=== PATIENT | male | born 1955 | race Caucasian/White ===

== ENCOUNTER 2019-05-13 10:38 | Emergency (ER) | payer OTHER ==
[2019-05-13 11:20] LABS: Absolute Lymphocytes (CBC) 2.5 K/uL (0.7-4.9); Basophils % 0.9 % (0-1.3); Hematocrit 46.4 % (39.6-49.0); Lymphocytes % 24.8 % (15.3-44.8)
[2019-05-13 11:31] LABS: Potassium 3.7 mmol/L (3.5-5.1)
[2019-05-13 11:33] LABS: Protime INR 0.93
--- NOTE | 2019-05-13 11:37 | RAD REPORT ---
EXAM DESCRIPTION: CT - Ct Stroke Brain Wo Cont - 05/13/2019 11:25 am CLINICAL HISTORY: Left facial droop/slurred speech COMPARISON: None TECHNIQUE: Computed axial tomography of the head was obtained. All CT scans are performed using dose optimization technique as appropriate and may include automated exposure control or mA/KV adjustment according to patient size. FINDINGS: An intracranial bleed is not seen . The ventricles are normal in caliber. No extra-axial fluid collection is noted. Small calcification adjacent to the right aspect of the fourth ventricle likely not significant Fluid within the sinuses/ mastoids is not seen. IMPRESSION: No acute intracranial abnormality is seen. If patient's symptoms persist MRI of the bra in would be recommended. Junction of the emergency room was notified at 11:30 a.m. May 13, 2019
--- NOTE | 2019-05-13 12:00 | RAD REPORT ---
EXAM DESCRIPTION: RAD - Chest Single View - 05/13/2019 11:47 am CLINICAL HISTORY: left facial droop Chest pain. COMPARISON: Chest Single View dated 03/24/2016; CHEST SINGLE VIEW dated 06/18/2015; CHEST SINGLE VIEW dated 10/07/2014; CHEST SINGLE VIEW dated 10/06/2014; Ct Stroke Brain Wo Cont dated 05/13/2019 FINDINGS: Portable technique limits examination quality. The lungs are grossly clear. The heart is normal in size. No displaced fractures. IMPRESSION: No acute intrathoracic process suspected.
--- NOTE | 2019-05-13 12:33 | EKG ---
Test Date: 2019-05-13 Test Time: 11:37:27 Doughnut Icer: SAE MEASUREMENT RESULTS: Intervals: Rate: 69 SD: 140 QRSD: 74 QT: 386 QTc: 413 Hobson: P: 41 SD: 140 QRS: 39 T: 66 INTERPRETIVE STATEMENTS: Normal sinus rhythm Normal ECG Compared to ECG 02/17/2017 09:11:01 No significant changes Electronically Signed On 05-13-19 12:32:33 CDT by Segundo Baugh
--- NOTE | 2019-05-13 13:18 | RAD REPORT ---
EXAM DESCRIPTION: MRI - Brain W/Wo Cont - 05/13/2019 1:11 pm CLINICAL HISTORY: Slurred speech/left facial droop COMPARISON: May 13, [address] TECHNIQUE: Axial, sagittal, and coronal magnetic images of the brain were obtained. 20 cc MultiHance administered intravenously FINDINGS: No significant abnormal signal within the brain The ventricles are normal in caliber. Diffusion-weighted/ ADC mapping sequences do not demonstrate evidence of an acute infarction. No abnormal enhancement within the brain is seen. An extra-axial fluid collection is not noted. Fluid within the sinuses/mastoids is not seen IMPRESSION: No acute abnormality displayed
--- NOTE | 2019-05-13 13:19 | RAD REPORT ---
EXAM DESCRIPTION: MRI - MRA Head Wo Cont - 05/13/2019 1:11 pm CLINICAL HISTORY: Slurred speech/left facial droop COMPARISON: None. TECHNIQUE: Magnetic resonance angiogram was performed. 3D MIPS reconstruction performed FINDINGS: The anterior cerebral, middle cerebral, posterior cerebral, distal internal carotid and ba silar arteries do not demonstrate a significant stenosis. origin right posterior cerebral artery An aneurysm is not displayed. IMPRESSION: Unremarkable MRA brain.
--- NOTE | 2019-05-13 13:23 | RAD REPORT ---
EXAM DESCRIPTION: MRI - MRA Neck W/Wo Cont - 05/13/2019 1:11 pm CLINICAL HISTORY: Slurred speech/left facial droop COMPARISON: None. TECHNIQUE: Magnetic resonance angiogram of the neck was performed. Twenty cc MultiHance was administ ered intravenously. 3D MIPS reconstruction performed FINDINGS: The signal within the arteries is suboptimal secondary to technical factors. . No gross abnormality of the common carotid, internal carotid, external carotid, basilar and vertebral arteries The right vertebral artery is dominant. Portions of the proximal vertebral arteries are not included in the field of view and are not evaluated. . IMPRESSION: Grossly normal MRA neck NASCET criteria used. Mild 0-49% stenosis Moderate 50-69% stenosis Severe 70-99% stenosis
--- NOTE | 2019-05-13 13:47 | EDPHYS ---
Physician Documentation [facility] Name: Surinder Hi Age: 63 yrs Sex: Male : 1955 Arrival Date: 05/13/2019 Time: 10:39 Bed 16 Private MD: ED Physician Henry Marquez HPI: 05/13 13:08 This 63 yrs old Male presents to ER via Ambulatory with complaints of rn Weakness left face. 13:08 The patient's problem is reported as a facial droop, on left. Onset: The rn symptoms/episode began/occurred 2 day(s) ago. Duration: The episode is continuous. Context: the episode(s) was witnessed, by co-worker(s), occurred at an unknown location. The symptoms are alleviated by nothing. The symptoms are aggravated by nothing. Severity of symptoms: At their worst the symptoms were mild in the emergency department the symptoms are unchanged. The patient has not experienced similar symptoms in the past. Reports 2 days ago boss noticed left facial droop, reports got dizzy, did not pass out, no trauma. Has had heart attack in past but no stroke, on blood thinner. Reports left facial droop, feels thing coming out of left mouth, also feels left eye a little weak/spasm. Reports numbness to left face as well. Initially reported to triage slurred speech, but when asked to be specific, denies change in speech clarity or dona, just feels like has to think more before speaking. No vision changes. No extremity weakness or paresthesias. Reports never went away or got better, boss made him come today. . 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 - Social history:: Smoking status: Patient uses tobacco products, smokes one-half pack cigarettes per day. - Ebola Screening: : No symptoms or risks identified at this time. - Family history:: not pertinent. - Hospitalizations: : No recent hospitalization is reported. ROS: 13:08 Constitutional: Negative for fever, chills, and weight loss, Eyes: Negative for injury, rn pain, redness, and discharge, Neck: Negative for injury, pain, and swelling, Cardiovascular: Negative for chest pain, palpitations, and edema, Respiratory: Negative for shortness of breath, cough, wheezing, and pleuritic chest pain, Abdomen/GI: Negative for abdominal pain, nausea, vomiting, diarrhea, and constipation, MS/Extremity: Negative for injury and deformity, Skin: Negative for injury, rash, and discoloration, Neuro: Negative for headache, and seizure. Exam: 13:08 Radiologist reports: No acute findings. rn 13:08 Constitutional: This is a well developed, well nourished patient who is awake, alert, and in no acute distress. Head/Face: Normocephalic, atraumatic. Eyes: Pupils equal round and reactive to light, extra-ocular motions intact. Lids and lashes normal. Conjunctiva and sclera are non-icteric and not injected. Cornea within normal limits. Periorbital areas with no swelling, redness, or edema. ENT: Mucous membranes moist. Cardiovascular: Regular rate and rhythm. No pulse deficits. Respiratory: No increased work of breathing, no retractions or nasal flaring. Abdomen/GI: soft, non-tender MS/ Extremity: Pulses equal, no cyanosis. Neurovascular intact. Full, normal range of motion. Equal circumference. Neuro: Awake and alert, GCS 15, oriented to person, place, time, and situation. + left mild facial droop more evident left lower face, but seems slight to left eye as well. Motor strength 5/5 in all extremities. Sensory grossly intact in extremities, decreased sensation to soft touch left face. Cerebellar exam normal. Normal gait. Vital Signs: 10:53 BP 144 / 74; Pulse 80; Resp 16; Temp 98.4; Pulse Ox 100% on R/A; Weight 89.36 kg; la1 Height 5 ft. 8 in. (172.72 cm); 11:42 BP 129 / 76; Pulse 69; Resp 19 S; Pulse Ox 95% on R/A; ca1 14:10 BP 131 / 71; Pulse 72; Resp 16 S; Pulse Ox 100% on R/A; ca1 10:53 Body Mass Index 29.95 (89.36 kg, 172.72 cm) la1 NIH Stroke Scale Scores: 11:21 NIHSS Score: 2 ca1 MDM: 10:54 Patient medically screened. rn 13:43 Differential diagnosis: CVA, metabolic disorder, bells palsy. Data reviewed: vital rn signs, nurses notes, lab test result(s), EKG, radiologic studies, CT scan, MRI, and as a result, I will discharge patient. Counseling: I had a detailed discussion with the patient and/or guardian regarding: the historical points, exam findings, and any diagnostic results supporting the discharge/admit diagnosis, lab results, radiology results, the need for outpatient follow up, to return to the emergency department if symptoms worsen or persist or if there are any questions or concerns that arise at home. Response to treatment: There is no appreciated change of the patient's symptoms at this time. Special discussion: I discussed with the patient/guardian in detail that at this point there is no indication for admission to the hospital. It is understood, however, that if the symptoms persist or worsen the patient needs to return immediately for re-evaluation. Based on the history and exam findings, there is no indication for further emergent testing or inpatient evaluation. I discussed with the patient/guardian the need to see the neurologist for further evaluation of the symptoms. ED course: No acute findings on CT head or MRI stroke protocol, given symptoms isolated to left face, could be neuropathy or bells palsy. . 05/13 11:08 Order name: Basic Metabolic Panel; Complete Time: 12:48 rn 05/13 11:08 Order name: CBC with Diff; Complete Time: 12:48 rn 05/13 11:08 Order name: Protime (+inr); Complete Time: 12:48 rn 05/13 11:08 Order name: Ptt, Activated; Complete Time: 12:48 rn 05/13 11:08 Order name: CT Stroke Brain w/o Contrast; Complete Time: 12:48 rn 05/13 11:31 Order name: Glucose, Ancillary Testing EDCO 05/13 11:08 Order name: Stroke CXR 1 View; Complete Time: 12:48 rn 05/13 11:08 Order name: EKG; Complete Time: 11:09 rn 05/13 11:08 Order name: Accucheck; Complete Time: 11:22 rn 05/13 11:08 Order name: Cardiac monitoring; Complete Time: 11:10 rn 05/13 11:37 Order name: MRA Head Wo Cont; Complete Time: 13:36 EDMS 05/13 11:37 Order name: Brain W/Wo Cont; Complete Time: 13:36 EDCO 05/13 11:37 Order name: MRA Neck W/Wo Cont; Complete Time: 13:36 EDMS 05/13 11:08 Order name: EKG - Nurse/Tech; Complete Time: 11: rn 05/13 11:08 Order name: IV Saline Lock; Complete Time: 11: rn 05/13 11:08 Order name: Labs collected and sent; Complete Time: 11: rn 05/13 11:08 Order name: NPO; Complete Time: : rn 05/13 11:08 Order name: O2 Per Protocol; Complete Time: : rn 05/13 11:08 Order name: O2 Sat Monitoring; Complete Time: : rn 05/13 11:08 Order name: Stroke Swallow Screen; Complete Time: 11:42 rn Administered Medications: No medications were administered Disposition: 05/13/19 13:46 Discharged to Home. Impression: Facial weakness. - Condition is Stable. - Discharge Instructions: Chaudhry Palsy, Adult. - Prescriptions for Acyclovir 400 mg Oral Tablet - take 1 tablet by ORAL route 5 times per day for 10 days; 50 tablet. Prednisone 20 mg Oral Tablet - take 1 tablet by ORAL route as directed for 10 days Take 3 tablets orally daily for 5 days, followed by 2 tablets orally daily for 3 days, then 1 tablet orally daily for 2 days. Total of 10 days.; 23 tablet. - Medication Reconciliation Form, Thank You Letter, Antibiotic Education, Prescription Opioid Use, Work release form form. - Follow up: Private Physician; When: As needed; Reason: Recheck today's complaints, Re-evaluation by your physician. - Problem is new. - Symptoms have improved. NIH Stroke Scale - NIH Stroke Score Date: 05/13/2019 Time: 11:21 Total Score = 2 1a. Level of Consciousness (LOC) - 0(Alert) 1b. Level of Consciousness (LOC) (Year \T\ Age) - 0(Both) 1c. LOC Commands (Open \T\ Closes Eyes/Bag Checker) - 0(Both) 2. Best Gaze (Lateral Gaze Paresis) - 0(Normal) 3. Visual Field Loss - 0(No visual loss) 4. Facial Palsy - 1(Minor Paralysis) 5a. Left Arm: Motor (10-second hold) - 0(No drift) 5b. Right Arm: Motor (10-second hold) - 0(No drift) 6a. Left Leg: Motor (5-second hold - always test supine) - 0(No drift) 6b. Right Leg: Motor (5-second hold - always test supine) - 0(No drift) 7. Limb Ataxia (finger/nose \T\ heel/white - test with eyes open) - 0(Absent) 8. Sensory Loss (pinprick arms/legs/face) - 0(Normal) 9. Best Language: Aphasia (description/naming/reading) - 0(No aphasia) 10. Dysarthria (speech clarity - read or repeat words) - 1(Mild to Moderate) 11. Extinction and Inattention (visual/tactile/auditory/spatial/personal) - 0(No abnormality) Initials: ca1 Signatures: Dispatcher [employer] EDMS Henry Marquez MD MD rn Attema, HARSHAL Murrieta RN la1 Vani Simon RN RN ca1 Corrections: (The following items were deleted from the chart) 11:37 11:10 MR STROKE PROTOCOL+MRI.RAD.BRZ ordered. [facility] 14:11 13:46 05/13/2019 13:46 Discharged to Home. Impression: Facial weakness. ca1 Condition is Stable. Forms are Medication Reconciliation Form, Thank You Letter, Antibiotic Education, Prescription Opioid Use. Follow up: Private Physician; When: As needed; Reason: Recheck today's complaints, Re-evaluation by your physician. Problem is new. Symptoms have improved. rn
--- NOTE | 2019-05-13 13:47 | ER ---
Nurse's Notes [facility] Name: Surinder Hi Age: 63 yrs Sex: Male : 1955 Arrival Date: 05/13/2019 Time: 10:39 Bed 16 Private MD: Diagnosis: Facial weakness Presentation: 05/13 10:46 Presenting complaint: Patient states: On Thursday I was at work and started to have la1 slurred speech and almost passed out, now stuff is dripping out of the left side of my mouth and my speech is slurred still. Transition of care: patient was not received from another setting of care. Onset of symptoms was May 10, 2019. Risk Assessment: Do you want to hurt yourself or someone else? Patient reports no desire to harm self or others. Initial Sepsis Screen: Does the patient meet any 2 criteria? No. Patient's initial sepsis screen is negative. Does the patient have a suspected source of infection? No. Patient's initial sepsis screen is negative. Care prior to arrival: None. 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 - Social history:: Smoking status: Patient uses tobacco products, smokes one-half pack cigarettes per day. - Ebola Screening: : No symptoms or risks identified at this time. - Family history:: not pertinent. - Hospitalizations: : No recent hospitalization is reported. Screenin:16 Abuse screen: Denies threats or abuse. Denies injuries from another. Nutritional ca1 screening: No deficits noted. Tuberculosis screening: No symptoms or risk factors identified. Fall Risk IV access (20 points). 11:42 Patient has been NPO before screening. The patient is alert, able to follow commands. ca1 The patient exhibits slurred or garbled speech. The patient is not exhibiting difficulty speaking. The patient does not exhibit difficulty understanding words. The patient is able to swallow own secretions with no drooling or need for suction. Patient tolerated one teaspoon of water. No drooling, immediate coughing, gurgling, or clearing of the throat was noted. The patient tolerated 90mL of water. No drooling, immediate coughing, gurgling, or clearing of the throat was noted. The patient passed the bedside swallow screening. Oral medications may be given as ordered. Contact Physician for further diet orders. Assessment: 11:16 General: Appears in no apparent distress. comfortable, Behavior is calm, cooperative, ca1 appropriate for age. Pain: Denies pain. Neuro: Level of Consciousness is awake, alert, obeys commands, Oriented to person, place, time, situation, Appropriate for age Riprap Worker are equal bilaterally Moves all extremities. Gait is steady, Speech is slurred, Facial symmetry appears normal, Pupils are PERRLA, Intact. Cardiovascular: Heart tones S1 S2 present Capillary refill < 3 seconds Patient's skin is warm and dry. Rhythm is sinus rhythm. Respiratory: Airway is patent Respiratory effort is even, unlabored, Respiratory pattern is regular, symmetrical, Breath sounds are clear bilaterally. GI: Abdomen is flat, non-distended, Bowel sounds present X 4 quads. Abd is soft and non tender X 4 quads. : No deficits noted. No signs and/or symptoms were reported regarding the genitourinary system. EENT: No deficits noted. No signs and/or symptoms were reported regarding the EENT system. Derm: Skin is intact, is healthy with good turgor, Skin is pink, warm \T\ dry. Musculoskeletal: Circulation, motion, and sensation intact. Capillary refill < 3 seconds, Range of motion: intact in all extremities. 13:10 Reassessment: Patient appears in no apparent distress at this time. Patient and/or ca1 family updated on plan of care and expected duration. Pain level reassessed. Patient is alert, oriented x 3, equal unlabored respirations, skin warm/dry/pink. 14:10 Reassessment: Patient appears in no apparent distress at this time. Patient is alert, ca1 oriented x 3, equal unlabored respirations, skin warm/dry/pink. Vital Signs: 10:53 BP 144 / 74; Pulse 80; Resp 16; Temp 98.4; Pulse Ox 100% on R/A; Weight 89.36 kg; la1 Height 5 ft. 8 in. (172.72 cm); 11:42 BP 129 / 76; Pulse 69; Resp 19 S; Pulse Ox 95% on R/A; ca1 14:10 BP 131 / 71; Pulse 72; Resp 16 S; Pulse Ox 100% on R/A; ca1 10:53 Body Mass Index 29.95 (89.36 kg, 172.72 cm) la1 NIH Stroke Scale Scores: 11:21 NIHSS Score: 2 ca1 ED Course: 10:39 Patient arrived in ED. as 10:52 Triage completed. la1 10:53 Arm band placed on right wrist. la1 10:54 Henry Marquez MD is Attending Physician. rn 10:54 Vani Simon RN is Primary Nurse. ca1 11:11 No provider procedures requiring assistance completed. Initial lab(s) drawn, by me, ca1 sent to lab. Inserted saline lock: 20 gauge in left antecubital area, using aseptic technique. Blood collected. 11:16 Patient has correct armband on for positive identification. Bed in low position. Call ca1 light in reach. Side rails up X2. cardiac monitor technician on. Pulse ox on. NIBP on. Warm blanket given. 11:23 CT completed. Patient tolerated procedure well. Patient moved to CT via stretcher. sw Patient moved back from CT. 11:25 CT Stroke Brain w/o Contrast In Process Unspecified. EDMS 11:47 EKG done, by biomedical repair technician. reviewed by Henry Marquez MD. at1 11:48 Stroke CXR 1 View In Process Unspecified. EDMS 11:50 Patient moved to MRI via wheelchair. ca1 13:11 MRA Head Wo Cont In Process Unspecified. EDMS 13:11 Brain W/Wo Cont In Process Unspecified. EDMS 13:11 MRA Neck W/Wo Cont In Process Unspecified. EDMS 14:10 IV discontinued, intact, bleeding controlled, No redness/swelling at site. Pressure ca1 dressing applied. Administered Medications: No medications were administered Outcome: 13:46 Discharge ordered by . rn 14:10 Discharged to home ambulatory. ca1 14:10 Condition: stable 14:10 Discharge instructions given to patient, Instructed on discharge instructions, follow up and referral plans. medication usage, Demonstrated understanding of instructions, follow-up care, medications, Prescriptions given X 2. 14:11 Patient left the ED. ca1 NIH Stroke Scale - NIH Stroke Score Date: 05/13/2019 Time: 11:21 Total Score = 2 1a. Level of Consciousness (LOC) - 0(Alert) 1b. Level of Consciousness (LOC) (Year \T\ Age) - 0(Both) 1c. LOC Commands (Open \T\ Closes Eyes/Biazzi Nitrator Operator) - 0(Both) 2. Best Gaze (Lateral Gaze Paresis) - 0(Normal) 3. Visual Field Loss - 0(No visual loss) 4. Facial Palsy - 1(Minor Paralysis) 5a. Left Arm: Motor (10-second hold) - 0(No drift) 5b. Right Arm: Motor (10-second hold) - 0(No drift) 6a. Left Leg: Motor (5-second hold - always test supine) - 0(No drift) 6b. Right Leg: Motor (5-second hold - always test supine) - 0(No drift) 7. Limb Ataxia (finger/nose \T\ heel/white - test with eyes open) - 0(Absent) 8. Sensory Loss (pinprick arms/legs/face) - 0(Normal) 9. Best Language: Aphasia (description/naming/reading) - 0(No aphasia) 10. Dysarthria (speech clarity - read or repeat words) - 1(Mild to Moderate) 11. Extinction and Inattention (visual/tactile/auditory/spatial/personal) - 0(No abnormality) Initials: ca1 Signatures: Dispatcher [employer] No Fierro Roman, MD MD rn Gonzales, Amanda, commissary steward EKG Tat1 Lit Bhatti RN RN rosa elena1 Daria Sykes Cheryl, RN RN ca1
[2019-05-13 14:15] VITALS: TEMP 98.4
[2019-05-13 14:19] VITALS: BP 131/71; O2SAT 100
== END 2019-05-13 14:11 | disposition home or self-care (01) ==
LOC: ER 10:38
DX: R29.810 Facial weakness (principal); Z88.0 Allergy status to penicillin; I25.2 Old myocardial infarction; F17.210 Nicotine dependence, cigarettes, uncomplicated
CPT/HCPCS: 93005; 85025; 80048; 36415; 85610; 82947; 85730; 70450; 71045; 70553; 70544; 70549; 99285; A9577

== ENCOUNTER 2019-08-11 05:26 | Emergency (ER) | payer BC, OTHER ==
--- OUTSIDE RECORDS SUMMARY | 2019-08-11 05:29 | XMS REPORT ---
:1955 [facility] Address [address] [place] [address] Dr. Turcios [address] [place] [id number] Care Team Providers Name Role Phone Unavailable Unavailable Unavailable Problems This patient has no known problems. Allergies, Adverse Reactions, Alerts This patient has no known allergies or adverse reactions. Medications This patient has no known medications.
[2019-08-11 05:58] LABS: Absolute Lymphocytes (CBC) 3.3 K/uL (0.7-4.9); Basophils % 0.2 % (0-1.3); Hematocrit 53.3 % (39.6-49.0); Lymphocytes % 26.6 % (15.3-44.8); MPV 8.1 fL (7.6-11.3); RBC Red Blood Cell Count 5.89 M/uL (4.33-5.43)
[2019-08-11 06:04] LABS: Protime INR 0.89
[2019-08-11] MEDS ORDERED: ASPIRIN 81 MG CHEWABLE TABLET ONE (06:18)
[2019-08-11] MEDS ORDERED: SIMETHICONE 80 MG TAB ONE (06:19)
[2019-08-11] MEDS ORDERED: NA CHLORIDE 0.9% 500 ML ONE (06:19)
[2019-08-11] MEDS ORDERED: ALBUTEROL 2.5 MG/3 ML NEB SOL ONE (06:19)
[2019-08-11 06:20] LABS: ALT/SGPT 23 U/L (12-78); AST/SGOT 13 U/L (15-37); Albumin 3.9 g/dL (3.4-5.0); Alkaline Phosphatase 163 U/L (45-117); BUN Blood Urea Nitrogen 18 mg/dL (7-18); Bicarbonate 27 mmol/L (21-32); Bilirubin Direct 0.1 mg/dL (0-0.2); Bilirubin Total 0.4 mg/dL (0.2-1.0); Glucose Level 124 mg/dL (74-106); Magnesium 2.1 mg/dL (1.8-2.4); NT PRO-BNP 76 pg/mL (<125); Potassium 3.3 mmol/L (3.5-5.1); Protein, Total 7.9 g/dL (6.4-8.2); Sodium Level 138 mmol/L (136-145); Troponin (Emerg Dept Use Only) < 0.02 ng/mL (0.0-0.045)
--- NOTE | 2019-08-11 06:43 | EKG ---
Test Date: 2019-08-11 Test Time: 05:40:15 Inside Upholsterer: NOLVIA MEASUREMENT RESULTS: Intervals: Rate: 62 MN: 164 QRSD: 74 QT: 408 QTc: 414 Plessis: P: 64 MN: 164 QRS: 41 T: 66 INTERPRETIVE STATEMENTS: Normal sinus rhythm Normal ECG Compared to ECG 05/13/2019 11:37:27 No significant changes Electronically Signed On 08-11-19 06:42:48 DRAFTER CIVIL (CAD) by Segundo Baugh
[2019-08-11] MEDS ORDERED: SUCRALFATE 1 GM TABLET ONE (07:03)
--- NOTE | 2019-08-11 07:37 | EDPHYS ---
Physician Documentation [facility] Name: Surinder Hi Age: 63 yrs Sex: Male : 1955 Arrival Date: 08/11/2019 Time: 05:29 Bed 2 Private MD: ED Physician Armin Brenner HPI: 08/11 06:35 This 63 yrs old Male presents to ER via Ambulatory with complaints of Chest snw Pain, Redness of Eye. 06:35 Onset: The symptoms/episode began/occurred gradually, 3 day(s) ago, and became snw persistent. Associated signs and symptoms: Pertinent positives: chest pain, cough, eye irritation. The patient has not experienced similar symptoms in the past. The patient has not recently seen a physician. pt states he has had some nausea, cough, eye redness, and chest/epigastric pain since Thursday08/09/19. 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 - Coronavirus screen:: The patient has NOT traveled to [place], [place], or [place] in the past 14 days. Proceed with normal triage process as indicated. - Social history:: Smoking status: Patient reports the use of cigarette tobacco products, smokes one-half pack cigarettes per day. - Ebola Screening: : No symptoms or risks identified at this time. ROS: 06:35 Constitutional: Negative for fever, chills, and weight loss. snw 06:35 Neck: Negative for injury, pain, and swelling. 06:35 Back: Negative for injury and pain, : Negative for injury, bleeding, discharge, and swelling, MS/Extremity: Negative for injury and deformity, Skin: Negative for injury, rash, and discoloration, Neuro: Negative for headache, weakness, numbness, tingling, and seizure. 06:35 Eyes: Positive for redness. 06:35 Cardiovascular: Positive for chest pain, of the xyphoid area. 06:35 Respiratory: Positive for cough. 06:35 Abdomen/GI: Positive for nausea, Negative for vomiting. Exam: 06:00 ECG was reviewed by the Attending Physician. snw 06:38 Constitutional: This is a well developed, well nourished patient who is awake, alert, snw and in no acute distress. Head/Face: Normocephalic, atraumatic. 06:38 ENT: Nares patent. No nasal discharge, no septal abnormalities noted. Tympanic membranes are normal and external auditory canals are clear. Oropharynx with no redness, swelling, or masses, exudates, or evidence of obstruction, uvula midline. Mucous membranes moist. Neck: Trachea midline, no thyromegaly or masses palpated, and no cervical lymphadenopathy. Supple, full range of motion without nuchal rigidity, or vertebral point tenderness. No Meningismus. Chest/axilla: Normal chest wall appearance and motion. Nontender with no deformity. No lesions are appreciated. Cardiovascular: Regular rate and rhythm with a normal S1 and S2. No gallops, murmurs, or rubs. Normal PMI, no JVD. No pulse deficits. Respiratory: Lungs have equal breath sounds bilaterally, rhonci to auscultation. No rales or wheezes noted. No increased work of breathing, no retractions or nasal flaring. Abdomen/GI: Soft, non-tender, with normal bowel sounds. No distension or tympany. No guarding or rebound. No evidence of tenderness throughout. Back: No spinal tenderness. No costovertebral tenderness. Full range of motion. Skin: Warm, dry with normal turgor. Normal color with no rashes, no lesions, and no evidence of cellulitis. MS/ Extremity: Pulses equal, no cyanosis. Neurovascular intact. Full, normal range of motion. Neuro: Awake and alert, GCS 15, oriented to person, place, time, and situation. Cranial nerves II-XII grossly intact. Motor strength 5/5 in all extremities. Sensory grossly intact. Cerebellar exam normal. Normal gait. Psych: Awake, alert, with orientation to person, place and time. Behavior, mood, and affect are within normal limits. 06:38 Eyes: Conjunctiva: injected, bilaterally, minimally. Vital Signs: 05:45 BP 161 / 94; Pulse 64; Resp 16 S; Temp 97.8(O); Pulse Ox 98% on R/A; Weight 90.72 kg bb (R); Height 5 ft. 7 in. (170.18 cm) (R); Pain 6/10; 07:30 BP 133 / 79; Pulse 67; Resp 18; Temp 98.0; Pulse Ox 99% on R/A; Pain 2/10; ph 05:45 Body Mass Index 31.32 (90.72 kg, 170.18 cm) bb MDM: 05:56 Patient medically screened. snw 07:39 Data reviewed: vital signs, nurses notes. Data interpreted: Pulse oximetry: on room air snw is 98 %. Interpretation: normal. Counseling: I had a detailed discussion with the patient and/or guardian regarding: the historical points, exam findings, and any diagnostic results supporting the discharge/admit diagnosis, the presence of at least one elevated blood pressure reading (>120/80) during this emergency department visit, lab results, radiology results, the need for outpatient follow up, to return to the emergency department if symptoms worsen or persist or if there are any questions or concerns that arise at home, smoking cessation. Response to treatment: the patient's symptoms have markedly improved after treatment, the patient's symptoms have resolved after treatment. Special discussion: Based on the patient's history, exam, and Dx evaluation, there is no indication for emergent intervention or inpatient Tx. It is understood by the patient/guardian that if the Sx's persist or worsen they need to return immediately for re-evaluation. Based on the history and exam findings, there is no indication for further emergent testing or inpatient evaluation. I discussed with the patient/guardian the need to see the primary care provider for further evaluation of the symptoms. 08/11 05:35 Order name: Basic Metabolic Panel; Complete Time: 06:32 4 08/11 05:35 Order name: CBC with Diff; Complete Time: 06:11 tw4 08/11 05:35 Order name: LFT's; Complete Time: 06:32 4 08/11 05:35 Order name: Magnesium; Complete Time: 06:32 08/11 05:35 Order name: NT PRO-BNP; Complete Time: 06:32 08/11 05:35 Order name: PT-INR; Complete Time: 06:32 08/11 05:35 Order name: Troponin (emerg Dept Use Only); Complete Time: 06:32 08/11 05:35 Order name: XRAY Chest (1 view) 08/11 06:03 Order name: Lipase; Complete Time: 06:50 snw 08/11 05:35 Order name: EKG; Complete Time: 05:38 08/11 05:35 Order name: Cardiac monitoring; Complete Time: 05:44 08/11 05:35 Order name: EKG - Nurse/Tech; Complete Time: 05:44 08/11 05:35 Order name: IV Saline Lock; Complete Time: 05:44 08/11 05:35 Order name: Labs collected and sent; Complete Time: 05:45 08/11 05:35 Order name: O2 Per Protocol; Complete Time: 06:13 08/11 05:35 Order name: O2 Sat Monitoring; Complete Time: 06:13 Administered Medications: 06:24 Drug: Simethicone 240 mg Route: PO; ao 06:24 Drug: Albuterol 2.5 mg Route: Inhalation; ao 06:24 Not Given (Patient Refused): Aspirin 81 mg PO once ao 06:24 Drug: NS 0.9% 500 ml Route: IV; Rate: bolus; Site: right antecubital; ao 07:03 Drug: CarafATE 1 grams Route: PO; rv Disposition: 11:22 Co-signature as Attending Physician, Armin Brenner MD I agree with the assessment and plan of care. Disposition: 08/11/19 07:37 Discharged to Home. Impression: Chronic obstructive pulmonary disease, unspecified, Gastro-esophageal reflux disease, Chest pain, unspecified. - Condition is Stable. - Discharge Instructions: Nonspecific Chest Pain, Chronic Obstructive Pulmonary Disease, Gastroesophageal Reflux Disease, Adult, Hypertension, Steps to Quit Smoking, Smoking Hazards, Rehydration, Adult. - Prescriptions for Carafate 1 gram Oral Tablet - take 2 tablet by ORAL route every 12 hours take on an empty stomach, beginning on waking and last dose at bedtime; 100 tablet. - Work release form, Medication Reconciliation Form, Thank You Letter, Antibiotic Education, Prescription Opioid Use form. - Follow up: Emergency Department; When: As needed; Reason: Worsening of condition. Follow up: Private Physician; When: 2 - 3 days; Reason: Recheck today's complaints, Continuance of care, Re-evaluation by your physician. - Notes: Please take GasX as directed as needed for pressure. Signatures: Dispatcher [employer] EDMS Dee Olea, GEMINI-C BENCH MANAGER-Csnw Delicia Andino, RN RN bb Martha Santamaria RN RN Gregg Sosa, RN RN Armin Ramírez MD MD tw4 Hiro Ramirez RN RN rv Corrections: (The following items were deleted from the chart) 08:06 07:37 08/11/2019 07:37 Discharged to Home. Impression: Chronic obstructive pulmonary ph disease, unspecified; Gastro-esophageal reflux disease; Chest pain, unspecified. Condition is Stable. Forms are Medication Reconciliation Form, Thank You Letter, Antibiotic Education, Prescription Opioid Use. Follow up: Emergency Department; When: As needed; Reason: Worsening of condition. Follow up: Private Physician; When: 2 - 3 days; Reason: Recheck today's complaints, Continuance of care, Re-evaluation by your physician. snw
--- NOTE | 2019-08-11 07:37 | ER ---
Nurse's Notes [facility] Name: Surinder Hi Age: 63 yrs Sex: Male : 1955 Arrival Date: 08/11/2019 Time: 05:29 Bed 2 Private MD: Diagnosis: Chronic obstructive pulmonary disease, unspecified;Gastro-esophageal reflux disease;Chest pain, unspecified Presentation: 08/11 05:42 Presenting complaint: Patient states: he is having epigastric pain since Thursday the bb pain is intermittent and he has SOB at times pt has hx of [place] with stents and was concerned. Transition of care: patient was not received from another setting of care. Onset of symptoms was August 09, 2019. Risk Assessment: Do you want to hurt yourself or someone else? Patient reports no desire to harm self or others. Initial Sepsis Screen: Does the patient meet any 2 criteria? No. Patient's initial sepsis screen is negative. Does the patient have a suspected source of infection? No. Patient's initial sepsis screen is negative. Care prior to arrival: None. 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 - Coronavirus screen:: The patient has NOT traveled to [place], [place], or [place] in the past 14 days. Proceed with normal triage process as indicated. - Social history:: Smoking status: Patient reports the use of cigarette tobacco products, smokes one-half pack cigarettes per day. - Ebola Screening: : No symptoms or risks identified at this time. Screenin:26 Abuse screen: Denies threats or abuse. Denies injuries from another. Nutritional ao screening: No deficits noted. Tuberculosis screening: No symptoms or risk factors identified. Fall Risk None identified. Assessment: 05:47 General: Appears in no apparent distress. comfortable, Behavior is calm, cooperative, ao appropriate for age. Pain: Complains of pain in chest Pain does not radiate. Pain began. Neuro: Level of Consciousness is awake, alert, obeys commands, Oriented to person, place, time, situation, Appropriate for age Moves all extremities. Full function Speech is normal. Cardiovascular: Capillary refill < 3 seconds Patient's skin is warm and dry. Respiratory: Airway is patent Respiratory effort is even, unlabored, Respiratory pattern is regular, symmetrical. GI: Abdomen is non-distended. : No signs and/or symptoms were reported regarding the genitourinary system. 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 Lefty SINGLETARY was notified. ao 08:02 Reassessment: Patient appears in no apparent distress at this time. Patient and/or ph family updated on plan of care and expected duration. Pain level reassessed. Patient is alert, oriented x 3, equal unlabored respirations, skin warm/dry/pink. Pt d/c home. Vital Signs: 05:45 BP 161 / 94; Pulse 64; Resp 16 S; Temp 97.8(O); Pulse Ox 98% on R/A; Weight 90.72 kg bb (R); Height 5 ft. 7 in. (170.18 cm) (R); Pain 6/10; 07:30 BP 133 / 79; Pulse 67; Resp 18; Temp 98.0; Pulse Ox 99% on R/A; Pain 2/10; ph 05:45 Body Mass Index 31.32 (90.72 kg, 170.18 cm) bb ED Course: 05:29 Patient arrived in ED. ag3 05:43 Triage completed. bb 05:45 Arm band placed on Patient placed in an exam room, on a stretcher, on pulse oximetry. bb EKG completed in triage. Results shown to MD. 05:55 Dee Ole[facility] FNP-C [facility]. snw 05:55 Armin Brenner MD is Attending Physician. snw 06:04 XRAY Chest (1 view) In Process Unspecified. EDMS 06:05 Inserted saline lock: 20 gauge in right antecubital area, using aseptic technique. ao Blood collected. 06:26 Patient has correct armband on for positive identification. Pulse ox on. NIBP on. ao Sitter at bedside. 06:27 Patient maintains SpO2 saturation greater than 95% on room air. ao 08:02 Martha Santamaria, RN is Primary Nurse. ph 08:04 No provider procedures requiring assistance completed. IV discontinued, intact, ph bleeding controlled, No redness/swelling at site. Pressure dressing applied. Administered Medications: 06:24 Drug: Simethicone 240 mg Route: PO; ao 06:24 Drug: Albuterol 2.5 mg Route: Inhalation; ao 06:24 Not Given (Patient Refused): Aspirin 81 mg PO once ao 06:24 Drug: NS 0.9% 500 ml Route: IV; Rate: bolus; Site: right antecubital; ao 07:03 Drug: CarafATE 1 grams Route: PO; rv Outcome: 07:37 Discharge ordered by MD. snw 08:05 Discharged to home ambulatory. ph 08:05 Condition: good 08:05 Discharge instructions given to patient, Instructed on discharge instructions, follow up and referral plans. medication usage, Demonstrated understanding of instructions, follow-up care, medications. 08:05 Prescriptions given X 1. 08:06 Patient left the ED. ph Signatures: Dispatcher [employer] EDPA Dee Olea, SUPERVISOR [employer]STRUMENT MECHANICS-C SUPERVISOR INSTRUMENT MECHANICS-Csnw Delicia Andino RN RN bb Hall, Patricia, HARSHAL CAPUTO ph Gregg Sosa RN RN ao Vicente, Ronaldo RN HARSHAL Sonja Zambrano ag3
--- NOTE | 2019-08-11 08:16 | RAD REPORT ---
EXAM DESCRIPTION: Jina Single View08/11/2019 6:04 am CLINICAL HISTORY: Chest pain COMPARISON: 2018 FINDINGS: The lungs appear clear of acute infiltrate. The heart is normal size IMPRESSION: No acute abnormalities displayed
[2019-08-11 14:25] VITALS: BP 133/79; TEMP 98; O2SAT 99
== END 2019-08-11 08:06 | disposition home or self-care (01) ==
LOC: ER 05:26
DX: R07.9 Chest pain, unspecified (principal); J44.9 Chronic obstructive pulmonary disease, unspecified; K21.9 Gastro-esophageal reflux disease without esophagitis; Z88.0 Allergy status to penicillin; I10 Essential (primary) hypertension; I25.2 Old myocardial infarction; E78.00 Pure hypercholesterolemia, unspecified
CPT/HCPCS: 93005; 85025; 80048; 36415; 83735; 85610; 80076; 84484; 83690; 83880; 71045; 99285; J7040

== ENCOUNTER 2020-01-10 12:21 | Emergency (ER) | payer BC ==
--- NOTE | 2020-01-10 13:53 | RAD REPORT ---
EXAM DESCRIPTION: US - Extremity Venous Uni Ltd - 01/10/2020 1:41 pm CLINICAL HISTORY: Pain;Swelling Leg swelling and edema. COMPARISON: Extremity Venous Uni Ltd dated 05/06/2017 FINDINGS: Left lower extremity venous system was interrogated with Doppler technique. Normal flow, c ompressibility and augmentation was noted. There is no DVT present. IMPRESSION: No evidence of left lower extremity deep venous thrombosis.
--- NOTE | 2020-01-10 13:54 | RAD REPORT ---
EXAM DESCRIPTION: US - Lower Extremity Artery Uni Ltd - 01/10/2020 1:32 pm CLINICAL HISTORY: PAIN Left leg pain and claudication COMPARISON: Lower Extremity Artery Uni Ltd dated 02/17/2017 FINDINGS: There is occlusion of the superior femoral artery throughout its course including the prox imal, mid and distal aspects. Common femoral artery demonstrates monophasic flow. Blunted, monophasic flow is seen reconstitute inguinal left popliteal artery and distal vessels. This is likely related to collateral flow. IMPRESSION: Chronic occlusion left superficial femoral artery as detailed.
[2020-01-10] MEDS ORDERED: KETOROLAC 30 MG/ML INJ ONE (14:20)
--- NOTE | 2020-01-10 14:24 | ER ---
Nurse's Notes [facility] Name: Surinder Hi Age: 64 yrs Sex: Male : 1955 Arrival Date: 01/10/2020 Time: 12:25 Bed 19 Private MD: Diagnosis: Pain in left lower leg Presentation: 01/09 12:37 Chief complaint: Patient states: Left posterior knee pain for 2 weeks getting ll1 progressively worse. Left foot is swollen for 4 days. No fever. No known trauma. Coronavirus screen: Proceed with normal triage. Patient denies a cough. Patient denies shortness of breath or difficulty breathing. Patient denies measured and/or subjective temperature greater than 100.4F prior to today's visit. Patient denies travel on a cruise ship or to a country the [facility] currently lists as an affected area. Patient denies contact with known and/or suspected case of COVID-19. Ebola Screen: Patient denies travel to an Ebola-affected area in the 21 days before illness onset. Initial Sepsis Screen: Does the patient meet any 2 criteria? No. Patient's initial sepsis screen is negative. Risk Assessment: Do you want to hurt yourself or someone else? Patient reports no desire to harm self or others. Onset of symptoms was December 27, 2019. 12:37 Method Of Arrival: Ambulatory ll1 12:37 Acuity: GERSON 3 ll1 13:53 Initial Sepsis Screen: Does the patient have a suspected source of infection? No. ah Patient's initial sepsis screen is negative. 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 - Social history:: Smoking status: Patient reports the use of cigarette tobacco products, smokes one-half pack cigarettes per day, Patient/guardian denies using alcohol, street drugs. Screenin:53 Abuse screen: Denies threats or abuse. Nutritional screening: No deficits noted. Tuberculosis screening: No symptoms or risk factors identified. Fall Risk None identified. Assessment: 13:02 General: Appears in no apparent distress. Behavior is calm, cooperative, appropriate for age. Pain: Complains of pain in posterior aspect of left knee, left knee and left white Pain currently is 7 out of 10 on a pain scale. Neuro: Level of Consciousness is awake, alert, obeys commands, Oriented to person, place, time, situation, Appropriate for age. Cardiovascular: Denies chest pain, shortness of breath, Heart tones S1 S2 present Capillary refill < 3 seconds Patient's skin is warm and dry. Pulses. Respiratory: Airway is patent Respiratory effort is even, unlabored. Derm: Skin is intact, is healthy with good turgor, Skin is dry. 14:00 Reassessment: Patient and/or family updated on plan of care and expected duration. Pain ah level reassessed. Patient is alert, oriented x 3, equal unlabored respirations, skin warm/dry/pink. awaiting results. Vital Signs: 12:37 BP 147 / 90; Pulse 64; Resp 18; Temp 98.1; Pulse Ox 95% ; Pain 9/10; ll1 13:00 BP 135 / 85; Pulse 61; Resp 17; Pulse Ox 94% ; ah 13:45 BP 141 / 85; Pulse 58; Resp 16; Pulse Ox 94% ; ah ED Course: 12:25 Patient arrived in ED. mr 12:27 RobertAnnalisa, [facility]. kb 12:27 Torsten Merritt MD is Attending Physician. kb 12:39 Triage completed. ll1 12:39 Arm band placed on Patient placed in an exam room, on a stretcher. ll1 12:40 Natalie Baugh, RN is Primary Nurse. ah 13:32 US Extremity Venous Unilateral Ltd In Process Unspecified. EDMS 13:32 US LE Artery Uni Ltd In Process Unspecified. EDMS 13:53 Patient has correct armband on for positive identification. Bed in low position. Call light in reach. Side rails up X 1. Pulse ox on. NIBP on. 14:32 No provider procedures requiring assistance completed. Patient did not have IV access during this emergency room visit. Administered Medications: 14:17 Drug: TORadol 30 mg Route: IM; Site: right deltoid; 14:31 Follow up: Response: No adverse reaction Outcome: 14:23 Discharge ordered by . kb 14:32 Discharged to home ambulatory. ah 14:32 Condition: good 14:32 Discharge instructions given to patient, Instructed on discharge instructions, follow up and referral plans. medication usage, Demonstrated understanding of instructions, follow-up care, medications, Prescriptions given X 1. 14:32 Patient left the ED. Signatures: Dispatcher [employer] EDMD Annalisa Jones, GEMINI-C INVESTIGATIVE AGENT-Stephani Wilson Natalie Baugh, RN RN Danae Cruz RN RN ll1
--- NOTE | 2020-01-10 14:24 | EDPHYS ---
Physician Documentation [facility] Name: Surinder Hi Age: 64 yrs Sex: Male : 1955 Arrival Date: 01/10/2020 Time: 12:25 Bed 19 Private MD: ED Physician Torsten Merritt HPI: 01/09 14:20 This 64 yrs old Male presents to ER via Ambulatory with complaints of Leg kb Pain. 14:20 The patient presents with pain. The complaints affect the posterior aspect of left kb knee, left calf, left Achilles, left heel, left knee, left white, anterior aspect of left ankle and dorsum of left foot. Context: The problem was sustained at home, resulted from an unknown cause, the patient can fully bear weight, the patient is able to ambulate. Onset: The symptoms/episode began/occurred 2 week(s) ago. Modifying factors: The symptoms are alleviated by nothing. the symptoms are aggravated by staying still. Associated signs and symptoms: The patient has no apparent associated signs or symptoms. Treatment prior to arrival includes: no previous treatment. Severity of symptoms: At their worst the symptoms were moderate, in the emergency department the symptoms have improved. The patient has not experienced similar symptoms in the past. The patient has not recently seen a physician. Pt reports he has been having pain to left leg from knee to foot for 2-3 weeks. States the pain is ok during the day, but it wakes him up at night and he has to walk it out. Denies injury or trauma. 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 - Social history:: Smoking status: Patient reports the use of cigarette tobacco products, smokes one-half pack cigarettes per day, Patient/guardian denies using alcohol, street drugs. ROS: 14:16 Constitutional: Negative for fever, chills, and weight loss, Cardiovascular: Negative kb for chest pain, palpitations, and edema, Respiratory: Negative for shortness of breath, cough, wheezing, and pleuritic chest pain, Abdomen/GI: Negative for abdominal pain, nausea, vomiting, diarrhea, and constipation, Back: Negative for injury and pain, Skin: Negative for injury, rash, and discoloration, Neuro: Negative for headache, weakness, numbness, tingling, and seizure. 14:16 MS/extremity: Positive for pain. Exam: 14:19 Constitutional: This is a well developed, well nourished patient who is awake, alert, kb and in no acute distress. Head/Face: Normocephalic, atraumatic. Chest/axilla: Normal chest wall appearance and motion. Nontender with no deformity. No lesions are appreciated. Cardiovascular: Regular rate and rhythm with a normal S1 and S2. No gallops, murmurs, or rubs. Normal PMI, no JVD. No pulse deficits. Respiratory: Lungs have equal breath sounds bilaterally, clear to auscultation and percussion. No rales, rhonchi or wheezes noted. No increased work of breathing, no retractions or nasal flaring. Abdomen/GI: Soft, non-tender, with normal bowel sounds. No distension or tympany. No guarding or rebound. No evidence of tenderness throughout. Skin: Warm, dry with normal turgor. Normal color with no rashes, no lesions, and no evidence of cellulitis. Neuro: Awake and alert, GCS 15, oriented to person, place, time, and situation. Cranial nerves II-XII grossly intact. Motor strength 5/5 in all extremities. Sensory grossly intact. Cerebellar exam normal. Normal gait. 14:19 Musculoskeletal/extremity: Extremities: grossly normal except: noted in the left leg: pain, ROM: no acute changes, Pulses: noted to be 1+ in the left dorsalis pedis artery, Sensation intact. Vital Signs: 12:37 BP 147 / 90; Pulse 64; Resp 18; Temp 98.1; Pulse Ox 95% ; Pain 9/10; ll1 13:00 BP 135 / 85; Pulse 61; Resp 17; Pulse Ox 94% ; ah 13:45 BP 141 / 85; Pulse 58; Resp 16; Pulse Ox 94% ; ah MDM: 12:41 Patient medically screened. kb 14:16 Data reviewed: vital signs, nurses notes. Data interpreted: Pulse oximetry: on room air kb is 94 %. Interpretation: normal. Counseling: I had a detailed discussion with the patient and/or guardian regarding: the historical points, exam findings, and any diagnostic results supporting the discharge/admit diagnosis, radiology results, the need for outpatient follow up, a family practitioner, to return to the emergency department if symptoms worsen or persist or if there are any questions or concerns that arise at home. 01/09 12:42 Order name: Extremity Venous Unilateral Ltd; Complete Time: 13:54 kb 01/09 13:05 Order name: LE Artery Uni Ltd; Complete Time: 13:57 kb Administered Medications: 14:17 Drug: TORadol 30 mg Route: IM; Site: right deltoid; ah 14:31 Follow up: Response: No adverse reaction ah Disposition: 01/10 06:03 Co-signature as Attending Physician, Torsten Merritt MD I agree with the assessment and kdr plan of care. Disposition: 01/10/20 14:23 Discharged to Home. Impression: Pain in left lower leg. - Condition is Stable. - Discharge Instructions: Musculoskeletal Pain. - Prescriptions for Cyclobenzaprine 10 mg Oral Tablet - take 1 tablet by ORAL route every 8 hours As needed; 21 tablet. - Medication Reconciliation Form, Thank You Letter, Antibiotic Education, Prescription Opioid Use form. - Follow up: Emergency Department; When: As needed; Reason: Worsening of condition. Follow up: Private Physician; When: 2 - 3 days; Reason: Recheck today's complaints, Continuance of care, Re-evaluation by your physician. Signatures: Dispatcher [employer] EDAnnalisa Farley, BAKER BREAD-C BAKER BREAD-Torsten Moyer MD MD [facility] Natalie Baugh, RN RN Danae Zavaleta RN RN ll1 Corrections: (The following items were deleted from the chart) 01/09 14:32 14:23 01/10/2020 14:23 Discharged to Home. Impression: Pain in left lower leg. Condition is Stable. Forms are Medication Reconciliation Form, Thank You Letter, Antibiotic Education, Prescription Opioid Use. Follow up: Emergency Department; When: As needed; Reason: Worsening of condition. Follow up: Private Physician; When: 2 - 3 days; Reason: Recheck today's complaints, Continuance of care, Re-evaluation by your physician. kb
[2020-01-10 14:44] VITALS: TEMP 98.1
[2020-01-10 14:45] VITALS: O2SAT 94
[2020-01-10 14:47] VITALS: BP 141/85
--- OUTSIDE RECORDS SUMMARY | 2020-01-10 15:36 | XMS REPORT | Continuity of Care Document ---
:1955 Author Organization [facility] t Address [address] [place] [address] Care Team Providers Name Role Phone Charli NAVAS, Scott Primary Care Physician Problems This patient has no known problems. Allergies, Adverse Reactions, Alerts Allergy Allergy Status Severity Reaction(s) Onset Inactive Treating Comm ents Source Name Type Date Date Clinician Penicill Propensi Active Itching [place] on in G ty to 01-21 [facility] adverse 00:00: st reaction 00 s to drug Family History Family Member Diagnosis Comments Start Date Stop Date Source Natural father Cancer [facility] Natural father Hypertension [facility] Natural mother Cancer [facility] Natural mother Hypertension [facility] Social History Social Habit Start Date Stop Date Quantity Comments Source History of tobacco Cigarette Smoker [place] [facility] Sex Assigned At [facility] Cigarettes smoked 2018-01-21 2018-01-21 [place] current (pack per 00:00:00 00:00:[address] day) - Reported Cigarette 2018-01-21 2018-01-21 [place] pack-years 00:00:00 00:00:00 [facility] Alcohol intake 2018-01-21 2018-01-21 Current [place] 00:00:00 00:00:00 non-drinker of [facility] alcohol (finding) Smoking Status Start Date Stop Date Source Current every day smoker 2018-01-21 00:00:00 [place] [facility] Medications Ordered Filled Start Stop Current Ordering Indication Dosage Frequency Signature Comments Components Source Medication Medication Date Date Medication? Clinician (SIG) Name Name methocarbam Yes [place] n ol 01-18 [facility] (ROBAXIN) 00:00: st 500 MG 00 tablet methylPREDN Yes Shahriar hatch ISolone 709 [facility] (MEDROL 00:00: st DOSEPAK) 4 00 mg tablet amLODIPine Yes [facility]huja (NORVASC) 01-07 [facility] 10 mg 00:00: st tablet 00 atorvastati Yes Shahriar hatch n (LIPITOR) 01-07 [facility] 20 MG 00:00: st tablet 00 cilostazol Yes [facility]huja (PLETAL) 01-07 [facility] 100 MG 00:00: st tablet 00 lisinopril- Yes Shahriar hatch hydrochloro 01-07 [facility] thiazide 00:00: st (PRINZIDE,Z 00 ESTORETIC) 20-12.5 mg per tablet metoprolol Yes [place] succinate 01-07 [facility] XL 00:00: st (TOPROL-XL) 00 50 mg 24 hr tablet Procedures This patient has no known procedures. Plan of Care Planned Activity Planned Date Details Comments Source Future Scheduled 2020-02-11 INFLUENZA VACCINE Shahriar hatch [facility] Test 00:00:00 [code = INFLUENZA VACCINE] Future Scheduled 2007 COLONOSCOPY SCREENING [facility] Test 00:00:00 [code = COLONOSCOPY SCREENING] Future Scheduled 2007 SHINGLES VACCINES Shahriar hatch [facility] Test 00:00:00 (#1) [code = SHINGLES VACCINES (#1)] Results This patient has no known results.
--- OUTSIDE RECORDS SUMMARY | 2020-01-10 15:36 | XMS REPORT | Clinical Summary ---
:1955 Author Organization [facility] Address [address] [place] [address] Care Team Providers Name Role Phone Scott Augustin MD Primary Care Provider Allergies Active Allergy Reactions Severity Noted Date Comments Penicillin G Itching 01/21/2018 Medications Medication Sig Dispensed Refills Start Date End Date Status amLODIPine (NORVASC) 10 mg tablet 0 2017 Active atorvastatin (LIPITOR) 20 MG tablet 0 12/12 Active cilostazol (PLETAL) 100 MG tablet 0 2017 Active lisinopril-hydrochlorothiazide 0 8 Active (PRINZIDE,ZESTORETIC) 20-12.5 mg per tablet methocarbamol (ROBAXIN) 500 MG 0 8 Active tablet methylPREDNISolone (MEDROL DOSEPAK) 0 03/2018 Active 4 mg tablet metoprolol succinate XL (TOPROL-XL) 0 12/12 Active 50 mg 24 hr tablet Active Problems No known active problems Family History Medical History Relation Name Comments Cancer Father Father Hypertension Father Father Cancer Mother Mother Hypertension Mother Mother Relation Name Status Comments Father Father Mother Mother Social History Tobacco Use Types Packs/Day Years Used Date Current Every Day Smoker Cigarettes 0.5 45 Smokeless Tobacco: Never Used Alcohol Use Drinks/Week oz/Week Comments No Sex Assigned at Date Recorded Not on file Job Start Date Occupation Industry Not on file Not on file Not on file Travel History Travel Start Travel End No recent travel history available. Last Filed Vital Signs Not on file Plan of Treatment Health Maintenance Due Date Last Done Comments COLONOSCOPY SCREENING 2007 SHINGLES VACCINES (#1) 2007 INFLUENZA VACCINE 02/11/2020 Results Not on fileafter 01/09/2019 Advance Directives For more information, please contact: [phone] Type Date Recorded Patient Tonger Explanati on Advance Directives, Living Will and Medical Power of Trouble Clerk
== END 2020-01-10 14:32 | disposition home or self-care (01) ==
LOC: ER 12:21
DX: M79.662 Pain in left lower leg (principal); F17.210 Nicotine dependence, cigarettes, uncomplicated; I10 Essential (primary) hypertension; Z95.818 Presence of other cardiac implants and grafts; Z88.0 Allergy status to penicillin
CPT/HCPCS: 93926; 93971; 96372; 99284

== ENCOUNTER 2020-09-08 17:51 | Emergency (ER) | payer BC ==
--- OUTSIDE RECORDS SUMMARY | 2020-09-08 17:54 | XMS REPORT | Continuity of Care Document ---
:1955 Author Organization [facility] t Address [address] [place] [address] Care Team Providers Name Role Phone Arjun Augustin MD Primary Care Physician Lab, Fam Pob I Attending Clinician Unavailable Doctor Unassigned, Name Attending Clinician Unavailable Problems This patient has no known problems. Allergies, Adverse Reactions, Alerts Allergy Allergy Status Severity Reaction(s) Onset Inactive Treating Comm ents Source Name Type Date Date Clinician Penicill Propensi Active Itching [place] on in G ty to 01-21 [facility] adverse 00:00: st reaction 00 s to drug Family History Family Member Diagnosis Comments Start Date Stop Date Source Natural father Cancer [facility] Natural father Hypertension [facility] Natural mother Cancer [facility] Natural mother Hypertension [facility] Social History Social Habit Start Date Stop Date Quantity Comments Source Sex Assigned At [facility] History of tobacco Cigarette Smoker [facility] Cigarette 2018-01-21 2018-01-21 [facility] pack-years 00:00:00 00:00:00 [facility] Tobacco use and 2018-01-21 2018-01-21 Never used [facility] exposure 00:00:00 00:00:00 [facility] Alcohol intake 2018-01-21 2018-01-21 Current [facility]huja 00:00:00 00:00:00 non-drinker of [facility] alcohol (finding) Cigarettes smoked 2018-01-21 2018-01-21 [facility] current (pack per 00:00:00 00:00:[address] day) - Reported Smoking Status Start Date Stop Date Source Current every day smoker 2018-01-21 00:00:00 [facility]min[facility] Medications Ordered Filled Start Stop Current Ordering Indication Dosage Frequency Signature Comments Components Source Medication Medication Date Date Medication? Clinician (SIG) Name Name methocarbam Yes Shahriar hatch ol 01-18 [facility] (ROBAXIN) 00:00: st 500 MG 00 tablet methylPREDN Yes Shahriar hatch ISolone 01-18 [facility] (MEDROL 00:00: st DOSEPAK) 4 00 mg tablet amLODIPine Yes [place] (NORVASC) 01-07 [facility] 10 mg 00:00: st tablet 00 atorvastati Yes Shahriar hatch (LIPITOR) 01-07 [facility] 20 MG 00:00: st tablet 00 cilostazol Yes [place] (PLETAL) 01-07 [facility] 100 MG 00:00: st tablet 00 lisinopril- Yes Shahriar hatch hydrochloro 01-07 [facility] thiazide 00:00: st (PRINZIDE,Z 00 ESTORETIC) 20-12.5 mg per tablet metoprolol Yes Ahuja succinate 01-07 [facility] XL 00:00: st (TOPROL-XL) 00 50 mg 24 hr tablet Procedures This patient has no known procedures. Plan of Care Planned Activity Planned Date Details Comments Source Future Scheduled 2020-02-11 INFLUENZA VACCINE [place] [facility] Test 00:00:00 [code = INFLUENZA VACCINE] Future Scheduled 2007 COLONOSCOPY SCREENING [place] [facility] Test 00:00:00 [code = COLONOSCOPY SCREENING] Future Scheduled 2007 SHINGLES VACCINES [place] [facility] Test 00:00:00 (#1) [code = SHINGLES VACCINES (#1)] Future Scheduled 1975 Hepatitis C screening [place] [facility] Test 00:00:00 (procedure) [code = 784750695] Future Scheduled 1973 COVID-19 VACCINE (1 [place] [facility] Test 00:00:00 of 2) [code = COVID-19 VACCINE (1 of 2)] Encounters Start End Encounter Admission Attending Care Care Encounter Source Date/Time Date/Time Type Type Clinicians Facility Department ID 2020-05-21 2020-05-21 Laboratory Lab, [facility] [id number] 13:15:06 13:35:06 Only Fam Pob I Health [id number] [place] [id number] [place] [id number] nal [address] 2020-05-21 2020-05-21 Letter Doctor ARJUN [id number] 00:00:00 00:00:00 (Out) Unassigned, ED [id number] [place] [facility] [id number] Results This patient has no known results.
[2020-09-08] MEDS ORDERED: HYDROCODONE/APAP 7.5/325 MG TAB ONE (18:40)
[2020-09-08] MEDS ORDERED: LIDOCAINE 1% 20 ML MDV ONE (18:40)
--- NOTE | 2020-09-08 19:46 | RAD REPORT ---
EXAM DESCRIPTION: RAD - Pelvis - 09/08/2020 7:05 pm CLINICAL HISTORY: PAIN COMPARISON: Pelvis dated 08/31/2017 FINDINGS: Mild osteoarthritic changes involve both hips. No fracture, dislocation or AVN pattern.
--- NOTE | 2020-09-08 19:47 | RAD REPORT ---
EXAM DESCRIPTION: RAD - Femur Right - 09/08/2020 7:05 pm CLINICAL HISTORY: PAIN COMPARISON: No comparisons FINDINGS: No acute fracture or dislocation seen.
--- NOTE | 2020-09-08 19:48 | RAD REPORT ---
EXAM DESCRIPTION: RAD - Tib Fib Right - 09/08/2020 7:06 pm CLINICAL HISTORY: PAIN Trauma, pain COMPARISON: No comparisons FINDINGS: No acute fracture or dislocation seen. Large calcaneal spurs.
--- NOTE | 2020-09-08 19:52 | EDPHYS ---
Physician Documentation [facility] Name: Surinder Hi Age: 65 yrs Sex: Male : 1955 Arrival Date: 09/08/2020 Time: 17:54 Bed 3 Private MD: ED Physician Camilo Quinteros HPI: 09/08 18:20 This 65 yrs old Male presents to ER via Ambulatory with complaints of Boil, cp Leg Pain. 18:20 The patient presents with pain, that is acute. The complaints affect the right hip and cp right lower leg. 18:20 Context: resulted from the patient falling, slipped on ice, the patient can fully bear cp weight, the patient is able to ambulate, with mild difficulty. Onset: The symptoms/episode began/occurred 1.5 week(s) ago. Associated signs and symptoms: Pertinent negatives numbness, tingling, weakness. Treatment prior to arrival includes: no previous treatment. Patient also concerned about abscess to back of left upper leg. 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 - Social history:: Smoking status: Patient reports the use of cigarette tobacco products, smokes one-half pack cigarettes per day. ROS: 18:30 MS/extremity: Positive for pain, tenderness, of the right leg, Negative for decreased cp range of motion, deformity, paresthesias. 18:30 Skin: Positive for abscess, of the posterior aspect left upper leg. cp 18:30 All other systems are negative. Exam: 18:35 Constitutional: The patient appears in no acute distress, alert, awake, non-toxic, well cp developed, well nourished. 18:35 Head/Face: Normocephalic, atraumatic. cp 18:35 Chest/axilla: Inspection: normal. 18:35 Cardiovascular: Rate: normal. 18:35 Respiratory: the patient does not display signs of respiratory distress, Respirations: normal. 18:35 Abdomen/GI: Inspection: abdomen appears normal, Palpation: abdomen is soft and non-tender, in all quadrants. 18:35 Back: pain, is absent, ROM is normal. 18:35 Musculoskeletal/extremity: Extremities: grossly normal except: noted in the right hip and right lower leg: pain, tenderness, ROM: limited passive range of motion due to pain, in the right hip, Perfusion: the extremity is normally perfused throughout, Sensation intact. 18:35 Skin: abscess, that is small, of the posterior aspect left upper leg, mild swelling and minimal erythema. Vital Signs: 18:02 BP 163 / 82; Pulse 70; Resp 20; Temp 98.2(O); Pulse Ox 99% on R/A; Weight 96.16 kg; ss Height 5 ft. 8 in. (172.72 cm); Pain 10/10; 19:30 BP 148 / 82; Pulse 71; Resp 18; Pulse Ox 99% ; wh 18:02 Body Mass Index 32.23 (96.16 kg, 172.72 cm) ss Procedures: 19:55 I \T\ D: Incision and drainage was performed for an abscess of the posterior aspect left cp upper leg Prepped with Betadine, Anesthetized with 5 ml's 1% Lidocaine w/ Epi. Incised with #11 blade. Drained small amount purulent fluid. Packed with iodoform gauze, Dressing: sterile 4x4 gauze, the patient tolerated the procedure well. MDM: 18:12 Patient medically screened. cp 19:50 Data reviewed: vital signs, nurses notes, radiologic studies, plain films, and as a cp result, I will discharge patient. 19:50 Differential diagnosis: dislocation, closed fracture, contusion. Counseling: I had a cp detailed discussion with the patient and/or guardian regarding: the historical points, exam findings, and any diagnostic results supporting the discharge/admit diagnosis, radiology results, to return to the emergency department if symptoms worsen or persist or if there are any questions or concerns that arise at home. Response to treatment: the patient's symptoms have markedly improved after treatment. 09/08 19:52 Order name: Wound Culture cp 09/08 18:19 Order name: XRAY Pelvis cp 09/08 18:19 Order name: XRAY Femur RIGHT cp 09/08 18:19 Order name: XRAY Tib Fib RIGHT cp 09/08 18:19 Order name: I\T\D Setup; Complete Time: 18:25 cp 09/08 19:49 Order name: Wound dressing; Complete Time: 19:54 cp Administered Medications: 18:25 Drug: Hydrocodone-Acetaminophen (7.5 mg-325 mg) 1 tabs Route: PO; hb 19:15 Follow up: Response: No adverse reaction hb 19:58 Follow up: Response: No adverse reaction; Pain is decreased; RASS: Alert and Calm (0) 19:47 Drug: Lidocaine-Epinephrine -1%: (1:100,000) 10 ml Volume: 20 ml; Route: Infiltration; mg2 19:48 Follow up: Response: No adverse reaction mg2 Disposition: 20:05 Chart complete. cp Disposition: 09/08/20 19:51 Discharged to Home. Impression: Cutaneous abscess of left lower limb, Pain in right hip - from fall, Pain in right lower leg - from fall. - Condition is Stable. - Discharge Instructions: Skin Abscess, Musculoskeletal Pain, Hip Pain. - Prescriptions for Naprosyn 500 mg Oral Tablet - take 1 tablet by ORAL route 2 times per day take with food; 20 tablet. Bactrim DS 800- 160 mg Oral Tablet - take 1 tablet by ORAL route every 12 hours for 7 days; 14 tablet. Cyclobenzaprine 10 mg Oral Tablet - take 1 tablet by ORAL route every 8 hours As needed; 15 tablet. - Medication Reconciliation Form, Thank You Letter, Antibiotic Education, Prescription Opioid Use form. - Follow up: Private Physician; When: 2 - 3 days; Reason: Recheck today's complaints. - Problem is new. - Symptoms have improved. Addendum: 09/10/2020 06:14 Co-signature as Attending Physician, Camilo Quinteros MD I agree with the assessment and c sims plan of care. Signatures: Dispatcher [employer] EDCamilo Ritter MD MD cha Smirch, Shelby RN RN Camilo Scruggs PA PA cp Palak Oliveira RN RN Duarte Crowe RN RN Zeke Miranda RN RN mg2 Corrections: (The following items were deleted from the chart) 09/08 19:59 19:51 09/08/2020 19:51 Discharged to Home. Impression: Cutaneous abscess of left lower wh limb; Pain in right hip - from fall; Pain in right lower leg - from fall. Condition is Stable. Forms are Medication Reconciliation Form, Thank You Letter, Antibiotic Education, Prescription Opioid Use. Follow up: Private Physician; When: 2 - 3 days; Reason: Recheck today's complaints. Problem is new. Symptoms have improved. cp
--- NOTE | 2020-09-08 19:52 | ER ---
Nurse's Notes [facility] Name: Surinder Hi Age: 65 yrs Sex: Male : 1955 Arrival Date: 09/08/2020 Time: 17:54 Bed 3 Private MD: Diagnosis: Cutaneous abscess of left lower limb;Pain in right hip-from fall;Pain in right lower leg-from fall Presentation: 09/08 18:00 Risk Assessment: Do you want to hurt yourself or someone else?. ph 18:02 Chief complaint: Patient states: R hip pain after falling on ice 1.5 weeks ago. Pt ss reports that also a boil began forming under his L buttock a few days ago. Denies fever. Coronavirus screen: Client denies travel out of the [place] in the last 14 days. Ebola Screen: Patient denies exposure to infectious person. Patient denies travel to an Ebola-affected area in the 21 days before illness onset. Initial Sepsis Screen: Does the patient meet any 2 criteria? No. Patient's initial sepsis screen is negative. Does the patient have a suspected source of infection? No. Patient's initial sepsis screen is negative. Onset of symptoms is unknown. 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 - Social history:: Smoking status: Patient reports the use of cigarette tobacco products, smokes one-half pack cigarettes per day. Screenin:00 Abuse screen: Denies threats or abuse. Denies injuries from another. Nutritional ph screening: No deficits noted. Tuberculosis screening: No symptoms or risk factors identified. Fall Risk None identified. Assessment: 18:28 General: Appears in no apparent distress. Behavior is calm, cooperative. Pain: Pain hb currently is 8 out of 10 on a pain scale. Neuro: Level of Consciousness is awake, alert, obeys commands, Oriented to person, place, time, situation. Cardiovascular: Capillary refill < 3 seconds Patient's skin is warm and dry. Respiratory: Respiratory effort is even, unlabored, Respiratory pattern is regular, symmetrical. GI: No signs and/or symptoms were reported involving the gastrointestinal system. : No signs and/or symptoms were reported regarding the genitourinary system. EENT: No signs and/or symptoms were reported regarding the EENT system. Derm: Reports abscess on left upper posterior thigh. Musculoskeletal: Reports left hip pain. 19:49 Reassessment: Patient appears in no apparent distress at this time. Provider at bedside mg2 doing the I and D. 19:58 Reassessment: Patient appears in no apparent distress at this time. Patient and/or wh family updated on plan of care and expected duration. Pain level reassessed. Patient is alert, oriented x 3, equal unlabored respirations, skin warm/dry/pink. Vital Signs: 18:02 BP 163 / 82; Pulse 70; Resp 20; Temp 98.2(O); Pulse Ox 99% on R/A; Weight 96.16 kg; ss Height 5 ft. 8 in. (172.72 cm); Pain 10/10; 19:30 BP 148 / 82; Pulse 71; Resp 18; Pulse Ox 99% ; wh 18:02 Body Mass Index 32.23 (96.16 kg, 172.72 cm) ED Course: 17:54 Patient arrived in ED. ds1 18:03 Triage completed. ss 18:04 Arm band placed on right wrist. ss 18:06 Camilo Santana PA is PHCP. cp 18:06 Camilo Quinteros MD is Attending Physician. cp 18:28 Palak Oliveira, HARSHAL is Primary Nurse. hb 18:28 Patient has correct armband on for positive identification. Call light in reach. Side hb rails up X 1. 19:05 XRAY Pelvis In Process Unspecified. EDMS 19:05 XRAY Femur RIGHT In Process Unspecified. EDMS 19:05 XRAY Tib Fib RIGHT In Process Unspecified. EDMS 19:48 Assist provider with I \T\ D: of an abscess on right left upper leg. Patient did not have mg2 IV access during this emergency room visit. Administered Medications: 18:25 Drug: Hydrocodone-Acetaminophen (7.5 mg-325 mg) 1 tabs Route: PO; hb 19:15 Follow up: Response: No adverse reaction hb 19:58 Follow up: Response: No adverse reaction; Pain is decreased; RASS: Alert and Calm (0) wh 19:47 Drug: Lidocaine-Epinephrine -1%: (1:100,000) 10 ml Volume: 20 ml; Route: Infiltration; mg2 19:48 Follow up: Response: No adverse reaction mg2 Outcome: 19:51 Discharge ordered by . alex 19:58 Discharged to home ambulatory. 19:58 Condition: stable 19:58 Discharge instructions given to patient, Instructed on discharge instructions, follow up and referral plans. medication usage, wound care, Demonstrated understanding of instructions, follow-up care, medications, wound care, Prescriptions given X 3. 19:59 Patient left the ED. Addendum: 09/13/2020 08:57 Addendum: Culture Results: Positive wound culture. No further action required. Bacteria h b sensitive to prescribed antibiotic. Signatures: Dispatcher [employer] [facility] Ly Hanson ds1 Sylvie Murphy, RN HARSHAL ss Martha Santamaria RN RN Camilo Baca, Palak Jain cp, RN RN Duarte Crowe RN RN Zeke Miranda RN RN mg2
[2020-09-08 21:16] VITALS: TEMP 98.2; O2SAT 99
[2020-09-08 21:17] VITALS: BP 148/82
== END 2020-09-08 19:59 | disposition home or self-care (01) ==
LOC: ER 17:51
PROC: 0J9M0ZZ Drainage of Left Upper Leg Subcutaneous Tissue and Fascia, Open Approach (ICD-10-PCS; principal; 2020-09-08)
DX: L02.416 Cutaneous abscess of left lower limb (principal); M25.551 Pain in right hip; W00.0XXA Fall on same level due to ice and snow, initial encounter; Y93.01 Activity, walking, marching and hiking; Y92.9 Unspecified place or not applicable; Z88.0 Allergy status to penicillin; Z95.818 Presence of other cardiac implants and grafts; F17.210 Nicotine dependence, cigarettes, uncomplicated; I10 Essential (primary) hypertension
CPT/HCPCS: 72170; 87070; 87077; 87186; 87205; 99284

== ENCOUNTER 2020-12-03 07:01 | Inpatient (IN) | payer BC ==
--- OUTSIDE RECORDS SUMMARY | 2020-12-03 07:04 | XMS REPORT | Continuity of Care Document ---
:1955 Author Organization [facility] t Address [address] [place] [address] Care Team Providers Name Role Phone Charli NAVAS, Arjun Primary Care Physician Lab, Fam P[facility] I [...] Date Stop Date Source Natural father Cancer [facility] Natural father Hypertension [facility] Natural mother Cancer [facility] Natural mother Hypertension [place] [facility] Social History Social Habit Start Date Stop Date Quantity Comments Source History of tobacco Cigarette Smoker [place] [facility] Cigarette 2018-01-21 2018-01-21 [place] pack-years 00:00:00 00:00:00 [facility] Tobacco use and 2018-01-21 2018-01-21 Never used [place] exposure 00:00:00 00:00:00 [facility] Alcohol intake 2018-01-21 2018-01-21 Current [place] 00:00:00 00:00:00 non-drinker of [facility] alcohol (finding) Cigarettes smoked 2018-01-21 2018-01-21 [place] current (pack per 00:00:00 00:00:[address] ) - Reported Sex Ass[birth year] At [birth year] [place] 00:00:00 00:00:00 [facility] Smoking Status Start Date Stop Date Source Current every day smoker 2018-01-21 00:00:00 [facility] Phan Medications Ordered Filled Start Stop Current Ordering Indication Dosage Frequency Signature Comments Components Source Medication Medication Date Date Medication? Clinician (SIG) Name Name methocarbam Yes Shahriar hatch ol 01-18 [facility] (ROBAXIN) 00:00: st 500 MG 00 tablet methylPREDN Yes Shahriar hatch ISolone 01-18 [facility] (MEDROL 00:00: st DOSEPAK) 4 00 mg tablet amLODIPine Yes [place] (NORVASC) 01-07 [facility] 10 mg 00:00: st tablet 00 atorvastati Yes Shahriar hatch (LIPITOR) 01-07 [facility] 20 MG 00:00: st tablet 00 cilostazol Yes [place] (PLETAL) 01-07 [facility] 100 MG 00:00: st tablet 00 lisinopril- Yes Shahriar hatch hydrochloro 01-07 [facility] thiazide 00:00: st (PRINZIDE,Z 00 ESTORETIC) 20-12.5 mg per tablet metoprolol Yes [place] succinate 01-07 [facility] XL 00:00: st (TOPROL-XL) 00 50 mg 24 hr tablet Procedures This patient has no known procedures. Plan of Care Planned Activity Planned Date Details Comments Source Future Scheduled 2021-02-10 INFLUENZA VACCINE [facility] 00:00:00 [code = INFLUENZA VACCINE] Future Scheduled 2007 COLONOSCOPY SCREENING [place] [facility] 00:00:00 [code = COLONOSCOPY SCREENING] Future Scheduled 2007 SHINGLES VACCINES [facility] 00:00:00 (#1) [code = SHINGLES VACCINES (#1)] Future Scheduled 1975 Hepatitis C screening [place] [facility] 00:00:00 (procedure) [code = 270221055] Future Scheduled 1969 COVID-19 VACCINE (1) Sharmin chu [facility] Test 00:00:00 [code = COVID-19 VACCINE (1)] Encounters Start End Encounter Admission Attending Care Care Encounter Source Date/Time Date/Time Type Type Clinicians Facility Department ID 2020-05-21 2020-05-21 Laboratory Lab, Ad[facility] [id number] 13:15:06 13:35:06 Only Fam [facility] [id number] [place] [id number] [place] [id number] [address]al [address] 2020-05-21 2020-05-21 Letter Doctor ARJUN [id number] 00:00:00 00:00:00 (Out) Unassigned, ED [id number] [place] [facility] [id number] 044 Results This patient has no known results.
[2020-12-03 08:06] LABS: Bilirubin Direct 0.2 mg/dL (0-0.2); Bilirubin Total 0.8 mg/dL (0.2-1.0); Potassium 3.8 mmol/L (3.5-5.1); Protein, Total 7.5 g/dL (6.4-8.2)
[2020-12-03] MEDS ORDERED: NA CHLORIDE 0.9% 1,000 ML ONE ×2 (08:06→11:40)
[2020-12-03] MEDS ORDERED: MORPHINE 4 MG/ML SYR ONE ×2 (08:20→15:59)
[2020-12-03 08:23] LABS: Absolute Lymphocytes (CBC) 2.4 K/uL (0.7-4.9); Basophils % 0.8 % (0-1.3); Hematocrit 52.2 % (39.6-49.0); Lymphocytes % 13.9 % (15.3-44.8); MPV 8.8 fL (7.6-11.3); RBC Red Blood Cell Count 5.75 M/uL (4.33-5.43)
[2020-12-03 09:12] LABS: Protime INR 1.03
[2020-12-03] MEDS ORDERED: FAMOTIDINE 20 MG/2 ML VIAL IV ONE (09:15)
[2020-12-03] MEDS ORDERED: Levofloxacin500mg IV 500 MG/100 ML BAG IV ONE (09:26)
[2020-12-03 09:31] LABS: Magnesium 2.1 mg/dL (1.8-2.4); NT PRO-BNP 211 pg/mL (<125); Troponin (Emerg Dept Use Only) < 0.02 ng/mL (0.0-0.045)
[2020-12-03] MEDS ORDERED: METRONIDAZOLE 500mg IVPB 500 MG/100 ML BAG IV ONE (10:11)
--- NOTE | 2020-12-03 10:37 | RAD REPORT ---
EXAM DESCRIPTION: CT - Abdomen Pelvis W Contrast - 12/03/2020 9:38 am CLINICAL HISTORY: ABD PAIN COMPARISON: CT ABD PELVIS W CONTRAST dated 06/29/2013CT ABD PELVIS W CONTRAST dated 06/29/2013 TECHNIQUE: Biphasic, helical CT imaging of the abdomen and pelvis was performed following 100 ml non -ionic IV contrast. No oral contrast administered. All CT scans are performed using dose optimization technique as appropriate and may include automated exposure control or mA/KV adjustment according to patient size. FINDINGS: No suspicious findings in the lung bases. The liver, spleen, and pancreas show no suspicious findings. Benign appearing liver cysts are present near the gallbladder fossa. No biliary tree dilatation. No gallbladder abnormality seen. Symmetric renal function is seen with no hydronephrosis or suspicious renal mass. No pyelonephritis o r acute parenchymal process. Mostly contracted urinary bladder shows no gross abnormality. No adrenal abnormalities. Left renal cyst present. Distended, fluid-filled stomach present with no gastric wall thickening or mass. No gastric outlet ob struction. Duodenum and most of the jejunum show no suspicious findings. There is dilation of the dis panfilo jejunum and ileum to the mid ileum level. There is a transition in the right mid abdomen at the u mbilical level. A discrete mass is not identified. There is some mild stranding or spiculated appeari ng fat in the mid abdomen. Small amount of free fluid collects in the dependent portion of the pelvis . No free air or pneumatosis. No mass of the small bowel. The bile mccoy are fluid-filled but show n o mass or wall thickening. Patient has a very small fat only umbilical hernia. Fat extends minimally into the origin of each inguinal canal. No bulky lymphadenopathy or omental thickening. Moderate am ount of stool is present in an unremarkable colon. No appendicitis. No suspicious bony findings. No acute or destructive finding seen. Vascular calcifications are presen t. IMPRESSION: Multiple mildly dilated small bowel loops from mid jejunum to mid ileum. Abrupt transiti on in the right mid abdomen seen without defined soft tissue mesenteries mass or small bowel mass. There is minimal stranding in spiculation to tissues in the mesenteric fat right mid abdomen near the transition point. Etiology for the small bowel obstruction pattern is uncertain. Internal hernia or adhesions would be possible. No intraabdominal surgery is known. No soft tissue mass to indicate car cinoid or other mesenteric fat mass lesion. No free air, abscess or surgically emergent finding.
--- NOTE | 2020-12-03 11:07 | RAD REPORT ---
EXAM DESCRIPTION: RAD - Chest Single View - 12/03/2020 8:40 am CLINICAL HISTORY: ABDOMINAL DISTENTION COMPARISON: Two view chest May 2020 TECHNIQUE: AP portable chest image was obtained 12/03/2020 8:40 am . FINDINGS: Lung volumes are very low accentuating the interstitial pattern. No mass, consolidation or failure suspected. Patient does have a chronic interstitial lung pattern not clearly different. Hear t and vasculature are normal. No measurable pleural effusion and no pneumothorax. No acute bony abnor mality seen. No acute aortic findings suspected. IMPRESSION: Chronic interstitial lung pattern accentuated by shallow inspiration. No acute finding s uspected.
--- NOTE | 2020-12-03 11:19 | RAD REPORT ---
EXAM DESCRIPTION: US - Abdomen Exam Limited - 12/03/2020 9:57 am CLINICAL HISTORY: ABD PAIN COMPARISON: CTSTONE PROTOCOL dated 06/06/2014; Abdomen Pelvis W Contrast dated 12/03/2020 FINDINGS: No gallstones, sludge or other abnormalities within the gallbladder lumen. There is no wal l thickening or pericholecystic fluid. No common duct stone or biliary tree dilatation identified. Two small cysts are present in the liver adjacent to the gallbladder fossa. IMPRESSION: Normal gallbladder and biliary tree ultrasound.
--- NOTE | 2020-12-03 11:24 | EDPHYS ---
Physician Documentation [facility] Name: Surinder Hi Age: 65 yrs Sex: Male : 1955 Arrival Date: 12/03/2020 Time: 07:02 Bed 20 Private MD: ED Physician Camilo Quinteros HPI: 12/03 09:54 This 65 yrs old Male presents to ER via Ambulatory with complaints of phoebe Abdominal Cramping. 09:54 The patient presents with abdominal pain in the upper abdomen, abdominal distention in phoebe the upper abdomen. Onset: The symptoms/episode began/occurred 2 day(s) ago. The symptoms do not radiate. Associated signs and symptoms: Pertinent positives: nausea. The symptoms are described as constant, crampy. Modifying factors: The symptoms are alleviated by nothing, the symptoms are aggravated by breathing deeply, movement, pressure, touching the area. Severity of pain: At its worst the pain was moderate in the emergency department the pain is unchanged. The patient has not experienced similar symptoms in the past. 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 - Social history:: Smoking status: Patient reports the use of cigarette tobacco products, smokes one-half pack cigarettes per day. - Family history:: not pertinent. ROS: 09:54 Constitutional: Negative for fever, chills, and weight loss, Eyes: Negative for injury, phoebe pain, redness, and discharge, ENT: Negative for injury, pain, and discharge, Neck: Negative for injury, pain, and swelling, Cardiovascular: Negative for chest pain, palpitations, and edema, Respiratory: Negative for shortness of breath, cough, wheezing, and pleuritic chest pain, Back: Negative for injury and pain, : Negative for injury, bleeding, discharge, and swelling, MS/Extremity: Negative for injury and deformity, Skin: Negative for injury, rash, and discoloration, Neuro: Negative for headache, weakness, numbness, tingling, and seizure. 09:54 Abdomen/GI: Positive for abdominal pain, of the right upper quadrant and left upper quadrant. Exam: 09:54 Constitutional: This is a well developed, well nourished patient who is awake, alert, phoebe and in no acute distress. Head/Face: Normocephalic, atraumatic. Eyes: Pupils equal round and reactive to light, extra-ocular motions intact. Lids and lashes normal. Conjunctiva and sclera are non-icteric and not injected. Cornea within normal limits. Periorbital areas with no swelling, redness, or edema. ENT: Nares patent. No nasal discharge, no septal abnormalities noted. Tympanic membranes are normal and external auditory canals are clear. Oropharynx with no redness, swelling, or masses, exudates, or evidence of obstruction, uvula midline. Mucous membranes moist. Neck: Trachea midline, no thyromegaly or masses palpated, and no cervical lymphadenopathy. Supple, full range of motion without nuchal rigidity, or vertebral point tenderness. No Meningismus. Chest/axilla: Normal chest wall appearance and motion. Nontender with no deformity. No lesions are appreciated. Cardiovascular: Regular rate and rhythm with a normal S1 and S2. No gallops, murmurs, or rubs. Normal PMI, no JVD. No pulse deficits. Respiratory: Lungs have equal breath sounds bilaterally, clear to auscultation and percussion. No rales, rhonchi or wheezes noted. No increased work of breathing, no retractions or nasal flaring. Back: No spinal tenderness. No costovertebral tenderness. Full range of motion. Male : Normal genitalia with no discharge or lesions. Skin: Warm, dry with normal turgor. Normal color with no rashes, no lesions, and no evidence of cellulitis. MS/ Extremity: Pulses equal, no cyanosis. Neurovascular intact. Full, normal range of motion. Neuro: Awake and alert, GCS 15, oriented to person, place, time, and situation. Cranial nerves II-XII grossly intact. Motor strength 5/5 in all extremities. Sensory grossly intact. Cerebellar exam normal. Normal gait. Psych: Awake, alert, with orientation to person, place and time. Behavior, mood, and affect are within normal limits. 09:54 Abdomen/GI: Inspection: abdomen appears normal, Bowel sounds: normal, Palpation: moderate abdominal tenderness, in the epigastric area, right upper quadrant and left upper quadrant, Liver: no appreciated palpable abnormalities, Hernia: not appreciated. 09:58 ECG was reviewed by the Attending Physician. phoebe Vital Signs: 07:09 BP 150 / 85; Pulse 73; Resp 17 S; Temp 97.5(O); Pulse Ox 97% on R/A; Weight 93.44 kg jl7 (R); Height 5 ft. 7 in. (170.18 cm) (R); Pain 9/10; 08:20 BP 124 / 83; Pulse 68; Resp 17; Pulse Ox 94% ; jl7 09:55 BP 146 / 88; Pulse 66; Resp 19; Pulse Ox 95% ; jl7 10:45 BP 141 / 83; Pulse 65; Resp 18; Pulse Ox 95% ; tr6 12:04 BP 142 / 82; Pulse 61; Resp 15; Pulse Ox 95% ; jl7 13:00 BP 147 / 80; Pulse 60; Resp 15; Pulse Ox 94% ; jl7 14:00 BP 132 / 77; Pulse 58; Resp 15; Pulse Ox 93% ; jl7 15:30 BP 124 / 90; Pulse 60; Resp 17; Pulse Ox 93% ; jl7 07:09 Body Mass Index 32.26 (93.44 kg, 170.18 cm) jl7 MDM: 08:12 Patient medically screened. [facility] 09:57 Differential diagnosis: bowel obstruction, cholecystitis, Cholelithiasis, gastritis, phoebe gastroesophageal reflux disease, Hepatitis, Irritable bowel syndrome, non-specific abd pain, pancreatitis, Peptic Ulcer Disease, Peritonitis, Pyelonephritis, urinary tract infection. Data reviewed: vital signs, nurses notes, lab test result(s), EKG, radiologic studies, CT scan, plain films, ultrasound. Data interpreted: school bus monitor: rate is 66 beats/min, rhythm is regular, Pulse oximetry: on room air is 95 %. Test interpretation: by ED physician or midlevel provider: ECG, plain radiologic studies. Counseling: I had a detailed discussion with the patient and/or guardian regarding: the historical points, exam findings, and any diagnostic results supporting the discharge/admit diagnosis, lab results, radiology results. 12/03 07:35 Order name: Basic Metabolic Panel [facility] 12/03 07:35 Order name: CBC with Diff; Complete Time: 09:43 [facility] 12/03 07:35 Order name: Hepatic Function; Complete Time: 09:43 [facility] 12/03 07:35 Order name: Lipase; Complete Time: 09:43 [facility] 12/03 07:36 Order name: Basic Metabolic Panel; Complete Time: 09:43 [facility] 12/03 08:14 Order name: Magnesium [facility] 12/03 08:14 Order name: NT PRO-BNP [facility] 12/03 08:14 Order name: PT-INR; Complete Time: 09:43 [facility] 12/03 08:14 Order name: Troponin (emerg Dept Use Only) [facility] 12/03 08:15 Order name: Magnesium; Complete Time: 09:43 [facility] 12/03 08:15 Order name: NT PRO-BNP; Complete Time: 09:43 [facility] 12/03 08:15 Order name: Troponin (Emerg Dept Use Only); Complete Time: 09:43 [facility] 12/03 14:12 Order name: COVID-19 : Document "Date of Symptom Onset" if Symptomatic. 12/03 15:15 Order name: CORONAVIRUS [facility] 12/03 07:35 Order name: IV Saline Lock; Complete Time: 07:47 [facility] 12/03 07:35 Order name: Labs collected and sent; Complete Time: 07:47 [facility] 12/03 08:14 Order name: XRAY Chest (1 view); Complete Time: 11:13 [facility] 12/03 08:14 Order name: EKG; Complete Time: 08:15 [facility] 12/03 09:04 Order name: CT Abd/Pelvis - IV Contrast Only; Complete Time: 11:13 [facility] 12/03 09:04 Order name: US Abdomen Limited [facility] 12/03 12:03 Order name: XRAY Abdomen 1 View [facility] 12/03 16:13 Order name: SARS-COV-2 RT PCR [facility] 12/03 08:14 Order name: Cardiac monitoring; Complete Time: 08:44 [facility] 12/03 08:14 Order name: EKG - Nurse/Tech; Complete Time: 08:44 [facility] 12/03 08:14 Order name: O2 Per Protocol; Complete Time: 08:20 [facility] 12/03 08:14 Order name: O2 Sat Monitoring; Complete Time: [facility] 12/03 11:14 Order name: NG Tube; Complete Time: 12:01 [facility] EC:58 Rate is 20 beats/min. Rhythm is regular. QRS [place] is Normal. VA interval is normal. QRS phoebe interval is normal. QT interval is normal. No Q waves. T waves are Normal. No ST changes noted. Clinical impression: Normal ECG and No evidence of ischemia. Interpreted by me. Reviewed by me. Administered Medications: 08:10 Drug: NS 0.9% 1000 ml Route: IV; Rate: 125 ml/hr; Site: right antecubital; jl7 12:00 Follow up: IV Status: Infusion continued upon admission jl7 08:59 Drug: Pepcid (famotidine) 20 mg Route: IVP; Site: right antecubital; jl7 09:30 Follow up: Response: No adverse reaction jl7 09:27 Drug: levofloxacin 500 mg Volume: 100 ml; Route: IVPB; Infused Over: 60 mins; Site: jl7 right antecubital; 10:39 Follow up: Response: No adverse reaction; IV Status: Completed infusion; IV Intake: tr6 100ml 10:39 Drug: Flagyl (metroNIDAZOLE) 500 mg Volume: 100 ml; Route: IVPB; Rate: 200 ml/hr; tr6 Infused Over: 30 mins; Site: right antecubital; 11:10 Follow up: Response: No adverse reaction; IV Status: Completed infusion jl7 11:23 Drug: NS 0.9% 1000 ml Route: IV; Rate: 1 bolus; Site: right antecubital; tr6 12:30 Follow up: Response: No adverse reaction; IV Status: Completed infusion; IV Intake: jl7 1000ml 11:45 Drug: Zofran (Ondansetron) 4 mg Route: IVP; Site: right antecubital; jl7 16:43 Follow up: Response: No adverse reaction jl7 11:47 Drug: morphine 2 mg Route: IVP; Site: right antecubital; jl7 12:00 Follow up: Response: No adverse reaction; Pain is decreased jl7 13:00 Drug: morphine 2 mg Route: IVP; Site: right antecubital; jl7 13:15 Follow up: Response: No adverse reaction; Pain is decreased jl7 15:46 Drug: morphine 4 mg Route: IVP; Site: right hand; jl7 16:00 Follow up: Response: No adverse reaction; Pain is decreased jl7 Disposition: 12/03/20 11:23 Hospitalization ordered by Carl Venegas for Inpatient Admission. Preliminary diagnosis are Abdominal tenderness, Other intestinal obstruction - SBO. - Bed requested for Telemetry/MedSurg (Inpatient). - Status is Inpatient Admission. jl7 - Condition is Fair. - Problem is new. - Symptoms have improved. Signatures: Dispatcher [employer] EDMS Linette Rodas Corey, MD MD cha Leal, Jahala RN RN jl7 Lia De La Cruz RN RN tr6 Corrections: (The following items were deleted from the chart) 11:36 11:23 Hospitalization Ordered by Anil Guevara DO for Inpatient Admission. Preliminary phoebe diagnosis is Abdominal tenderness; Other intestinal obstruction - SBO. Bed requested for Telemetry/MedSurg (Inpatient). Status is Inpatient Admission. Condition is Fair. Problem is new. Symptoms have improved. phoebe 16:28 11:36 12/03/2020 11:23 Hospitalization Ordered by Carl Venegas for Inpatient bd Admission. Preliminary diagnosis is Abdominal tenderness; Other intestinal obstruction - SBO. Bed requested for Telemetry/MedSurg (Inpatient). Status is Inpatient Admission. Condition is Fair. Problem is new. Symptoms have improved. [facility] 17:06 16:28 12/03/2020 11:23 Hospitalization Ordered by Carl Venegas for Inpatient jl7 Admission. Preliminary diagnosis is Abdominal tenderness; Other intestinal obstruction - SBO. Bed requested for Telemetry/MedSurg (Inpatient). Status is Inpatient Admission. Condition is Fair. Problem is new. Symptoms have improved. bd
--- NOTE | 2020-12-03 11:24 | ER ---
Nurse's Notes [facility] Name: Surinder Hi Age: 65 yrs Sex: Male : 1955 Arrival Date: 12/03/2020 Time: 07:02 Bed 20 Private MD: Diagnosis: Abdominal tenderness;Other intestinal obstruction-SBO Presentation: 12/03 07:09 Chief complaint: Patient states: Mid abdominal pain since 1600 yesterday, cramping, jl7 nausea, denies urinary symptoms, denies diarrhea. Coronavirus screen: Client denies travel out of the [place] in the last 14 days. At this time, the client does not indicate any symptoms associated with coronavirus-19. Ebola Screen: No symptoms or risks identified at this time. Initial Sepsis Screen: Does the patient meet any 2 criteria? No. Patient's initial sepsis screen is negative. Does the patient have a suspected source of infection? No. Patient's initial sepsis screen is negative. Risk Assessment: Do you want to hurt yourself or someone else? Patient reports no desire to harm self or others. Onset of symptoms was December 02, 2020 at 16:00. Care prior to arrival: None. 07:09 Method Of Arrival: Ambulatory jl7 07:09 Acuity: GERSON 3 jl7 Triage Assessment: 07:16 General: Appears in no apparent distress. uncomfortable, Behavior is calm, cooperative, jl7 appropriate for age. Pain: Complains of pain in umbilical area Pain does not radiate. Pain currently is 9 out of 10 on a pain scale. Quality of pain is described as crampy, Pain began 1 day ago. Is continuous. Neuro: Level of Consciousness is awake, alert, obeys commands, Oriented to person, place, time, situation. Cardiovascular: Patient's skin is warm and dry. Respiratory: Airway is patent Respiratory effort is even, unlabored, Respiratory pattern is regular, symmetrical. GI: Abdomen is round non-distended. Derm: Skin is pink, warm \T\ dry. 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 - Social history:: Smoking status: Patient reports the use of cigarette tobacco products, smokes one-half pack cigarettes per day. - Family history:: not pertinent. Screenin:19 Abuse screen: Denies threats or abuse. Denies injuries from another. Nutritional jl7 screening: No deficits noted. Tuberculosis screening: No symptoms or risk factors identified. Fall Risk IV access (20 points). Total Bucio Fall Scale indicates No Risk (0-24 pts). Assessment: 07:19 General: See triage assessment. 7 08:15 Reassessment: Patient appears in no apparent distress at this time. No changes from 7 previously documented assessment. Patient and/or family updated on plan of care and expected duration. Pain level reassessed. Patient is alert, oriented x 3, equal unlabored respirations, skin warm/dry/pink. 09:15 Reassessment: Patient appears in no apparent distress at this time. No changes from jl7 previously documented assessment. Patient and/or family updated on plan of care and expected duration. Pain level reassessed. Patient is alert, oriented x 3, equal unlabored respirations, skin warm/dry/pink. 10:15 Reassessment: Patient appears in no apparent distress at this time. No changes from jl7 previously documented assessment. Patient and/or family updated on plan of care and expected duration. Pain level reassessed. Patient is alert, oriented x 3, equal unlabored respirations, skin warm/dry/pink. 11:15 Reassessment: Dr. Quinteros at bedside discussing results and POC. jl7 12:15 Reassessment: Patient appears in no apparent distress at this time. No changes from jl7 previously documented assessment. Patient and/or family updated on plan of care and expected duration. Pain level reassessed. Patient is alert, oriented x 3, equal unlabored respirations, skin warm/dry/pink. 14:00 Reassessment: Patient appears in no apparent distress at this time. No changes from jl7 previously documented assessment. Patient and/or family updated on plan of care and expected duration. Pain level reassessed. Patient is alert, oriented x 3, equal unlabored respirations, skin warm/dry/pink. 16:45 Reassessment: Dr. Grant at bedside discussing POC. [facility] Vital Signs: 07:09 BP 150 / 85; Pulse 73; Resp 17 S; Temp 97.5(O); Pulse Ox 97% on R/A; Weight 93.44 kg 7 (R); Height 5 ft. 7 in. (170.18 cm) (R); Pain 9/10; 08:20 BP 124 / 83; Pulse 68; Resp 17; Pulse Ox 94% ; jl7 09:55 BP 146 / 88; Pulse 66; Resp 19; Pulse Ox 95% ; 7 10:45 BP 141 / 83; Pulse 65; Resp 18; Pulse Ox 95% ; tr6 12:04 BP 142 / 82; Pulse 61; Resp 15; Pulse Ox 95% ; 7 13:00 BP 147 / 80; Pulse 60; Resp 15; Pulse Ox 94% ; 7 14:00 BP 132 / 77; Pulse 58; Resp 15; Pulse Ox 93% ; jl7 15:30 BP 124 / 90; Pulse 60; Resp 17; Pulse Ox 93% ; 7 07:09 Body Mass Index 32.26 (93.44 kg, 170.18 cm) [facility] ED Course: 07:02 Patient arrived in ED. as 07:03 Sandrine Stark, RN is Primary Nurse. [facility] 07:12 Triage completed. [facility] 07:16 Arm band placed on right wrist. [facility] 07:19 Patient has correct armband on for positive identification. Bed in low position. Call [facility] light in reach. Side rails up X 1. Pulse ox on. NIBP on. 07:49 Initial lab(s) drawn, by nj, sent to lab. Inserted saline lock: 20 gauge in right [facility] antecubital area, using aseptic technique. Blood collected. 08:12 Camilo Quinteros MD is Attending Physician. [facility] 08:40 XRAY Chest (1 view) In Process Unspecified. EDMS 08:45 case monitor on. [facility] 08:45 EKG done, by ED staff, reviewed by Camilo Quinteros MD. [facility] 08:58 NT PRO-BNP Sent. [facility] 08:58 Troponin (Emerg Dept Use Only) Sent. 5 08:58 Magnesium Sent. 5 08:58 Magnesium Sent. 5 08:58 NT PRO-BNP Sent. 5 08:58 PT-INR Sent. 5 08:59 Basic Metabolic Panel Sent. mh5 09:38 CT Abd/Pelvis - IV Contrast Only In Process Unspecified. EDMS 09:49 US Abdomen Limited In Process Unspecified. EDMS 11:18 Anil Guevara DO is Hospitalizing Provider. phoebe 11:36 Carl Venegas is Hospitalizing Provider. phoebe 12:01 NGT: inserted 14 Fr. via left nare. verified placement of air over stomach, verified jl7 return of gastric contents, to intermittent suction. Returned gastric contents. Patient tolerated well. 13:13 XRAY Abdomen 1 View In Process Unspecified. EDMS 17:05 No provider procedures requiring assistance completed. Patient admitted, IV remains in jl7 place. intact, No redness/swelling at site. Administered Medications: 08:10 Drug: NS 0.9% 1000 ml Route: IV; Rate: 125 ml/hr; Site: right antecubital; jl7 12:00 Follow up: IV Status: Infusion continued upon admission jl7 08:59 Drug: Pepcid (famotidine) 20 mg Route: IVP; Site: right antecubital; jl7 09:30 Follow up: Response: No adverse reaction jl7 09:27 Drug: levofloxacin 500 mg Volume: 100 ml; Route: IVPB; Infused Over: 60 mins; Site: jl7 right antecubital; 10:39 Follow up: Response: No adverse reaction; IV Status: Completed infusion; IV Intake: tr6 100ml 10:39 Drug: Flagyl (metroNIDAZOLE) 500 mg Volume: 100 ml; Route: IVPB; Rate: 200 ml/hr; tr6 Infused Over: 30 mins; Site: right antecubital; 11:10 Follow up: Response: No adverse reaction; IV Status: Completed infusion jl7 11:23 Drug: NS 0.9% 1000 ml Route: IV; Rate: 1 bolus; Site: right antecubital; tr6 12:30 Follow up: Response: No adverse reaction; IV Status: Completed infusion; IV Intake: jl7 1000ml 11:45 Drug: Zofran (Ondansetron) 4 mg Route: IVP; Site: right antecubital; jl7 16:43 Follow up: Response: No adverse reaction jl7 11:47 Drug: morphine 2 mg Route: IVP; Site: right antecubital; jl7 12:00 Follow up: Response: No adverse reaction; Pain is decreased jl7 13:00 Drug: morphine 2 mg Route: IVP; Site: right antecubital; jl7 13:15 Follow up: Response: No adverse reaction; Pain is decreased jl7 15:46 Drug: morphine 4 mg Route: IVP; Site: right hand; jl7 16:00 Follow up: Response: No adverse reaction; Pain is decreased jl7 Intake: 10:39 IV: 100ml; Total: 100ml. tr6 12:30 IV: 1000ml; Total: 1100ml. jl7 Outcome: 11:23 Decision to Hospitalize by Provider. phoebe 17:05 Admitted to Med/surg accompanied by tech, via wheelchair, room 409, with chart, Report jl7 called to [facility] 17:05 Condition: stable 17:05 Discharge instructions given to patient, Instructed on follow up and referral plans. Demonstrated understanding of instructions. 17:06 Patient left the ED. jl7 Signatures: Dispatcher [employer] EDMS Camilo Quinteros MD MD cha Martinez, Amelia as Martinez, Maria 5 Sandrine Stark RN RN jl7 Lia De La Cruz RN RN tr6 Corrections: (The following items were deleted from the chart) 08:45 08:45 EKG done, jl7 jl7 12:05 10:15 BP 142 / 82; Pulse 61bpm; Resp 15bpm; Pulse Ox 95%; jl7 jl7
[2020-12-03] MEDS ORDERED: MORPHINE 2 MG/ML SYR ONE ×2 (12:02→12:37)
[2020-12-03] MEDS ORDERED: ONDANSETRON 4 MG/2 ML VIAL ONE (12:03)
[2020-12-03] MEDS ORDERED: LIDOCAINE VISCOUS 2% SOLN 15 ML UDC ONE (12:03)
--- NOTE | 2020-12-03 13:22 | RAD REPORT ---
EXAM DESCRIPTION: RAD - Abdomen Single View - 12/03/2020 1:13 pm CLINICAL HISTORY: POST NG PLACEMENT Pain COMPARISON: Abdomen Pelvis W Contrast dated 12/03/2020 FINDINGS: The enteric tube is coiled in the stomach.
--- NOTE | 2020-12-03 13:52 | P.HP ---
Certification for Inpatient Patient admitted to: Inpatient With expected LOS: >2 Midnights Practitioner: I am a practitioner with admitting privileges, knowledge of patient current condition, hospital course, and medical plan of care. Services: Services provided to patient in accordance with Admission requirements found in Title 42 Section 412.3 of the Code of Federal Regulations Patient History Date of Service: 12/03/20 Reason for admission: Abdominal pain History of Present Illness: 65-year-old gentleman with a history of hypertension and coronary artery disease presented to the emergency department with a complaint of abdominal pain of sudden onset since last night. This occurred after his even in meal. Her symptoms did not improve and therefore presented to the emergency department early this morning. He denies any vomiting. He endorsed nausea. CT abdomen and pelvis done in the emergency department demonstrated small bowel dilatation with transition point concerning for bowel obstruction. Patient stated his abdominal pain significantly improved after NG tube insertion in the ED. General surgery-Dr. Grant consulted. The ED physician wishes to admit the patient to the hospitalist service. Allergies Penicillins Allergy (Severe, Verified 03/24/16 16:01) Itching/Hives/Rash Home Medications: Aspirin [Aspirin EC 81 MG] 81 mg PO DAILY #90 tablet. 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 He denied any constipation or diarrhea. Last bowel movement was yesterday in the morning. Except as documented, all other systems reviewed and negative. Physical Examination - Physical Exam General: Alert, In no apparent distress, Oriented x3 HEENT: Normocephalic, PERRLA, Mucous membr. moist/pink, Other (NG-tube to suction), Sclerae nonicteric Neck: Supple, JVD not distended Respiratory: Clear to auscultation bilaterally, Normal air movement Cardiovascular: No edema, Normal pulses, Regular rate/rhythm, Normal S1 S2 Capillary refill: <2 Seconds Gastrointestinal: Soft and benign, No tenderness, Hyperactive, Distended (Mildly distended) Musculoskeletal: No swelling, No tenderness Integumentary: No rashes, No erythema Neurological: Normal speech, Normal strength at 5/5 x4 extr, Cranial nerves 3-12 intact Lymphatics: No axilla or inguinal lymphadenopathy - Studies Laboratory Data (last 24 hrs) 12/03/20 08:53: PT 11.9, INR 1.03 12/03/20 07:42: Magnesium 2.1 12/03/20 07:42: WBC 17.50 H, Hgb 17.7, Hct 52.2 H, Plt Count 255 12/03/20 07:42: Sodium 140, Potassium 3.8, BUN 25 H, Creatinine 1.39 H, Glucose 124 H, Total Bilirubin 0.8, AST 16, ALT 27, Alkaline Phosphatase 123 H, Lipase 90 Assessment and Plan - Problems (Diagnosis) (1) Small bowel obstruction Current Visit: Yes Status: Acute (2) Coronary artery disease Onset Date: 03/25/16 Current Visit: No Status: Chronic (3) Hypertension Onset Date: 03/25/16 Current Visit: No Status: Chronic Qualifiers: (4) Acute renal failure Current Visit: Yes Status: Acute - Plan Admit to the medical floor. Supportive measures with IV hydration, IV morphine p.r.n. for pain. Empiric IV antibiotic-Flagyl and Cipro. Monitor renal function General surgery-Dr. Grant consulted. Serial abdominal examination and serial imaging. Keep NPO. Hold oral medications for now. Hydralazine IV p.r.n. for BP spikes. - Advance Directives Does patient have a Living Will: No Does patient have a Durable POA for Healthcare: No
[2020-12-03] MEDS ORDERED: HYDRALAZINE HCL 20 MG/ML VIAL IV PRN (16:30)
[2020-12-03] MEDS ORDERED: ONDANSETRON 4 MG/2 ML VIAL IV PRN (16:30)
[2020-12-03] MEDS: METRONIDAZOLE 500mg IVPB 500 MG/100 ML BAG IV SCH (17:00)
[2020-12-03 17:12] VITALS: BMI 32.1
[2020-12-03] MEDS: D5 0.9 NS 1,000 ML IV SCH (17:20)
[2020-12-03] MEDS: HEPARIN 5000 UNIT/ML 1 ML VIAL SQ SCH (17:21)
[2020-12-03] MEDS ORDERED: KCL 20 MEQ/100 mL IVPB 20 MEQ/100 ML BAG IV SCH (18:00)
[2020-12-03] MEDS: CIPROFLOXACIN 400mg IV 400 MG/200 ML BAG IV SCH (20:02)
[2020-12-03] MEDS: MORPHINE 2 MG/ML SYR IV PRN (20:03)
[2020-12-04] MEDS: HEPARIN 5000 UNIT/ML 1 ML VIAL SQ SCH ×3 (01:58→17:26)
[2020-12-04] MEDS: D5 0.9 NS 1,000 ML IV SCH ×3 (01:58→17:23)
[2020-12-04] MEDS: METRONIDAZOLE 500mg IVPB 500 MG/100 ML BAG IV SCH ×3 (01:58→17:25)
[2020-12-04] MEDS: MORPHINE 2 MG/ML SYR IV PRN ×4 (02:03→21:22)
[2020-12-04 04:02] LABS: Absolute Lymphocytes (CBC) 2.2 K/uL (0.7-4.9); Basophils % 0.9 % (0-1.3); Hematocrit 46.5 % (39.6-49.0); MPV 9.1 fL (7.6-11.3); RBC Red Blood Cell Count 5.11 M/uL (4.33-5.43)
[2020-12-04 04:13] LABS: Albumin 3.1 g/dL (3.4-5.0); Bilirubin Total 0.8 mg/dL (0.2-1.0); Phosphorus 2.4 mg/dL (2.5-4.9); Potassium 4.2 mmol/L (3.5-5.1); Protein, Total 6.1 g/dL (6.4-8.2)
[2020-12-04 04:33] LABS: Urine Appearance CLEAR (Clear); Urine Bilirubin NEGATIVE (Negative); Urine Blood NEGATIVE (Negative); Urine Color YELLOW (Yellow); Urine Glucose NEGATIVE (Negative); Urine Protein NEGATIVE (Negative); Urine Specific Gravity >=1.030 (1.005-1.030); Urine Urobilinogen 0.2 mg/dL (0.2-1.0)
[2020-12-04 04:35] LABS: Urine Microscopic Reflex NO UMIC
[2020-12-04] MEDS ORDERED: POTASSIUM PHOS IN 0.9 % NACL 15 MMOL/250 ML BAG IV ONE (09:00)
--- NOTE | 2020-12-04 09:00 | RAD REPORT ---
EXAM DESCRIPTION: RAD - Abdomen W Erect - 12/04/2020 8:50 am CLINICAL HISTORY: Abdominal pain FINDINGS: A nasogastric tube is coiled within proximal stomach. Loop of moderately dilated small bowel is present within the left lower abdomen. Mildly additional di lated small bowel persists. Small bowel obstruction persists Free air is not seen beneath diaphragm
--- NOTE | 2020-12-04 09:20 | P.CNS ---
Date of Consult: 12/03/20 Reason for Consult: SBO Chief Complaint: Abdominal pain History of Present Illness: 65 y/o male with N V abd pAIN after eating some "lao food" Allergies Penicillins Allergy (Severe, Verified 03/24/16 16:01) Itching/Hives/Rash Home Medications: Aspirin [Aspirin EC 81 MG] 81 mg PO DAILY #90 tablet. 03/25/16 Albuterol Inhaler [Ventolin Inhaler*] 1 puff IH Q4HP PRN 12/03/20 Amlodipine [Norvasc*] 1 tab PO DAILY 12/03/20 Atorvastatin Calcium [Lipitor] 20 mg PO BEDTIME 12/03/20 Clopidogrel Bisulfate [Plavix*] 1 tab PO DAILY 12/03/20 Fluticasone/Umeclidin/Vilanter [Trelegy Ellipta 100-62.5-25] 1 inh IH DAILY 12/03/20 Gabapentin 1 tab PO BID 12/03/20 Ibuprofen 1 tab PO TID PRN 12/03/20 Metoprolol Tartrate [Lopressor*] 25 mg PO DAILY 12/03/20 lisinopriL [Prinivil*] 12.5 mg PO DAILY 12/03/20 - Past Medical/Surgical History Diabetic: No -: Hypertension -: Coronary artery disease with previous stent placement -: Tobacco abuse -: COPD -: Cardiac stent placement Psychosocial/ Personal History: He is single, has 1 child, 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 - Family History Father Notes: pacemaker Mother Medical History: Heart disease, Lung disease, Diabetes Notes: stents - Social History Smoking Status: Current every day smoker Alcohol use: No CD- Drugs: No Caffeine use: Yes Place of Residence: Home Review of Systems General: Fever (no), Chills (no) Eyes: Vision Change (no) ENT: Throat Swelling (no) Respiratory: Unremarkable Cardiovascular: Unremarkable Gastrointestinal: Nausea, Vomiting, Abdominal Pain, Distention, Melena (no), Hematochezia (no), As per HPI Genitourinary: Unremarkable Physical Examination Temp Pulse Resp BP Pulse Ox 97.2 F 60 20 130/64 91 12/04/20 04:00 12/04/20 04:00 12/04/20 04:00 12/04/20 04:00 12/04/20 04:00 General: Alert, Oriented x3, Cooperative HEENT: PERRLA, Sclerae nonicteric Neck: Supple Respiratory: Clear to auscultation bilaterally Cardiovascular: No edema Gastrointestinal: No rebound, No guarding, Distended, Tenderness (mild generalized) Integumentary: No rashes, No breakdown Neurological: Normal speech Rectal: Deferred Laboratory Data (last 24 hrs) Chem , cbc reviewed Imagings Data: CT reviewed with pt Conclusions/Impression: SBO bowel rest NGT Ambulate Surgical intervention BAR discussed with pt
[2020-12-04] MEDS: CIPROFLOXACIN 400mg IV 400 MG/200 ML BAG IV SCH ×2 (10:39→21:21)
--- NOTE | 2020-12-04 11:36 | EKG ---
Test Date: 2020-12-03 Test Time: 08:29:21 Environmental Sciences Professor: AVEL MEASUREMENT RESULTS: Intervals: Rate: 68 MN: 142 QRSD: 64 QT: 382 QTc: 406 [place]: P: 54 MN: 142 QRS: -5 T: 68 INTERPRETIVE STATEMENTS: Normal sinus rhythm Normal ECG Compared to ECG 08/11/2019 05:40:15 No significant changes Electronically Signed On 12-04-20 11:31:29 CDT by Conner Robin
--- NOTE | 2020-12-04 12:24 | PN ---
Date of Progress Note: 12/04/2020 Diagnosis: Small bowel obstruction. Subjective: The patient feels better. No nausea. No vomiting. Less abdominal distention. Passing flatus. Review of Systems: Ten points otherwise unremarkable. Objective: Chest: Clear. Abdomen: Soft and depressible. Mildly distended. No guarding or rebound. Diagnostic Studies: X-ray shows some improvement of the small bowel obstruction, although some patte rn of that is still present. Laboratory Data: Blood work shows WBC count of 12. Chloride is 111. NG tube shows minimal, clear. Plan: Discontinue NG tube, ambulation. Continue in bowel rest. HM/MODL Voice ID: [id number] Report ID: [id number]
--- NOTE | 2020-12-04 12:30 | P.PN ---
Subjective Date of Service: 12/04/20 Chief Complaint: Abdominal pain Subjective: Improving (passing flatus, no BM, less distended, no nausea/vomiting. NGT to LIWS overnight, minimal output. still with some abdominal discomfort) Review of Systems 10-point ROS is otherwise unremarkable Physical Examination - Vital Signs Temperature: 97.4 F Blood Pressure: 149/71 Pulse: 65 Respirations: 22 Pulse Ox (%): 91 Assessment & Plan Physician Review Additional Text: Physical Exam General: Alert, In no apparent distress, Oriented x3 HEENT: normal conjunctiva, sclera anicteric, NGT in place Respiratory: Clear to auscultation bilaterally, Normal air movement Cardiovascular: No edema, Normal pulses, Regular rate/rhythm, Normal S1 S2 Gastrointestinal: Soft, mild distention, no tenderness Musculoskeletal: No swelling, No tenderness Integumentary: No rashes, No erythema Neurological: Normal speech, Normal strength at 5/5 x4 extr Assessment and Plan Small bowel obstruction Coronary artery disease Hypertension Acute renal failure -continue NGT for now, KUB ordered for this morning -pt with some clinical improvement, but likely SBO still persists, general surgery consulted -continue empiric abx - cipro/flagyl -leukocytosis improved -renal function improved - likely prerenal due to dehydration -NPO for now Code: full Dispo: anticipate dc home - likely 1-2 days Time Spent Managing Pts Care (In Minutes): 35
[2020-12-05] MEDS: METRONIDAZOLE 500mg IVPB 500 MG/100 ML BAG IV SCH ×3 (00:46→16:00)
[2020-12-05] MEDS: HEPARIN 5000 UNIT/ML 1 ML VIAL SQ SCH ×3 (00:46→16:00)
[2020-12-05 04:07] LABS: Basophils % 0.8 % (0-1.3); Hematocrit 41.9 % (39.6-49.0); Lymphocytes % 26.8 % (15.3-44.8)
[2020-12-05 04:13] LABS: Potassium 3.4 mmol/L (3.5-5.1)
[2020-12-05] MEDS: CIPROFLOXACIN 400mg IV 400 MG/200 ML BAG IV SCH (08:00)
[2020-12-05] MEDS: D5 0.9 NS 1,000 ML IV SCH ×2 (08:10→13:52)
[2020-12-05 08:20] VITALS: O2SAT 95
[2020-12-05] MEDS ORDERED: POTASSIUM CL SA 10 MEQ TAB PO ONE ×2 (09:00→14:07)
--- NOTE | 2020-12-05 09:51 | RAD REPORT ---
EXAM DESCRIPTION: RAD - Abdomen W Erect - 12/05/2020 5:52 am CLINICAL HISTORY: SBO Pain COMPARISON: Abdomen W Erect dated 12/04/2020 FINDINGS: Previously noted mildly prominent small bowel loops appear improved since prior study. No definitive bowel obstruction present. No suspicious calcifications. No significant bony findings. IMPRESSION: No definitive bowel obstruction seen on today's study.
[2020-12-05] MEDS: MORPHINE 2 MG/ML SYR IV PRN (11:20)
--- NOTE | 2020-12-05 15:57 | P.PN ---
Subjective Date of Service: 12/05/20 Chief Complaint: Abdominal pain Subjective: Improving (Feeling better, passing flatus, abdomen feels less distended, no nausea/vomiting.) Review of Systems 10-point ROS is otherwise unremarkable Physical Examination - Vital Signs Temperature: 97.8 F Blood Pressure: 142/70 Pulse: 64 Respirations: 18 Pulse Ox (%): 93 Assessment & Plan Physician Review Additional Text: Physical Exam General: Alert, In no apparent distress, Oriented x3 HEENT: normal conjunctiva, sclera anicteric Respiratory: Clear to auscultation bilaterally, Normal air movement Cardiovascular: No edema, Normal pulses, Regular rate/rhythm, Normal S1 S2 Gastrointestinal: Soft, mild distention, no tenderness Musculoskeletal: No swelling, No tenderness Integumentary: No rashes, No erythema Neurological: Normal speech, Normal strength at 5/5 x4 extr Assessment and Plan Small bowel obstruction Coronary artery disease Hypertension Acute renal failure -NG tube removed yesterday This patient tolerating some ice chips, feeling better common no BM, passing flatus -will discuss with general surgery, advanced to liquid diet for lunch -continue empiric abx - cipro/flagyl for now -leukocytosis improved -renal function improved - likely prerenal due to dehydration -NPO for now Code: full Dispo: anticipate dc home possibly later today vs tomorrow Time Spent Managing Pts Care (In Minutes): 35
[2020-12-05 16:02] VITALS: BP 157/73; TEMP 97.9
--- NOTE | 2020-12-05 16:05 | P.DS ---
Admission Date: 12/03/20 Discharge Date: 12/05/20 Disposition: ROUTINE DISCHARGE Discharge Condition: GOOD Reason for Admission: Abdominal pain, SBO Consultations: General surgery-Dr. Grant Procedures: CXR (12/03): Chronic interstitial lung pattern accentuated by shallow inspiration. No acute finding suspected. Abd U/S (12/03): Normal gallbladder and biliary tree ultrasound. CT Abd/pelvis (12/03): Multiple mildly dilated small bowel loops from mid jejunum to mid ileum. Abrupt transition in the right mid abdomen seen without defined soft tissue mesenteries mass or small bowel mass. There is minimal stranding in spiculation to tissues in the mesenteric fat right mid abdomen near the transition point. Etiology for the small bowel obstruction pattern is uncertain. Internal hernia or adhesions would be possible. No intraabdominal surgery is known. No soft tissue mass to indicate carcinoid or other mesenteric fat mass lesion. No free air, abscess or surgically emergent finding. Abd x-ray (12/03): The enteric tube is coiled in the stomach. Abd x-ray (12/04): A nasogastric tube is coiled within proximal stomach. Loop of moderately dilated small bowel is present within the left lower abdomen. Mildly additional dilated small bowel persists. Small bowel obstruction persists Free air is not seen beneath diaphragm Abd x-ray (12/05): Previously noted mildly prominent small bowel loops appear imp roved since prior study. No definitive bowel obstruction present. No suspicious calcifications. No significant bony findings. IMPRESSION: No definitive bowel obstruction seen on today's study. Problem list Small bowel obstruction Coronary artery disease Hypertension Acute renal failure secondary to dehydration/prerenal Brief History of Present Illness: 65-year-old gentleman with a history of hypertension and coronary artery disease presented to the emergency department with a complaint of abdominal pain of sudden onset since last night. This occurred after his even in meal. Her symptoms did not improve and therefore presented to the emergency department early this morning. He denies any vomiting. He endorsed nausea. CT abdomen and pelvis done in the emergency department demonstrated small bowel dilatation with transition point concerning for bowel obstruction. Patient stated his abdominal pain significantly improved after NG tube insertion in the ED. General surgery-Dr. Grant consulted. The ED physician wishes to admit the patient to the hospitalist service. Hospital Course: Patient was managed conservatively with NG tube, bowel rest, and empiric antibiotics. Patient had a leukocytosis of 17,000 on admission. Patient's symptoms gradually improved throughout the hospitalization, leukocytosis resolved. Patient was tolerating a soft diet, had a bowel movement, and remained afebrile. He was discharged home to continue p.o. antibiotics. Follow up with PCP in 3-5 days Follow up with Dr. Grant in 1 week. Vital Signs/Physical Exam: Temp Pulse Resp BP Pulse Ox 97.9 F 64 18 157/73 H 95 12/05/20 16:00 12/05/20 16:00 12/05/20 16:00 12/05/20 16:00 12/05/20 16:00 General: Alert, In no apparent distress, Oriented x3 HEENT: Atraumatic, PERRLA, EOMI Respiratory: Clear to auscultation bilaterally, Normal air movement Cardiovascular: No edema, Regular rate/rhythm, Normal S1 S2 Gastrointestinal: Soft and benign, Non-distended, No tenderness Musculoskeletal: No erythema, No tenderness Integumentary: No rashes, No breakdown Neurological: Normal speech, Normal strength at 5/5 x4 extr Laboratory Data at Discharge: WBC 7.30 K/uL (4.3-10.9) D 12/05/20 02:47 Hgb 14.3 g/dL (13.6-17.9) 12/05/20 02:47 Hct 41.9 % (39.6-49.0) 12/05/20 02:47 Plt Count 170 K/uL (152-406) 12/05/20 02:47 PT 11.9 SECONDS (9.5-12.5) 12/03/20 08:53 INR 1.03 12/03/20 08:53 Sodium 143 mmol/L (136-145) 12/05/20 02:47 Potassium 3.5 mmol/L (3.5-5.1) 12/05/20 13:35 BUN 11 mg/dL (7-18) 12/05/20 02:47 Creatinine 0.88 mg/dL (0.55-1.3) 12/05/20 02:47 Glucose 98 mg/dL (74-106) 12/05/20 02:47 Phosphorus 2.4 mg/dL (2.5-4.9) L 12/04/20 03:18 Magnesium 2.0 mg/dL (1.8-2.4) 12/04/20 03:18 Total Bilirubin 0.8 mg/dL (0.2-1.0) 12/04/20 03:18 AST 12 U/L (15-37) L 12/04/20 03:18 ALT 20 U/L (12-78) 12/04/20 03:18 Alkaline Phosphatase 99 U/L (45-117) 12/04/20 03:18 Lipase 90 U/L (73-393) 12/03/20 07:42 Home Medications: Aspirin [Aspirin EC 81 MG] 81 mg PO DAILY #90 tablet. 03/25/16 Albuterol Inhaler [Ventolin Inhaler*] 1 puff IH Q4HP PRN 12/03/20 Amlodipine [Norvasc*] 1 tab PO DAILY 12/03/20 Atorvastatin Calcium [Lipitor*] 20 mg PO BEDTIME 12/03/20 Clopidogrel Bisulfate [Plavix*] 1 tab PO DAILY 12/03/20 Fluticasone/Umeclidin/Vilanter [Trelegy Ellipta 100-62.5-25] 1 inh IH DAILY 12/03/20 Gabapentin 1 tab PO BID 12/03/20 Metoprolol Tartrate [Lopressor*] 25 mg PO DAILY 12/03/20 lisinopriL [Prinivil*] 12.5 mg PO DAILY 12/03/20 Ciprofloxacin HCl [Cipro 500 MG Tablet] 500 mg PO BID 5 Days #10 tab 12/05/20 metroNIDAZOLE [Flagyl] 500 mg PO Q8H 5 Days #15 tablet 12/05/20 New Medications: Ciprofloxacin HCl [Cipro 500 MG Tablet] 500 mg PO BID 5 Days #10 tab metroNIDAZOLE [Flagyl] 500 mg PO Q8H 5 Days #15 tablet Physician Discharge Instructions: You were found to have a small bowel obstruction. This resolved with NG tube and bowel rest. It is unclear what caused this issue. There was no obvious mass / tumor / other finding on CT scan. You did have elevated white blood cell count on admission (17,000). You are discharged with 5 more days of antibiotics. Please follow up with Dr. Grant next week. Follow up with your PCP within 1 week as well. continue soft/bland diet over the next 3-5 days. Diet: soft diet Activity: Ad adama Followup: Jose Antonio Grant MD [ACTIVE - CAN ADMIT] - NONE,NONE [Primary Care Provider] - (Call to schedule appointment.) Time spent managing pt's care (in minutes): 35
== END 2020-12-05 18:27 | disposition home or self-care (01) | DRG 389 ==
LOC: ER 07:01 → ERHOLD 13:48 → 4TH 16:34
PROVIDERS: ADMIT Internal Medicine; ATTEND Internal Medicine
DX: K56.609 Unspecified intestinal obstruction, unspecified as to partial versus complete obstruction (principal); N17.9 Acute kidney failure, unspecified; I25.10 Atherosclerotic heart disease of native coronary artery without angina pectoris; I10 Essential (primary) hypertension; E86.0 Dehydration; Z88.0 Allergy status to penicillin; Z95.5 Presence of coronary angioplasty implant and graft; Z20.822 Contact with and (suspected) exposure to COVID-19
CPT/HCPCS: 36415; 71045; 74018; 74019; 74177; 76705; 80048; 80053; 80076; 81003; 83690; 83735; 83880; 84100; 84132; 84484; 85025; 85610; 93005; 99285; J0744; J1644; J2270; J2405; J3480; J7030; J7042; Q9967; U0003

== ENCOUNTER 2021-11-20 06:02 | Emergency (ER) | payer BC ==
--- OUTSIDE RECORDS SUMMARY | 2021-11-20 06:06 | XMS REPORT | Continuity of Care Document ---
:1955 Author Organization [facility] t Address [address] [place] [address] Care Team Providers Name Role Phone Raulito Conteh MD Primary Care Physician LAB90 Attending Clinician Unavailable Raulito Conteh MD Attending Clinician RAULITO CONTEH Attending Clinician Unavailable SIBLEY Attending Clinician Unavailable ANENE Attending Clinician Unavailable Lab, Fam Pob I Attending Clinician Unavailable Anene MINE TECHNICIAN Attending Clinician Doctor Unassigned, Name Attending Clinician Unavailable Payers Payer Name Policy Type Policy Number Effective Date Expiration Date S [facility] 2 [id number] 2020 00:00:00 [facility] [id number] 2019 00:00:00 Problems Condition Condition Condition Status Onset Resolution Last Treating Co mments Source Name Details Category Date Date Treatment Clinician Date High blood High blood Disease Active 0 K elsey pressure pressure 6-15 Seybol d 00:00: 00 Chronic Chronic Disease Active 0 Catie pain of pain of 6-15 Seybold right hip right hip 00:00: 00 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 : NPI:183 on in on in 0-18 Added [id number] peripheral peripheral 00:00: automatic vascular vascular 00 ally from disease disease request for surgery [id number] Abdominal Abdominal Disease Active NPI :183 pain pain 8-23 [id number] 00:00: 00 Allergies, Adverse Reactions, Alerts Allergy Allergy Status Severity Reaction(s) Onset Inactive Treating Comm ents Source Name Type Date Date Clinician Penicill Propensi Active Itching NPI:1 83 ins ty to 4-30 [id number] adverse 00:00: reaction 00 s PENICILL Drug Active ITCHING NPI:183 INS Class 4-30 [id number] 00:00: 00 Penicill Propensi Active Itching Kelse y ins ty to 4-30 Seybold adverse 00:00: reaction 00 s Social History Social Habit Start Date Stop Date Quantity Comments Source Exposure to Not sure Catie moore SARS-CoV-2 (event) History of tobacco Cigarette Smoker Catie Car use Alcohol intake 2021-11-19 2021-11-19 Ex-drinker Catie conklin 00:00:00 00:00:00 (finding) Cigarettes smoked 2020-11-06 2020-11-06 Catie Car current (pack per 00:00:00 00:00:00 day) - Reported Cigarette 2020-11-06 2020-11-06 Catie Seofeliamichael pack-years 00:00:00 00:00:00 Tobacco use and 2020-11-06 2020-11-06 Former smokeless Jonathan Car exposure 00:00:00 00:00:00 tobacco user Tobacco Comment 2018-03-04 2018-03-04 1/2 pack a day NPI:1 [id number] 00:00:00 00:00:00 [birth year] Catie downey 00:00:00 00:00:00 Smoking Status Start Date Stop Date Source Smokes tobacco daily 2020-11-06 00:00:00 Catie Car Medications Ordered Filled Start Stop Current Ordering Indication Dosage Frequency Signature Comments Components Source Medication Medication Date Date Medication? Clinician (SIG) Name Name Pantoprazol Yes [id number] 40mg Take 1 Catie e Sodium 40 5-10 tablet (40 Se ybold MG oral 00:00: mg total) Tablet 00 by mouth Delayed daily Response Ciprofloxac 2021- Yes [id number] 500mg Take 1 Catie in HCl 500 -04 16- tablet Seybol d MG oral 00:00: 04:59 (500 mg Tablet 00 :00 total) by mouth in the morning and 1 tablet (500 mg total) in the evening. Do all this for 10 days. Metronidazo 2021-0 2022- Yes [id number] 500mg Take 1 Catie le 500 MG 5-10 - tablet Seybold oral Tablet 00:00: 04:59 (500 mg 00 :00 total) by mouth 3 times daily for 10 days Allopurinol 2021-0 Yes [id number] TAKE 2 Catie 100 MG oral 5-04 TABLETS BY Se ybold Tablet 00:00: MOUTH 00 EVERY DAY Gabapentin 2021-0 Yes TAKE 1 Kelse y 300 MG oral 3-21 CAPSULE BY Se ybold Capsule 00:00: MOUTH 00 TWICE A DAY Allopurinol 2021-0 Yes [id number] TAKE 1 Catie 100 MG oral 3-01 TABLET BY Sey bold Tablet 00:00: MOUTH 00 EVERY DAY Allopurinol 2021-0 Yes [id number] 100mg Take 1 Catei 100 MG oral 2-02 tablet Seybol d Tablet 00:00: (100 mg 00 total) by mouth daily Fluticasone 2021-0 Yes [id number] Inhale 1 Catie -Umeclidin- 2-02 inhalation Se ybold Vilant 00:00: into the (Trelegy 00 lungs Ellipta) daily 100-62.5-25 MCG/INH inhalation AEROSOL POWDER, BREATH ACTIVATED Aspirin 2021-0 Yes [id number] 81mg Take 1 Bouchra ey (Aspirin 2-02 tablet (81 Seybo ld Low Dose) 00:00: mg total) 81 MG oral 00 by mouth Tablet daily Delayed Response Fluticasone 2021-0 Yes [id number] Inhale 1 Catie -Umeclidin- 2-02 inhalation Se ybold Vilant 00:00: into the (Trelegy 00 lungs Ellipta) daily 100-62.5-25 MCG/INH inhalation AEROSOL POWDER, BREATH ACTIVATED Aspirin 2021-0 Yes [id number] 81mg Take 1 Bouchra ey (Aspirin 2-02 tablet (81 Seybo ld Low Dose) 00:00: mg total) 81 MG oral 00 by mouth Tablet daily Delayed Response Fluticasone 0 Yes [id number] Inhale 1 Catie -Umeclidin- 2-02 inhalation Se ybold Vilant 00:00: into the (Trelegy 00 lungs Ellipta) daily 100-62.5-25 MCG/INH inhalation AEROSOL POWDER, BREATH ACTIVATED Aspirin Yes [id number] 81mg Take 1 Bouchra ey (Aspirin 2-02 tablet (81 Seybo ld Low Dose) 00:00: mg total) 81 MG oral 00 by mouth Tablet daily Delayed Response predniSONE 2021-0 Yes [id number] Take 2 Catie 20 MG oral 1-19 tablets by Sey bold tablet 00:00: mouth for 00 5 days, then 1 tablet by mouth for 5 days predniSONE 2021-0 Yes [id number] Take 2 Catie 20 MG oral 1-19 tablets by Sey bold tablet 00:00: mouth for 00 5 days, then 1 tablet by mouth for 5 days predniSONE 2021-0 Yes [id number] Take 2 Catie 20 MG oral 1-19 tablets by Sey bold tablet 00:00: mouth for 00 5 days, then 1 tablet by mouth for 5 days predniSONE 2021-0 202- No [id number] Take 2 Catie 20 MG oral 1-19 05-10 tablets by Se ybold tablet 00:00: 00:00 mouth for 00 :00 5 days, then 1 tablet by mouth for 5 days Metoprolol Yes TAKE 1 Kelse y Succinate 1-03 TABLET BY Seybo ld 50 MG oral 00:00: MOUTH TABLET SR 00 EVERY DAY 24 HR Metoprolol Yes TAKE 1 Kelse y Succinate 1-03 TABLET BY Seybo ld 50 MG oral 00:00: MOUTH TABLET SR 00 EVERY DAY 24 HR Metoprolol 0 Yes TAKE 1 Kelse y Succinate 1-03 TABLET BY Seybo ld 50 MG oral 00:00: MOUTH TABLET SR 00 EVERY DAY 24 HR Metoprolol Yes TAKE 1 Kelse y Succinate 1-03 TABLET BY Seybo ld 50 MG oral 00:00: MOUTH TABLET SR 00 EVERY DAY 24 HR Cetirizine 2020-07 Yes [id number] TAKE 1 Catie 10 MG oral 2-17 TABLET BY Seyb old Tablet 00:00: MOUTH 00 EVERY DAY NEEDED Cetirizine 2020-07 Yes [id number] TAKE 1 Catie 10 MG oral 2-17 TABLET BY Seyb old Tablet 00:00: MOUTH 00 EVERY DAY NEEDED Cetirizine 2020-07 Yes [id number] TAKE 1 Catie 10 MG oral 2-17 TABLET BY Seyb old Tablet 00:00: MOUTH 00 EVERY DAY NEEDED Cetirizine 2020-07 Yes [id number] TAKE 1 Catie 10 MG oral 2-17 TABLET BY Seyb old Tablet 00:00: MOUTH 00 EVERY DAY NEEDED Atorvastati 2020-07 Yes [id number] TAKE 1 Catie n Calcium 2-01 TABLET BY Seybo ld 20 MG oral 00:00: MOUTH Tablet 00 EVERY DAY Amlodipine 2020-07 Yes [id number] TAKE 1 K elsey Besylate 10 2-01 TABLET BY Sey bold MG oral 00:00: MOUTH Tablet 00 EVERY DAY LISINOPRIL- 2020-07 Yes [id number] TAKE 1 Catie HCTZ 2-01 TABLET BY Seybold 20-12.5 MG 00:00: MOUTH oral Tablet 00 EVERY DAY Atorvastati 2020-07 Yes [id number] TAKE 1 Catie n Calcium 2-01 TABLET BY Seybo ld 20 MG oral 00:00: MOUTH Tablet 00 EVERY DAY Amlodipine 2020-07 Yes [id number] TAKE 1 K elsey Besylate 10 2-01 TABLET BY Sey bold MG oral 00:00: MOUTH Tablet 00 EVERY DAY LISINOPRIL- 2020-07 Yes [id number] TAKE 1 Catie HCTZ 2-01 TABLET BY Seybold 20-12.5 MG 00:00: MOUTH oral Tablet 00 EVERY DAY Atorvastati 2020-07 Yes [id number] TAKE 1 Catie n Calcium 2-01 TABLET BY Seybo ld 20 MG oral 00:00: MOUTH Tablet 00 EVERY DAY Amlodipine 2020-07 Yes [id number] TAKE 1 K elsey Besylate 10 2-01 TABLET BY Sey bold MG oral 00:00: MOUTH Tablet 00 EVERY DAY LISINOPRIL- 2020-07 Yes [id number] TAKE 1 Catie HCTZ 2-01 TABLET BY Seybold 20-12.5 MG 00:00: MOUTH oral Tablet 00 EVERY DAY Atorvastati 2020-07 Yes [id number] TAKE 1 Catie n Calcium 2-01 TABLET BY Seybo ld 20 MG oral 00:00: MOUTH Tablet 00 EVERY DAY Amlodipine 2020-07 Yes [id number] TAKE 1 K elsey Besylate 10 2-01 TABLET BY Sey bold MG oral 00:00: MOUTH Tablet 00 EVERY DAY LISINOPRIL- 2020-07 Yes [id number] TAKE 1 Catie HCTZ 2- TABLET BY Seybold 20-12.5 MG 00:00: MOUTH oral Tablet 00 EVERY DAY Methylpredn 2020-07- No [id number] 40mg Catie isolone -06-04 Seybold Sodium 21:15: 21:15 (SOLU-MEDRO 00 :00 L) 40 mg Methylpredn 2020-07- No [id number] 40mg 40 mg, Catie isolone -06-04 intramuscu Seybo ld Sodium 21:15: 21:15 lar, ONCE, (SOLU-MEDRO 00 :00 On Thu) 40 mg 06/04/21 at 1515, For 1 dose Albuterol 2020-07 Yes [id number] 2{puff} Q4H Inhale 2 Catie HFA 108 (90 1-23 puffs into Se ybold Base) 00:00: the lungs MCG/ACT IN 00 every 4 AERS hours as needed for wheezing or shortness of breath Albuterol 2020-07 Yes [id number] 2{puff} Q4H Inhale 2 Catie HFA 108 (90 1-23 puffs into Se ybold Base) 00:00: the lungs MCG/ACT IN 00 every 4 AERS hours as needed for wheezing or shortness of breath Albuterol 2020-07 Yes [id number] 2{puff} Q4H Inhale 2 Catie HFA 108 (90 1-23 puffs into Se ybold Base) 00:00: the lungs MCG/ACT IN 00 every 4 AERS hours as needed for wheezing or shortness of breath predniSONE 2020-07 Yes [id number] Take 2 Catie 20 MG oral 1-23 tablets by Sey bold tablet 00:00: mouth for 00 5 days, then 1 tablet by mouth for 5 days Albuterol 2020-07 Yes [id number] 2{puff} Q4H Inhale 2 Catie HFA 108 (90 1-23 puffs into Se ybold Base) 00:00: the lungs MCG/ACT IN 00 every 4 AERS hours as needed for wheezing or shortness of breath Albuterol 2020-07- No [id number] 2{puff} Q4H Inhale 2 Catie HFA 108 (90 08-04 05-10 puffs into S eybold Base) 00:00: 00:00 the lungs MCG/ACT IN 00 :00 every 4 AERS hours as needed for wheezing or shortness of breath predniSONE 2020-07- No [id number] Take 2 Catie 20 MG oral 1-23 -19 tablets by Se ybold tablet 00:00: 00:00 mouth for 00 :00 5 days, then 1 tablet by mouth for 5 days Azithromyci 2020-07- No [id number] Take 2 Catie n 250 MG 1-23 -29 tablets by Seyb old oral Tablet 00:00: 05:59 mouth on 00 :00 day 1 then 1 tablet by mouth daily for 4 days thereafter . Clopidogrel 2020-07 Yes TAKE 1 Bouchra ey Bisulfate 0-25 TABLET BY Seybo ld 75 MG oral 00:00: MOUTH Tablet 00 EVERY DAY Clopidogrel 2020-07 Yes TAKE 1 Bouchra ey Bisulfate 0-25 TABLET BY Seybo ld 75 MG oral 00:00: MOUTH Tablet 00 EVERY DAY Clopidogrel 2020-07 Yes TAKE 1 Bouchra ey Bisulfate 0-25 TABLET BY Seybo ld 75 MG oral 00:00: MOUTH Tablet 00 EVERY DAY Clopidogrel 2020-07 Yes TAKE 1 Bouchra ey Bisulfate 0-25 TABLET BY Seybo ld 75 MG oral 00:00: MOUTH Tablet 00 EVERY DAY Clopidogrel 2020-07 Yes TAKE 1 Bouchra ey Bisulfate 0-25 TABLET BY Seybo ld 75 MG oral 00:00: MOUTH Tablet 00 EVERY DAY Gabapentin Yes TAKE 1 Kelse y 300 MG oral 9-23 CAPSULE BY Se ybold Capsule 00:00: MOUTH 00 TWICE A DAY Gabapentin Yes TAKE 1 Kelse y 300 MG oral 9-23 CAPSULE BY Se ybold Capsule 00:00: MOUTH 00 TWICE A DAY Gabapentin Yes TAKE 1 Kelse y 300 MG oral 9-23 CAPSULE BY Se ybold Capsule 00:00: MOUTH 00 TWICE A DAY Gabapentin Yes TAKE 1 Kelse y 300 MG oral 9- CAPSULE BY Se ybold Capsule 00:00: MOUTH 00 TWICE A DAY Aspirin Low 0 Yes TAKE 1 Bouchra ey Dose 81 MG 9-07 TABLET BY Seyb old oral Tablet 00:00: MOUTH Delayed 00 EVERY DAY Response Atorvastati 0 Yes [id number] TAKE 1 Catie n Calcium 9-07 TABLET BY Seybo ld 20 MG oral 00:00: MOUTH Tablet 00 EVERY DAY ASPIRIN 81 2020-0 Yes TAKE 1 Kelse y OR 9-07 TABLET BY Seybold 00:00: MOUTH 00 EVERY DAY Aspirin Low 2020-0 Yes TAKE 1 Bouchra ey Dose 81 MG 9-07 TABLET BY Seyb old oral Tablet 00:00: MOUTH Delayed 00 EVERY DAY Response ASPIRIN 81 Yes TAKE 1 Kelse y OR 9-07 TABLET BY Seybold 00:00: MOUTH 00 EVERY DAY ASPIRIN 81 2020-0 2022- No TAKE 1 Bouchra ey OR 9- 02- TABLET BY Seybold 00:00: 00:00 MOUTH 00 :00 EVERY DAY Aspirin Low 2020-0 2022- No TAKE 1 Jonathan sey Dose 81 MG 03-19 02- TABLET BY Sey bold oral Tablet 00:00: 00:00 MOUTH Delayed 00 :00 EVERY DAY Response Fluticasone Yes Inhale 1 Ke lsey -Umeclidin- 8-16 inhalation Se ybold Vilant 00:00: into the (Trelegy 00 lungs Ellipta) daily 100-62.5-25 MCG/INH inhalation AEROSOL POWDER, BREATH ACTIVATED Fluticasone Yes Inhale 1 Ke lsey -Umeclidin- 8-16 inhalation Se ybold Vilant 00:00: into the (Trelegy 00 lungs Ellipta) daily 100-62.5-25 MCG/INH inhalation AEROSOL POWDER, BREATH ACTIVATED Fluticasone 2020-0 2- No Inhale 1 K elsey -Umeclidin- 8-16 02-02 inhalation S eybold Vilant 00:00: 00:00 into the (Trelegy 00 :00 lungs Ellipta) daily 100-62.5-25 MCG/INH inhalation AEROSOL POWDER, BREATH ACTIVATED Ibuprofen Yes [id number] 800mg Q6H Take 1 K elsey 800 MG oral 7-13 tablet Seybol d Tablet 00:00: (800 mg 00 total) by mouth every 6 hours as needed for pain Ibuprofen 2020-0 Yes [id number] 800mg Q6H Take 1 K elsey 800 MG oral 7-13 tablet Seybol d Tablet 00:00: (800 mg 00 total) by mouth every 6 hours as needed for pain Ibuprofen 2020-0 Yes [id number] 800mg Q6H Take 1 K elsey 800 MG oral 7-13 tablet Seybol d Tablet 00:00: (800 mg 00 total) by mouth every 6 hours as needed for pain Ibuprofen 2020-0 Yes [id number] 800mg Q6H Take 1 K elsey 800 MG oral 7-13 tablet Seybol d Tablet 00:00: (800 mg 00 total) by mouth every 6 hours as needed for pain Ibuprofen 2020-0 2022- No [id number] 800mg Q.25D Take 1 Catie 800 MG oral 7-13 05-10 tablet Seybo ld Tablet 00:00: 00:00 (800 mg 00 :00 total) by mouth every 6 hours as needed for pain Metoprolol 2020-0 Yes 50mg Take 1 Kelse y Succinate 7-07 tablet (50 Seyb old 50 MG oral 00:00: mg total) TABLET SR 00 by mouth 24 HR daily Diclofenac 2020-0 Yes Apply 1 Bouchra ey Sodium 6-17 applicatio Seybold (Voltaren) 00:00: n 1 % apply 00 topically externally 2 times Gel daily Diclofenac 2020-0 Yes Apply 1 Bouchra ey Sodium 6-17 applicatio Seybold (Voltaren) 00:00: n 1 % apply 00 topically externally 2 times Gel daily Diclofenac 2020-0 Yes Apply 1 Bouchra ey Sodium 6-17 applicatio Seybold (Voltaren) 00:00: n 1 % apply 00 topically externally 2 times Gel daily Diclofenac 2020-0 Yes Apply 1 Bouchra ey Sodium 6-17 applicatio Seybold (Voltaren) 00:00: n 1 % apply 00 topically externally 2 times Gel daily Diclofenac 2020-0 2022- No Apply 1 Jonathan sey Sodium 6-17 05-10 applicatio Seybol d (Voltaren) 00:00: 00:00 n 1 % apply 00 :00 topically externally 2 times Gel daily Acetaminoph 2020-0 Yes [id number] 1{tbl} Q6H Take 1 Catie en-Codeine 6-15 tablet by Seyb old #3 300-30 00:00: mouth MG oral 00 every 6 Tablet hours as needed Acetaminoph 2020-0 Yes [id number] 1{tbl} Q6H Take 1 Catie en-Codeine 6-15 tablet by Seyb old #3 300-30 00:00: mouth MG oral 00 every 6 Tablet hours as needed LISINOPRIL- 2020-0 Yes [id number] 1{tbl} Take 1 Catie HCTZ 6-15 tablet by Seybold 20-12.5 MG 00:00: mouth oral Tablet 00 daily Cetirizine 2020-0 Yes [id number] 10mg Q24H Take 1 Catie 10 MG oral 6-15 tablet (10 Sey bold Tablet 00:00: mg total) 00 by mouth daily as needed Amlodipine 2020-0 Yes [id number] 10mg Take 1 K elsey Besylate 10 6-15 tablet (10 Se ybold MG oral 00:00: mg total) Tablet 00 by mouth daily Acetaminoph 2020-0 Yes [id number] 1{tbl} Q6H Take 1 Catie en-Codeine 6-15 tablet by Seyb old #3 300-30 00:00: mouth MG oral 00 every 6 Tablet hours as needed Acetaminoph 2020-0 Yes [id number] 1{tbl} Q6H Take 1 Catie en-Codeine 6-15 tablet by Seyb old #3 300-30 00:00: mouth MG oral 00 every 6 Tablet hours as needed Acetaminoph 2020-0 2022- No [id number] 1{tbl} Q.25D Take 1 Catie en-Codeine 6-15 05-10 tablet by Sey bold #3 300-30 00:00: 00:00 mouth MG oral 00 :00 every 6 Tablet hours as needed Metronidazo 2020-0 Yes 500mg Take 500 K elsey le 500 MG 5-26 mg by Seybold oral Tablet 00:00: mouth 00 every 8 hours Ciprofloxac 2020-0 Yes 500mg Take 500 K elsey in HCl 500 5-26 mg by Seybold MG oral 00:00: mouth 2 Tablet 00 times daily Metronidazo Yes 500mg Take 500 K elsey le 500 MG 5-26 mg by Seybold oral Tablet 00:00: mouth 00 every 8 hours Ciprofloxac Yes 500mg Take 500 K elsey in HCl 500 5-26 mg by Seybold MG oral 00:00: mouth 2 Tablet 00 times daily Metronidazo Yes 500mg Take 500 K elsey le 500 MG 5-26 mg by Seybold oral Tablet 00:00: mouth 00 every 8 hours Ciprofloxac Yes 500mg Take 500 K elsey in HCl 500 5-26 mg by Seybold MG oral 00:00: mouth 2 Tablet 00 times daily Metronidazo Yes 500mg Take 500 K elsey le 500 MG 5-26 mg by Seybold oral Tablet 00:00: mouth 00 every 8 hours Ciprofloxac Yes 500mg Take 500 K elsey in HCl 500 5-26 mg by Seybold MG oral 00:00: mouth 2 Tablet 00 times daily Metronidazo 2021- No 500mg Take 500 Catie le 500 MG 5-26 05-10 mg by Seybold oral Tablet 00:00: 00:00 mouth 00 :00 every 8 hours Ciprofloxac 2021- No 500mg Take 500 Catie in HCl 500 5-26 05-10 mg by Seybold MG oral 00:00: 00:00 mouth 2 Tablet 00 :00 times daily Albuterol 2020- No 2{puff} 2 puffs K elsey HFA 108 (90 3-15 - every 4 to S eybold Base) 00:00: 00:00 6 hours as MCG/ACT IN 00 :00 needed AERS cilostazol Yes 100mg Take 100 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 metoprolol Yes 50mg Take 50 mg N PI:183 succinate 7-09 by mouth [id number] XL 50 mg 24 11:00: daily. hr tablet 47 atorvastati Yes 20mg Take 20 mg NPI:183 n 20 mg 7-09 by mouth [id number] tablet 11:00: daily. 47 amLODIPine Yes 10mg Take 10 mg N PI:183 10 mg 7-09 by mouth [id number] tablet 11:00: daily. 47 aspirin 81 Yes 81mg Take 81 mg N PI:183 mg chewable 7-09 by mouth [id number] tablet 11:00: daily. 47 ibuprofen Yes 1{tbl} Take 1 NPI: 183 (ADVIL 7-09 tablet by [id number] LIQUI-GEL 11:00: mouth as ORAL) 47 needed. 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 metoprolol Yes 50mg Take 50 mg N PI:183 succinate 7-09 by mouth [id number] 1 XL 50 mg 24 11:00: daily. hr tablet 47 atorvastati Yes 20mg Take 20 mg NPI:183 n 20 mg 7-09 by mouth [id number] tablet 11:00: daily. 47 amLODIPine Yes 10mg Take 10 mg N PI:183 10 mg 7-09 by mouth [id number] tablet 11:00: daily. 47 aspirin 81 Yes 81mg Take 81 mg N PI:183 mg chewable 7-09 by mouth [id number] tablet 11:00: daily. 47 ibuprofen Yes 1{tbl} Take 1 NPI: 183 (ADVIL 7-09 tablet by [id number] LIQUI-GEL 11:00: mouth as ORAL) 47 needed. Immunizations Ordered Immunization Filled Immunization Date Status Commen ts Source Name Name Influenza Virus 2017-05-11 Completed Catie gilbertmichael Vaccine, age 6 months 00:00:00 and up Influenza Virus 2017-05-11 Completed Catie gilbertmichael Vaccine, age 6 months 00:00:00 and up Influenza Virus 2017-05-11 Completed Catie gilbertmichael Vaccine, age 6 months 00:00:00 and up Influenza Virus 2017-05-11 Completed Catie downey Vaccine, age 6 months 00:00:00 and up Influenza Virus 2017-05-11 Completed Catie gilbertold Vaccine, age 6 months 00:00:00 and up Meningococcal 2016-03-27 Completed Catie Osborne old Vaccine- 00:00:00 Conjugate(Menactra) Meningococcal 2016-03-27 Completed Catie ofelia old Vaccine- 00:00:00 Conjugate(Menactra) Meningococcal 2016-03-27 Completed Catiesupriya Osborne old Vaccine- 00:00:00 Conjugate(Menactra) Meningococcal 2016-03-27 Completed Catie Seyb old Vaccine- 00:00:00 Conjugate(Menactra) Meningococcal 2016-03-27 Completed Catiesupriya Osborne old Vaccine- 00:00:00 Conjugate(Menactra) Tdap- (Boostrix, 2013-08-24 Completed Catie olivaresbochencho Adacel) 00:00:00 Tdap- (Boostrix, 2013-08-24 Completed Catie Martin eybold Adacel) 00:00:00 Tdap- (Boostrix, 2013-08-24 Completed Catie Martin eybochencho Adacel) 00:00:00 Tdap- (Boostrix, 2013-08-24 Completed Catie olivaresbold Adacel) 00:00:00 Tdap- (Boostrix, 2013-08-24 Completed Catie Martin eybold Adacel) 00:00:00 Influenza, Seasonal, 2013-07-01 Completed Bouchra ey Seybold Injectable, 00:00:00 Preservative Free Influenza, Seasonal, 2013-07-01 Completed Bouchra ey Seybold Injectable, 00:00:00 Preservative Free Influenza, Seasonal, 2013-07-01 Completed Bouchra ey Seybold Injectable, 00:00:00 Preservative Free Vital Signs Vital Name Observation Time Observation Value Comments Source Systolic blood pressure 2021-11-19 14:09:00 134 mm[Hg] Catie Car Diastolic blood 2021-11-19 14:09:00 72 mm[Hg] Barbara conor Duboseybold pressure Heart rate 2021-11-19 14:09:00 72 /min Catie Mario olivaresrubin Body temperature 2021-11-19 14:09:00 36.67 Kaylynn Bouchra Car Respiratory rate 2021-11-19 14:09:00 16 /min Bouchra Car Body height 2021-11-19 14:09:00 172.7 cm Catie Mario rick Body weight 2021-11-19 14:09:00 102.513 kg Catie Mario rick BMI 2021-11-19 14:09:00 34.36 kg/m2 Catie S eybold Systolic blood pressure 2021-09-12 21:09:00 152 mm[Hg] Catie Seybold Diastolic blood 2021-09-12 21:09:00 87 mm[Hg] Kelse y Seybold pressure Heart rate 2021-09-12 21:09:00 74 /min Catie S eybold Body temperature 2021-09-12 21:09:00 37 Kaylynn Bouchra ey Seybold Respiratory rate 2021-09-12 21:09:00 15 /min Bouchra ey Seybold Body height 2021-09-12 21:09:00 172.7 cm Catie S eybold Body weight 2021-09-12 21:09:00 103.42 kg Catie S eybold BMI 2021-09-12 21:09:00 34.67 kg/m2 Catie S eybold Systolic blood pressure 2021-08-14 20:55:00 146 mm[Hg] Catie Seybold Diastolic blood 2021-08-14 20:55:00 79 mm[Hg] Kelse y Seybold pressure Heart rate 2021-08-14 20:55:00 74 /min Catie S eybold Body temperature 2021-08-14 20:55:00 36.56 Kaylynn Bouchra ey Seybold Respiratory rate 2021-08-14 20:55:00 15 /min Bouchra ey Seybold Body height 2021-08-14 20:55:00 172.7 cm Catie S eybold Body weight 2021-08-14 20:55:00 104.327 kg Catie S eybold BMI 2021-08-14 20:55:00 34.97 kg/m2 Catie S eybold Systolic blood pressure 2021-07-31 19:29:00 122 mm[Hg] Catie Seybold Diastolic blood 2021-07-31 19:29:00 60 mm[Hg] Kelse y Seybold pressure Heart rate 2021-07-31 19:29:00 69 /min Catie S eybold Body temperature 2021-07-31 19:29:00 36.89 Kaylynn Bouchra ey Seybold Respiratory rate 2021-07-31 19:29:00 16 /min Bouchra ey Seybold Body height 2021-07-31 19:29:00 172.7 cm Catie Martin eybold Body weight 2021-07-31 19:29:00 101.606 kg Catie Martin eybold BMI 2021-07-31 19:29:00 34.06 kg/m2 Catie Martin eybold Systolic blood pressure 2021-06-04 20:27:00 144 mm[Hg] Catie Seybold Diastolic blood 2021-06-04 20:27:00 76 mm[Hg] Kelse y Seybold pressure Heart rate 2021-06-04 20:27:00 77 /min Catie Martin eybold Body temperature 2021-06-04 20:27:00 36.39 Kaylynn Bouchra ey Seybold Respiratory rate 2021-06-04 20:27:00 16 /min Bouchra ey Seybold Body height 2021-06-04 20:27:00 172.7 cm Catie Martin eybold Body weight 2021-06-04 20:27:00 101.606 kg Catie olivaresbold BMI 2021-06-04 20:27:00 34.06 kg/m2 Catie olivaresbold Procedures This patient has no known procedures. Encounters Start End Encounter Admission Attending Care Care Encounter Source Date/Time Date/Time Type Type Clinicians Facility Department ID 2021-11-19 2021-11-19 Outpatient LAB90 CATIE RIVERA [id number] Catie 10:00:00 10:00:00 Indiaol d 2021-11-19 2021-11-19 Office Artur Conteh [id number] Catie 09:30:00 09:45:00 Visit Esme Jones [id number] Se ybmichael Murphyyi [id number] 2021-09-30 2021-09-30 Outpatient CATIE CONTEH [id number] Catie 00:00:00 00:00:00 ESME Osborneol d 2021-09-12 2021-09-12 Office Artur Conteh [id number] Catie 16:00:00 16:15:00 Visit Esme Jones [id number] Se ybold Somogyi [id number] 2021-09-12 2021-09-12 Outpatient LAB90 CATIE RIVERA [id number] Catie 15:25:00 15:25:00 Seybol d 2021-09-11 2021-09-11 Outpatient CATIE CONTEH [id number] Catie 15:30:00 15:30:00 ESME Seybol d 2021-09-10 2021-09-10 Outpatient CATIE CONTEH [id number] Catie 00:00:00 00:00:00 ESME Seybol d 2021-09-10 2021-09-10 Outpatient CATIE CONTEH [id number] Catie 00:00:00 00:00:00 ESME Seybol d 2021-09-07 2021-09-07 Outpatient CATIE CONTEH [id number] Catie 00:00:00 00:00:00 ESME Seybol d 2021-08-14 2021-08-14 Office Artur Conteh [id number] Catie 15:30:00 15:45:00 Visit Esme Jones [id number] Se ybold Somogyi [id number] 2021-07-31 2021-07-31 Outpatient LAB90 CATIE RIVERA [id number] Catie 14:15:00 14:15:00 Seybol d 2021-07-31 2021-07-31 Office Artur Conteh [id number] Catie 13:45:00 14:00:00 Visit Esme Jones [id number] Se ybold Somogyi [id number] 2021-07-15 2021-07-15 Outpatient CATIE CONTEH [id number] Catie 00:00:00 00:00:00 ESME Seybol d 2021-06-24 2021-06-24 Outpatient CATIE CONTEH [id number] Catie 00:00:00 00:00:00 ESME Seybol d 2021-06-12 2021-06-12 Outpatient CATIE SIBLEY CATIE [id number] Catie 00:00:00 00:00:00 ANGELI Osborne michael 2021-06-04 2021-06-04 Office Juan CarlosArtur mitchell [id number] Catie 15:00:00 15:30:00 Visit Esme Jones [id number] Se shayan Emnelson [id number] 2021-01-22 2021-01-22 Outpatient CATIE CONTEH CATIE [id number] Catie 16:45:00 16:45:00 ESME Osbornecheikh moore 2020-05-21 2020-05-21 Outpatient R [facility] [id number] NPI:[id number] 13:40:00 13:40:00 [id number] 2020-05-21 2020-05-21 Outpatient R USHA [facility] [id number] NPI:183 13:40:00 13:40:00 MARIZA [id number] 2020-05-21 2020-05-21 Laboratory Lab, [facility] Fam Pob I [facility] [id number]. [id number] NPI:183 13:15:06 13:35:06 Only Mariza Tejada [id number] [place] [id number] Professio [id number] nal [address] 2020-05-21 2020-05-21 Laboratory Lab, [facility] [id number] 13:15:06 13:35:06 Only Alejandro Pob I Health [id number] [place] [id number] Professio [phone] nal 0[address] One 2020-05-21 2020-05-21 Letter Doctor DÍAZ [id number] NPI:[id number] 00:00:00 00:00:00 (Out) Unassigned, ED [id number] [place] [facility] [id number] 2020-05-21 2020-05-21 Letter Doctor DÍAZ [id number] 00:00:00 00:00:00 (Out) Unassigned, ED [id number] [place] [facility] [id number] Results This patient has no known results.
[2021-11-20 06:58] LABS: Urine Blood Negative (Negative); Urine Glucose Negative (Negative); Urine Protein Negative (Negative)
[2021-11-20] MEDS ORDERED: CIPROFLOXACIN 400mg IV 400 MG/200 ML BAG IV ONE (06:59)
[2021-11-20] MEDS ORDERED: METRONIDAZOLE 500mg IVPB 500 MG/100 ML BAG IV ONE (06:59)
[2021-11-20] MEDS ORDERED: MORPHINE 4 MG/ML SYR ONE (07:00)
[2021-11-20 07:01] LABS: Absolute Lymphocytes (CBC) 3.2 K/uL (0.7-4.9); MPV 7.8 fL (7.6-11.3)
[2021-11-20] MEDS ORDERED: ONDANSETRON 4 MG/2 ML VIAL ONE (07:02)
[2021-11-20 07:19] LABS: Albumin 3.7 g/dL (3.4-5.0); Bilirubin Total 0.7 mg/dL (0.2-1.0); Potassium 3.6 mmol/L (3.5-5.1); Protein, Total 7.2 g/dL (6.4-8.2)
--- NOTE | 2021-11-20 08:23 | RAD REPORT ---
EXAM DESCRIPTION: CTAbdomen Pelvis W Contrast - 11/20/2021 7:53 am CLINICAL HISTORY: Abdominal pain. Abdominal pain, acute, nonlocalized COMPARISON: Abdomen Pelvis W Contrast dated 12/03/2020; CT ABD PELVIS W CONTRAST dated 06/29/2013 TECHNIQUE: Biphasic CT imaging of the abdomen and pelvis was performed with 100 ml non-ionic IV cont rast. All CT scans are performed using dose optimization technique as appropriate and may include automated exposure control or mA/KV adjustment according to patient size. FINDINGS: The lung bases are clear. The liver is diffusely fatty. Spleen, pancreas, adrenal glands and kidneys are within normal limits. No bowel obstruction, free air, free fluid or abscess. Small fat containing umbilical hernia. The chuck endix is normal. No evidence of significant lymphadenopathy. No suspicious bony findings. IMPRESSION: No acute intra-abdominal or pelvic finding.
--- NOTE | 2021-11-20 09:27 | ER ---
Nurse's Notes [facility] Name: Surinder Hi Age: 66 yrs Sex: Male : 1955 Arrival Date: 11/20/2021 Time: 06:05 Bed 13 Private MD: Diagnosis: Lower abdominal pain, unspecified Presentation: 11/20 07:08 Chief complaint: Patient states: abdominal and back pain. Coronavirus screen: Vaccine eros status: Patient reports receiving the 2nd dose of the covid vaccine. Ebola Screen: Patient negative for fever greater than or equal to 101.5 degrees Fahrenheit, and additional compatible Ebola Virus Disease symptoms Patient denies exposure to infectious person. Patient denies travel to an Ebola-affected area in the 21 days before illness onset. Initial Sepsis Screen: Does the patient meet any 2 criteria? No. Patient's initial sepsis screen is negative. Does the patient have a suspected source of infection? No. Patient's initial sepsis screen is negative. Risk Assessment: Do you want to hurt yourself or someone else? Patient reports no desire to harm self or others. Onset of symptoms was November 19, 2021. 07:08 Method Of Arrival: Ambulatory eros 07:08 Acuity: GERSON 3 eros Triage Assessment: 07:10 General: Appears in no apparent distress. uncomfortable. Pain: Complains of pain in eros back and abdomen. GI: Reports lower abdominal pain. 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 - Social history:: Smoking status: Patient reports the use of cigarette tobacco products, smokes one pack cigarettes per day. - Hospitalizations: : No recent hospitalization is reported. Screenin:13 Abuse screen: Denies threats or abuse. Denies injuries from another. Nutritional eros screening: No deficits noted. Tuberculosis screening: No symptoms or risk factors identified. Fall Risk None identified. Assessment: 07:12 Reassessment: The pt was recv'd to room #13 \T\ 0615. He c/o abdominal pain and lower eros back pain. All orders completed and report given to the oncoming nurse. 08:12 General: Appears in no apparent distress. Behavior is calm, cooperative. Pain: ww Complains of pain in suprapubic area, right lower quadrant and left lower quadrant. Neuro: Level of Consciousness is awake, alert, obeys commands, Oriented to person, place, time, situation, Moves all extremities. Speech is normal. Respiratory: Airway is patent Respiratory effort is even, unlabored, Respiratory pattern is regular, symmetrical. GI: Abdomen is round Abdomen is tender to palpation in suprapubic area, right lower quadrant and left lower quadrant. Derm: Skin is healthy with good turgor. 09:56 Reassessment: Patient appears in no apparent distress at this time. No changes from ww previously documented assessment. Patient and/or family updated on plan of care and expected duration. Pain level reassessed. Patient is alert, oriented x 3, equal unlabored respirations, skin warm/dry/pink. Vital Signs: 07:08 BP 119 / 99; Pulse 83; Resp 16; Temp 97.3; Pulse Ox 96% on R/A; Weight 102.51 kg; eros Height 5 ft. 8 in. (172.72 cm); Pain 0/10; 07:11 BP 119 / 99; Pulse 83; Resp 16; Pulse Ox 96% on R/A; Pain 0/10; eros 07:08 Body Mass Index 34.36 (102.51 kg, 172.72 cm) eros ED Course: 06:05 Patient arrived in ED. kz 06:13 Henry Marquez MD is Attending Physician. rn 06:49 Delicia Dejesus, RN is Primary Nurse. eros 06:56 CBC with Diff Sent. eros 06:56 CMP Sent. eros 06:56 Lipase Sent. eros 07:08 CBC with Diff Sent. eros 07:08 CMP Sent. eros 07:08 Lipase Sent. eros 07:10 Triage completed. eros 07:13 Patient has correct armband on for positive identification. Bed in low position. Call eros light in reach. 07:13 Arm band placed on. eros 07:14 No provider procedures requiring assistance completed. Inserted saline lock: 20 gauge eros in left antecubital area, using aseptic technique. Blood collected. 07:20 Attending Physician role handed off by Henry Marquez MD ms3 07:20 Phil Rivero DO is Attending Physician. ms3 07:56 CT Abd/Pelvis - IV Contrast Only In Process Unspecified. EDMS 09:56 IV discontinued, intact, bleeding controlled, No redness/swelling at site. Pressure ww dressing applied. Administered Medications: 07:07 Drug: morphine 4 mg Route: IVP; Site: left antecubital; eros 07:07 Drug: Flagyl (metroNIDAZOLE) 500 mg Volume: 100 ml; Route: IVPB; Rate: 200 ml/hr; eros Infused Over: 30 mins; Site: left antecubital; 07:08 Drug: Zofran (Ondansetron) 4 mg Route: IVP; Site: left antecubital; eros 08:04 Drug: Cipro (ciprofloxacin) 400 mg Volume: 200 ml; Route: IVPB; Infused Over: 60 mins; ww Site: left antecubital; Outcome: 09:27 Discharge ordered by . ms3 09:56 Discharged to home ambulatory. ww 09:56 Condition: stable 09:56 Discharge instructions given to patient, Instructed on discharge instructions, follow up and referral plans. medication usage, safety practices, Demonstrated understanding of instructions, follow-up care. 10:19 Patient left the ED. ww Signatures: Dispatcher [employer] EDMS Henry Marquez MD MD rn Sims, Marcus, DO DO ms3 Delicia Dejesus RN RN bo Wood, Whitney, RN RN ww Zapata, Kelly kz
--- NOTE | 2021-11-20 09:27 | EDPHYS ---
Physician Documentation [facility] Name: Surinder Hi Age: 66 yrs Sex: Male : 1955 Arrival Date: 11/20/2021 Time: 06:05 Bed 13 Private MD: ED Physician Phil Rivero HPI: 11/20 06:27 This 66 yrs old Male presents to ER via Unassigned with complaints of Abdominal Pain, rn Low Back Pain. 06:27 The patient presents with abdominal pain right lower quadrant, in the left lower rn quadrant, abdominal distention. Onset: The symptoms/episode began/occurred 5 day(s) ago. The symptoms radiate to back. Associated signs and symptoms: Pertinent positives: diarrhea, Pertinent negatives: fever, hematuria, shortness of breath, testicular pain, vomiting, vomiting blood. The symptoms are described as sharp, stabbing. Modifying factors: The symptoms are alleviated by remaining still, the symptoms are aggravated by movement, touching the area. Severity of pain: At its worst the pain was moderate in the emergency department the pain is unchanged. The patient has not experienced similar symptoms in the past. The patient has been recently seen by a physician:. Pt reports diffuse abd pain, worse in bilateral lower quadrants, seen by pcp recently, prescribed abx, not filled, and told to come to ER for CT abdomen. Reports pain getting worse, worse with movement and palpation. No fever. No vomiting but increased number of stool and urinating more than normal. . 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 - Social history:: Smoking status: Patient reports the use of cigarette tobacco products, smokes one pack cigarettes per day. - Hospitalizations: : No recent hospitalization is reported. ROS: 06:27 Constitutional: Negative for fever, chills, and weight loss, Eyes: Negative for injury, rn pain, redness, and discharge, Cardiovascular: Negative for chest pain, palpitations, and edema, Respiratory: Negative for shortness of breath, cough, wheezing, and pleuritic chest pain, Abdomen/GI: + abd pain and distension Back: + low back pain : + increased urinary frequency MS/Extremity: Negative for injury and deformity, Skin: Negative for injury, rash, and discoloration, Neuro: Negative for headache, weakness, numbness, tingling, and seizure. Exam: 06:27 Constitutional: This is a well developed, well nourished patient who is awake, alert, rn slow to stand and walk, appears uncomfortable Head/Face: Normocephalic, atraumatic. Eyes: Periorbital areas with no swelling, redness, or edema. Cardiovascular: Regular rate and rhythm. No pulse deficits. Respiratory: No increased work of breathing, no retractions or nasal flaring. Abdomen/GI: soft, + tender LLQ and RLQ with guarding Skin: Warm, dry MS/ Extremity: Pulses equal, no cyanosis. Neuro: Awake and alert, GCS 15 Vital Signs: 07:08 BP 119 / 99; Pulse 83; Resp 16; Temp 97.3; Pulse Ox 96% on R/A; Weight 102.51 kg; eros Height 5 ft. 8 in. (172.72 cm); Pain 0/10; 07:11 BP 119 / 99; Pulse 83; Resp 16; Pulse Ox 96% on R/A; Pain 0/10; eros 07:08 Body Mass Index 34.36 (102.51 kg, 172.72 cm) eros MDM: 06:13 Patient medically screened. rn 09:24 Differential diagnosis: bowel obstruction, diverticulitis, non-specific abd pain. Data ms3 reviewed: vital signs, nurses notes, lab test result(s), radiologic studies, CT scan. Data interpreted: Pulse oximetry: on room air is 96 %. Interpretation: normal. Counseling: I had a detailed discussion with the patient and/or guardian regarding: the historical points, exam findings, and any diagnostic results supporting the discharge/admit diagnosis, lab results, radiology results, the need for outpatient follow up, to return to the emergency department if symptoms worsen or persist or if there are any questions or concerns that arise at home. ED course: Discussed labs, CT abdomen pelvis, and physical exam findings with patient. Patient to follow-up with Gastroenterology in 2 to 3 days. Patient understands and agrees with plan. All questions were answered. Return precautions discussed include worsening symptoms, or any other concerns. On reevaluation patient symptoms improved, patient is alert and oriented x4, no apparent distress, nontoxic, ambulatory in emergency department.. 11/20 06:21 Order name: CBC with Diff rn 11/20 06:21 Order name: CMP; Complete Time: 07:52 rn 11/20 06:21 Order name: Lipase; Complete Time: 07:52 rn 11/20 06:21 Order name: CT Abd/Pelvis - IV Contrast Only; Complete Time: 09:18 rn 11/20 06:58 Order name: Urine Dipstick-Ancillary; Complete Time: 07:01 EDMS 11/20 06:21 Order name: IV Saline Lock; Complete Time: 06:56 rn 11/20 06:21 Order name: Labs collected and sent; Complete Time: 06:56 rn 11/20 06:21 Order name: Urine Dipstick-Ancillary (obtain specimen); Complete Time: 06:55 rn Administered Medications: 07:07 Drug: morphine 4 mg Route: IVP; Site: left antecubital; eros 07:07 Drug: Flagyl (metroNIDAZOLE) 500 mg Volume: 100 ml; Route: IVPB; Rate: 200 ml/hr; eros Infused Over: 30 mins; Site: left antecubital; 07:08 Drug: Zofran (Ondansetron) 4 mg Route: IVP; Site: left antecubital; eros 08:04 Drug: Cipro (ciprofloxacin) 400 mg Volume: 200 ml; Route: IVPB; Infused Over: 60 mins; ww Site: left antecubital; Disposition Summary: 11/20/21 09:27 Discharge Ordered Location: Home ms3 Condition: Stable ms3 Diagnosis - Lower abdominal pain, unspecified ms3 Followup: ms3 - With: Private Physician - When: 2 - 3 days - Reason: Recheck today's complaints Discharge Instructions: - Discharge Summary Sheet ms3 - Abdominal Pain, Adult ms3 Forms: - Medication Reconciliation Form ms3 - Thank You Letter ms3 - Work release form ss - Antibiotic Education ms3 - Prescription Opioid Use ms3 Prescriptions: - dicyclomine 10 mg Oral Capsule - take 1 capsule by ORAL route 4 times per day; 20 capsule; Refills: 0, Product ms3 Selection Permitted Signatures: Dispatcher [employer] Henry Gonzalez MD MD rn Sims, Marcus, DO DO ms3 Delicia Dejesus RN RN bo Wood, Whitney, RN RN ww
[2021-11-20 10:43] VITALS: BP 119/99; TEMP 97.3; O2SAT 96
== END 2021-11-20 10:19 | disposition home or self-care (01) ==
LOC: ER 06:02
DX: R10.31 Right lower quadrant pain (principal); R10.32 Left lower quadrant pain; I10 Essential (primary) hypertension; E78.00 Pure hypercholesterolemia, unspecified; I25.2 Old myocardial infarction; F17.210 Nicotine dependence, cigarettes, uncomplicated; Z88.0 Allergy status to penicillin
CPT/HCPCS: 85025; 36415; 81003; 83690; 80053; 74177; Q9967; J3490; J2405; J0744

== ENCOUNTER 2022-01-10 15:18 | Emergency (ER) | payer BC ==
[2022-01-10] MEDS ORDERED: HYDROCODONE/APAP 5/325 MG TAB ONE ×2 (15:55→17:11)
--- NOTE | 2022-01-10 16:24 | RAD REPORT ---
EXAM DESCRIPTION: US - UPPER EXTREMITY VENOUS UNILATE - 01/10/2022 4:12 pm CLINICAL HISTORY: Left arm pain COMPARISON: None. FINDINGS: Left internal jugular vein, left subclavian vein, left axillary vein, left brachial vein, left cephalic, left basilic, left ulnar and left radial veins demonstrate phasic signal. The veins are compressible. Doppler demonstrates good flow. 4 millimeter cystic structure is present within left wrist IMPRESSION: No sonographic evidence of thrombus involving the left upper extremity veins. 4 millimeter cystic structure left wrist may represent a ganglion or cyst
--- NOTE | 2022-01-10 16:25 | RAD REPORT ---
EXAM DESCRIPTION: RAD - Wrist Left 3 View - 01/10/2022 4:16 pm CLINICAL HISTORY: Left wrist pain FINDINGS: No fracture or dislocation is seen. Mild osteoarthritis involves the wrist
--- NOTE | 2022-01-10 16:40 | EDPHYS ---
Physician Documentation [facility] Name: Surinder Hi Age: 66 yrs Sex: Male : 1955 Arrival Date: 01/10/2022 Time: 15:20 Bed 24 Private MD: ED Physician Torsten Merritt HPI: 01/10 15:49 This 66 yrs old Male presents to ER via Ambulatory with complaints of Hand Swelling, pm1 Arm Pain. 15:49 The patient or guardian reports pain, swelling. The complaints affect the left wrist pm1 diffusely. Context: The problem was sustained at home, resulted from an unknown cause. Modifying factors: The symptoms are alleviated by holding still, the symptoms are aggravated by movement. Associated signs and symptoms: Pertinent negatives: cyanosis distally, decreased sensation distally, fever, numbness distally, tingling distally. The patient has not experienced similar symptoms in the past. The patient has not recently seen a physician. 66-year-old male presents to the ER with complaints of left wrist pain. Patient denies any trauma or injury. 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 - Social history:: Smoking status: Patient reports the use of cigarette tobacco products, smokes one-half pack cigarettes per day. ROS: 15:49 Constitutional: Negative for fever, chills, and weight loss, Cardiovascular: Negative pm1 for chest pain, palpitations, and edema, Respiratory: Negative for shortness of breath, cough, wheezing, and pleuritic chest pain. 15:49 Skin: Negative for injury, rash, and discoloration. 15:49 MS/extremity: Positive for pain, swelling, tenderness, of the left wrist and distal aspect of left lateral forearm, Negative for deformity, paresthesias. 15:49 All other systems are negative. Exam: 15:49 Constitutional: This is a well developed, well nourished patient who is awake, alert, pm1 and in no acute distress. Head/Face: Normocephalic, atraumatic. 15:49 Skin: Warm, dry with normal turgor. Normal color with no rashes, no lesions, and no evidence of cellulitis. 15:49 Cardiovascular: Exam negative for acute changes, Rate: normal, Rhythm: regular, Pulses: no pulse deficits are appreciated. 15:49 Respiratory: Exam negative for acute changes, respiratory distress, shortness of breath. 15:49 Musculoskeletal/extremity: Extremities: grossly normal except: Tenderness to the left wrist and distal left forearm just proximal to left wrist. 15:49 Neuro: Exam negative for acute changes, Orientation: is normal, Mentation: is normal, Motor: moves all fours. Vital Signs: 15:24 BP 170 / 83; Pulse 67; Resp 18; Temp 98.1; Pulse Ox 100% ; Weight 99.79 kg; Height 5 vg1 ft. 8 in. (172.72 cm); Pain 10/10; 15:24 Body Mass Index 33.45 (99.79 kg, 172.72 cm) vg1 MDM: 15:31 Patient medically screened. pm1 16:38 Data reviewed: vital signs. Data interpreted: Pulse oximetry: on room air is 100 %. pm1 Interpretation: normal. Counseling: I had a detailed discussion with the patient and/or guardian regarding: the historical points, exam findings, and any diagnostic results supporting the discharge/admit diagnosis, radiology results, the need for outpatient follow up, to return to the emergency department if symptoms worsen or persist or if there are any questions or concerns that arise at home. 01/10 15:42 Order name: Wrist Left (3 View) XRAY; Complete Time: 16:30 pm1 01/10 16:13 Order name: UPPER EXTREMITY VENOUS UNILATE; Complete Time: 16:30 EDMS 01/10 16:40 Order name: Wrist Splint; Complete Time: 16:47 pm1 Administered Medications: 15:49 Drug: HYDROcodone-acetaminophen 5 mg-325 mg 1 tabs Route: PO; ap3 16:47 Follow up: Response: No adverse reaction; RASS: Alert and Calm (0) ap3 17:10 Drug: Decadron (dexamethasone) 10 mg Route: IM; Site: left deltoid; ap3 17:11 Follow up: Response: No adverse reaction ap3 17:10 Drug: HYDROcodone-acetaminophen 5 mg-325 mg 1 tabs Route: PO; ap3 17:11 Follow up: Response: No adverse reaction ap3 Disposition: 17:35 Co-signature as Attending Physician, Torsten Merritt MD I agree with the assessment and kdr plan of care. Disposition Summary: 01/10/22 16:39 Discharge Ordered Location: Home pm1 Problem: new pm1 Symptoms: have improved pm1 Condition: Stable pm1 Diagnosis - Pain in left wrist pm1 Followup: pm1 - With: Emergency Department - When: As needed - Reason: Worsening of condition Followup: pm1 - With: Private Physician - When: 2 - 3 days - Reason: Recheck today's complaints, Continuance of care, Re-evaluation by your physician Discharge Instructions: - Discharge Summary Sheet pm1 - Wrist Splint, Adult pm1 - Wrist Pain, Adult, [id number] pm1 Forms: - Medication Reconciliation Form pm1 - Thank You Letter pm1 - Antibiotic Education pm1 - Prescription Opioid Use pm1 Prescriptions: - Tramadol 50 mg Oral Tablet - take 1 tablet by ORAL route every 8 hours as needed; 12 tablet; Refills: 0, pm1 Product Selection Permitted - Medrol (Hector) 4 mg Oral Tablets, Dose Pack - take 1 tablet by ORAL route as directed - follow package instructions; 1 pm1 packet; Refills: 0, Product Selection Permitted Signatures: Dispatcher [employer] EDMS Torsten Merritt MD MD kdr Marinas, Patrick, NP CREDIT CARD ANALYST pm1 Michelle Alexis RN RN ap3 Violeta Beavers, RN RN vg1 Corrections: (The following items were deleted from the chart) 16:13 15:43 Extremity Venous [id number] ordered. EDOK EDMS
--- NOTE | 2022-01-10 16:40 | ER ---
Nurse's Notes [facility] Name: Surinder Hi Age: 66 yrs Sex: Male : 1955 Arrival Date: 01/10/2022 Time: 15:20 Bed 24 Private MD: Diagnosis: Pain in left wrist Presentation: 01/10 15:24 Chief complaint: Patient states: "my hand just began to start hurting yesterday after vg1 dinner" Denies any injury or strenuous activity to Left hand/arm. Left hand appears to be swollen and tender to touch. Coronavirus screen: Vaccine status: Patient reports receiving the 2nd dose of the covid vaccine. Client denies travel out of the [place] in the last 14 days. Ebola Screen: Patient denies exposure to infectious person. Patient denies travel to an Ebola-affected area in the 21 days before illness onset. Initial Sepsis Screen: Does the patient meet any 2 criteria? No. Patient's initial sepsis screen is negative. Does the patient have a suspected source of infection? No. Patient's initial sepsis screen is negative. Risk Assessment: Do you want to hurt yourself or someone else? Patient reports no desire to harm self or others. Onset of symptoms was January 09, 2022. 15:24 Method Of Arrival: Ambulatory vg1 15:24 Acuity: GERSON 4 vg1 Triage Assessment: 15:26 General: Appears uncomfortable, Behavior is calm, cooperative. Pain: Complains of pain vg1 in left hand and left arm Pain currently is 10 out of 10 on a pain scale. Musculoskeletal: Swelling present in left hand. 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 - Social history:: Smoking status: Patient reports the use of cigarette tobacco products, smokes one-half pack cigarettes per day. Screenin:50 Abuse screen: Denies threats or abuse. Nutritional screening: No deficits noted. ap3 Tuberculosis screening: No symptoms or risk factors identified. Fall Risk None identified. Assessment: 15:49 General: Appears in no apparent distress. Behavior is calm, cooperative, appropriate ap3 for age. Pain: Complains of pain in left arm and left hand. Neuro: Level of Consciousness is awake, alert, obeys commands, Oriented to person, place, time, situation. Cardiovascular: Patient's skin is warm and dry. Respiratory: Airway is patent Respiratory effort is even, unlabored. Vital Signs: 15:24 BP 170 / 83; Pulse 67; Resp 18; Temp 98.1; Pulse Ox 100% ; Weight 99.79 kg; Height 5 vg1 ft. 8 in. (172.72 cm); Pain 10/10; 15:24 Body Mass Index 33.45 (99.79 kg, 172.72 cm) vg1 ED Course: 15:20 Patient arrived in ED. mr 15:26 Triage completed. vg1 15:26 Arm band placed on. vg1 15:31 Jasper Krishnamurthy NP is PHCP. pm1 15:31 Torsten Merritt MD is Attending Physician. pm1 15:49 Michelle Alexis, HARSHAL is Primary Nurse. ap3 15:50 Patient has correct armband on for positive identification. Bed in low position. Call ap3 light in reach. Side rails up X 1. Pulse ox on. NIBP on. Door closed. Noise minimized. 16:13 UPPER EXTREMITY VENOUS UNILATE In Process Unspecified. EDMS 16:17 Wrist Left (3 View) XRAY In Process Unspecified. EDMS 17:11 No provider procedures requiring assistance completed. Patient did not have IV access ap3 during this emergency room visit. Administered Medications: 15:49 Drug: HYDROcodone-acetaminophen 5 mg-325 mg 1 tabs Route: PO; ap3 16:47 Follow up: Response: No adverse reaction; RASS: Alert and Calm (0) ap3 17:10 Drug: Decadron (dexamethasone) 10 mg Route: IM; Site: left deltoid; ap3 17:11 Follow up: Response: No adverse reaction ap3 17:10 Drug: HYDROcodone-acetaminophen 5 mg-325 mg 1 tabs Route: PO; ap3 17:11 Follow up: Response: No adverse reaction ap3 Medication: 17:11 VIS not applicable for this client. ap3 Outcome: 16:39 Discharge ordered by . pm1 17:11 Discharged to home ambulatory. ap3 17:11 Condition: good 17:11 Discharge instructions given to patient, Instructed on discharge instructions, follow up and referral plans. medication usage, splint Demonstrated understanding of instructions, follow-up care, medications, splint care, Prescriptions given X 2. 17:11 Patient left the ED. ap3 Signatures: Dispatcher [employer] EDVT Jaylon Stephani KrishnamurthyJasper, PATIENT ACCOUNT LIAISON PATIENT ACCOUNT LIAISON pm1 Michelle Alexis RN RN ap3 Violeta Beavers RN RN vg1 Corrections: (The following items were deleted from the chart) 15:27 15:24 Acuity: GERSON 3 vg1 vg1
[2022-01-10] MEDS ORDERED: dexAMETHasone 10 MG/ML VIAL ONE (17:11)
[2022-01-10 17:45] VITALS: BP 170/83; TEMP 98.1; O2SAT 100
== END 2022-01-10 17:11 | disposition home or self-care (01) ==
LOC: ER 15:18
DX: M25.532 Pain in left wrist (principal); M79.632 Pain in left forearm; F17.210 Nicotine dependence, cigarettes, uncomplicated; I10 Essential (primary) hypertension; I25.2 Old myocardial infarction; E78.00 Pure hypercholesterolemia, unspecified; Z88.0 Allergy status to penicillin
CPT/HCPCS: 73110; 93971; 96372; 99284; J1100

== ENCOUNTER 2022-05-08 12:28 | Emergency (ER) | payer BC ==
--- OUTSIDE RECORDS SUMMARY | 2022-05-08 12:41 | XMS REPORT | Continuity of Care Document ---
:1955 Author Organization [facility] t Address [address] [place] [address] Care Team Providers Name Role Phone Anne Marie Conteh MD Primary Care Physician [phone] [id number] Attending Clinician Unavailable ANNE MARIE CONTEH Attending Clinician Unavailable Anne Marie Conteh MD Attending Clinician [phone] [id number] Attending Clinician Unavailable ANGELI SIBLEY Attending Clinician Unavailable MARIZA KERR Attending Clinician Unavailable Lab, Adc Fam Pob I Attending Clinician Unavailable Mariza Soriano Attending Clinician Doctor Unassigned, [place] Attending Clinician Unavailable Payers Payer Name Policy Type Policy Number Effective Date Expiration Date [place] [address] [id number] 2020 00:00:00 [facility] [id number] 2019 00:00:00 Problems Condition Condition Condition Status Onset Resolution Last Treating Co mments Source Name Details Category Date Date Treatment Clinician Date High blood High blood Disease Active K elsey pressure pressure 6-15 Seybol d 00:00: 00 Chronic Chronic Disease Active Catie pain of pain of 6-15 Seybold right hip right hip 00:00: 00 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 : Univers on in on in 0-18 Added ity of peripheral peripheral 00:00: automatic [place] vascular vascular 00 ally from Med ical disease disease request Branch for surgery [id number] Abdominal Abdominal Disease Active Uni vers pain pain 8-23 ity of 00:00: [place] 00 [facility] No known No known Disease Metho di active active st problems problems Hospit a l Allergies, Adverse Reactions, Alerts Allergy Allergy Status Severity Reaction(s) Onset Inactive Treating Comm ents Source Name Type Date Date Clinician Penicill Propensi Active Itching Metho di in G ty to [facility] st adverse 00:00: Hospita reaction 00 l s to drug Penicill Propensi Active Itching Unive rs ins ty to 4-30 ity of adverse 00:00: [place] reaction 00 Medical s Branch PENICILL Drug Active ITCHING Univers INS Class 4-30 ity of 00:00: [place] 00 [facility] Penicill Propensi Active Itching Kelse y ins ty to 4-30 Seybold adverse 00:00: reaction 00 s Family History Family Member Diagnosis Comments Start Date Stop Date Source Natural father Cancer [facility] Natural father Hypertension [facility] Natural mother Cancer [facility] Natural mother Hypertension [facility] Social History Social Habit Start Date Stop Date Quantity Comments Source Exposure to Not sure Catie moore SARS-CoV-2 (event) History of tobacco Cigarette Smoker Catie shayan use Tobacco use and 2020-11-06 2020-11-06 Former smokeless Jonathan epps Seybold exposure 00:00:00 00:00:00 tobacco user Tobacco Comment 2018-03-04 2018-03-04 1/2 pack a day Unive rsity of 00:00:00 00:00:00 [facility] Cigarettes smoked 2018-01-21 2018-01-[address] current (pack per 00:00:00 00:00:00 Hospita l day) - Reported Cigarette 2018-01-21 2018-01-21 [facility] pack-years 00:00:00 00:00:00 Hospital Alcohol intake 2018-01-21 2018-01-21 Current [facility] 00:00:00 00:00:00 non-drinker of Hospital alcohol (finding) Sex Ass[birth year] [facility] 00:00:00 00:00:00 Hospital Smoking Status Start Date Stop Date Source Smokes tobacco daily 2020-11-06 00:00:00 Catie Seybold Medications Ordered Filled Start Stop Current Ordering Indication Dosage Frequency Signature Comments Components Source Medication Medication Date Date Medication? Clinician (SIG) Name Name Cyclobenzap Yes [id number] 10mg Q.[id number] Take 1 Catie rine HCl 10 5-13 [id number] tablet (10 Seybold MG oral 00:00: 3D mg total) Tablet 00 by mouth 3 times daily as needed for muscle spasms (use only as needed. Will make you sleepy) Pantoprazol Yes [id number] 40mg Take 1 Catie e Sodium 40 5-10 tablet (40 Se ybold MG oral 00:00: mg total) Tablet 00 by mouth Delayed daily Response Pantoprazol Yes [id number] 40mg Take 1 Catie e Sodium 40 5-10 tablet (40 Se ybold MG oral 00:00: mg total) Tablet 00 by mouth Delayed daily Response Ciprofloxac 2021- No [id number] 500mg Take 1 Catie in HCl 500 5-10 05-21 tablet Seybol d MG oral 00:00: 04:59 (500 mg Tablet 00 :00 total) by mouth in the morning and 1 tablet (500 mg total) in the evening. Do all this for 10 days. Metronidazo 2021- No [id number] 500mg Take 1 Catie le 500 MG 5-10 05-21 tablet Seybold oral Tablet 00:00: 04:59 (500 mg 00 :00 total) by mouth 3 times daily for 10 days Ciprofloxac 2021- No [id number] 500mg Take 1 Catie in HCl 500 5-10 05-21 tablet Seybol d MG oral 00:00: 04:59 (500 mg Tablet 00 :00 total) by mouth in the morning and 1 tablet (500 mg total) in the evening. Do all this for 10 days. Metronidazo 2021- No [id number] 500mg Take 1 Catie le 500 MG 5-10 05-21 tablet Seybold oral Tablet 00:00: 04:59 (500 mg 00 :00 total) by mouth 3 times daily for 10 days Allopurinol 2021-0 Yes [id number] TAKE 2 Catie 100 MG oral 5-04 TABLETS BY Se ybold Tablet 00:00: MOUTH 00 EVERY DAY Allopurinol 2021-0 Yes [id number] TAKE 2 Catie 100 MG oral 5-04 TABLETS BY Se ybold Tablet 00:00: MOUTH 00 EVERY DAY Gabapentin 2021-0 Yes TAKE 1 Kelse y 300 MG oral 3-21 CAPSULE BY Se ybold Capsule 00:00: MOUTH 00 TWICE A DAY Gabapentin 2021-0 Yes TAKE 1 Kelse y 300 MG oral 3-21 CAPSULE BY Se ybold Capsule 00:00: MOUTH 00 TWICE A DAY Allopurinol 2021-0 Yes [id number] TAKE 1 Catie 100 MG oral 3-01 TABLET BY Sey bold Tablet 00:00: MOUTH 00 EVERY DAY Aspirin 2021-0 Yes [id number] 81mg Take 1 Bouchra ey (Aspirin 2-02 tablet (81 Seybo ld Low Dose) 00:00: mg total) 81 MG oral 00 by mouth Tablet daily Delayed Response Allopurinol 2021-0 Yes [id number] 100mg Take 1 Catie 100 MG oral 2-02 tablet Seybol d Tablet 00:00: (100 mg 00 total) by mouth daily Fluticasone 2021-0 Yes [id number] Inhale 1 Catie -Umeclidin- 2-02 inhalation Se ybold Vilant 00:00: into the (Trelegy 00 lungs Ellipta) daily 100-62.5-25 MCG/INH inhalation AEROSOL POWDER, BREATH ACTIVATED Aspirin 2021-0 Yes [id number] 81mg Take 1 Bouchra ey (Aspirin 2-02 tablet (81 Seybo ld Low Dose) 00:00: mg total) 81 MG oral 00 by mouth Tablet daily Delayed Response Fluticasone 2021-0 Yes [id number] Inhale 1 Catie -Umeclidin- 2-02 inhalation Se ybold Vilant 00:00: into the (Trelegy 00 lungs Ellipta) daily 100-62.5-25 MCG/INH inhalation AEROSOL POWDER, BREATH ACTIVATED Aspirin 2021-0 Yes [id number] 81mg Take 1 Bouchra ey (Aspirin 2-02 tablet (81 Seybo ld Low Dose) 00:00: mg total) 81 MG oral 00 by mouth Tablet daily Delayed Response Fluticasone 2021-0 Yes [id number] Inhale 1 Catie -Umeclidin- 2-02 inhalation Se ybold Vilant 00:00: into the (Trelegy 00 lungs Ellipta) daily 100-62.5-25 MCG/INH inhalation AEROSOL POWDER, BREATH ACTIVATED Aspirin 2021-0 Yes [id number] 81mg Take 1 Bouchra ey (Aspirin 2-02 tablet (81 Seybo ld Low Dose) 00:00: mg total) 81 MG oral 00 by mouth Tablet daily Delayed Response Fluticasone 2021-0 Yes [id number] Inhale 1 Catie -Umeclidin- 2-02 inhalation Se ybold Vilant 00:00: into the (Trelegy 00 lungs Ellipta) daily 100-62.5-25 MCG/INH inhalation AEROSOL POWDER, BREATH ACTIVATED predniSONE 2021-0 Yes [id number] Take 2 Catie 20 MG oral 1-19 tablets by Sey bold tablet 00:00: mouth for 00 5 days, then 1 tablet by mouth for 5 days predniSONE 2021-0 Yes [id number] Take 2 Catie 20 MG oral 1-19 tablets by Sey bold tablet 00:00: mouth for 00 5 days, then 1 tablet by mouth for 5 days predniSONE 2021-0 Yes [id number] Take 2 Catie 20 MG oral 1-19 tablets by Sey bold tablet 00:00: mouth for 00 5 days, then 1 tablet by mouth for 5 days predniSONE 2021-0 2022- No [id number] Take 2 Catie 20 MG oral 1-19 05-10 tablets by Se ybold tablet 00:00: 00:00 mouth for 00 :00 5 days, then 1 tablet by mouth for 5 days Metoprolol 2021-0 Yes TAKE 1 Kelse y Succinate 1-03 TABLET BY Seybo ld 50 MG oral 00:00: MOUTH TABLET SR 00 EVERY DAY 24 HR Metoprolol 2021-0 Yes TAKE 1 Kelse y Succinate 1-03 TABLET BY Seybo ld 50 MG oral 00:00: MOUTH TABLET SR 00 EVERY DAY 24 HR Metoprolol 2021-0 Yes TAKE 1 Kelse y Succinate 1-03 [...] EVERY DAY 24 HR Cetirizine 2020-07 Yes [id number] TAKE 1 Catie 10 MG oral 2-17 TABLET BY Seyb old Tablet 00:00: MOUTH 00 EVERY DAY NEEDED Cetirizine 2020-07 Yes [id number] TAKE 1 Catie 10 MG oral 2-17 TABLET BY Seyb old Tablet 00:00: MOUTH 00 EVERY DAY NEEDED Cetirizine 2020-07 Yes [id number] TAKE 1 Catie 10 MG oral 2-17 TABLET BY Seyb old Tablet 00:00: MOUTH 00 EVERY DAY NEEDED Cetirizine 2020-07 Yes [id number] TAKE 1 Catie 10 MG oral 2-17 TABLET BY Seyb old Tablet 00:00: MOUTH 00 EVERY DAY NEEDED Cetirizine 2020-07 Yes [id number] TAKE 1 Catie 10 MG oral 2-17 TABLET BY Seyb old Tablet 00:00: MOUTH 00 EVERY DAY NEEDED Atorvastati 2020-07 Yes [id number] TAKE 1 Catie n Calcium 2-01 TABLET BY Seybo ld 20 MG oral 00:00: MOUTH Tablet 00 EVERY DAY Amlodipine 2020-07 Yes [id number] TAKE 1 K elsey Besylate 10 2-01 TABLET BY Sey bold MG oral 00:00: MOUTH Tablet 00 EVERY DAY LISINOPRIL- 2020-07 Yes [id number] TAKE 1 Catie HCTZ 2-01 TABLET BY Seybold 20-12.5 MG 00:00: MOUTH oral Tablet 00 EVERY DAY Atorvastati 2020-07 Yes [id number] TAKE 1 Catie n Calcium 2-01 TABLET BY Seybo ld 20 MG oral 00:00: MOUTH Tablet 00 EVERY DAY Amlodipine 2020-07 Yes [id number] TAKE 1 K elsey Besylate 10 2-01 TABLET BY Sey bold MG oral 00:00: MOUTH Tablet 00 EVERY DAY LISINOPRIL- 2020-07 Yes [id number] TAKE 1 Catie HCTZ 2-01 TABLET BY Seybold 20-12.5 MG 00:00: MOUTH oral Tablet 00 EVERY DAY Atorvastati 2020-07 Yes [id number] TAKE 1 Catie n Calcium 2-01 TABLET BY Seybo ld 20 MG oral 00:00: MOUTH Tablet 00 EVERY DAY Amlodipine 2020-07 Yes [id number] TAKE 1 K elsey Besylate 10 2-01 TABLET BY Sey bold MG oral 00:00: MOUTH Tablet 00 EVERY DAY LISINOPRIL- 2020-07 Yes [id number] TAKE 1 Catie HCTZ 2-01 TABLET BY Seybold 20-12.5 MG 00:00: MOUTH oral Tablet 00 EVERY DAY Atorvastati 2020-07 Yes [id number] TAKE 1 Catie n Calcium 2-01 TABLET BY Seybo ld 20 MG oral 00:00: MOUTH Tablet 00 EVERY DAY Amlodipine 2020-07 Yes [id number] TAKE 1 K elsey Besylate 10 2-01 TABLET BY Sey bold MG oral 00:00: MOUTH Tablet 00 EVERY DAY LISINOPRIL- 2020-07 Yes [id number] TAKE 1 Catie HCTZ 2-01 TABLET BY Seybold 20-12.5 MG 00:00: MOUTH oral Tablet 00 EVERY DAY Atorvastati 2020-07 Yes [id number] TAKE 1 Catie n Calcium 2-01 TABLET BY Seybo ld 20 MG oral 00:00: MOUTH Tablet 00 EVERY DAY Amlodipine 2020-07 Yes [id number] TAKE 1 K elsey Besylate 10 2-01 TABLET BY Sey bold MG oral 00:00: MOUTH Tablet 00 EVERY DAY LISINOPRIL- 2020-07 Yes [id number] TAKE 1 Catie HCTZ 2-01 TABLET BY Seybold 20-12.5 MG 00:00: MOUTH oral Tablet 00 EVERY DAY Methylpredn 2020-07- No [id number] 40mg Catie isolone -04 06- Seybold Sodium 21:15: 21:15 (SOLU-MEDRO 00 :00 L) 40 mg Methylpredn 2020-07- No [id number] 40mg 40 mg, Catie isolone 1-04 06- intramuscu Seybo ld Sodium 21:15: 21:15 lar, ONCE, (SOLU-MEDRO 00 :00 On Tue L) 40 mg 06/04/21 at 1515, For 1 dose Albuterol 2020-07 Yes [id number] 2{puff} Q4H Inhale 2 Catie HFA 108 (90 1-23 puffs into Se ybold Base) 00:00: the lungs MCG/ACT IN 00 every 4 AERS hours as needed for wheezing or shortness of breath Albuterol 2020-07 Yes [id number] 2{puff} Q4H Inhale 2 Catie HFA 108 (90 1-23 puffs into Se ybold Base) 00:00: the lungs MCG/ACT IN 00 every 4 AERS hours as needed for wheezing or shortness of breath Albuterol 2020-07 Yes [id number] 2{puff} Q4H Inhale 2 Catie HFA 108 (90 1-23 puffs into Se ybold Base) 00:00: the lungs MCG/ACT IN 00 every 4 AERS hours as needed for wheezing or shortness of breath predniSONE 2020-07 Yes [id number] Take 2 Catie 20 MG oral 1-23 tablets by [email or web address] bold tablet 00:00: mouth for 00 5 days, then 1 tablet by mouth for 5 days Albuterol 2020-07 Yes [id number] 2{puff} Q4H Inhale 2 Catie HFA 108 (90 1-23 puffs into Se ybold Base) 00:00: the lungs MCG/ACT IN 00 every 4 AERS hours as needed for wheezing or shortness of breath Albuterol 2020-07- No [id number] 2{puff} Q4H Inhale 2 Catie HFA 108 (90 1-23 05-10 puffs into S eybold Base) 00:00: 00:00 the lungs MCG/ACT IN 00 :00 every 4 AERS hours as needed for wheezing or shortness of breath predniSONE 2020-07- No [id number] Take 2 Catie 20 MG oral 1-23 -19 tablets by mth sense ybold tablet 00:00: 00:00 mouth for 00 :00 5 days, then 1 tablet by mouth for 5 days Azithromyci 2020-07- No [id number] Take 2 Catie n 250 MG 1-23 11-29 tablets by mth sense old oral Tablet 00:00: 05:59 mouth on [...] MOUTH 00 TWICE A DAY Aspirin Low Yes TAKE 1 Bouchra ey Dose 81 MG 9-07 TABLET BY Seyb old oral Tablet 00:00: MOUTH Delayed 00 EVERY DAY Response Atorvastati Yes [id number] TAKE 1 Catie n Calcium 9-07 TABLET BY Seybo ld 20 MG oral 00:00: MOUTH Tablet 00 EVERY DAY ASPIRIN 81 Yes TAKE 1 Kelse y OR 9-07 TABLET BY Seybold 00:00: MOUTH 00 EVERY DAY Aspirin Low Yes TAKE 1 Bouchra ey Dose 81 MG 9-07 TABLET BY Seyb old oral Tablet 00:00: MOUTH Delayed 00 EVERY DAY Response ASPIRIN 81 Yes TAKE 1 Kelse y OR 9-07 TABLET BY Seybold 00:00: MOUTH 00 EVERY DAY ASPIRIN 81 2020-0 2021- No TAKE 1 Bouchra ey OR 03-19 TABLET BY Seybold 00:00: 00:00 MOUTH 00 :00 EVERY DAY Aspirin Low 2020-0 2021- No TAKE 1 Jonathan sey Dose 81 MG 03-19 TABLET BY Sey bold oral Tablet 00:00: 00:00 MOUTH Delayed 00 :00 EVERY DAY Response Fluticasone 2020- Yes Inhale 1 Ke lsey -Umeclidin- 8-16 inhalation Se ybold Vilant 00:00: into the (Trelegy 00 lungs Ellipta) daily 100-62.5-25 MCG/INH inhalation AEROSOL POWDER, BREATH ACTIVATED Fluticasone Yes Inhale 1 Ke lsey -Umeclidin- 8-16 inhalation Se ybold Vilant 00:00: into the (Trelegy 00 lungs Ellipta) daily 100-62.5-25 MCG/INH inhalation AEROSOL POWDER, BREATH ACTIVATED Fluticasone 2020-0 2021- No Inhale 1 K elsey -Umeclidin- 8-16 08-14 inhalation S eybold Vilant 00:00: 00:00 into the (Trelegy 00 :00 lungs Ellipta) daily 100-62.5-25 MCG/INH inhalation AEROSOL POWDER, BREATH ACTIVATED Ibuprofen 0 Yes [id number] 800mg Q6H Take 1 K elsey 800 MG oral 7-13 tablet Seybol d Tablet 00:00: (800 mg 00 total) by mouth every 6 hours as needed for pain Ibuprofen 2020-0 Yes [id number] 800mg Q6H Take 1 K elsey 800 MG oral 7-13 tablet Seybol d Tablet 00:00: (800 mg 00 total) by mouth every 6 hours as needed for pain Ibuprofen 2020-0 Yes [id number] 800mg Q6H Take 1 K elsey 800 MG oral 7-13 tablet Seybol d Tablet 00:00: (800 mg 00 total) by mouth every 6 hours as needed for pain Ibuprofen 2020-0 Yes [id number] 800mg Q6H Take 1 K elsey 800 MG oral 7-13 tablet Seybol d Tablet 00:00: (800 mg 00 total) by mouth every 6 hours as needed for pain Ibuprofen 0 2021- No [id number] 800mg Q.25D Take 1 Catie 800 MG oral 7-13 05-10 tablet Seybo ld Tablet 00:00: 00:00 (800 mg 00 :00 total) by mouth every 6 hours as needed for pain Metoprolol Yes 50mg Take 1 Kelse y Succinate 7-07 tablet (50 Seyb old 50 MG oral 00:00: mg total) TABLET SR 00 by mouth 24 HR daily Diclofenac Yes Apply 1 Bouchra ey Sodium 6-17 applicatio Seybold (Voltaren) 00:00: n 1 % apply 00 topically externally 2 times Gel daily Diclofenac Yes Apply 1 Bouchra ey Sodium 6-17 applicatio Seybold (Voltaren) 00:00: n 1 % apply 00 topically externally 2 times Gel daily Diclofenac Yes Apply 1 Bouchra ey Sodium 6-17 applicatio Seybold (Voltaren) 00:00: n 1 % apply 00 topically externally 2 times Gel daily Diclofenac Yes Apply 1 Bouchra ey Sodium 6-17 applicatio Seybold (Voltaren) 00:00: n 1 % apply 00 topically externally 2 times Gel daily Diclofenac 0 2021- No Apply 1 Jonathan sey Sodium 6-17 05-10 applicatio Seybol d (Voltaren) 00:00: 00:00 n 1 % apply 00 :00 topically externally 2 times Gel daily Acetaminoph 0 Yes [id number] 1{tbl} Q6H Take 1 Catie en-Codeine 6-15 tablet by Seyb old #3 300-30 00:00: mouth MG oral 00 every 6 Tablet hours as needed Acetaminoph 2020-0 Yes [id number] 1{tbl} Q6H Take 1 Catie en-Codeine 6-15 tablet by Seyb old #3 300-30 00:00: mouth MG oral 00 every 6 Tablet hours as needed LISINOPRIL- 0 Yes [id number] 1{tbl} Take 1 Catie HCTZ 6-15 tablet by Seybold 20-12.5 MG 00:00: mouth oral Tablet 00 daily Cetirizine Yes [id number] 10mg Q24H Take 1 Catie 10 MG oral 6-15 tablet (10 Sey bold Tablet 00:00: mg total) 00 by mouth daily as needed Amlodipine 2020-0 Yes [id number] 10mg Take 1 K elsey Besylate 10 6-15 tablet (10 Se ybold MG oral 00:00: mg total) Tablet 00 by mouth daily Acetaminoph 2020-0 Yes [id number] 1{tbl} Q6H Take 1 Catie en-Codeine 6-15 tablet by [employer] old #3 300-30 00:00: mouth MG oral 00 every 6 Tablet hours as needed Acetaminoph 2020-0 Yes [id number] 1{tbl} Q6H Take 1 Catie en-Codeine 6-15 tablet by [employer] old #3 300-30 00:00: mouth MG oral 00 every 6 Tablet hours as needed Acetaminoph 2020-0 2022- No [id number] 1{tbl} Q.25D Take 1 Catie en-Codeine 6-15 05-10 tablet by SeRhapso #3 300-30 00:00: 00:00 mouth MG oral 00 :00 every 6 Tablet hours as needed Metronidazo 2020-0 Yes 500mg Take 500 K elsey le 500 MG 5-26 mg by Seybold oral Tablet 00:00: mouth 00 every 8 hours Ciprofloxac 2020-0 Yes 500mg Take 500 K elsey in HCl 500 5-26 mg by Seybold MG oral 00:00: mouth 2 Tablet 00 times daily Metronidazo 2020-0 Yes 500mg Take 500 K elsey le 500 MG 5-26 mg by Seybold oral Tablet 00:00: mouth 00 every 8 hours Ciprofloxac 2020-0 Yes 500mg Take 500 K elsey in HCl 500 5-26 mg by Seybold MG oral 00:00: mouth 2 Tablet 00 times daily Metronidazo 2020-0 Yes 500mg Take 500 K elsey le 500 MG 5-26 mg by Seybold oral Tablet 00:00: mouth 00 every 8 hours Ciprofloxac 2020-0 Yes 500mg Take 500 K elsey in HCl 500 5-26 mg by Seybold MG oral 00:00: mouth 2 Tablet 00 times daily Metronidazo 2020-0 Yes 500mg Take 500 K [...] puffs K elsey HFA 108 (90 3-15 11-23 every 4 to S eybold Base) 00:00: 00:00 6 hours as MCG/ACT IN 00 :00 needed AERS cilostazol Yes 100mg Take 100 Un benny 100 mg 7-09 mg by ity of tablet 11:00: mouth [place] [id number] daily. Medical Branch metoprolol Yes 50mg Take 50 mg U nivers succinate 7-09 by mouth ity of XL 50 mg 24 11:00: [place]. [place] tablet [facility] atorvastati Yes 20mg Take 20 mg Univers n 20 mg 7-09 by mouth ity of tablet 11:00: daily. [place] [address] Medical Branch amLODIPine Yes 10mg Take 10 mg U nivers 10 mg 7-09 by mouth ity of tablet 11:00: daily. [place] [address] Medical Branch aspirin 81 Yes 81mg Take 81 mg U nivers mg chewable 7-09 by mouth ity of tablet 11:00: daily. [place] [address] Medical Branch ibuprofen Yes 1{tbl} Take 1 Univ ers (ADVIL 7-09 tablet by ity of LIQUI-GEL 11:00: mouth [place]AL[place] 47 needed. [facility] cilostazol Yes 100mg Take 100 Un benny 100 mg 7-09 mg by ity of tablet 11:00: mouth [place] [address] daily. Medical Branch metoprolol Yes 50mg Take 50 mg U nivers succinate 7-09 by mouth ity of XL 50 mg 24 11:00: daily. [place] tablet [facility] atorvastati Yes 20mg Take 20 mg Univers n 20 mg 01-18 by mouth ity of tablet 11:00: daily. [address] amLODIPine Yes 10mg Take 10 mg U nivers 10 mg 01-18 by mouth ity of tablet 11:00: daily. [address] aspirin 81 Yes 81mg Take 81 mg U nivers mg chewable 01-18 by mouth ity of tablet 11:00: daily. [address] ibuprofen Yes 1{tbl} Take 1 Univ ers (ADVIL 01-18 tablet by ity of LIQUI-GEL 11:00: [place] [facility] needed. [facility] methocarbam Yes [facility] ol 01-18 [facility] (ROBAXIN) 00:00: Hospita 500 MG 00 l tablet methylPREDN Yes [facility] i ISolone 01-18 st (MEDROL 00:00: Hospita DOSEPAK) 4 00 l mg tablet amLODIPine Yes [facility] (NORVASC) 01-07 st 10 mg 00:00: Hospita tablet 00 l atorvastati Yes Method i n (LIPITOR) 01-07 st 20 MG 00:00: Hospita tablet 00 l cilostazol Yes [facility] (PLETAL) 01-07 st 100 MG 00:00: Hospita tablet 00 l lisinopril- Yes [facility] i hydrochloro 01-07 st thiazide 00:00: Hospita (PRINZIDE,Z 00 l ESTORETIC) 20-12.5 mg per tablet metoprolol Yes [facility] succinate 01-07 st XL 00:00: Hospita (TOPROL-XL) 00 l 50 mg 24 hr tablet Immunizations Ordered Immunization Filled Immunization Date Status Commen ts Source Name Name Influenza Virus 2017-05-11 Completed Catie downey Vaccine, age 6 months 00:00:00 and up Influenza Virus 2017-05-11 Completed Catie downey Vaccine, age 6 months 00:00:00 and up Influenza Virus 2017-05-11 Completed Catie downey Vaccine, age 6 months 00:00:00 and up Influenza Virus 2017-05-11 Completed Catie Se ybold Vaccine, age 6 months 00:00:00 and up Influenza Virus 2017-05-11 Completed Catie Se ybold Vaccine, age 6 months 00:00:00 and up Influenza Virus 2017-05-11 Completed Catie Se ybold Vaccine, age 6 months 00:00:00 and up Meningococcal 2016-03-27 Completed Catie Seyb old Vaccine- 00:00:00 Conjugate(Menactra) Meningococcal 2016-03-27 Completed Catie Seyb old Vaccine- 00:00:00 Conjugate(Menactra) Meningococcal 2016-03-27 Completed Catie Seyb old Vaccine- 00:00:00 Conjugate(Menactra) Meningococcal 2016-03-27 Completed Catie Seyb old Vaccine- 00:00:00 Conjugate(Menactra) Meningococcal 2016-03-27 Completed Catie Seyb old Vaccine- 00:00:00 Conjugate(Menactra) Meningococcal 2016-03-27 Completed Catie Seyb old Vaccine- 00:00:00 Conjugate(Menactra) Tdap- (Boostrix, 2013-08-24 Completed Catie S eybold Adacel) 00:00:00 Tdap- (Boostrix, 2013-08-24 Completed Catie S eybold Adacel) 00:00:00 Tdap- (Boostrix, 2013-08-24 Completed Catie S eybold Adacel) 00:00:00 Tdap- (Boostrix, 2013-08-24 Completed Catie S eybold Adacel) 00:00:00 Tdap- (Boostrix, 2013-08-24 Completed Catie S eybold Adacel) 00:00:00 Tdap- (Boostrix, 2013-08-24 Completed Catie S eybold Adacel) 00:00:00 Influenza, Seasonal, 2013-07-01 Completed Bouchra ey Seybold Injectable, 00:00:00 Preservative Free Influenza, Seasonal, 2013-07-01 Completed Bouchra ey Seybold Injectable, 00:00:00 Preservative Free Influenza, Seasonal, 2013-07-01 Completed Bouchra ey Seybold Injectable, 00:00:00 Preservative Free Influenza, Seasonal, 2013-07-01 Completed Bouchra ey Seybold Injectable, 00:00:00 Preservative Free Vital Signs Vital Name Observation Time Observation Value Comments Source Systolic blood pressure 2021-11-22 12:54:00 144 mm[Hg] Catie Seybold Diastolic blood 2021-11-22 12:54:00 70 mm[Hg] Kelse y Seybold pressure Heart rate 2021-11-22 12:54:00 69 /min Catie S eybold Body temperature 2021-11-22 12:54:00 36.67 Kaylynn Bouchra ey Seybold Respiratory rate 2021-11-22 12:54:00 16 /min Bouchra ey Seybold Body height 2021-11-22 12:54:00 172.7 cm Catie S eybold Body weight 2021-11-22 12:54:00 102.513 kg Catie S eybold BMI 2021-11-22 12:54:00 34.36 kg/m2 Catie S eybold Systolic blood pressure 2021-11-19 14:09:00 134 mm[Hg] Catie Seybold Diastolic blood 2021-11-19 14:09:00 72 mm[Hg] Kelse y Seybold pressure Heart rate 2021-11-19 14:09:00 72 /min Catie S eybold Body temperature 2021-11-19 14:09:00 36.67 Kaylynn Bouchra ey Seybold Respiratory rate 2021-11-19 14:09:00 16 /min Bouchra ey Seybold Body height 2021-11-19 14:09:00 172.7 cm Catie S eybold Body weight 2021-11-19 14:09:00 102.513 kg Catie S eybold BMI 2021-11-19 14:09:00 34.36 kg/m2 Catie S [...] Body height 2021-07-31 19:29:00 172.7 cm Catie S eybold Body weight 2021-07-31 19:29:00 101.606 kg Catie S eybold BMI 2021-07-31 19:29:00 34.06 kg/m2 Catie S eybold Systolic blood pressure 2021-06-04 20:27:00 144 mm[Hg] Catie Seybold Diastolic blood 2021-06-04 20:27:00 76 mm[Hg] Kelse y Seybold pressure Heart rate 2021-06-04 20:27:00 77 /min Catie cabrera Body temperature 2021-06-04 20:27:00 36.39 Kaylynn Bouchra Car Respiratory rate 2021-06-04 20:27:00 16 /min Bouchra Car Body height 2021-06-04 20:27:00 172.7 cm Catie cabrera Body weight 2021-06-04 20:27:00 101.606 kg Catie cabrera BMI 2021-06-04 20:27:00 34.06 kg/m2 Catie cabrera Procedures This patient has no known procedures. Plan of Care Planned Activity Planned Date Details Comments Source Future Scheduled 2022-05-05 HEPATITIS B VACCINES [facility] Test 14:33:23 (1 of 3 - 3-dose series) [code = HEPATITIS B VACCINES (1 of 3 - 3-dose series)] Future Scheduled 2022-05-05 COVID-19 VACCINE (#1) [facility] Test 14:33:23 [code = COVID-19 VACCINE (#1)] Future Scheduled 2022-05-05 COLONOSCOPY SCREENING [facility] Test 14:33:23 [code = COLONOSCOPY SCREENING] Future Scheduled 2022-05-05 SHINGLES VACCINES (1 [facility] Test 14:33:23 of 2) [code = SHINGLES VACCINES (1 of 2)] Future Scheduled 2022-05-05 INFLUENZA VACCINE Method [facility] Test 14:33:23 [code = INFLUENZA VACCINE] Encounters Start End Encounter Admission Attending Care Care Encounter Source Date/Time Date/Time Type Type Clinicians Facility Department ID 2022-05-05 2022-05-05 Outpatient LAB90 CATIE RIVERA [id number] Catie 16:00:00 16:00:00 Seybol d 2022-05-05 2022-05-05 Outpatient CATIE CONTEH [id number] Catie 15:30:00 15:30:00 ANNE MARIE Osborneol oscar 2022-02-26 2022-02-26 Outpatient CATIE CONTEH [id number] Catie 16:15:00 16:15:00 ANNE MARIE Osborneol oscar 2022-02-05 2022-02-05 Office Artur Conteh [id number] Catie 16:30:00 16:45:00 Visit Anne Marie Jones [id number] Se ybold Somogyi [id number] 2022-01-31 2022-01-31 Outpatient CATIE CONTEH [id number] Catie 00:00:00 00:00:00 ANNE MARIE Seybol d 2022-01-29 2022-01-29 Outpatient UUI91-LDC CATIE RIVERA [id number] Catie 08:35:00 08:35:00 Seybol d 2022-01-22 2022-01-22 Outpatient LAB90 CATIE RIVERA [id number] Catie 14:00:00 14:00:00 Seybol d 2022-01-22 2022-01-22 Office Artur Conteh 1.2.840.114 [id number] Catie 13:30:00 13:45:00 Visit Anne Marie Jones [id number] Se ybold Somogyi [id number] 2021-11-22 2021-11-22 Office Artur Conteh 1.2.840.114 [id number] Catie 08:00:00 08:15:00 Visit Anne Marie Jones [id number] Se ybold Somogyi [id number] 2021-11-19 2021-11-19 Outpatient LAB90 CATIE RIVERA [id number] Catie 10:00:00 10:00:00 Seybol d 2021-11-19 2021-11-19 Office Artur Conteh 1.2.840.114 [id number] Catie 09:30:00 09:45:00 Visit Anne Marie Jones [id number] Se ybold Somogyi [id number] 2021-09-30 2021-09-30 Outpatient CATIE CONTEH [id number] Catie 00:00:00 00:00:00 ANNE MARIE Seybol d 2021-09-12 2021-09-12 Office Artur Conteh 1.2.840.114 [id number] Catie 16:00:00 16:15:00 Visit Anne Marie Jones [id number] Se ybold Somogyi [id number] 2021-09-12 2021-09-12 Outpatient LAB90 CATIE RIVERA [id number] Catie 15:25:00 15:25:00 Seybol d 2021-09-11 2021-09-11 Outpatient CATIE CONTEH [id number] Catie 15:30:00 15:30:00 ANNE MARIE Seybol d 2021-09-10 2021-09-10 Outpatient CATIE CONTEH [id number] Catie 00:00:00 00:00:00 ANNE MARIE Seybol d 2021-09-10 2021-09-10 Outpatient CATIE OCNTEH [id number] Catie 00:00:00 00:00:00 ANNE MARIE Seybol d 2021-09-07 2021-09-07 Outpatient CATIE CONTEH [id number] Catie 00:00:00 00:00:00 ANNE MARIE Seybol d 2021-08-14 2021-08-14 Office Artur Conteh 1.2.840.114 [id number] Catie 15:30:00 15:45:00 Visit Anne Marie Jones [id number] Se ybold Somogyi [id number] 2021-07-31 2021-07-31 Outpatient LAB90 CATIE RIVERA [id number] Catie 14:15:00 14:15:00 Seybol d 2021-07-31 2021-07-31 Office Artur Conteh 1.2.840.114 [id number] Catie 13:45:00 14:00:00 Visit Anne Marie Jones [id number] Se ybold Somogyi [id number] 2021-07-15 2021-07-15 Outpatient CATIE CONTEH [id number] Catie 00:00:00 00:00:00 ANNE MARIE Seybol d 2021-06-24 2021-06-24 Outpatient CATIE CONTEH [id number] Catie 00:00:00 00:00:00 ANNE MARIE moore 2021-06-12 2021-06-12 Outpatient TOÑITO CATIE RIVERA [id number] Catie 00:00:00 00:00:00 ANGELI rodriguez 2021-06-04 2021-06-04 [place] 1.2.840.114 [id number] Catie 15:00:00 15:30:00 Visit Anne Marie Robert [id number] Se shayan Shipman [id number] 2021-01-22 2021-01-22 Outpatient CATIE CONTEH [id number] Catie 16:45:00 16:45:00 ANNE MARIE moore 2020-05-21 2020-05-21 Outpatient R [facility]LL [facility] [id number] Univers 13:40:00 13:40:00 MARIZA ity of [facility] 2020-05-21 2020-05-21 Laboratory Lab, [facility] Pob I [facility] 1.2. 840.114 [id number] Univers 13:15:06 13:35:06 Only Terrell Mariza Huerta 350.1.13.10 ity of [place] [id number] Ranjeet as Professio [phone] [place] dical [address] Office [facility] 2020-05-21 2020-05-21 Laboratory Lab, [facility] 1.2.840.114 [id number] 13:15:06 13:35:06 Only Alejandro Hallb I Health 350.1.13.10 [place] [id number] Professio [id number] [place] [address] Office [facility] 2020-05-21 2020-05-21 Letter Doctor DÍAZ 1.2.840.114 [id number] Univers 00:00:00 00:00:00 (Out) Unassigned, ED [id number] ity of [place] [facility] 4.2.7.2.686 Ranjeet as [id number] [address] 2020-05-21 2020-05-21 Letter Doctor DÍAZ 1.2.840.114 [id number] 00:00:00 00:00:00 (Out) Unassigned, ED [id number] [place] [facility] [id number] Results This patient has no known results.
[2022-05-08 13:36] LABS: Absolute Lymphocytes (CBC) 2.7 K/uL (0.7-4.9); Lymphocytes % 26.2 % (15.3-44.8); MCV 91.5 fL (80-100); MPV 8.1 fL (7.6-11.3); RBC Red Blood Cell Count 5.58 M/uL (4.33-5.43)
[2022-05-08 13:47] LABS: Urine Blood Negative (Negative); Urine Glucose Negative (Negative); Urine Protein Negative (Negative); Urine Specific Gravity >=1.030 (1.005-1.030)
[2022-05-08 13:51] LABS: Bilirubin Total 0.8 mg/dL (0.2-1.0); Protein, Total 7.6 g/dL (6.4-8.2)
[2022-05-08] MEDS ORDERED: MORPHINE 4 MG/ML SYR ONE (15:51)
[2022-05-08] MEDS ORDERED: KETOROLAC 30 MG/ML INJ ONE (15:51)
[2022-05-08] MEDS ORDERED: FAMOTIDINE 20 MG/2 ML VIAL IV ONE (15:52)
[2022-05-08] MEDS ORDERED: ONDANSETRON 4 MG/2 ML VIAL ONE (15:52)
[2022-05-08] MEDS ORDERED: NA CHLORIDE 0.9% 1,000 ML ONE (15:52)
--- NOTE | 2022-05-08 16:28 | RAD REPORT ---
EXAM DESCRIPTION: CT - CTHCSPWOC - 05/08/2022 4:11 pm CLINICAL HISTORY: Trauma, head and neck injury. sims COMPARISON: No comparisons TECHNIQUE: Axial 5 mm thick images of the head were obtained. Axial 2 mm thick images of the cervical spine were obtained with sagittal and coronal reconstruction images generated and reviewed. All CT scans are performed using dose optimization technique as appropriate and may include automated exposure control or mA/KV adjustment according to patient size. FINDINGS: CT HEAD WITHOUT CONTRAST: No acute hemorrhage, hydrocephalus or extra-axial collection is identified.No areas of brain edema or midline shift. The paranasal sinuses and mastoids are clear.The calvarium is intact. CT CERVICAL SPINE WITHOUT CONTRAST: No fracture or subluxation.Mild lower cervical degenerative spondylosis.No prevertebral soft tissues swelling is identified. IMPRESSION: No acute intracranial or cervical spine findings.
--- NOTE | 2022-05-08 16:30 | RAD REPORT ---
EXAM DESCRIPTION: CTAbdomen Pelvis W Contrast - 05/08/2022 4:11 pm CLINICAL HISTORY: Abdominal pain. Abdominal pain, acute, nonlocalized COMPARISON: Abdomen Pelvis W Contrast dated 11/20/2021; Abdomen Pelvis W Contrast dated 12/03/2020 ; CT ABD PELVIS W CONTRAST dated 06/29/2013 TECHNIQUE: Biphasic CT imaging of the abdomen and pelvis was performed with 100 ml non-ionic IV cont rast. All CT scans are performed using dose optimization technique as appropriate and may include automated exposure control or mA/KV adjustment according to patient size. FINDINGS: The lung bases are clear. The liver contains several benign cysts. Spleen, pancreas, adrenal glands and kidneys are within norm al limits. Small benign left renal cyst. No bowel obstruction, free air, free fluid or abscess. The appendix is normal. No evidence of signi ficant lymphadenopathy. No suspicious bony findings. IMPRESSION: No acute intra-abdominal or pelvic finding.
--- NOTE | 2022-05-08 17:09 | RAD REPORT ---
EXAM DESCRIPTION: - CP - 05/08/2022 4:52 pm CLINICAL HISTORY: DIZZINESS Headache, drowsiness COMPARISON: Head C Spine Mpr Wo Con dated 05/08/2022 TECHNIQUE: Real-time sonographic evaluation of both carotid systems was performed. Doppler interroga tion was performed with waveform tracing bilaterally. FINDINGS: Normal high resistance waveforms are noted in both external carotid arteries. The common c arotid arteries and internal carotid arteries show normal low resistance waveforms. Mild plaque seen in both carotid bulbs. Peak systolic and end diastolic velocity values and the ICA/C CA ratios are in the non-hemodynamically significant range. Antegrade flow seen in both vertebral arteries. IMPRESSION: Mild plaque noted in both carotid bulbs. No evidence of a hemodynamically significant stenosis.
--- NOTE | 2022-05-08 17:14 | ER ---
Nurse's Notes [facility] Name: Surinder Hi Age: 66 yrs Sex: Male : 1955 Arrival Date: 05/08/2022 Time: 12:33 Bed Treatment Private MD: Diagnosis: Headache;Abdominal tenderness Presentation: 05/08 13:00 Chief complaint: Patient states: Right sided headache - tingles X 2 weeks intermittent. ld1 Lower abdominal pain X 2 days. Coronavirus screen: At this time, the client does not indicate any symptoms associated with coronavirus-19. Ebola Screen: No symptoms or risks identified at this time. Initial Sepsis Screen: Does the patient meet any 2 criteria? No. Patient's initial sepsis screen is negative. Does the patient have a suspected source of infection? No. Patient's initial sepsis screen is negative. Risk Assessment: Do you want to hurt yourself or someone else? Patient reports no desire to harm self or others. Onset of symptoms was May 08, 2022. 13:00 Method Of Arrival: Ambulatory ld1 13:00 Acuity: GERSON 3 ld1 Triage Assessment: 12:58 General: Appears in no apparent distress. comfortable, Behavior is calm, cooperative, ld1 appropriate for age. Pain: Complains of pain in right sabianism, right temporal area, right occipital area, right base of the skull, right lower quadrant and left lower quadrant Pain does not radiate. Pain currently is 8 out of 10 on a pain scale. Quality of pain is described as tingling, throbbing, Pain began suddenly, Is intermittent. EENT: No signs and/or symptoms were reported regarding the EENT system. Neuro: Level of Consciousness is awake, alert, obeys commands, Oriented to person, place, time, situation. Cardiovascular: Capillary refill < 3 seconds Patient's skin is warm and dry. Respiratory: Airway is patent Respiratory effort is even, unlabored. GI: Abdomen is round non-distended, Reports lower abdominal pain. : No signs and/or symptoms were reported regarding the genitourinary system. Derm: No signs and/or symptoms reported regarding the dermatologic system. Musculoskeletal: No signs and/or symptoms reported regarding the musculoskeletal system. 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 - Social history:: Smoking status: Patient reports the use of cigarette tobacco products, smokes one pack cigarettes per day. Patient/guardian denies using alcohol. - Family history:: not pertinent. Screenin:31 Abuse screen: Denies threats or abuse. Denies injuries from another. Nutritional ph screening: No deficits noted. Tuberculosis screening: No symptoms or risk factors identified. Fall Risk None identified. Assessment: 16:29 General: Appears in no apparent distress. comfortable, Behavior is calm, cooperative, ph appropriate for age. Pain: Complains of pain in right side of the back of head Pain radiates to right frontal area. Pain: Complains of pain in right lower quadrant and left lower quadrant. Neuro: Level of Consciousness is awake, alert, obeys commands, Oriented to person, place, time, situation, Reports headache. Cardiovascular: Capillary refill < 3 seconds in bilateral fingers Patient's skin is warm and dry. Respiratory: Airway is patent Respiratory effort is even, unlabored, Respiratory pattern is regular, symmetrical. GI: Abdomen is non-distended, Bowel sounds present X 4 quads. Reports lower abdominal pain, Patient currently denies constipation, diarrhea, nausea, vomiting. Derm: Skin is healthy with good turgor, Skin is pink, warm \T\ dry. Musculoskeletal: Circulation, motion, and sensation intact. Range of motion: intact in all extremities. Vital Signs: 12:58 BP 157 / 95; Pulse 64; Resp 18; Temp 98.7(TE); Pulse Ox 96% on R/A; Weight 99.79 kg; ld1 Height 5 ft. 8 in. (172.72 cm); Pain 8/10; 16:31 BP 147 / 89; Pulse 67; Resp 18; Pulse Ox 97% on R/A; ph 17:52 BP 139 / 87; Pulse 59; Resp 18; Temp 97.8; Pulse Ox 99% on R/A; ph 12:58 Body Mass Index 33.45 (99.79 kg, 172.72 cm) ld1 [place] Coma Score: 15:55 Eye Response: spontaneous(4). Verbal Response: oriented(5). Motor Response: obeys phoebe commands(6). Total: 15. ED Course: 12:33 Patient arrived in ED. mr 12:58 Arm band placed on right wrist. ld1 13:01 Triage completed. ld1 13:23 Inserted saline lock: 20 gauge in left antecubital area, using aseptic technique. Blood ld1 collected. 14:46 Martha Santamaria, RN is Primary Nurse. ph 14:53 Camilo Quinteros MD is Attending Physician. phoebe 16:13 CT Head C Spine In Process Unspecified. EDMS 16:13 CT Abd/Pelvis - IV Contrast Only In Process Unspecified. EDMS 16:31 Patient has correct armband on for positive identification. Pulse ox on. NIBP on. Door ph closed. Noise minimized. Lights dimmed. Warm blanket given. 16:53 Carotid Artery Bilateral In Process Unspecified. EDMS 17:12 Sterling English MD is Referral Physician. phoebe 17:12 Tulio Andrews MD is Referral Physician. phoebe 17:53 No provider procedures requiring assistance completed. IV discontinued. ph Administered Medications: 16:25 Drug: NS 0.9% 1000 ml Route: IV; Rate: 1 bolus; Site: left antecubital; ph 17:38 Follow up: Response: No adverse reaction; IV Status: Completed infusion; IV Intake: ph 1000ml 16:25 Drug: Pepcid (famotidine) 20 mg Route: IVP; Site: left antecubital; ph 17:40 Follow up: Response: No adverse reaction ph 16:27 Drug: Zofran (Ondansetron) 4 mg Route: IVP; Site: left antecubital; ph 17:40 Follow up: Response: No adverse reaction ph 16:29 Drug: Ketorolac 30 mg Route: IVP; Site: left antecubital; ph 17:38 Follow up: Response: No adverse reaction; Pain is decreased ph 16:29 Drug: morphine 4 mg Route: IVP; Infused Over: 4 mins; Site: left antecubital; ph 17:39 Follow up: Response: No adverse reaction; Pain is decreased ph Medication: 16:31 VIS not applicable for this client. ph Intake: 17:38 IV: 1000ml; Total: 1000ml. ph Outcome: 17:13 Discharge ordered by . phoebe 17:53 Discharged to home ambulatory. ph 17:53 Condition: good 17:53 Discharge instructions given to patient, Instructed on discharge instructions, follow up and referral plans. medication usage, Demonstrated understanding of instructions, follow-up care, medications, Prescriptions given X 2. 18:02 Patient left the ED. ph Signatures: Dispatcher [employer] EDCamilo Ritter MD MD cha Rivera, Mary mr Martha Santamaria RN RN ph Citlalli Burden RN RN ld1
--- NOTE | 2022-05-08 17:14 | EDPHYS ---
Physician Documentation [facility] Name: Surinder Hi Age: 66 yrs Sex: Male : 1955 Arrival Date: 05/08/2022 Time: 12:33 Bed Treatment Private MD: ED Physician Camilo Quinteros HPI: 05/08 15:51 This 66 yrs old Male presents to ER via Ambulatory with complaints of phoebe Abdominal Pain, Headache. 15:51 The patient complains of pain to the top of head, forehead, left frontal area, left phoebe side of the back of head, left occipital area, left base of the skull, right frontal area, right side of the back of head, right occipital area and right base of the skull. The patient complains of pain to the . The patient describes the headache as intermittent. Onset: The symptoms/episode began/occurred 2 week(s) ago. Associated signs and symptoms: Pertinent positives: neck stiffness, weakness. Severity of symptoms: At its worst the pain was moderate, in the emergency department the pain has improved, mildly. Headache History: The patient has had previous headaches and this one is similar to previous episodes. The symptoms are alleviated by nothing. the symptoms are aggravated by nothing. The patient has experienced similar episodes in the past, a few times. 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 - Social history:: Smoking status: Patient reports the use of cigarette tobacco products, smokes one pack cigarettes per day. Patient/guardian denies using alcohol. - Family history:: not pertinent. ROS: 15:52 Constitutional: Negative for fever, chills, and weight loss, Eyes: Negative for injury, phoebe pain, redness, and discharge, ENT: Negative for injury, pain, and discharge, Neck: Negative for injury, pain, and swelling, Cardiovascular: Negative for chest pain, palpitations, and edema, Respiratory: Negative for shortness of breath, cough, wheezing, and pleuritic chest pain, Abdomen/GI: Negative for abdominal pain, nausea, vomiting, diarrhea, and constipation, Back: Negative for injury and pain, : Negative for injury, bleeding, discharge, and swelling, MS/Extremity: Negative for injury and deformity, Skin: Negative for injury, rash, and discoloration, Psych: Negative for depression, anxiety, suicide ideation, homicidal ideation, and hallucinations, Allergy/Immunology: Negative for hives, rash, and allergies, Endocrine: Negative for neck swelling, polydipsia, polyuria, polyphagia, and marked weight changes, Hematologic/Lymphatic: Negative for swollen nodes, abnormal bleeding, and unusual bruising. 15:52 Abdomen/GI: Positive for abdominal pain, of the right lower quadrant and left lower quadrant. 15:52 Neuro: Positive for headache. Exam: 15:52 Constitutional: This is a well developed, well nourished patient who is awake, alert, phoebe and in no acute distress. Head/Face: Normocephalic, atraumatic. Eyes: Pupils equal round and reactive to light, extra-ocular motions intact. Lids and lashes normal. Conjunctiva and sclera are non-icteric and not injected. Cornea within normal limits. Periorbital areas with no swelling, redness, or edema. ENT: Nares patent. No nasal discharge, no septal abnormalities noted. Tympanic membranes are normal and external auditory canals are clear. Oropharynx with no redness, swelling, or masses, exudates, or evidence of obstruction, uvula midline. Mucous membranes moist. Neck: Trachea midline, no thyromegaly or masses palpated, and no cervical lymphadenopathy. Supple, full range of motion without nuchal rigidity, or vertebral point tenderness. No Meningismus. Chest/axilla: Normal chest wall appearance and motion. Nontender with no deformity. No lesions are appreciated. Cardiovascular: Regular rate and rhythm with a normal S1 and S2. No gallops, murmurs, or rubs. Normal PMI, no JVD. No pulse deficits. Respiratory: Lungs have equal breath sounds bilaterally, clear to auscultation and percussion. No rales, rhonchi or wheezes noted. No increased work of breathing, no retractions or nasal flaring. Back: No spinal tenderness. No costovertebral tenderness. Full range of motion. Male : Normal genitalia with no discharge or lesions. Skin: Warm, dry with normal turgor. Normal color with no rashes, no lesions, and no evidence of cellulitis. MS/ Extremity: Pulses equal, no cyanosis. Neurovascular intact. Full, normal range of motion. Neuro: Awake and alert, GCS 15, oriented to person, place, time, and situation. Cranial nerves II-XII grossly intact. Motor strength 5/5 in all extremities. Sensory grossly intact. Cerebellar exam normal. Normal gait. Psych: Awake, alert, with orientation to person, place and time. Behavior, mood, and affect are within normal limits. 15:52 Abdomen/GI: Inspection: distension, Bowel sounds: normal, Palpation: mild abdominal tenderness, in the right lower quadrant and left lower quadrant, Liver: no appreciated palpable abnormalities, Hernia: not appreciated. 17:40 ECG was reviewed by the Attending Physician. [facility] Vital Signs: 12:58 BP 157 / 95; Pulse 64; Resp 18; Temp 98.7(TE); Pulse Ox 96% on R/A; Weight 99.79 kg; ld1 Height 5 ft. 8 in. (172.72 cm); Pain 8/10; 16:31 BP 147 / 89; Pulse 67; Resp 18; Pulse Ox 97% on R/A; ph 17:52 BP 139 / 87; Pulse 59; Resp 18; Temp 97.8; Pulse Ox 99% on R/A; ph 12:58 Body Mass Index 33.45 (99.79 kg, 172.72 cm) ld1 [place] Coma Score: 15:55 Eye Response: spontaneous(4). Verbal Response: oriented(5). Motor Response: obeys [facility] commands(6). Total: 15. MDM: 14:53 Patient medically screened. [facility] 15:55 Differential diagnosis: hyponatremia, migraine, neoplasm, tension headache, trigeminal phoebe neuralgia, vasomotor headache. Data reviewed: vital signs, nurses notes, lab test result(s), EKG, radiologic studies, CT scan. Data interpreted: front desk monitor: rate is 64 beats/min, rhythm is regular, Pulse oximetry: on room air is 96 %. Test interpretation: by ED physician or midlevel provider: ECG. Counseling: I had a detailed discussion with the patient and/or guardian regarding: the historical points, exam findings, and any diagnostic results supporting the discharge/admit diagnosis, lab results, radiology results. 05/08 13:01 Order name: CBC with Diff; Complete Time: 14:53 ld1 05/08 13:01 Order name: CMP; Complete Time: 14:53 ld1 05/08 13:01 Order name: Lipase; Complete Time: 14:53 [facility] 05/08 13:48 Order name: Urine Dipstick-Ancillary; Complete Time: 14:53 EDMS 05/08 15:42 Order name: CT Head C Spine; Complete Time: 17:10 phoebe 05/08 15:42 Order name: CT Abd/Pelvis - IV Contrast Only; Complete Time: 17:10 [facility] 05/08 13:01 Order name: IV Saline Lock; Complete Time: 13:23 ld1 05/08 15:56 Order name: US Carotid Artery Bilateral [facility] 05/08 15:56 Order name: EKG; Complete Time: 15:57 [facility] 05/08 13:01 Order name: Labs collected and sent; Complete Time: 13:23 ld1 05/08 13:01 Order name: Urine Dipstick-Ancillary (obtain specimen); Complete Time: 13:46 [facility] 05/08 15:56 Order name: EKG - Nurse/Tech; Complete Time: 17:38 [facility] EC:40 Rate is 50 beats/min. Rhythm is regular. QRS [place] is Normal. SC interval is normal. QRS phoebe interval is normal. QT interval is normal. No Q waves. T waves are Normal. No ST changes noted. Clinical impression: Sinus bradycardia and No evidence of ischemia. Reviewed by me. Administered Medications: 16:25 Drug: NS 0.9% 1000 ml Route: IV; Rate: 1 bolus; Site: left antecubital; ph 17:38 Follow up: Response: No adverse reaction; IV Status: Completed infusion; IV Intake: ph 1000ml 16:25 Drug: Pepcid (famotidine) 20 mg Route: IVP; Site: left antecubital; ph 17:40 Follow up: Response: No adverse reaction ph 16:27 Drug: Zofran (Ondansetron) 4 mg Route: IVP; Site: left antecubital; ph 17:40 Follow up: Response: No adverse reaction ph 16:29 Drug: Ketorolac 30 mg Route: IVP; Site: left antecubital; ph 17:38 Follow up: Response: No adverse reaction; Pain is decreased ph 16:29 Drug: morphine 4 mg Route: IVP; Infused Over: 4 mins; Site: left antecubital; ph 17:39 Follow up: Response: No adverse reaction; Pain is decreased ph Disposition Summary: 05/08/22 17:13 Discharge Ordered Location: Home [facility] Problem: new phoebe Symptoms: have improved phoebe Condition: Stable phoebe Diagnosis - Headache phoebe - Abdominal tenderness phoebe Followup: phoebe - With: Private Physician - When: 2 - 3 days - Reason: Recheck today's complaints, Continuance of care, Re-evaluation by your physician Followup: phoebe - With: Sterling English MD - When: 2 - 3 days - Reason: Recheck today's complaints, Re-evaluation by your physician Followup: phoebe - With: Tulio Andrews MD - When: 2 - 3 days - Reason: Recheck today's complaints, Re-evaluation by your physician Discharge Instructions: - Discharge Summary Sheet phoebe - Abdominal Pain, Adult phoebe - High-Fiber Diet phoebe - General Headache Without Cause phoebe - Abdominal Pain, Adult, [id number] phoebe - Fiber Content in Foods phoebe - General Headache Without Cause, [id number] phoebe - Aspirin and Your Heart [facility] Forms: - Medication Reconciliation Form phoebe - Thank You Letter phoebe - Antibiotic Education phoebe - Prescription Opioid Use [facility] Prescriptions: - dicyclomine 20 mg Oral Tablet - take 1 tablet by ORAL route 4 times per day; 28 tablet; Refills: 0, Product [facility] Selection Permitted - Tylenol-Codeine #3 300 mg-30 mg Oral - take 2 tablet by ORAL route every 6 hours; 20 tablet; Refills: 0, Product [facility] Selection Permitted Signatures: Dispatcher [employer] Camilo Veras MD MD cha Hall, Patricia RN RN Citlalli Burden RN RN ld1
[2022-05-08 19:32] VITALS: BP 139/87; TEMP 97.8; O2SAT 99
== END 2022-05-08 18:02 | disposition home or self-care (01) ==
LOC: ER 12:28
DX: R51.9 Headache, unspecified (principal); R10.819 Abdominal tenderness, unspecified site; I10 Essential (primary) hypertension; E78.00 Pure hypercholesterolemia, unspecified; F17.210 Nicotine dependence, cigarettes, uncomplicated; I25.2 Old myocardial infarction
CPT/HCPCS: 96361; 85025; 36415; 81003; 83690; 80053; 70450; 72125; 74177; 93880; 96375; 96374; 99284; Q9967; J7030; J2405

== ENCOUNTER 2022-05-27 10:44 | Emergency (ER) | payer BC ==
--- OUTSIDE RECORDS SUMMARY | 2022-05-27 10:48 | XMS REPORT | Continuity of Care Document ---
:1955 Author Organization [facility] t Address [address] [place] [address] Care Team Providers Name Role Phone Heriberto Augustin MD Primary Care Physician MARIE MEJIA Attending Clinician Unavailable ANNE MARIE CONTEH Attending Clinician Unavailable LAB90 Attending Clinician Unavailable Anne Marie Conteh MD Attending Clinician [phone] [id number] Attending Clinician Unavailable ANGELI SIBLEY Attending Clinician Unavailable MARIZA TEJADA Attending Clinician Unavailable Lab, Adc Fam Pob I Attending Clinician Unavailable Mariza Soriano Attending Clinician Doctor Unassigned, [place] Attending Clinician Unavailable Payers Payer Name Policy Type Policy Number Effective Date Expiration Date Mario motta [facility] [id number] 2020 00:00:00 [id number] 2019 00:00:00 Problems Condition Condition Condition Status [...] Added ity of peripheral peripheral 00:00: automatic [place] vascular vascular 00 ally from Med ical disease disease request Branch for surgery [id number] Abdominal Abdominal Disease Active Uni vers pain pain 8-23 ity of 00:00: [place] [address] Medical Branch No known No known Disease Metho di active active st problems problems Hospit a l Allergies, Adverse Reactions, Alerts Allergy Allergy Status Severity Reaction(s) Onset Inactive Treating Comm ents Source Name Type Date Date Clinician Penicill Propensi Active Itching Metho di in G ty to 712 st adverse 00:00: Hospita reaction 00 l s to drug Penicill Propensi Active Itching Kelse y ins ty to 4-30 Seybold adverse 00:00: reaction 00 s Penicill Propensi Active Itching Unive rs ins ty to 4-30 ity of adverse 00:00: [place] reaction 00 Medical s Branch PENICILL Drug Active ITCHING Univers INS Class 4-30 ity of 00:00: [place] [address] Medical Branch Family History Family Member Diagnosis Comments Start Date Stop Date Source Natural father Cancer [facility] Natural father Hypertension [facility] Natural mother Cancer [facility] Natural mother Hypertension [facility] Social History Social Habit Start Date Stop Date Quantity Comments Source Exposure to Not sure Catie Osborneol oscar SARS-CoV-2 (event) History of tobacco Cigarette Smoker Catie shayan use Tobacco use and 2020-11-06 2020-11-06 Former smokeless [place] Seybold exposure 00:00:00 00:00:00 tobacco user Tobacco Comment 2018-03-04 2018-03-04 1/2 pack a day Unive rsity of 00:00:00 00:00:00 [facility] Cigarettes smoked 2018-01-21 2018-01-[address] current (pack per 00:00:00 00:00:00 Hospita l day) - Reported Cigarette 2018-01-21 2018-01-21 [facility] pack-years 00:00:00 00:00:00 Hospital Alcohol intake 2018-01-21 2018-01-21 Current [facility] 00:00:00 00:00:00 non-drinker of Hospital alcohol (finding) Sex Ass[birth year] At [birth year] [facility] 00:00:00 00:00:00 Hospital Smoking Status Start Date Stop Date Source Smokes tobacco daily 2020-11-06 00:00:00 Catie Seybold Medications Ordered Filled Start Stop Current Ordering Indication Dosage Frequency Signature Comments Components Source Medication Medication Date Date Medication? Clinician (SIG) Name Name Cyclobenzap Yes [id number] 10mg [id number] Take 1 Catie rine HCl 10 5-13 [id number] tablet (10 Seybold MG oral 00:00: 3D mg total) Tablet 00 by mouth 3 times daily as needed for muscle spasms (use only as needed. Will make you sleepy) Pantoprazol Yes [id number] 40mg Take 1 Catie e Sodium 40 5-10 tablet (40 Se ybold MG oral 00:00: mg total) Tablet 00 by mouth Delayed daily Response Pantoprazol Yes [id number] 40mg Take 1 Catie e Sodium 40 5-10 tablet (40 Se ybold MG oral 00:00: mg total) Tablet 00 by mouth Delayed daily Response Ciprofloxac 2021- No [id number] 500mg Take 1 Catie in HCl 500 5-10 05-21 tablet Seybol d MG oral 00:00: 04:59 (500 mg Tablet 00 :00 total) by mouth in the morning and 1 tablet (500 mg total) in the evening. Do all this for 10 days. Metronidazo 2021- No [id number] 500mg Take 1 Catie le 500 MG 5-10 05-21 tablet Seybold oral Tablet 00:00: 04:59 (500 mg 00 :00 total) by mouth 3 times daily for 10 days Ciprofloxac 2021- No [id number] 500mg Take 1 Catie in HCl 500 5-10 05-21 tablet Seybol d MG oral 00:00: 04:59 (500 mg Tablet 00 :00 total) by mouth in the morning and 1 tablet (500 mg total) in the evening. Do all this for 10 days. Metronidazo 2022-0 2022- No [id number] 500mg Take 1 Catie le 500 MG 5-10 05-21 tablet Seybold oral Tablet 00:00: 04:59 (500 mg 00 :00 total) by mouth 3 times daily for 10 days Allopurinol 2021-0 Yes [id number] TAKE 2 Catie 100 MG oral 5-04 TABLETS BY Se ybold Tablet 00:00: MOUTH 00 EVERY DAY Allopurinol 2021-0 Yes [id number] TAKE 2 Catie 100 MG oral 5-04 [...] 00 TWICE A DAY Allopurinol 2021-0 Yes [id number] TAKE 1 Catie 100 MG oral 3-01 TABLET BY Sey bold Tablet 00:00: MOUTH 00 EVERY DAY Aspirin 2021-0 Yes [id number] 81mg Take 1 Bouchra ey (Aspirin 2-02 tablet (81 Seybo ld Low Dose) 00:00: mg total) 81 MG oral 00 by mouth Tablet daily Delayed Response Allopurinol 2021-0 Yes [id number] 100mg Take 1 Catie 100 MG oral 2-02 tablet Seybol d Tablet 00:00: (100 mg 00 total) by mouth daily Fluticasone 2021-0 Yes [id number] Inhale 1 Catie -Umeclidin- 2-02 inhalation Se ybold Vilant 00:00: into the (Trelegy 00 lungs Ellipta) daily 100-62.5-25 MCG/INH inhalation AEROSOL POWDER, BREATH ACTIVATED Aspirin 2021-0 Yes [id number] 81mg Take 1 Bouchra ey (Aspirin 2-02 tablet (81 Seybo ld Low Dose) 00:00: mg total) 81 MG oral 00 by mouth Tablet daily Delayed Response Fluticasone 2021-0 Yes [id number] Inhale 1 Catie -Umeclidin- 2-02 inhalation Se ybold Vilant 00:00: into the (Trelegy 00 lungs Ellipta) daily 100-62.5-25 MCG/INH inhalation AEROSOL POWDER, BREATH ACTIVATED Aspirin 2021-0 Yes [id number] 81mg Take 1 Bouchra ey (Aspirin 2-02 tablet (81 Seybo ld Low Dose) 00:00: mg total) 81 MG oral 00 by mouth Tablet daily Delayed Response Fluticasone 2021-0 Yes [id number] Inhale 1 Catie -Umeclidin- 2-02 inhalation Se ybold Vilant 00:00: into the (Trelegy 00 lungs Ellipta) daily 100-62.5-25 MCG/INH inhalation AEROSOL POWDER, BREATH ACTIVATED Aspirin 2021-0 Yes [id number] 81mg Take 1 Bouchra ey (Aspirin 2-02 tablet (81 Seybo ld Low Dose) 00:00: mg total) 81 MG oral 00 by mouth Tablet daily Delayed Response Fluticasone 2021-0 Yes [id number] Inhale 1 Catie -Umeclidin- 2-02 inhalation Se ybold Vilant 00:00: into the (Trelegy 00 lungs Ellipta) daily 100-62.5-25 MCG/INH inhalation AEROSOL POWDER, BREATH ACTIVATED predniSONE 2021-0 Yes [id number] Take 2 Catie 20 MG oral 1-19 tablets by Sey bold tablet 00:00: mouth for 00 5 days, then 1 tablet by mouth for 5 days predniSONE 2021-0 Yes [id number] Take 2 Catie 20 MG oral 1-19 tablets by Sey bold tablet 00:00: mouth for 00 5 days, then 1 tablet by mouth for 5 days predniSONE 2021-0 Yes [id number] Take 2 Catie 20 MG oral 1-19 tablets by Sey bold tablet 00:00: mouth for 00 5 days, then 1 tablet by mouth for 5 days predniSONE 2021-0 2022- No [id number] Take 2 Catie 20 MG oral 1-19 [...] EVERY DAY 24 HR Cetirizine 2020-07 Yes [id number] TAKE 1 Catie 10 MG oral 2-17 TABLET BY Seyb old Tablet 00:00: MOUTH 00 EVERY DAY NEEDED Cetirizine 2020-07 Yes [id number] TAKE 1 Catie 10 MG oral 2-17 TABLET BY Seyb old Tablet 00:00: MOUTH 00 EVERY DAY NEEDED Cetirizine 2020-07 Yes [id number] TAKE 1 Catie 10 MG oral 2-17 TABLET BY Seyb old Tablet 00:00: MOUTH 00 EVERY DAY NEEDED Cetirizine 2020-07 Yes [id number] TAKE 1 Catie 10 MG oral 2-17 TABLET BY Seyb old Tablet 00:00: MOUTH 00 EVERY DAY NEEDED Cetirizine 2020-07 Yes [id number] TAKE 1 Catie 10 MG oral 2-17 TABLET BY Seyb old Tablet 00:00: MOUTH 00 EVERY DAY NEEDED Atorvastati 2020-07 Yes [id number] TAKE 1 Catie n Calcium 2-01 TABLET BY Seybo ld 20 MG oral 00:00: MOUTH Tablet 00 EVERY DAY Amlodipine 2020-07 Yes [id number] TAKE 1 K elsey Besylate 10 2-01 TABLET BY Sey bold MG oral 00:00: MOUTH Tablet 00 EVERY DAY LISINOPRIL- 2020-07 Yes [id number] TAKE 1 Catie HCTZ 2-01 TABLET BY Seybold 20-12.5 MG 00:00: MOUTH oral Tablet 00 EVERY DAY Atorvastati 2020-07 Yes [id number] TAKE 1 Catie n Calcium 2-01 TABLET BY Seybo ld 20 MG oral 00:00: MOUTH Tablet 00 EVERY DAY Amlodipine 2020-07 Yes [id number] TAKE 1 K elsey Besylate 10 2-01 TABLET BY Sey bold MG oral 00:00: MOUTH Tablet 00 EVERY DAY LISINOPRIL- 2020-07 Yes [id number] TAKE 1 Catie HCTZ 2-01 TABLET BY Seybold 20-12.5 MG 00:00: MOUTH oral Tablet 00 EVERY DAY Atorvastati 2020-07 Yes [id number] TAKE 1 Catie n Calcium 2-01 TABLET BY Seybo ld 20 MG oral 00:00: MOUTH Tablet 00 EVERY DAY Amlodipine 2020-07 Yes [id number] TAKE 1 K elsey Besylate 10 2-01 TABLET BY Sey bold MG oral 00:00: MOUTH Tablet 00 EVERY DAY LISINOPRIL- 2020-07 Yes [id number] TAKE 1 Catie HCTZ 2-01 TABLET BY Seybold 20-12.5 MG 00:00: MOUTH oral Tablet 00 EVERY DAY Atorvastati 2020-07 Yes [id number] TAKE 1 Catie n Calcium 2-01 TABLET BY Seybo ld 20 MG oral 00:00: MOUTH Tablet 00 EVERY DAY Amlodipine 2020-07 Yes [id number] TAKE 1 K elsey Besylate 10 2-01 TABLET BY Sey bold MG oral 00:00: MOUTH Tablet 00 EVERY DAY LISINOPRIL- 2020-07 Yes [id number] TAKE 1 Catie HCTZ 2-01 TABLET BY Seybold 20-12.5 MG 00:00: MOUTH oral Tablet 00 EVERY DAY Atorvastati 2020-07 Yes [id number] TAKE 1 Catie n Calcium 2-01 TABLET BY Seybo ld 20 MG oral 00:00: MOUTH Tablet 00 EVERY DAY Amlodipine 2020-07 Yes [id number] TAKE 1 K elsey Besylate 10 2-01 TABLET BY Sey bold MG oral 00:00: MOUTH Tablet 00 EVERY DAY LISINOPRIL- 2020-07 Yes [id number] TAKE 1 Catie HCTZ 2-01 TABLET BY Seybold 20-12.5 MG 00:00: MOUTH oral Tablet 00 EVERY DAY Methylpredn 2020-07- No [id number] 40mg Catie isolone 1-23 11-23 Seybold Sodium 21:15: 21:15 (SOLU-MEDRO 00 :00 L) 40 mg Methylpredn 2020-07- No [id number] 40mg 40 mg, Catie isolone 1-23 11-23 intramuscu Seybo ld Sodium 21:15: 21:15 lar, ONCE, (SOLU-MEDRO 00 :00 On Thu) 40 mg 06/04/21 at 1515, For 1 dose Albuterol 2020-07 Yes [id number] 2{puff} Q4H Inhale 2 Catie HFA 108 (90 1-23 puffs into Se ybold Base) 00:00: the lungs MCG/ACT IN 00 every 4 AERS hours as needed for wheezing or shortness of breath Albuterol 2020-07 Yes [id number] 2{puff} Q4H Inhale 2 Catie HFA 108 (90 1-23 puffs into Se ybold Base) 00:00: the lungs MCG/ACT IN 00 every 4 AERS hours as needed for wheezing or shortness of breath Albuterol 2020-07 Yes [id number] 2{puff} Q4H Inhale 2 Catie HFA 108 (90 1-23 puffs into Se ybold Base) 00:00: the lungs MCG/ACT IN 00 every 4 AERS hours as needed for wheezing or shortness of breath predniSONE 2020-07 Yes [id number] Take 2 Catie 20 MG oral 1-23 tablets by SeSamfind bold tablet 00:00: mouth for 00 5 days, then 1 tablet by mouth for 5 days Albuterol 2020-07 Yes [id number] 2{puff} Q4H Inhale 2 Catie HFA 108 (90 1-23 puffs into Se ybold Base) 00:00: the lungs MCG/ACT IN 00 every 4 AERS hours as needed for wheezing or shortness of breath Albuterol 2020-07- No [id number] 2{puff} Q4H Inhale 2 Catie HFA 108 (90 1-23 05-10 puffs into S eybold Base) 00:00: 00:00 the lungs MCG/ACT IN 00 :00 every 4 AERS hours as needed for wheezing or shortness of breath predniSONE 2020-07- No [id number] Take 2 Catie 20 MG oral 1-23 -19 tablets by Se ybold tablet 00:00: 00:00 mouth for 00 :00 5 days, then 1 tablet by mouth for 5 days Azithromyci 2020-07- No [id number] Take 2 Catie n 250 MG 1-23 11-29 tablets by Se old oral Tablet 00:00: 05:59 mouth on [...] Delayed 00 EVERY DAY Response Atorvastati Yes [id number] TAKE 1 Catie n Calcium 9-07 TABLET BY Seybo ld 20 MG oral 00:00: MOUTH Tablet 00 EVERY DAY ASPIRIN 81 Yes TAKE 1 Kelse y OR 9-07 TABLET BY Seybold 00:00: MOUTH 00 EVERY DAY Aspirin Low Yes TAKE 1 Bouchra ey Dose 81 MG 9-07 TABLET BY Seyb old oral Tablet 00:00: MOUTH Delayed 00 EVERY DAY Response ASPIRIN 81 2021-0 Yes TAKE 1 Kelse y OR 03-19 TABLET BY Seybold 00:00: MOUTH 00 EVERY DAY ASPIRIN 81 2020-0 2021- No TAKE 1 Bouchra ey OR 03-19 TABLET BY Seybold 00:00: 00:00 MOUTH 00 :00 EVERY DAY Aspirin Low 2020-0 2021- No TAKE 1 Jonathan sey Dose 81 MG 03-19 TABLET BY Sey bold oral Tablet 00:00: 00:00 MOUTH Delayed 00 :00 EVERY DAY Response Fluticasone 2020-0 Yes Inhale 1 Ke lsey -Umeclidin- 8-16 inhalation Se ybold Vilant 00:00: into the (Trelegy 00 lungs Ellipta) daily 100-62.5-25 MCG/INH inhalation AEROSOL POWDER, BREATH ACTIVATED Fluticasone 2020-0 Yes Inhale 1 Ke lsey -Umeclidin- 8-16 inhalation Se ybold Vilant 00:00: into the (Trelegy 00 lungs Ellipta) daily 100-62.5-25 MCG/INH inhalation AEROSOL POWDER, BREATH ACTIVATED Fluticasone 2020-0 2021- No Inhale 1 K elsey -Umeclidin- 8-16 08-14 inhalation S eybold Vilant 00:00: 00:00 into the (Trelegy 00 :00 lungs Ellipta) daily 100-62.5-25 MCG/INH inhalation AEROSOL POWDER, BREATH ACTIVATED Ibuprofen 2020-0 Yes [id number] 800mg Q6H Take 1 K elsey 800 MG oral 7-13 tablet Seybol d Tablet 00:00: (800 mg 00 total) by mouth every 6 hours as needed for pain Ibuprofen 2020-0 Yes [id number] 800mg Q6H Take 1 K elsey 800 MG oral 7-13 tablet Seybol d Tablet 00:00: (800 mg 00 total) by mouth every 6 hours as needed for pain Ibuprofen 2020-0 Yes [id number] 800mg Q6H Take 1 K elsey 800 MG oral 7-13 tablet Seybol d Tablet 00:00: (800 mg 00 total) by mouth every 6 hours as needed for pain Ibuprofen 2020-0 Yes [id number] 800mg Q6H Take 1 K elsey 800 MG oral 7-13 tablet Seybol d Tablet 00:00: (800 mg 00 total) by mouth every 6 hours as needed for pain Ibuprofen 0 2022- No [id number] 800mg Q.25D Take 1 Catie 800 MG [...] 2 times Gel daily Acetaminoph 0 Yes [id number] 1{tbl} Q6H Take 1 Catie en-Codeine 6-15 tablet by Seyb old #3 300-30 00:00: mouth MG oral 00 every 6 Tablet hours as needed Acetaminoph 0 Yes [id number] 1{tbl} Q6H Take 1 Catie en-Codeine 6-15 tablet by Seyb old #3 300-30 00:00: mouth MG oral 00 every 6 Tablet hours as needed LISINOPRIL- 0 Yes [id number] 1{tbl} Take 1 Catie HCTZ 6-15 tablet by Seybold 20-12.5 MG 00:00: mouth oral Tablet 00 daily Cetirizine Yes [id number] 10mg Q24H Take 1 Catie 10 MG oral 6-15 tablet (10 Sey bold Tablet 00:00: mg total) 00 by mouth daily as needed Amlodipine 2020-0 Yes [id number] 10mg Take 1 K elsey Besylate 10 6-15 tablet (10 Se ybold MG oral 00:00: mg total) Tablet 00 by mouth daily Acetaminoph 2020-0 Yes [id number] 1{tbl} Q6H Take 1 Catie en-Codeine 6-15 tablet by [facility] old #3 300-30 00:00: mouth MG oral 00 every 6 Tablet hours as needed Acetaminoph 2020-0 Yes [id number] 1{tbl} Q6H Take 1 Catie en-Codeine 6-15 tablet by [facility] old #3 300-30 00:00: mouth MG oral 00 every 6 Tablet hours as needed Acetaminoph 2020-0 2022- No [id number] 1{tbl} Q.25D Take 1 Catie en-Codeine 6-15 05-10 tablet by [facility] #3 300-30 00:00: 00:00 mouth MG oral [...] mg by ity of tablet 11:00: mouth [place] [address] daily. Medical Branch metoprolol Yes 50mg Take 50 mg U nivers succinate 7-09 by mouth ity of XL 50 mg 24 11:[place]: [place]. [place] tablet [place] [facility] atorvastati Yes 20mg Take 20 mg Univers n 20 mg 7-09 by mouth ity of tablet 11:00: daily. [address] Branch amLODIPine Yes 10mg Take 10 mg U nivers 10 mg 7-09 by mouth ity of tablet 11:00: daily. [place] [address] Medical Branch aspirin 81 Yes 81mg Take 81 mg U nivers mg chewable 7-09 by mouth ity of tablet 11:00: daily. [place] [address] Medical Branch ibuprofen Yes 1{tbl} Take 1 Univ ers (ADVIL 7-09 tablet by ity of LIQUI-GEL 11:00: mouth [place] ORAL[place] 47 needed. Medical Branch cilostazol Yes 100mg Take 100 Un benny 100 mg 7-09 mg by ity of tablet 11:00: mouth [place] [address] daily. Medical Branch metoprolol Yes 50mg Take 50 mg U nivers succinate 7-09 by mouth ity of XL 50 mg 24 11:00: daily. [place] tablet 47 [facility] Branch atorvastati Yes 20mg Take 20 mg Univers n 20 mg 01-18 by mouth ity of tablet 11:00: daily. [address] Branch amLODIPine Yes 10mg Take 10 mg U nivers 10 mg 01-18 by mouth ity of tablet 11:00: daily. [address] Branch aspirin 81 Yes 81mg Take 81 mg U nivers mg chewable 01-18 by mouth ity of tablet 11:00: daily. [address] ibuprofen Yes 1{tbl} Take 1 Univ ers (ADVIL 01-18 tablet by ity of LIQUI-GEL 11:00: mouth [place] ORAL[place] 47 needed. [facility] Branch methocarbam Yes Method i ol 01-18 st (ROBAXIN) 00:00: Hospita 500 MG 00 l tablet methylPREDN Yes Method i ISolone 01-18 st (MEDROL 00:00: Hospita DOSEPAK) 4 00 l mg tablet methocarbam Yes Method i ol 01-18 st (ROBAXIN) 00:00: Hospita 500 MG 00 l tablet methylPREDN 0 Yes Method i ISolone 01-18 st (MEDROL 00:00: Hospita DOSEPAK) 4 00 l mg tablet amLODIPine Yes Methodi (NORVASC) 01-07 st 10 mg 00:00: Hospita tablet 00 l atorvastati Yes Method i n (LIPITOR) 01-07 st 20 MG 00:00: Hospita tablet 00 l cilostazol Yes [facility] (PLETAL) 01-07 st 100 MG 00:00: Hospita tablet 00 l lisinopril- 0 Yes Method i hydrochloro 01-07 st thiazide 00:00: Hospita (PRINZIDE,Z 00 l ESTORETIC) 20-12.5 mg per tablet metoprolol Yes [facility] succinate 01-07 st XL 00:00: Hospita (TOPROL-XL) 00 l 50 mg 24 hr tablet amLODIPine Yes Methodi (NORVASC) 01-07 st 10 mg 00:00: Hospita tablet 00 l atorvastati Yes Method i n (LIPITOR) 01-07 st 20 MG 00:00: Hospita tablet 00 l cilostazol Yes [facility] (PLETAL) 01-07 st 100 MG 00:00: Hospita tablet 00 l lisinopril- Yes Method i hydrochloro 01-07 thiazide 00:00: Hospita (PRINZIDE,Z 00 l ESTORETIC) 20-12.5 mg per tablet metoprolol Yes Methodi succinate 01-07 XL 00:00: Hospita (TOPROL-XL) 00 l 50 mg 24 hr tablet Immunizations Ordered Immunization Filled Immunization Date Status Commen ts Source Name Name Influenza Virus 2017-05-11 Completed Catie Se ybold [...] months 00:00:00 and up Meningococcal 2016-03-27 Completed [facility] old Vaccine- 00:00:00 Conjugate(Menactra) Meningococcal 2016-03-27 Completed [facility] old Vaccine- 00:00:00 Conjugate(Menactra) Meningococcal 2016-03-27 Completed [facility] old Vaccine- 00:00:00 Conjugate(Menactra) Meningococcal 2016-03-27 Completed [facility] old Vaccine- 00:00:00 Conjugate(Menactra) Meningococcal 2016-03-27 Completed [facility] old Vaccine- 00:00:00 Conjugate(Menactra) Meningococcal 2016-03-27 Completed [facility] old Vaccine- 00:00:00 Conjugate(Menactra) Tdap- (Boostrix, 2013-08-24 Completed Catie cabrera Adacel) 00:00:00 Tdap- (Boostrix, 2013-08-24 Completed Catie S eybold Adacel) 00:00:00 Tdap- (Boostrix, 2013-08-24 Completed Catie olivaresbold Adacel) 00:00:00 Tdap- (Boostrix, 2013-08-24 Completed Catie olivaresbold Adacel) 00:00:00 Tdap- (Boostrix, 2013-08-24 Completed Catie olivaresbold Adacel) 00:00:00 Tdap- (Boostrix, 2013-08-24 Completed Catie olivaresbold Adacel) 00:00:00 Influenza, Seasonal, 2013-07-01 Completed Bouchra [...] blood pressure 2021-11-22 12:54:00 144 mm[Hg] Catie ybmichael Diastolic blood 2021-11-22 12:54:00 70 mm[Hg] Kelse y Seybold pressure Heart rate 2021-11-22 12:54:00 69 /min Catie cabrera Body temperature 2021-11-22 12:54:00 36.67 Kaylynn Bouchra Car Respiratory rate 2021-11-22 12:54:00 16 /min Bouchra Car Body height 2021-11-22 12:54:00 172.7 cm Catie cabrera Body weight 2021-11-22 12:54:00 102.513 kg Catie cabrera BMI 2021-11-22 12:54:00 34.36 kg/m2 Catie cabrera Systolic blood pressure 2021-11-19 14:09:00 134 mm[Hg] Catie ybmichael Diastolic blood 2021-11-19 14:09:00 72 mm[Hg] Kelse [...] Heart rate 2021-06-04 20:27:00 77 /min Catie S eybold Body temperature 2021-06-04 20:27:00 36.39 Kaylynn Bouchra ey Seybold Respiratory rate 2021-06-04 20:27:00 16 /min Bouchra ey Seybold Body height 2021-06-04 20:27:00 172.7 cm Catie S eybold Body weight 2021-06-04 20:27:00 101.606 kg Catie S eybold BMI 2021-06-04 20:27:00 34.06 kg/m2 Catie S eybold Procedures This patient has no known procedures. Plan of Care Planned Activity Planned Date Details Comments Source Future Scheduled 2022-05-17 HEPATITIS B VACCINES [facility] Test 07:54:17 (1 of 3 - 3-dose series) [code = HEPATITIS B VACCINES (1 of 3 - 3-dose series)] Future Scheduled 2022-05-17 COVID-19 VACCINE (#1) [facility] [place] [facility] Test 07:54:17 [code = COVID-19 VACCINE (#1)] Future Scheduled 2022-05-17 COLONOSCOPY SCREENING [facility] [place] [facility] Test 07:54:17 [code = COLONOSCOPY SCREENING] Future Scheduled 2022-05-17 SHINGLES VACCINES (1 Met [facility] Test 07:54:17 of 2) [code = SHINGLES VACCINES (1 of 2)] Future Scheduled 2022-05-17 INFLUENZA VACCINE [facility] Test 07:54:17 [code = INFLUENZA VACCINE] Future Scheduled 2022-05-05 HEPATITIS B VACCINES Met [facility] Test 14:33:23 (1 of 3 - 3-dose series) [code = HEPATITIS B VACCINES (1 of 3 - 3-dose series)] Future Scheduled 2022-05-05 COVID-19 VACCINE (#1) [facility] [place] [facility] Test 14:33:23 [code = COVID-19 VACCINE (#1)] Future Scheduled 2022-05-05 COLONOSCOPY SCREENING [facility] Test 14:33:23 [code = COLONOSCOPY SCREENING] Future Scheduled 2022-05-05 SHINGLES VACCINES (1 Met [facility] Test 14:33:23 of 2) [code = SHINGLES VACCINES (1 of 2)] Future Scheduled 2022-05-05 INFLUENZA VACCINE [facility] Test 14:33:23 [code = INFLUENZA VACCINE] Encounters Start End Encounter Admission Attending Care Care Encounter Source Date/Time Date/Time Type Type Clinicians Facility Department ID 2022-07-18 2022-07-18 Outpatient JACKIE MARIEJeffery RIVERA [id number] Catie 13:00:00 13:00:00 Seybol d 2022-06-18 2022-06-18 Outpatient CATIE RIVERA [id number] Catie 14:45:00 14:45:00 Seybol d 2022-05-14 2022-05-14 Outpatient CATIE CONTEH [id number] Catie 00:00:00 00:00:00 ANNE MARIE Seybol d 2022-05-09 2022-05-09 Outpatient LAB90 CATIE RIVERA [id number] Catie 09:10:00 09:10:00 Seybol d 2022-05-05 2022-05-05 Outpatient LAB90 CATIE RIVERA [id number] Catie 16:00:00 16:00:00 Seybol d 2022-05-05 2022-05-05 Outpatient CATIE CONTEH [id number] Catie 15:30:00 15:30:00 ANNE MARIE Seybol d 2022-02-26 2022-02-26 Outpatient WERO CATIE RIVERA [id number] Catie 16:15:00 16:15:00 ANNE MARIE Seybol d 2022-02-05 2022-02-05 Office Artur Conteh [id number] Catie 16:30:00 16:45:00 Visit Anne Marie Jones [id number] Se ybold Somogyi [id number] 2022-01-31 2022-01-31 Outpatient JONATHAN CONTEHJJ RIVERA [id number] Catie 00:00:00 00:00:00 ANNE MARIE Seybol d 2022-01-29 2022-01-29 Outpatient RYE43-MCC CATIE RIVERA [id number] Catie 08:35:00 08:35:00 Seybol d 2022-01-22 2022-01-22 Outpatient LAB90 CATIE RIVERA [id number] Catie 14:00:00 14:00:00 Seybol d 2022-01-22 2022-01-22 Office Artur Conteh [id number] Catie 13:30:00 13:45:00 Visit Anne Marie Jones [id number] Se ybold Somogyi [id number] 2021-11-22 2021-11-22 Office Artur Conteh [id number] Catie 08:00:00 08:15:00 Visit Anne Marie Jones [id number] Se ybold Somogyi [id number] 2021-11-19 2021-11-19 Outpatient LAB90 CATIE RIVERA [id number] Catie 10:00:00 10:00:00 Seybol d 2021-11-19 2021-11-19 Office Artur Conteh [id number] Catie 09:30:00 09:45:00 Visit Anne Marie Jones [id number] Se ybold Somogyi [id number] 2021-09-30 2021-09-30 Outpatient CATIE CONTEH [id number] Catie 00:00:00 00:00:00 ANNE MARIE Seybol d 2021-09-12 2021-09-12 Office WilkinsonArtur mitchell [id number] Catie 16:00:00 16:15:00 Visit Anne Marie Jones [id number] Se ybold Somogyi [id number] 2021-09-12 2021-09-12 Outpatient LAB90 CATIE RIVERA [id number] Catie 15:25:00 15:25:00 Seybol d 2021-09-11 2021-09-11 Outpatient CATIE CONTEH [id number] Catie 15:30:00 15:30:00 ANNE MARIE Seybol d 2021-09-10 2021-09-10 Outpatient CATIE CONTEH [id number] Catie 00:00:00 00:00:00 ANNE MARIE Seybol d 2021-09-10 2021-09-10 Outpatient CATIE CONTEH [id number] Catie 00:00:00 00:00:00 ANNE MARIE Seybol d 2021-09-07 2021-09-07 Outpatient CATIE CONTEH [id number] Catie 00:00:00 00:00:00 ANNE MARIE Seybol d 2021-08-14 2021-08-14 Office Artur Conteh [id number] Catie 15:30:00 15:45:00 Visit Anne Marie Jones [id number] Se ybold Somogyi [id number] 2021-07-31 2021-07-31 Outpatient LAB90 CATIE RIVERA [id number] Catie 14:15:00 14:15:00 Seybol d 2021-07-31 2021-07-31 Office Artur Conteh [id number] Catie 13:45:00 14:00:00 Visit Anne Marie Jones [id number] Se ybold Somogyi [id number] 2021-07-15 2021-07-15 Outpatient CATIE CONTEH [id number] Catie 00:00:00 00:00:00 ANNE MARIE Osborneol oscar 2021-06-24 2021-06-24 Outpatient CATIE CONTEH [id number] Catie 00:00:00 00:00:00 ANNE MARIE Osborneol oscar 2021-06-12 2021-06-12 Outpatient CATIE SIBLEY [id number] Catie 00:00:00 00:00:00 ANGELI Duboseofelia rodriguez 2021-06-04 2021-06-04 Office Artur Conteh [id number] Catie 15:00:00 15:30:00 Visit Anne Marie Jones 350.1..13 Se shayan Shipman [id number] 2021-01-22 2021-01-22 Outpatient CATIE CONTEH [id number] Catie 16:45:00 16:45:00 ANNE MARIE Osborneol oscar 2020-05-21 2020-05-21 Outpatient R USHA [facility] [id number] Univers 13:40:00 13:40:00 MARIZA villagomez [facility] 2020-05-21 2020-05-21 Laboratory Lab, [facility] [id number] 13:15:06 13:35:06 Only Alejandro Hallb [facility] [id number] [place] 4.2.7.2.686 Professio [phone] [address] One 2020-05-21 2020-05-21 Laboratory Lab, [facility] Fam Pob I [facility] [id number] [facility] 13:15:06 13:35:06 Only Mariza Tejada [id number] dahlia mcneil [place] [id number] Ranjeet as Professio [phone] Or dical [address] Office [facility] One 2020-05-21 2020-05-21 Letter Doctor DÍAZ [id number] 00:00:00 00:00:00 (Out) Unassigned, ED [id number] [place] [facility] [id number] 2020-05-21 2020-05-21 Letter Doctor ARJUN [id number] Univers 00:00:00 00:00:00 (Out) Unassigned, ED [id number] ity of [place] [facility] [id number] Ranjeet as [phone] [place] [address] Branch Results This patient has no known results.
--- NOTE | 2022-05-27 11:27 | RAD REPORT ---
EXAM DESCRIPTION: CT - CTHCSPWOC - 05/27/2022 11:12 am CLINICAL HISTORY: Trauma, head and neck injury. fall, head injury, neck pain COMPARISON: Head C Spine Mpr Wo Con dated 05/08/2022 TECHNIQUE: Axial 5 mm thick images of the head were obtained. Axial 2 mm thick images of the cervical spine were obtained with sagittal and coronal reconstruction images generated and reviewed. All CT scans are performed using dose optimization technique as appropriate and may include automated exposure control or mA/KV adjustment according to patient size. FINDINGS: CT HEAD WITHOUT CONTRAST: No acute hemorrhage, hydrocephalus or extra-axial collection is identified.No areas of brain edema or midline shift. The paranasal sinuses and mastoids are clear.The calvarium is intact. Small posterior scalp hematoma. CT CERVICAL SPINE WITHOUT CONTRAST: No fracture or subluxation.Moderate lower cervical degenerative change with large posterior osteophyt es.No prevertebral soft tissues swelling is identified. IMPRESSION: No acute intracranial or cervical spine findings. Moderate lower lobe cervical degenerative changes.
[2022-05-27] MEDS ORDERED: TRAMADOL 37.5mg/APAP 325mg PER TAB ONE (11:41)
--- NOTE | 2022-05-27 12:22 | RAD REPORT ---
EXAM DESCRIPTION: RAD - Wrist Right 3 View - 05/27/2022 12:00 pm CLINICAL HISTORY: wrist pain, fall, swelling Pain COMPARISON: No comparisons FINDINGS: Defect is seen in the scaphoid compatible with a scaphoid fracture. Soft tissue swelling is present about the wrist. A dislocation is not seen. IMPRESSION: Scaphoid fracture
--- NOTE | 2022-05-27 13:11 | ER ---
Nurse's Notes [facility] Name: Surinder Hi Age: 66 yrs Sex: Male : 1955 Arrival Date: 05/27/2022 Time: 10:47 Bed 10 Private MD: Diagnosis: Head Injury;Abrasion of the Head;Right Scaphoid Fracture, unspecified, initial visit Presentation: 05/27 11:00 Note GREG guerrero lobby assessing pt. [facility] 11:33 Chief complaint: Patient states: Tripped and fell last night, hit back of head on [facility] sidewalk, reports pain to right wrist and head. Care prior to arrival: None. Mechanism of Injury: Fall from standing position. Trauma event details: Injury occurred in the [facility], Injury occurred: at home. Injury occurred: May 27, 2022 Injury occurred at: 03:15. 11:33 Method Of Arrival: Ambulatory [facility] 11:33 Acuity: GERSON [address] [facility] 11:38 Coronavirus screen: At this time, the client does not indicate any symptoms associated [facility] with coronavirus-19. Ebola Screen: No symptoms or risks identified at this time. Initial Sepsis Screen: Does the patient meet any 2 criteria? No. Patient's initial sepsis screen is negative. Does the patient have a suspected source of infection? No. Patient's initial sepsis screen is negative. Risk Assessment: Do you want to hurt yourself or someone else? Patient reports no desire to harm self or others. Onset of symptoms was May 27, 2022 at 03:15. Trauma Activation: Not Applicable Physician: ED Physician; Name: ; Notified At: ; Arrived At: Physician: General Surgeon; Name: ; Notified At: ; Arrived At: Physician: Radiology; Name: ; Notified At: ; Arrived At: Physician: Respiratory; Name: ; Notified At: ; Arrived At: Physician: Lab; Name: ; Notified At: ; Arrived At: Historical: - Allergies: 11:28 PENICILLINS; jl7 - Home Meds: :28 lisinopril-hydrochlorothiazide 20-12.5 mg oral tab [Active]; metoprolol succinate 25 mg jl7 oral Tb24 [Active]; Plavix 75 mg Oral tab [Active]; amlodipine 10 mg tab [Active]; atorvastatin 20 mg oral tab [Active]; gabapentin 300 mg oral Tb24 [Active]; - PMHx: 11:28 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 - Social history:: Smoking status: Patient reports the use of cigarette tobacco products, smokes one-half pack cigarettes per day. - Immunization history: Last tetanus immunization: unknown. Screenin:33 Abuse screen: Denies threats or abuse. Denies injuries from another. Tuberculosis jl7 screening: No symptoms or risk factors identified. Primary Survey: 11:33 NO uncontrolled hemorrhage observed. A: The client is awake and alert. The airway is jl7 patent. Breathing/Chest: Spontaneous respiratory effort, equal unlabored respirations, breath sounds clear bilaterally, regular pattern, symmetrical chest rise and fall. Circulation: No external hemorrhage present. Regular and strong central pulse, skin warm/dry/normal color. Disability Client is alert. Exposure/Environment: There is no evidence of uncontrolled external bleeding. Obvious injury(ies) are noted at this time: abrasion to top of scalp and wrist pain. Assessment: 11:10 Reassessment: Called from lobby, no answer. jl7 11:33 General: Appears in no apparent distress. uncomfortable, Behavior is calm, cooperative, jl7 appropriate for age. Pain: Complains of pain in right wrist and head Pain currently is 6 out of 10 on a pain scale. Neuro: [place] Agitation-Sedation Scale (RASS): 0 - Alert and Calm Level of Consciousness is awake, alert, obeys commands, Oriented to person, place, time, situation. Cardiovascular: Patient's skin is warm and dry. Respiratory: Airway is patent Respiratory effort is even, unlabored, Respiratory pattern is regular, symmetrical. Derm: Skin is pink, warm \T\ dry. 12:51 Reassessment: Patient appears in no apparent distress at this time. Patient and/or ld1 family updated on plan of care and expected duration. Pain level reassessed. Patient is alert, oriented x 3, equal unlabored respirations, skin warm/dry/pink. Patient denies pain at this time. 13:37 Reassessment: No changes from previously documented assessment. Patient and/or family ld1 updated on plan of care and expected duration. Pain level reassessed. Patient is alert, oriented x 3, equal unlabored respirations, skin warm/dry/pink. Patient denies pain at this time. Patient states feeling better. Vital Signs: 11:33 BP 153 / 76; Pulse 63; Resp 17; Temp 98.4; Pulse Ox 97% ; Weight 97.52 kg; Height 5 ft. jl7 8 in. (172.72 cm); Pain 6/10; 12:51 BP 149 / 77; Pulse 65; Resp 18; Pulse Ox 99% on R/A; Pain 3/10; ld1 13:37 BP 144 / 76; Pulse 71; Resp 18; Pulse Ox 99% ; ld1 11:33 Body Mass Index 32.69 (97.52 kg, 172.72 cm) jl7 [place] Coma Score: 11:33 Eye Response: spontaneous(4). Verbal Response: oriented(5). Motor Response: obeys jl7 commands(6). Total: 15. Trauma Score (Adult): 11:33 Eye Response: spontaneous(1); Verbal Response: oriented(1); Motor Response: obeys jl7 commands(2); Systolic BP: > 89 mm Hg(4); Respiratory Rate: 10 to 29 per min(4); Ila Score: 15; Trauma Score: 12 ED Course: 10:47 Patient arrived in ED. mr 10:48 Daryl Williamson PA is PHCP. jmm 10:48 Henry Marquez MD is Attending Physician. jmm 11:14 CT Head C Spine In Process Unspecified. EDMS 11:33 Patient has correct armband on for positive identification. jl7 11:33 Patient maintains SpO2 saturation greater than 95% on room air. Thermoregulation: pt jl7 with jacket on. 11:35 Triage completed. jl7 11:38 Arm band placed on right wrist. jl7 12:01 Wrist Right 3 View XRAY In Process Unspecified. EDMS 12:51 Citlalli Burden, HARSHAL is Primary Nurse. ld1 13:10 Ajay Shrestha MD is Referral Physician. jmm 13:38 No provider procedures requiring assistance completed. Patient did not have IV access ld1 during this emergency room visit. Administered Medications: 11:42 Drug: Ultracet (tramadol-acetaminophen) 1 tabs Route: PO; jl7 Medication: 13:38 VIS not applicable for this client. ld1 Outcome: 13:10 Discharge ordered by MD. cunha 13:38 Discharged to home ambulatory. ld1 13:38 Condition: good 13:38 Discharge instructions given to patient, Instructed on discharge instructions, follow up and referral plans. medication usage, Demonstrated understanding of instructions, follow-up care, medications, Prescriptions given X 1. 13:38 Patient left the ED. ld1 Signatures: Dispatcher [employer] EDMS Daryl Williamson PA PA jmm Rivera, Mary mr Sandrine Stark RN RN jl7 Citlalli Burden RN RN ld1
--- NOTE | 2022-05-27 13:11 | EDPHYS ---
Physician Documentation [facility] Name: Surinder Hi Age: 66 yrs Sex: Male : 1955 Arrival Date: 05/27/2022 Time: 10:47 Bed 10 Private MD: ED Physician Henry Marquez HPI: 05/27 11:04 This 66 yrs old Male presents to ER via Unassigned with complaints of Fall Injury, Head jmm Injury-Adult, Wrist Injury. 11:04 Details of fall: The patient fell from an upright position, while walking. Onset: The jmm symptoms/episode began/occurred acutely, just prior to arrival. This is a 66 year old male that presents to the ED with complaints of headache, neck pain, and right wrist pain after a fall which occurred this morning around 0300. Patient states he slipped, falling backwards, hitting the back of his head. Pain is mainly to his right wrist. Denies other injury. . 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 - Social history:: Smoking status: Patient reports the use of cigarette tobacco products, smokes one-half pack cigarettes per day. - Immunization history: Last tetanus immunization: unknown. ROS: 11:04 Constitutional: Negative for fever, chills, and weight loss, Cardiovascular: Negative jmm for chest pain, palpitations, and edema, Respiratory: Negative for shortness of breath, cough, wheezing, and pleuritic chest pain. 11:04 Neck: Positive for pain with movement. 11:04 Neuro: Positive for headache. 11:04 All other systems are negative. Exam: 11:04 Constitutional: This is a well developed, well nourished patient who is awake, alert, jmm and in no acute distress. 11:04 Chest/axilla: Normal chest wall appearance and motion. Cardiovascular: Regular rate and rhythm. No edema appreciated Respiratory: Normal respirations, no respiratory distress appreciated Abdomen/GI: Non distended Back: Normal ROM Skin: General appearance color normal 11:04 Head/face: Noted is abrasion(s), that are moderate, of the left side of the back of head and right side of the back of head. 11:04 Musculoskeletal/extremity: swelling noted to the right wrist, radial pulse, < 2 sec dist cap refill. 11:04 Skin: Appearance: Color: normal in color. 11:04 Neuro: Orientation: is normal, Mentation: is normal, Memory: is normal. 11:04 Psych: Behavior/mood is pleasant, cooperative. Vital Signs: 11:33 BP 153 / 76; Pulse 63; Resp 17; Temp 98.4; Pulse Ox 97% ; Weight 97.52 kg; Height 5 ft. jl7 8 in. (172.72 cm); Pain 6/10; 12:51 BP 149 / 77; Pulse 65; Resp 18; Pulse Ox 99% on R/A; Pain 3/10; ld1 13:37 BP 144 / 76; Pulse 71; Resp 18; Pulse Ox 99% ; ld1 11:33 Body Mass Index 32.69 (97.52 kg, 172.72 cm) jl7 Ila Coma Score: 11:33 Eye Response: spontaneous(4). Verbal Response: oriented(5). Motor Response: obeys jl7 commands(6). Total: 15. Trauma Score (Adult): 11:33 Eye Response: spontaneous(1); Verbal Response: oriented(1); Motor Response: obeys jl7 commands(2); Systolic BP: > 89 mm Hg(4); Respiratory Rate: 10 to 29 per min(4); Ila Score: 15; Trauma Score: 12 Procedures: 13:09 Splinting: Splint applied to right hand using thumb spica. applied by tech. Examined by guerline me, post splint application: neurovascular intact, 2+ distal pulses palpable, brisk capillary refill noted, Patient tolerated well. MDM: 11:04 Patient medically screened. guerline 13:09 Data reviewed: vital signs, nurses notes. Counseling: I had a detailed discussion with guerline the patient and/or guardian regarding: the historical points, exam findings, and any diagnostic results supporting the discharge/admit diagnosis, radiology results, the need for outpatient follow up, to return to the emergency department if symptoms worsen or persist or if there are any questions or concerns that arise at home. 05/27 11:04 Order name: Wrist Right 3 View XRAY; Complete Time: 12:25 [facility] 05/27 11:04 Order name: CT Head C Spine; Complete Time: 11:28 [facility] 05/27 12:25 Order name: Thumb Spica Splint; Complete Time: 12:51 [facility] 05/27 13:09 Order name: Wound Care; Complete Time: 13:33 [facility] Administered Medications: 11:42 Drug: Ultracet (tramadol-acetaminophen) 1 tabs Route: PO; jl7 Disposition: 14:07 Co-signature as Attending Physician, Henry Marquez MD. rn Disposition Summary: 05/27/22 13:10 Discharge Ordered Location: Home [facility] Condition: Stable [facility] Diagnosis - Head Injury jm - Abrasion of the Head jm - Right Scaphoid Fracture, unspecified, initial visit [facility] Followup: [facility] - With: Ajay Shrestha MD - When: 2 - 3 days - Reason: Recheck today's complaints, Continuance of care, Re-evaluation by your physician Discharge Instructions: - Discharge Summary Sheet [facility] - Abrasion jmm - Head Injury, Adult jm - Scaphoid Fracture [facility] Forms: - Medication Reconciliation Form [facility] - Thank You Letter [facility] - Antibiotic Education [facility] - Prescription Opioid Use [facility] - Work release form ld1 Prescriptions: - orphenadrine citrate 100 mg Oral Tablet Sustained Release - take 1 tablet by ORAL route 2 times per day As needed; 20 tablet; Refills: 0, [facility] Product Selection Permitted Signatures: Dispatcher [employer] Daryl Cherry PA PA jmm Nieto, Roman, MD MD rn Leal, Jahala, RN RN jl7
[2022-05-27 13:42] VITALS: TEMP 98.4
[2022-05-27 13:43] VITALS: O2SAT 99
[2022-05-27 13:44] VITALS: BP 144/76
== END 2022-05-27 13:38 | disposition home or self-care (01) ==
LOC: ER 10:44
DX: S62.001A Unspecified fracture of navicular [scaphoid] bone of right wrist, initial encounter for closed fracture (principal); S00.81XA Abrasion of other part of head, initial encounter; I10 Essential (primary) hypertension; Z88.0 Allergy status to penicillin; Z79.01 Long term (current) use of anticoagulants
CPT/HCPCS: 70450; 72125; 99284

== ENCOUNTER 2022-12-22 04:36 | Emergency (ER) | payer BC, OTHER ==
--- OUTSIDE RECORDS SUMMARY | 2022-12-22 04:42 | XMS REPORT | Continuity of Care Document ---
:1955 Author Organization [facility] t Address [address] [place] [address] Care Team Providers Name Role Phone Heriberto Augustin MD Primary Care Physician ROSLYN PIÑA Attending Clinician Unavailable EMILIANO KNAPP Attending Clinician Unavailable ASTON CISSE Attending Clinician Unavailable LAB90 Attending Clinician Unavailable DAVID JACK Attending Clinician Unavailable MARIE MEJIA Attending Clinician Unavailable ANNE MARIE CONTEH Attending Clinician Unavailable DEMETRIO STOCK Attending Clinician Unavailable SOHAIL JOE Attending Clinician Unavailable Anne Marie Conteh MD Attending Clinician [phone] [id number] Attending Clinician Unavailable ANGELI SIBLEY Attending Clinician Unavailable MARIZA TEJADA Attending Clinician Unavailable Lab, Adc Fam Pob I Attending Clinician Unavailable Mariza Soriano Attending Clinician Doctor Unassigned, [place] Attending Clinician Unavailable Payers Payer Name Policy Type Policy Number Effective Date Expiration Date S [id number] 2020 00:00:00 [facility] [id number] 2019 00:00:00 Problems Condition Condition Condition Status Onset Resolution Last Treating Co mments Source Name Details Category Date Date Treatment Clinician Date Mixed Mixed Disease Active Catie hyperlipid hyperlipid 3-14 Se ybold emia emia 00:00: - 00 Externa l 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 00:00: - l l 00 Externa infarction infarction l ) - ) - Controlled Controlled 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 : [facility] on in on in 0-18 Added ity of peripheral peripheral 00:00: automatic [place] vascular vascular 00 ally from Med ical disease disease request Branch for surgery [id number] Abdominal Abdominal Disease Active Uni vers pain pain 8-23 ity of 00:00: [place] 00 Medical Branch No known No known Disease Metho di active active st problems problems Hospit a l Allergies, Adverse Reactions, Alerts Allergy Allergy Status Severity Reaction(s) Onset Inactive Treating Comm ents Source Name Type Date Date Clinician Penicill Propensi Active Itching Metho di in G ty to 7-12 st adverse 00:00: Hospita reaction 00 l s to drug Penicill Propensi Active Itching Unive rs ins ty to 4-30 ity of adverse 00:00: [place] reaction 00 Medical s Branch PENICILL Drug Active ITCHING Univers INS Class 4-30 ity of 00:00: [place] 00 [facility] Branch Penicill Propensi Active Itching Kelse y ins ty to 4-30 Seybold adverse 00:00: - reaction 00 Externa s l Penicill Propensi Active Itching Kelse y ins ty to 4-30 Seybold adverse 00:00: reaction 00 s Family History Family Member Diagnosis Comments Start Date Stop Date Source Natural father Cancer [facility] Natural father Hypertension [facility] Natural mother Cancer [facility] Natural mother Hypertension [facility] Social History Social Habit Start Date Stop Date Quantity Comments Source Exposure to Not sure Catie moore SARS-CoV-2 (event) History of tobacco Cigarette Smoker Catie Car - use External Gender identity [facility] Tobacco use and 2020-11-06 2020-11-06 Former smokeless Jonathan supriya Duboseybold - exposure 00:00:00 00:00:00 tobacco user External Tobacco Comment 2018-03-04 2018-03-04 1/2 pack a day Unive rsity of 00:00:00 00:00:00 [facility] Cigarettes smoked 2018-01-21 2018-01-[address] current (pack per 00:00:00 00:00:00 Hospita l day) - Reported Cigarette 2018-01-21 2018-01-21 [facility] pack-years 00:00:00 00:00:00 Hospital Alcohol intake 2018-01-21 2018-01-21 Current [facility] 00:00:00 00:00:00 non-drinker of Hospital alcohol (finding) History of Social 2018-01-21 2018-01-[address] function 00:00:00 00:00:00 Hospital Sex Ass[birth year] At [birth year] [facility] 00:00:[facility] 00:[facility]:00 Hospital Smoking Status Start Date Stop Date Source Smokes tobacco daily 2020-11-06 00:00:00 Catie Seybold - External Medications Ordered Filled Start Stop Current Ordering Indication Dosage Frequency Signature Comments Components Source Medication Medication Date Date Medication? Clinician (SIG) Name Name Bupropion Yes [id number] 150mg Take 1 Catie HCL XL 150 3-14 tablet Seybold MG OR TB24 00:00: (150 mg - 00 total) by Externa mouth l daily Atorvastati 2022-0 Yes [id number] 40mg Take 1 Catie n Calcium 3-14 tablet (40 Seyb old 40 MG oral 00:00: mg total) - Tablet 00 by mouth Externa daily l Metoprolol 2022-0 Yes [id number] 50mg Take 1 K elsey Succinate 3-01 tablet (50 Seyb old 50 MG oral 00:00: mg total) - TABLET SR 00 by mouth Private Investigator Surveillance a 24 HR daily l Amlodipine 2022-0 Yes [id number] 10mg Take 1 K elsey Besylate 10 3-01 tablet (10 Se ybold MG oral 00:00: mg total) - Tablet 00 by mouth Externa daily l Cetirizine 2022-0 Yes [id number] 10mg QD Take 1 Catie (ZYRTEC) 10 3-01 tablet (10 Se ybold MG oral 00:00: mg total) - Tablet 00 by mouth Externa daily as l needed Metoprolol 2022-0 Yes [id number] 50mg Take 1 K elsey Succinate 3-01 tablet (50 Seyb old 50 MG oral 00:00: mg total) - TABLET SR 00 by mouth Private Investigator Surveillance a 24 HR daily l Amlodipine 2022-0 Yes [id number] 10mg Take 1 K elsey Besylate 10 3-01 tablet (10 Se ybold MG oral 00:00: mg total) - Tablet 00 by mouth Externa daily l Cetirizine 2022-0 Yes [id number] 10mg QD Take 1 Catie (ZYRTEC) 10 3-01 tablet (10 Se ybold MG oral 00:00: mg total) - Tablet 00 by mouth Externa daily as l needed Metoprolol 2022-0 Yes [id number] 50mg Take 1 K elsey Succinate 3-01 tablet (50 Seyb old 50 MG oral 00:00: mg total) - TABLET SR 00 by mouth Private Investigator Surveillance a 24 HR daily l Amlodipine 2022-0 Yes [id number] 10mg Take 1 K elsey Besylate 10 3-01 tablet (10 Se ybold MG oral 00:00: mg total) - Tablet 00 by mouth Externa daily l Cetirizine 2022-0 Yes [id number] 10mg QD Take 1 Catie (ZYRTEC) 10 3-01 tablet (10 Se ybold MG oral 00:00: mg total) - Tablet 00 by mouth Externa daily as l needed LISINOPRIL- 2022-0 Yes [id number] TAKE 1 Catie HCTZ 20-25 2-20 TABLET BY Seyb old MG oral 00:00: MOUTH - Tablet 00 EVERY DAY Externa l LISINOPRIL- 2022-0 Yes [id number] TAKE 1 Catie HCTZ 20-25 2-20 TABLET BY Seyb old MG oral 00:00: MOUTH - Tablet 00 EVERY DAY Externa l LISINOPRIL- 2022-0 Yes [id number] TAKE 1 Catie HCTZ 20-25 2-20 TABLET BY Seyb old MG oral 00:00: MOUTH - Tablet 00 EVERY DAY Externa l methylPREDN 2022-0 2023- No [id number] 1{kev} Take 1 kev Haddad ISolone 4 2-08 -01 by mouth Seybo ld MG oral 00:00: 00:00 See Admin - Tablet 00 :00 Instructio Externa Therapy ns Use as l Pack directed LISINOPRIL- 2022-0 Yes [id number] 1{tbl} Take 1 Catie HCTZ 20-25 1-25 tablet by Seyb old MG oral 00:00: mouth - Tablet 00 daily Externa l Cyclobenzap 2022-0 Yes [id number] 10mg Q.[id number] Take 1 Catie rine HCl 10 1-25 [id number] tablet (10 Seybold MG oral 00:00: 3D mg total) - Tablet 00 by mouth 3 Externa times l daily as needed for muscle spasms (use only as needed. Will make you sleepy) Trazodone 2022-0 Yes [id number] 50mg QD Take 1 K elsey HCl 50 MG 1-25 tablet (50 Seyb old oral Tablet 00:00: mg total) - 00 by mouth Externa nightly as l needed for sleep Cyclobenzap 2022-0 Yes [id number] 10mg Q.[id number] Take 1 Catie rine HCl 10 1-25 [id number] tablet (10 Seybold MG oral 00:00: 3D mg total) - Tablet 00 by mouth 3 Externa times l daily as needed for muscle spasms (use only as needed. Will make you sleepy) Trazodone Yes [id number] 50mg QD Take 1 K elsey HCl 50 MG 1-25 tablet (50 Seyb old oral Tablet 00:00: mg total) - 00 by mouth Externa nightly as l needed for sleep Cyclobenzap Yes [id number] 10mg Q.[id number] Take 1 Catie rine HCl 10 1-25 [id number] tablet (10 Seybold MG oral 00:00: 3D mg total) - Tablet 00 by mouth 3 Externa times l daily as needed for muscle spasms (use only as needed. Will make you sleepy) Trazodone Yes [id number] 50mg QD Take 1 K elsey HCl 50 MG 1-25 tablet (50 Seyb old oral Tablet 00:00: mg total) - 00 by mouth Externa nightly as l needed for sleep Cyclobenzap Yes [id number] 10mg Q.[id number] Take 1 Catie rine HCl 10 1-25 [id number] tablet (10 Seybold MG oral 00:00: 3D mg total) - Tablet 00 by mouth 3 Externa times l daily as needed for muscle spasms (use only as needed. Will make you sleepy) Trazodone Yes [id number] 50mg QD Take 1 K elsey HCl 50 MG 1-25 tablet (50 Seyb old oral Tablet 00:00: mg total) - 00 by mouth Externa nightly as l needed for sleep Escitalopra 2021-07 Yes [id number] TAKE 1 Catie m Oxalate 2-19 TABLET BY Seybo ld 10 MG oral 00:00: MOUTH - Tablet 00 EVERY DAY Externa l Aspirin Low 2021-07 Yes [id number] TAKE 1 Catie Dose 81 MG 2-19 TABLET BY Seyb old oral Tablet 00:00: MOUTH - Delayed 00 EVERY DAY Externa Response l Escitalopra 2021-07 Yes [id number] TAKE 1 Catie m Oxalate 2-19 TABLET BY Seybo ld 10 MG oral 00:00: MOUTH - Tablet 00 EVERY DAY Externa l Aspirin Low 2021-07 Yes [id number] TAKE 1 Catie Dose 81 MG 2-19 TABLET BY Seyb old oral Tablet 00:00: MOUTH - Delayed 00 EVERY DAY Externa Response l Escitalopra 2021-07 Yes [id number] TAKE 1 Catie m Oxalate 2-19 TABLET BY Seybo ld 10 MG oral 00:00: MOUTH - Tablet 00 EVERY DAY Externa l Aspirin Low 2021-07 Yes [id number] TAKE 1 Catie Dose 81 MG 2-19 TABLET BY Seyb old oral Tablet 00:00: MOUTH - Delayed 00 EVERY DAY Externa Response l Escitalopra 2021-07 Yes [id number] TAKE 1 Catie m Oxalate 2-19 TABLET BY Seybo ld 10 MG oral 00:00: MOUTH - Tablet 00 EVERY DAY Externa l Aspirin Low 2021-07 Yes [id number] TAKE 1 Catie Dose 81 MG 2-19 TABLET BY Seyb old oral Tablet 00:00: MOUTH - Delayed 00 EVERY DAY Externa Response l Azithromyci 2021-07- No [id number] Take 2 Catie n 250 MG 2-19 03-01 tablets by Seyb old oral Tablet 00:00: 00:00 mouth on - 00 :00 day 1 then Externa 1 tablet l by mouth daily for 4 days thereafter . Acetaminoph 2021-07 Yes 1{tbl} Q4H Take 1 Ke lsey en-Codeine 2-01 tablet by [place] rodriguez (TYLENOL/CO 00:00: mouth - DEINE #3) 00 every 4 Externa 300-30 MG hours as l oral Tablet needed for pain Driving Precaution s / No alcohol / No operating machinery Acetaminoph 2021-07- No 1{tbl} Q4H Take 1 K elsey en-Codeine 2-01 01-25 tablet by Supriya conklin (TYLENOL/CO 00:00: 00:00 mouth - DEINE #3) 00 :00 every 4 Externa 300-30 MG hours as l oral Tablet needed for pain Driving Precaution s / No alcohol / No operating machinery Orphenadrin 2021-07 Yes Catie e Citrate 1-15 Seybold CR 100 MG 00:00: - oral Tablet 00 Externa 12 Hour l Sustained Release Orphenadrin 2021-07 Yes Catie e Citrate 1-15 Seybold CR 100 MG 00:00: - oral Tablet 00 Externa 12 Hour l Sustained Release Orphenadrin 2021-07 Yes Catie bella Citrate 1-15 Seybold CR 100 MG 00:00: - oral Tablet 00 Externa 12 Hour l Sustained Release Orphenadrin 2021-07- No Kelse y e Citrate 1-15 03-01 Seybold CR 100 MG 00:00: 00:00 - oral Tablet 00 :00 Externa 12 Hour l Sustained Release Dicyclomine 2021-07 Yes 1{tbl} Take 1 Ke lsey HCl 20 MG 0-28 tablet by Seybo ld oral Tablet 00:00: mouth 4 - 00 times Externa daily l Acetaminoph 2021-07 Yes TAKE 2 Bouchra ey en-Codeine 0-28 TABLETS BY Sey bold 300-30 MG 00:00: MOUTH - oral Tablet 00 EVERY 6 Exter na HOURS FOR l PAIN Dicyclomine 2021-07 Yes 1{tbl} Take 1 Ke lsey HCl 20 MG 0-28 tablet by Seybo ld oral Tablet 00:00: mouth 4 - 00 times Externa daily l Dicyclomine 2021-07 Yes 1{tbl} Take 1 Ke lsey HCl 20 MG 0-28 tablet by Seybo ld oral Tablet 00:00: mouth 4 - 00 times Externa daily l Dicyclomine 2021-07- No 1{tbl} Take 1 K elsey HCl 20 MG 0-28 03-01 tablet by Seyb old oral Tablet 00:00: 00:00 mouth 4 - 00 :00 times Externa daily l Acetaminoph 2021-07- No TAKE 2 Jonathan sey en-Codeine 0-28 12-01 TABLETS BY Se ybold 300-30 MG 00:00: 00:00 MOUTH - oral Tablet 00 :00 EVERY 6 Exter na HOURS FOR l PAIN Metoprolol 2021-07 Yes TAKE 1 Kelse y Succinate 0-02 TABLET BY Seybo ld 50 MG oral 00:00: MOUTH - TABLET SR 00 EVERY DAY Exter na 24 HR l Metoprolol 2021-07 Yes TAKE 1 Kelse y Succinate 0-02 TABLET BY Seybo ld 50 MG oral 00:00: MOUTH - TABLET SR 00 EVERY DAY Exter na 24 HR l Metoprolol 2021-07 Yes TAKE 1 Kelse y Succinate 0-02 TABLET BY Seybo ld 50 MG oral 00:00: MOUTH - TABLET SR 00 EVERY DAY Exter na 24 HR l Metoprolol 2021-07- No TAKE 1 Bouchra ey Succinate 0-02 03-01 TABLET BY Seyb old 50 MG oral 00:00: 00:00 MOUTH - TABLET SR 00 :00 EVERY DAY Exter na 24 HR l Trazodone 0 Yes [id number] TAKE 1 K elsey HCl 50 MG 8-22 TABLET BY Seybo ld oral Tablet 00:00: MOUTH - 00 NIGHTLY Externa NEEDED FOR l SLEEP Trazodone 0 Yes [id number] TAKE 1 K elsey HCl 50 MG 8-22 TABLET BY Seybo ld oral Tablet 00:00: MOUTH - 00 NIGHTLY Externa NEEDED FOR l SLEEP Trazodone 0 2022- No [id number] TAKE 1 Catie HCl 50 MG 8-22 01-25 TABLET BY Seyb old oral Tablet 00:00: 00:00 MOUTH - 00 :00 NIGHTLY Externa NEEDED FOR l SLEEP Escitalopra Yes [id number] TAKE 1 Catie m Oxalate 8-04 TABLET BY Seybo ld 10 MG oral 00:00: MOUTH - Tablet 00 EVERY DAY Externa l Escitalopra Yes [id number] TAKE 1 Catie m Oxalate 8-04 TABLET BY Seybo ld 10 MG oral 00:00: MOUTH - Tablet 00 EVERY DAY Externa l Allopurinol Yes [id number] 200mg Take 2 Catie 100 MG oral 7-05 tablets Seybo ld Tablet 00:00: (200 mg - 00 total) by Externa mouth l daily Allopurinol Yes [id number] 200mg Take 2 Catie 100 MG oral 7-05 tablets Seybo ld Tablet 00:00: (200 mg - 00 total) by Externa mouth l daily Allopurinol Yes [id number] 200mg Take 2 Catie 100 MG oral 7-05 tablets Seybo ld Tablet 00:00: (200 mg - 00 total) by Externa mouth l daily Allopurinol Yes [id number] 200mg Take 2 Catie 100 MG oral 7-05 tablets Seybo ld Tablet 00:00: (200 mg - 00 total) by Externa mouth l daily Allopurinol 2021-0 Yes [id number] 200mg Take 2 Catie 100 MG oral 7-05 tablets Seybo ld Tablet 00:00: (200 mg - 00 total) by Externa mouth l daily Allopurinol 2021-0 Yes [id number] 200mg Take 2 Catie 100 MG oral 7-05 tablets Seybo ld Tablet 00:00: (200 mg - 00 total) by Externa mouth l daily Cetirizine 2021-0 Yes [id number] TAKE 1 Catie 10 MG oral 6-06 TABLET BY Seyb old Tablet 00:00: MOUTH - 00 EVERY DAY Externa NEEDED l Cetirizine 2021-0 Yes [id number] TAKE 1 Catie 10 MG oral 6-06 TABLET BY Seyb old Tablet 00:00: MOUTH - 00 EVERY DAY Externa NEEDED l Cetirizine 2021-0 Yes [id number] TAKE 1 Catie 10 MG oral 6-06 TABLET BY Seyb old Tablet 00:00: MOUTH - 00 EVERY DAY Externa NEEDED l Cetirizine 2021-0 2023- No [id number] TAKE 1 Catie 10 MG oral 6-06 03-01 TABLET BY Sey bold Tablet 00:00: 00:00 MOUTH - 00 :00 EVERY DAY Externa NEEDED l Cyclobenzap 2021-0 Yes [id number] 10mg Q.[id number] Take 1 Catie rine HCl 10 5-13 [id number] tablet (10 Seybold MG oral 00:00: 3D mg total) Tablet 00 by mouth 3 times daily as needed for muscle spasms (use only as needed. Will make you sleepy) Cyclobenzap 2021-0 Yes [id number] 10mg Q.[id number] Take 1 Catie rine HCl 10 5-13 [id number] tablet (10 Seybold MG oral 00:00: 3D mg total) - Tablet 00 by mouth 3 Externa times l daily as needed for muscle spasms (use only as needed. Will make you sleepy) Cyclobenzap 2021-0 Yes [id number] 10mg Q.[id number] Take 1 Catie rine HCl 10 5-13 [id number] tablet (10 Seybold MG oral 00:00: 3D mg total) - Tablet 00 by mouth 3 Externa times l daily as needed for muscle spasms (use only as needed. Will make you sleepy) Cyclobenzap 2022- No [id number] 10mg Q.[id number] Take 1 Catie rine HCl 10 -13 08-06 [id number] tablet (10 Seybold MG oral 00:00: 00:00 3D mg total) - Tablet 00 :00 by mouth 3 Externa times l daily as needed for muscle spasms (use only as needed. Will make you sleepy) Pantoprazol Yes [id number] 40mg Take 1 Catie e Sodium 40 5-10 tablet (40 Se ybold MG oral 00:00: mg total) Tablet 00 by mouth Delayed daily Response Pantoprazol Yes [id number] 40mg Take 1 Catie e Sodium 40 5-10 tablet (40 Se ybold MG oral 00:00: mg total) Tablet 00 by mouth Delayed daily Response Pantoprazol Yes [id number] 40mg Take 1 Catie e Sodium 40 5-10 tablet (40 Se ybold MG oral 00:00: mg total) - Tablet 00 by mouth Externa Delayed daily l Response Pantoprazol Yes [id number] 40mg Take 1 Catie e Sodium 40 5-10 tablet (40 Se ybold MG oral 00:00: mg total) - Tablet 00 by mouth Externa Delayed daily l Response Pantoprazol 2022- No [id number] 40mg Take 1 Catie e Sodium 40 5-10 08-06 tablet (40 S eybold MG oral 00:00: 00:00 mg total) - Tablet 00 :00 by mouth Externa Delayed daily l Response Ciprofloxac 2021- No [id number] 500mg Take 1 Catie in HCl 500 -04 16- tablet Seybol d MG oral 00:00: 04:59 (500 mg Tablet 00 :00 total) by mouth in the morning and 1 tablet (500 mg total) in the evening. Do all this for 10 days. Metronidazo 2021- No [id number] 500mg Take 1 Catie le 500 MG 5-10 - tablet Seybold oral Tablet 00:00: 04:59 (500 mg 00 :00 total) by mouth 3 times daily for 10 days Ciprofloxac 2021-0 2021- No [id number] 500mg Take 1 Catie in HCl 500 5-10 -21 tablet Seybol d MG oral 00:00: 04:59 (500 mg Tablet 00 :00 total) by mouth in the morning and 1 tablet (500 mg total) in the evening. Do all this for 10 days. Metronidazo 2021-0 2021- No [id number] 500mg Take 1 Catie le 500 MG 5-10 05-21 tablet Seybold oral Tablet 00:00: 04:59 (500 mg 00 :00 total) by mouth 3 times daily for 10 days Allopurinol 2021-0 Yes [id number] TAKE 2 Catie 100 MG oral 5-04 TABLETS BY Se ybold Tablet 00:00: MOUTH 00 EVERY DAY Allopurinol 2021-0 Yes [id number] TAKE 2 Catie 100 MG oral 5-04 [...] CAPSULE BY Se ybold Capsule 00:00: MOUTH - 00 TWICE A Externa DAY l Gabapentin 2021-0 Yes TAKE 1 Kelse y 300 MG oral 3-21 CAPSULE BY Se ybold Capsule 00:00: MOUTH - 00 TWICE A Externa DAY l Gabapentin 2021-0 2023- No TAKE 1 Bouchra ey 300 MG oral 3-21 -25 CAPSULE BY S eybold Capsule 00:00: 00:00 MOUTH - 00 :00 TWICE A Externa DAY l Allopurinol 2021-0 Yes [id number] TAKE 1 Catie 100 MG oral 3-01 TABLET BY Sey bold Tablet 00:00: MOUTH 00 EVERY DAY Aspirin 2021-0 Yes [id number] 81mg Take 1 Bouchra ey (Aspirin 2-02 tablet (81 Seybo ld Low Dose) 00:00: mg total) 81 MG oral 00 by mouth Tablet daily Delayed Response Allopurinol 2021-0 Yes [id number] 100mg Take 1 Catie 100 MG oral 2-02 tablet Seybol d Tablet 00:00: (100 mg 00 total) by mouth daily Fluticasone 2021-0 Yes [id number] Inhale 1 Catie -Umeclidin- 2-02 inhalation Se ybold Vilant 00:00: into the (Trelegy 00 lungs Ellipta) daily 100-62.5-25 MCG/INH inhalation AEROSOL POWDER, BREATH ACTIVATED Aspirin 2021-0 Yes [id number] 81mg Take 1 Bouchra ey (Aspirin 2-02 tablet (81 Seybo ld Low Dose) 00:00: mg total) 81 MG oral 00 by mouth Tablet daily Delayed Response Fluticasone 2021-0 Yes [id number] Inhale 1 Catie -Umeclidin- 2-02 inhalation Se ybold Vilant 00:00: into the (Trelegy 00 lungs Ellipta) daily 100-62.5-25 MCG/INH inhalation AEROSOL POWDER, BREATH ACTIVATED Aspirin 2021-0 Yes [id number] 81mg Take 1 Bouchra ey (Aspirin 2-02 tablet (81 Seybo ld Low Dose) 00:00: mg total) 81 MG oral 00 by mouth Tablet daily Delayed Response Fluticasone 2021-0 Yes [id number] Inhale 1 Catie -Umeclidin- 2-02 inhalation Se ybold Vilant 00:00: into the (Trelegy 00 lungs Ellipta) daily 100-62.5-25 MCG/INH inhalation AEROSOL POWDER, BREATH ACTIVATED Aspirin 2021-0 Yes [id number] 81mg Take 1 Bouchra ey (Aspirin 2-02 tablet (81 Seybo ld Low Dose) 00:00: mg total) 81 MG oral 00 by mouth Tablet daily Delayed Response Fluticasone 2021-0 Yes [id number] Inhale 1 Catie -Umeclidin- 2-02 inhalation Se ybold Vilant 00:00: into the (Trelegy 00 lungs Ellipta) daily 100-62.5-25 MCG/INH inhalation AEROSOL POWDER, BREATH ACTIVATED Aspirin 2021-0 Yes [id number] 81mg Take 1 Bouchra ey (Aspirin 2-02 tablet (81 Seybo ld Low Dose) 00:00: mg total) - 81 MG oral 00 by mouth Exter na Tablet daily l Delayed Response Fluticasone 2022-0 Yes [id number] Inhale 1 Catie -Umeclidin- 2-02 inhalation Se ybold Vilant 00:00: into the - (Trelegy 00 lungs Externa Ellipta) daily l 100-62.5-25 MCG/INH inhalation AEROSOL POWDER, BREATH ACTIVATED Aspirin 0 Yes [id number] 81mg Take 1 Bouchra ey (Aspirin 2-02 tablet (81 Seybo ld Low Dose) 00:00: mg total) - 81 MG oral 00 by mouth Exter na Tablet daily l Delayed Response Fluticasone 0 Yes [id number] Inhale 1 Catie -Umeclidin- 2-02 inhalation Se ybold Vilant 00:00: into the - (Trelegy 00 lungs Externa Ellipta) daily l 100-62.5-25 MCG/INH inhalation AEROSOL POWDER, BREATH ACTIVATED Fluticasone 2021-0 Yes [id number] Inhale 1 Catie -Umeclidin- 2-02 inhalation Se ybold Vilant 00:00: into the - (Trelegy 00 lungs Externa Ellipta) daily l 100-62.5-25 MCG/INH inhalation AEROSOL POWDER, BREATH ACTIVATED Fluticasone 2021-0 Yes [id number] Inhale 1 Catie -Umeclidin- 2-02 inhalation Se ybold Vilant 00:00: into the - (Trelegy 00 lungs Externa Ellipta) daily l 100-62.5-25 MCG/INH inhalation AEROSOL POWDER, BREATH ACTIVATED Fluticasone 2021-0 Yes [id number] Inhale 1 Catie -Umeclidin- 2-02 inhalation Se ybold Vilant 00:00: into the - (Trelegy 00 lungs Externa Ellipta) daily l 100-62.5-25 MCG/INH inhalation AEROSOL POWDER, BREATH ACTIVATED Fluticasone 2021-0 Yes [id number] Inhale 1 Catie -Umeclidin- 2-02 inhalation Se ybold Vilant 00:00: into the - (Trelegy 00 lungs Externa Ellipta) daily l 100-62.5-25 MCG/INH inhalation AEROSOL POWDER, BREATH ACTIVATED predniSONE 0 Yes [id number] Take 2 Catie 20 MG oral 1-19 tablets by Sey bold tablet 00:00: mouth for 00 5 days, then 1 tablet by mouth for 5 days predniSONE 0 Yes [id number] Take 2 Catie 20 MG oral 1-19 tablets by Sey bold tablet 00:00: mouth for 00 5 days, then 1 tablet by mouth for 5 days predniSONE 0 Yes [id number] Take 2 Catie 20 MG oral 1-19 tablets by Sey bold tablet 00:00: mouth for 00 5 days, then 1 tablet by mouth for 5 days predniSONE 2021-0 2021- No [id number] Take 2 Catie 20 MG oral 1-19 [...] EVERY DAY 24 HR Cetirizine 2020-07 Yes [id number] TAKE 1 Catie 10 MG oral 2-17 TABLET BY Seyb old Tablet 00:00: MOUTH 00 EVERY DAY NEEDED Cetirizine 2020-07 Yes [id number] TAKE 1 Catie 10 MG oral 2-17 TABLET BY Seyb old Tablet 00:00: MOUTH 00 EVERY DAY NEEDED Cetirizine 2020-07 Yes [id number] TAKE 1 Catie 10 MG oral 2-17 TABLET BY Seyb old Tablet 00:00: MOUTH 00 EVERY DAY NEEDED Cetirizine 2020-07 Yes [id number] TAKE 1 Catie 10 MG oral 2-17 TABLET BY Seyb old Tablet 00:00: MOUTH 00 EVERY DAY NEEDED Cetirizine 2020-07 Yes [id number] TAKE 1 Catie 10 MG oral 2-17 TABLET BY Seyb old Tablet 00:00: MOUTH 00 EVERY DAY NEEDED Atorvastati 2020-07 Yes [id number] TAKE 1 Catie n Calcium 2-01 TABLET BY Seybo ld 20 MG oral 00:00: MOUTH Tablet 00 EVERY DAY Amlodipine 2020-07 Yes [id number] TAKE 1 K elsey Besylate 10 2-01 TABLET BY Sey bold MG oral 00:00: MOUTH Tablet 00 EVERY DAY LISINOPRIL- 2020-07 Yes [id number] TAKE 1 Catie HCTZ 2-01 TABLET BY Seybold 20-12.5 MG 00:00: MOUTH oral Tablet 00 EVERY DAY Atorvastati 2020-07 Yes [id number] TAKE 1 Catie n Calcium 2-01 TABLET BY Seybo ld 20 MG oral 00:00: MOUTH Tablet 00 EVERY DAY Amlodipine 2020-07 Yes [id number] TAKE 1 K elsey Besylate 10 2-01 TABLET BY Sey bold MG oral 00:00: MOUTH Tablet 00 EVERY DAY LISINOPRIL- 2020-07 Yes [id number] TAKE 1 Catie HCTZ 2-01 TABLET BY Seybold 20-12.5 MG 00:00: MOUTH oral Tablet 00 EVERY DAY Atorvastati 2020-07 Yes [id number] TAKE 1 Catie n Calcium 2-01 TABLET BY Seybo ld 20 MG oral 00:00: MOUTH Tablet 00 EVERY DAY Amlodipine 2020-07 Yes [id number] TAKE 1 K elsey Besylate 10 2-01 TABLET BY Sey bold MG oral 00:00: MOUTH Tablet 00 EVERY DAY LISINOPRIL- 2020-07 Yes [id number] TAKE 1 Catie HCTZ 2-01 TABLET BY Seybold 20-12.5 MG 00:00: MOUTH oral Tablet 00 EVERY DAY Atorvastati 2020-07 Yes [id number] TAKE 1 Catie n Calcium 2-01 TABLET BY Seybo ld 20 MG oral 00:00: MOUTH Tablet 00 EVERY DAY Amlodipine 2020-07 Yes [id number] TAKE 1 K elsey Besylate 10 2-01 TABLET BY Sey bold MG oral 00:00: MOUTH Tablet 00 EVERY DAY LISINOPRIL- 2020-07 Yes [id number] TAKE 1 Catie HCTZ 2-01 TABLET BY Seybold 20-12.5 MG 00:00: MOUTH oral Tablet 00 EVERY DAY Atorvastati 2020-07 Yes [id number] TAKE 1 Catie n Calcium 2-01 TABLET BY Seybo ld 20 MG oral 00:00: MOUTH - Tablet 00 EVERY DAY Externa l Amlodipine 2020-07 Yes [id number] TAKE 1 K elsey Besylate 10 2-01 TABLET BY Sey bold MG oral 00:00: MOUTH - Tablet 00 EVERY DAY Externa l LISINOPRIL- 2020-07 Yes [id number] TAKE 1 Catie HCTZ 2-01 TABLET BY Seybold 20-12.5 MG 00:00: MOUTH - oral Tablet 00 EVERY DAY Ext carolee l Atorvastati 2020-07 Yes [id number] TAKE 1 Catie n Calcium 2-01 TABLET BY Seybo ld 20 MG oral 00:00: MOUTH - Tablet 00 EVERY DAY Externa l Amlodipine 2020-07 Yes [id number] TAKE 1 K elsey Besylate 10 2-01 TABLET BY Sey bold MG oral 00:00: MOUTH - Tablet 00 EVERY DAY Externa l LISINOPRIL- 2020-07 Yes [id number] TAKE 1 Catie HCTZ 2-01 TABLET BY Seybold 20-12.5 MG 00:00: MOUTH - oral Tablet 00 EVERY DAY Ext carolee l Atorvastati 2020-07 Yes [id number] TAKE 1 Catie n Calcium 2-01 TABLET BY Seybo ld 20 MG oral 00:00: MOUTH - Tablet 00 EVERY DAY Externa l Amlodipine 2020-07 Yes [id number] TAKE 1 K elsey Besylate 10 2-01 TABLET BY Sey bold MG oral 00:00: MOUTH - Tablet 00 EVERY DAY Externa l Atorvastati 2020-07 Yes [id number] TAKE 1 Catie n Calcium 2-01 TABLET BY Seybo ld 20 MG oral 00:00: MOUTH - Tablet 00 EVERY DAY Externa l Atorvastati 2020-07 Yes [id number] TAKE 1 Catie n Calcium 2-01 TABLET BY Seybo ld 20 MG oral 00:00: MOUTH - Tablet 00 EVERY DAY Externa l Atorvastati 2020-07 Yes [id number] TAKE 1 Catie n Calcium 2-01 TABLET BY Seybo ld 20 MG oral 00:00: MOUTH Tablet 00 EVERY DAY Amlodipine 2020-07 Yes [id number] TAKE 1 K elsey Besylate 10 - TABLET BY Sey bold MG oral 00:00: MOUTH Tablet 00 EVERY DAY LISINOPRIL- 2020-07 Yes [id number] TAKE 1 Catie HCTZ 2- TABLET BY Seybold 20-12.5 MG 00:00: MOUTH oral Tablet 00 EVERY DAY Atorvastati 2020-07- No [id number] TAKE 1 Catie n Calcium -07 15- TABLET BY Seyb old 20 MG oral 00:00: 00:00 MOUTH - Tablet 00 :00 EVERY DAY Externa l Amlodipine 2020-07- No [id number] TAKE 1 Catie Besylate 10 -09-10 TABLET BY Se ybold MG oral 00:00: 00:00 MOUTH - Tablet 00 :00 EVERY DAY Externa l LISINOPRIL- 2020-07- No [id number] TAKE 1 Catie HCTZ 2-08-06 TABLET BY Seybold 20-12.5 MG 00:00: 00:00 MOUTH - oral Tablet 00 :00 EVERY DAY Ext carolee l Methylpredn 2020-07- No [id number] 40mg Catie isolone -04 06-23 Seybold Sodium 21:15: 21:15 (SOLU-MEDRO 00 :00 L) 40 mg Methylpredn 2020-07- No [id number] 40mg 40 mg, Catie isolone -04 06- intramuscu Seybo ld Sodium 21:15: 21:15 lar, ONCE, (SOLU-MEDRO 00 :00 On Thu) 40 mg 06/04/21 at 1515, For 1 dose Albuterol 2020-07 Yes [id number] 2{puff} Q4H Inhale 2 Catie HFA 108 (90 1-23 puffs into Se ybold Base) 00:00: the lungs MCG/ACT IN 00 every 4 AERS hours as needed for wheezing or shortness of breath Albuterol 2020-07 Yes [id number] 2{puff} Q4H Inhale 2 Catie HFA 108 (90 1-23 puffs into Se ybold Base) 00:00: the lungs MCG/ACT IN 00 every 4 AERS hours as needed for wheezing or shortness of breath Albuterol 2020-07 Yes [id number] 2{puff} Q4H Inhale 2 Catie HFA 108 (90 1-23 puffs into Se ybold Base) 00:00: the lungs MCG/ACT IN 00 every 4 AERS hours as needed for wheezing or shortness of breath predniSONE 2020-07 Yes [id number] Take 2 Catie 20 MG oral 1-23 tablets by Sey bold tablet 00:00: mouth for 00 5 days, then 1 tablet by mouth for 5 days Albuterol 2020-07 Yes [id number] 2{puff} Q4H Inhale 2 Catie HFA 108 (90 1-23 puffs into Se ybold Base) 00:00: the lungs MCG/ACT IN 00 every 4 AERS hours as needed for wheezing or shortness of breath Albuterol 2020-07- No [id number] 2{puff} Q4H Inhale 2 Catie HFA 108 (90 1-23 05-10 puffs into S eybold Base) 00:00: 00:00 the lungs MCG/ACT IN 00 :00 every 4 AERS hours as needed for wheezing or shortness of breath predniSONE 2020-07- No [id number] Take 2 Catie 20 MG oral 1-23 01-19 tablets by Se ybold tablet 00:00: 00:00 mouth for 00 :00 5 days, then 1 tablet by mouth for 5 days Azithromyci 2020-07- No [id number] Take 2 Catie n 250 MG 1-23 11-29 tablets by Seyb old oral Tablet 00:00: [...] Seybo ld 75 MG oral 00:00: MOUTH - Tablet 00 EVERY DAY Externa l Clopidogrel 2020-07 Yes TAKE 1 Bouchra ey Bisulfate 0-25 TABLET BY Seybo ld 75 MG oral 00:00: MOUTH - Tablet 00 EVERY DAY Externa l Clopidogrel 2020-07 Yes TAKE 1 Bouchra ey Bisulfate 0-25 TABLET BY Seybo ld 75 MG oral 00:00: MOUTH Tablet 00 EVERY DAY Clopidogrel 2020-07 Yes TAKE 1 Bouchra ey Bisulfate 0-25 TABLET BY Seybo ld 75 MG oral 00:00: MOUTH - Tablet 00 EVERY DAY Externa l Clopidogrel 2020-07 Yes TAKE 1 Bouchra ey Bisulfate 0-25 TABLET BY Seybo ld 75 MG oral 00:00: MOUTH - Tablet 00 EVERY DAY Externa l Clopidogrel 2020-07 Yes TAKE 1 Bouchra ey Bisulfate 0-25 TABLET BY Seybo ld 75 MG oral 00:00: MOUTH - Tablet 00 EVERY DAY Externa l Clopidogrel 2020-07 Yes TAKE 1 Bouchra ey Bisulfate 0-25 TABLET BY Seybo ld 75 MG oral 00:00: MOUTH - Tablet 00 EVERY DAY Externa l Clopidogrel 2020-07 Yes TAKE 1 Bouchra ey Bisulfate 0-25 TABLET BY Seybo ld 75 MG oral 00:00: MOUTH Tablet 00 EVERY DAY Clopidogrel 2020-07 Yes TAKE 1 Bouchra ey Bisulfate 0-25 TABLET BY Seybo ld 75 MG oral 00:00: MOUTH Tablet 00 EVERY DAY Gabapentin 2020- Yes TAKE 1 Kelse y 300 MG oral 9-23 CAPSULE BY Se ybold Capsule 00:00: MOUTH 00 TWICE A DAY Gabapentin 2020-0 Yes TAKE 1 Kelse y 300 MG oral 9-23 CAPSULE BY Se ybold Capsule 00:00: MOUTH 00 TWICE A DAY Gabapentin 2020-0 Yes TAKE 1 Kelse y 300 MG oral 9-23 CAPSULE BY Se ybold Capsule 00:00: MOUTH 00 TWICE A DAY Gabapentin 2020-0 Yes TAKE 1 Kelse y 300 MG oral 9-23 CAPSULE BY Se ybold Capsule 00:00: MOUTH 00 TWICE A DAY Aspirin Low 2020- Yes TAKE 1 Bouchra ey Dose 81 MG 9-07 TABLET BY Seyb old oral Tablet 00:00: MOUTH Delayed 00 EVERY DAY Response Atorvastati 2020- Yes [id number] TAKE 1 Catie n Calcium 9-07 TABLET [...] Delayed 00 EVERY DAY Response ASPIRIN 81 2020-0 Yes TAKE 1 Kelse y OR 9-07 TABLET BY Seybold 00:00: MOUTH 00 EVERY DAY ASPIRIN 81 2020-0 2021- No TAKE 1 Bouchra ey OR 9- TABLET BY Seybold 00:00: 00:00 MOUTH 00 :00 EVERY DAY Aspirin Low 2020-0 2021- No TAKE 1 Jonathan sey Dose 81 MG 03-19- TABLET BY Sey bold oral Tablet 00:00: [...] MCG/INH inhalation AEROSOL POWDER, BREATH ACTIVATED Fluticasone 2020-2021- No Inhale 1 K elsey -Umeclidin- 8-16 02- inhalation S eybold Vilant 00:00: 00:00 into the (Trelegy 00 :00 lungs Ellipta) daily 100-62.5-25 MCG/INH inhalation AEROSOL POWDER, BREATH ACTIVATED Ibuprofen Yes [id number] 800mg Q6H Take 1 K elsey 800 MG oral 7-13 tablet Seybol d Tablet 00:00: (800 mg 00 total) by mouth every 6 hours as needed for pain Ibuprofen 2020-0 Yes [id number] 800mg Q6H Take 1 K elsey 800 MG oral 7-13 tablet Seybol d Tablet 00:00: (800 mg 00 total) by mouth every 6 hours as needed for pain Ibuprofen 2020-0 Yes [id number] 800mg Q6H Take 1 K elsey 800 MG oral 7-13 tablet Seybol d Tablet 00:00: (800 mg 00 total) by mouth every 6 hours as needed for pain Ibuprofen 0 Yes [id number] 800mg Q6H Take 1 K elsey 800 MG oral 7-13 tablet Seybol d Tablet 00:00: (800 mg 00 total) by mouth every 6 hours as needed for pain Ibuprofen 2020-0 2022- No [id number] 800mg Q.25D Take 1 Catie 800 MG oral 7-13 05-10 tablet Seybo ld Tablet 00:00: 00:00 (800 mg 00 :00 total) by mouth every 6 hours as needed for pain Metoprolol 0 Yes 50mg Take 1 Kelse y Succinate 7-07 tablet (50 Seyb old 50 MG oral 00:00: mg total) TABLET SR 00 by mouth 24 HR daily Diclofenac 0 Yes Apply 1 Bouchra ey Sodium 6-17 applicatio Seybold (Voltaren) 00:00: n 1 % apply 00 topically externally 2 times Gel daily Diclofenac Yes Apply 1 Bouchra ey Sodium 6-17 applicatio Seybold (Voltaren) 00:00: n 1 % apply 00 topically externally 2 times Gel daily Diclofenac 0 Yes Apply 1 Bouchra ey Sodium 6-17 applicatio Seybold (Voltaren) 00:00: n 1 % apply 00 topically externally 2 times Gel daily Diclofenac 0 Yes Apply 1 Bouchra ey Sodium 6-17 applicatio Seybold (Voltaren) 00:00: n 1 % apply 00 topically externally 2 times Gel daily Diclofenac 2020-0 2022- No Apply 1 Jonathan sey Sodium 6-17 05-10 applicatio Seybol d (Voltaren) 00:00: 00:00 n 1 % apply 00 :00 topically externally 2 times Gel daily Acetaminoph 2020-0 Yes [id number] 1{tbl} Q6H Take 1 Catie en-Codeine 6-15 tablet by Seyb old #3 300-30 00:00: mouth MG oral 00 every 6 Tablet hours as needed Acetaminoph 2020-0 Yes [id number] 1{tbl} Q6H Take 1 Catie en-Codeine 6-15 tablet by Seyb old #3 300-30 00:00: mouth MG oral 00 every 6 Tablet hours as needed LISINOPRIL- 2020-0 Yes [id number] 1{tbl} Take 1 Catie HCTZ 6-15 tablet by Seybold 20-12.5 MG 00:00: mouth oral Tablet 00 daily Cetirizine 2020-0 Yes [id number] 10mg Q24H Take 1 Catie 10 MG oral 6-15 tablet (10 Sey bold Tablet 00:00: mg total) 00 by mouth daily as needed Amlodipine 2020-0 Yes [id number] 10mg Take 1 K elsey Besylate 10 6-15 tablet (10 Se ybold MG oral 00:00: mg total) Tablet 00 by mouth daily Acetaminoph 2020-0 Yes [id number] 1{tbl} Q6H Take 1 Catie en-Codeine 6-15 tablet by [email or web address] old #3 300-30 00:00: mouth MG oral 00 every 6 Tablet hours as needed Acetaminoph 2020-0 Yes [id number] 1{tbl} Q6H Take 1 Catie en-Codeine 6-15 tablet by [email or web address] old #3 300-30 00:00: mouth MG oral 00 every 6 Tablet hours as needed Acetaminoph 2020-0 2022- No [id number] 1{tbl} Q.25D Take 1 Catie en-Codeine 6-15 05-10 tablet by [email or web address] #[email or web address] 300-30 00:00: 00:00 mouth MG oral [...] mg by ity of tablet 11:00: mouth [place] [address] daily. [facility] metoprolol Yes 50mg Take 50 mg U nivers succinate 7-09 by mouth ity of XL 50 mg 24 11:00: daily. [facility] s hr tablet [address] [place] [address] atorvastati Yes 20mg Take 20 mg Univers n 20 mg 7-09 by mouth ity of tablet 11:00: daily. [address] amLODIPine Yes 10mg Take 10 mg U nivers 10 mg 7-09 by mouth ity of tablet 11:00: daily. [address] aspirin 81 Yes 81mg Take 81 mg U nivers mg chewable 7-09 by mouth ity of tablet 11:00: daily. [address] ibuprofen Yes 1{tbl} Take 1 Univ ers (ADVIL 7-09 tablet by ity of LIQUI-GEL 11:00: [place] 47 needed. [facility] cilostazol 2018- Yes 100mg Take 100 Un [place] 100 mg 7- mg by ity of tablet 11:00: mouth [place] [address] daily. [facility] metoprolol Yes 50mg Take 50 mg U nivers succinate -09 by mouth ity of XL 50 mg 24 11:[place]: [place]. [place] [address] [facility] atorvastati Yes 20mg Take 20 mg Univers n 20 mg -09 by mouth ity of tablet 11:00: daily. [address] Branch amLODIPine Yes 10mg Take 10 mg U nivers 10 mg -09 by mouth ity of tablet 11:00: daily. [address] Branch aspirin 81 0 Yes 81mg Take 81 mg U nivers mg chewable - by mouth ity of tablet 11:00: daily. [address] Branch ibuprofen Yes 1{tbl} Take 1 Univ ers (ADVIL - tablet by ity of LIQUI-GEL 11:00: [place] 47 needed. [facility] methocarbam 2018-0 Yes [facility] ol [facility] (ROBAXIN) 00:00: [facility]osp[facility] 500 MG 00 l tablet methylPREDN 2018-0 Yes Method i ISolone 01-18 st (MEDROL 00:00: Hospita DOSEPAK) 4 00 l mg tablet methocarbam 2018-0 Yes [facility] (ROBAXIN) 00:00: Hospita 500 MG 00 l tablet methylPREDN 2018-0 Yes [facility] ISolone 01-18 st (MEDROL 00:00: Hospita DOSEPAK) 4 00 l mg tablet methocarbam 2018-0 Yes [facility] ol 01-[facility] (ROBAXIN) 00:00: Hospita 500 MG 00 l tablet methylPREDN 2018-0 Yes [facility] i ISolone 01-18 st (MEDROL 00:00: Hospita DOSEPAK) 4 00 l mg tablet methocarbam 2018-0 Yes [facility] ol [facility] (ROBAXIN) 00:00: Hospita 500 MG 00 l tablet methylPREDN 2018-0 Yes [facility] i ISolone 01-18 st (MEDROL 00:00: Hospita DOSEPAK) 4 00 l mg tablet amLODIPine 0 Yes [facility] (NORVASC) 6-28 [facility] 10 mg 00:00: Hospita tablet 00 l atorvastati 2018-0 Yes Method i n (LIPITOR) 628 st 20 MG 00:00: Hospita tablet 00 l cilostazol 2018-0 Yes [facility] (PLETAL) [facility]-28 [facility] 100 MG 00:00: Hospita tablet 00 l lisinopril- 2018-0 Yes [facility] i hydrochloro 6-28 st thiazide 00:00: Hospita (PRINZIDE,Z 00 l ESTORETIC) 20-12.5 mg per tablet metoprolol 0 Yes [facility] succinate 6-28 [facility] XL 00:00: Hospita (TOPROL-XL) 00 l 50 mg 24 hr tablet amLODIPine 0 Yes [facility] (NORVASC) 6 st 10 mg 00:00: Hospita tablet 00 l atorvastati 2017-0 Yes Method i n (LIPITOR) 6 st 20 MG 00:00: Hospita tablet 00 l cilostazol 2017-0 Yes [facility] (PLETAL) 6 st 100 MG 00:00: Hospita tablet 00 l lisinopril- 2017-0 Yes [facility] i hydrochloro 6-28 st thiazide 00:00: Hospita (PRINZIDE,Z 00 l ESTORETIC) 20-12.5 mg per tablet metoprolol 2017-0 Yes [facility] succinate 6-28 st XL 00:00: Hospita (TOPROL-XL) 00 l 50 mg 24 hr tablet amLODIPine 2017-0 Yes [facility] (NORVASC) 628 st 10 mg 00:00: Hospita tablet 00 l atorvastati 2018-0 Yes Method i n (LIPITOR) 628 st 20 MG 00:00: Hospita tablet 00 l cilostazol 2018-0 Yes [facility] (PLETAL) 6-28 [facility] 100 MG 00:00: Hospita tablet 00 l lisinopril- 2018-0 Yes Method i hydrochloro 6-28 st thiazide 00:00: Hospita (PRINZIDE,Z 00 l ESTORETIC) 20-12.5 mg per tablet metoprolol 2017-0 Yes [facility] succinate 6-28 st XL 00:00: Hospita (TOPROL-XL) 00 l 50 mg 24 hr tablet amLODIPine 2018-0 Yes [facility] (NORVASC) 01-07 st 10 mg [...] Se ybold Vaccine, age 6 months 00:00:00 - E xternal and up Influenza Virus 2017-05-11 Completed Catie Se ybold Vaccine, age 6 months 00:00:00 - E xternal and up Influenza Virus 2017-05-11 Completed Catie Se ybold Vaccine, age 6 months 00:00:00 - E xternal and up Influenza Virus 2017-05-11 Completed Catie Se ybold Vaccine, age 6 months 00:00:00 - E xternal and up Influenza Virus 2017-05-11 Completed Catie Se ybold Vaccine, age 6 months 00:00:00 and up Influenza Virus 2017-05-11 Completed Catie Se ybold Vaccine, age 6 months 00:00:00 - E xternal and up Influenza Virus 2017-05-11 Completed Catie Se ybold Vaccine, age 6 months 00:00:00 - E xternal and up Influenza Virus 2017-05-11 Completed Catie Se ybold Vaccine, age 6 months 00:00:00 and up Meningococcal 2016-03-27 Completed [facility] Vaccine- 00:00:00 Conjugate(Menactra) Meningococcal 2016-03-27 Completed [facility] Vaccine- 00:00:00 Conjugate(Menactra) Meningococcal 2016-03-27 Completed [facility] Vaccine- 00:00:00 Conjugate(Menactra) Meningococcal 2016-03-27 Completed [facility] Vaccine- 00:00:00 Conjugate(Menactra) Meningococcal 2016-03-27 Completed [facility] Vaccine- 00:00:00 - External Conjugate(Menactra) Meningococcal 2016-03-27 Completed [facility] Vaccine- 00:00:00 - External Conjugate(Menactra) Meningococcal 2016-03-27 Completed [facility] Vaccine- 00:00:00 - External Conjugate(Menactra) Meningococcal 2016-03-27 Completed [facility] Vaccine- 00:00:00 - External Conjugate(Menactra) Meningococcal 2016-03-27 Completed [facility] Vaccine- 00:00:00 Conjugate(Menactra) Meningococcal 2016-03-27 Completed [facility] Vaccine- 00:00:00 - External Conjugate(Menactra) Meningococcal 2016-03-27 Completed [facility] Vaccine- 00:00:00 - External Conjugate(Menactra) Meningococcal 2016-03-27 Completed [facility] Vaccine- 00:00:00 Conjugate(Menactra) Tdap- (Boostrix, 2013-08-24 Completed Catie S eybold Adacel) 00:00:00 Tdap- (Boostrix, 2013-08-24 Completed Catie S eybold Adacel) 00:00:00 Tdap- (Boostrix, 2013-08-24 Completed Catie S eybold Adacel) 00:00:00 Tdap- (Boostrix, 2013-08-24 Completed Catie S eybold Adacel) 00:00:00 Tdap- (Boostrix, 2013-08-24 Completed Catie S eybold Adacel) 00:00:00 - External Tdap- (Boostrix, 2013-08-24 Completed Catie S eybold Adacel) 00:00:00 - External Tdap- (Boostrix, 2013-08-24 Completed Catie S eybold Adacel) 00:00:00 - External Tdap- (Boostrix, 2013-08-24 Completed Catie S eybold Adacel) 00:00:00 Tdap- (Boostrix, 2013-08-24 Completed Catie S eybold Adacel) 00:00:00 - External Tdap- (Boostrix, 2013-08-24 Completed Catie S eybold Adacel) 00:00:00 - External Tdap- (Boostrix, 2013-08-24 Completed Catie S eybold Adacel) 00:00:00 - External Tdap- (Boostrix, 2013-08-24 Completed Catie S eybold Adacel) 00:00:00 Influenza, Seasonal, 2013-07-01 Completed Bouchra ey Seybold Injectable, 00:00:00 Preservative Free Influenza, Seasonal, 2013-07-01 Completed Bouchra ey Seybold Injectable, 00:00:00 Preservative Free Influenza, Seasonal, 2013-07-01 Completed Bouchra ey Seybold Injectable, 00:00:00 Preservative Free Influenza, Seasonal, 2013-07-01 Completed Bouchra ey Seybold Injectable, 00:00:00 Preservative Free Influenza, Seasonal, 2013-07-01 Completed Bouchra ey Seybold Injectable, 00:00:00 - External Preservative Free Influenza, Seasonal, 2013-07-01 Completed Bouchra ey Seybold Injectable, 00:00:00 - External Preservative Free Influenza, Seasonal, 2013-07-01 Completed Bouchra ey Seybold Injectable, 00:00:00 - External Preservative Free Influenza, Seasonal, 2013-07-01 Completed Bouchra ey Seybold Injectable, 00:00:00 - External Preservative Free Influenza, Seasonal, 2013-07-01 Completed Bouchra ey Seybold Injectable, 00:00:00 - External Preservative Free Influenza, Seasonal, 2013-07-01 Completed Bouchra ey Seybold Injectable, 00:00:00 - External Preservative Free Vital Signs Vital Name Observation Time Observation Value Comments Source Systolic blood 2022-09-23 12:55:00 118 mm[Hg] Catie Seybold - pressure External Diastolic blood 2022-09-23 12:55:00 72 mm[Hg] Barbara y Seybold - pressure External Heart rate 2022-09-23 12:55:00 65 /min Catie Martin eybold - External Body temperature 2022-09-23 12:55:00 36.44 Kaylynn Bouchra ey Seybold - External Respiratory rate 2022-09-23 12:55:00 20 /min Bouchra ey Seybold - External Body weight 2022-09-23 12:55:00 97.16 kg Catie Martin eybold - External BMI 2022-09-23 12:55:00 32.57 kg/m2 Catie Martin eybold - External Oxygen saturation in 2022-09-23 12:55:00 99 /min Catie Car - Arterial blood by External Pulse oximetry Systolic blood 2022-09-17 14:21:00 134 mm[Hg] Catie Seybold - pressure External Diastolic blood 2022-09-17 14:21:00 70 mm[Hg] Barbara perdomo Seybold - pressure External Heart rate 2022-09-17 14:21:00 63 /min Catie Martin eybold - External Body temperature 2022-09-17 14:21:00 36.5 Kaylynn Bouchra ey Seybold - External Respiratory rate 2022-09-17 14:21:00 16 /min Bouchra ey Seybold - External Body height 2022-09-17 14:21:00 172.7 cm Catie Martin eybold - External Body weight 2022-09-17 14:21:00 95.255 kg Catie Martin eybold - External BMI 2022-09-17 14:21:00 31.93 kg/m2 Catie S eybold - External Systolic blood 2022-09-10 21:45:00 134 mm[Hg] Catie Seybold - pressure External Diastolic blood 2022-09-10 21:45:00 70 mm[Hg] Jonathanse y Seybold - pressure External Heart rate 2022-09-10 21:45:00 63 /min Catie Martin eybold - External Body temperature 2022-09-10 21:45:00 36.78 Kaylynn Bouchra ey Seybold - External Respiratory rate 2022-09-10 21:45:00 14 /min Bouchra ey Seybold - External Body height 2022-09-10 21:45:00 172.7 cm Catie S eybold - External Body weight 2022-09-10 21:45:00 97.07 kg Catie S eybold - External BMI 2022-09-10 21:45:00 32.54 kg/m2 Catie S eybold - External Systolic blood 2022-08-06 21:00:00 158 mm[Hg] Catie Seybold - pressure External Diastolic blood 2022-08-06 21:00:00 80 mm[Hg] Kelse y Seybold - pressure External Heart rate 2022-08-06 21:00:00 69 /min Catie S eybold - External Body temperature 2022-08-06 21:00:00 36.94 Kaylynn Bouchra ey Seybold - External Respiratory rate 2022-08-06 21:00:00 14 /min Bouchra ey Seybold - External Body height 2022-08-06 21:00:00 172.7 cm Catie S eybold - External Body weight 2022-08-06 21:00:00 97.977 kg Catie S eybold - External BMI 2022-08-06 21:00:00 32.84 kg/m2 Catie S eybold - External Oxygen saturation in 2022-08-06 21:00:00 99 /min Catie Duboseofeliaold - Arterial blood by External Pulse oximetry Systolic blood 2021-11-22 12:54:00 144 mm[Hg] Catie Seybold pressure Diastolic blood 2021-11-22 12:54:00 70 mm[Hg] Kelse [...] 34.36 kg/m2 Catie S eybold Systolic blood 2021-11-19 14:09:00 134 mm[Hg] Catie Seybold pressure Diastolic blood 2021-11-19 14:09:00 72 mm[Hg] Kelse [...] 34.36 kg/m2 Catie S eybold Systolic blood 2021-09-12 21:09:00 152 mm[Hg] Catie Seybold pressure Diastolic blood 2021-09-12 21:09:00 87 mm[Hg] Kelse [...] 34.67 kg/m2 Catie S eybold Systolic blood 2021-08-14 20:55:00 146 mm[Hg] Catie Seybold pressure Diastolic blood 2021-08-14 20:55:00 79 mm[Hg] Kelse [...] 34.97 kg/m2 Catie S eybold Systolic blood 2021-07-31 19:29:00 122 mm[Hg] Catie Seybold pressure Diastolic blood 2021-07-31 19:29:00 60 mm[Hg] Kelse [...] 34.06 kg/m2 Catie S eybold Systolic blood 2021-06-04 20:27:00 144 mm[Hg] Catie Seybold pressure Diastolic blood 2021-06-04 20:27:00 76 mm[Hg] Kelse [...] 20:27:00 34.06 kg/m2 Catie S eybold Procedures Procedure Date / Time Performed Performing Clinician Sourdiogo e NAVTANO RIGHT 2022-05-29 14:41:15 Sohail Joe Seyb old - External Plan of Care Planned Activity Planned Date Details Comments Source Future Scheduled 2022-12-22 Screening for [facility] Test 04:40:20 malignant neoplasm of colon (procedure) [code = 847709722] Future Scheduled 2022-12-22 Screening for [facility] Test 04:40:20 malignant neoplasm of colon (procedure) [code = 776256808] Future Scheduled 2022-12-22 Screening for [facility] Test 04:40:20 malignant neoplasm of colon (procedure) [code = 274025591] Future Scheduled 2022-12-22 COVID[facility]19 [facility] [code = COVID-19 VACCINE (#1)] Future Scheduled 2022-12-22 Screening for [facility] Test 04:40:20 malignant neoplasm of colon (procedure) [code = 540932889] Future Scheduled 2022-12-22 Screening for [facility] Test 04:40:20 malignant neoplasm of colon (procedure) [code = 979428368] Future Scheduled 2022-12-22 SHINGLES VACCINES (1 Met [facility] Test 04:40:20 of 2) [code = SHINGLES VACCINES (1 of 2)] Future Scheduled 2022-12-22 65+ [facility]OCOCCAL [facility] 04:40:20 VACCINE (1 - PCV) [code = 65+ PNEUMOCOCCAL VACCINE (1 - PCV)] Future Scheduled 2022-12-22 INFLUENZA VACCINE [facility] 04:40:20 [code = INFLUENZA VACCINE] Future Scheduled 2022-10-04 COVID-19 VACCINE (#1) [facility] Test 03:13:37 [code = COVID-19 VACCINE (#1)] Future Scheduled 2022-10-04 COLONOSCOPY SCREENING [facility] Test 03:13:37 [code = COLONOSCOPY SCREENING] Future Scheduled 2022-10-04 SHINGLES VACCINES (1 Met [facility] Test 03:13:37 of 2) [code = SHINGLES VACCINES (1 of 2)] Future Scheduled 2022-10-04 INFLUENZA VACCINE [facility] 03:13:37 [code = INFLUENZA VACCINE] Future Scheduled 2022-10-04 65+ [facility]OCOCCAL [facility] Test 03:13:37 VACCINE (1 - PCV) [code = 65+ PNEUMOCOCCAL VACCINE (1 - PCV)] Future Scheduled 2022-05-17 HEPATITIS B VACCINES [facility] Test 07:54:17 (1 of 3 - 3-dose series) [code = HEPATITIS B VACCINES (1 of 3 - 3-dose series)] Future Scheduled 2022-05-17 COVID-19 VACCINE (#1) [facility] Test 07:54:17 [code = COVID-19 VACCINE (#1)] Future Scheduled 2022-05-17 COLONOSCOPY SCREENING [facility] Test 07:54:17 [code = COLONOSCOPY SCREENING] Future Scheduled 2022-05-17 SHINGLES VACCINES (1 Met [facility] Test 07:54:17 of 2) [code = SHINGLES VACCINES (1 of 2)] Future Scheduled 2022-05-17 INFLUENZA VACCINE Method is Hospital Test 07:54:17 [code = INFLUENZA VACCINE] Future Scheduled 2022-05-05 HEPATITIS B VACCINES Met [facility] Test 14:33:23 (1 of 3 - 3-dose series) [code = HEPATITIS B VACCINES (1 of 3 - 3-dose series)] Future Scheduled 2022-05-05 COVID-19 VACCINE (#1) [facility] Test 14:33:23 [code = COVID-19 VACCINE (#1)] Future Scheduled 2022-05-05 COLONOSCOPY SCREENING [facility] Test 14:33:23 [code = COLONOSCOPY SCREENING] Future Scheduled 2022-05-05 SHINGLES VACCINES (1 [facility] Test 14:33:23 of 2) [code = SHINGLES VACCINES (1 of 2)] Future Scheduled 2022-05-05 INFLUENZA VACCINE [facility] Test 14:33:23 [code = INFLUENZA VACCINE] Encounters Start End Encounter Admission Attending Care Care Encounter Source Date/Time Date/Time Type Type Clinicians Facility Department ID 2023-01-09 2023-01-09 Outpatient CATIE PIÑA [id number] Catie 15:30:00 15:30:00 ROSLYN moore 2022-12-12 2022-12-12 Outpatient CATIE KNAPP [id number] Catie 13:45:00 13:45:00 EMILIANO paiz 2022-12-11 2022-12-11 Outpatient CATIE CISSE [id number] Catie 00:00:00 00:00:00 ASTON moore 2022-12-09 2022-12-09 Outpatient CATIE CISSESEY [id number] Catie 00:00:00 00:00:00 ASTON Seybol d 2022-12-09 2022-12-09 Outpatient HUNDL, CATIE HADDAD [id number] Catie 00:00:00 00:00:00 ASTON Seybol d 2022-12-01 2022-12-01 Outpatient HUNDL, CATIE HADDAD [id number] Catie 00:00:00 00:00:00 ASTON Seybol d 2022-11-12 2022-11-12 Outpatient HUNDL, CATIE HADDAD [id number] Catie 00:00:00 00:00:00 ASTON Seybol d 2022-11-06 2022-11-06 Outpatient HUNDL, CATIE HADDAD [id number] Catie 14:00:00 14:00:00 ASTON Seybol d 2022-11-03 2022-11-03 Outpatient HUNDL, CATIE HADDAD [id number] Catie 00:00:00 00:00:00 ASTON Seybol d 2022-10-22 2022-10-22 Outpatient HUNDL, CATIE HADDAD [id number] Catie 08:00:00 08:00:00 ASTON Seybol d 2022-10-18 2022-10-18 Outpatient HUNDL, CATIE HADDAD [id number] Catie 00:00:00 00:00:00 ASTON Seybol d 2022-10-03 2022-10-03 Outpatient PIÑA, CATIE HADDAD [id number] Catie 08:00:00 08:00:00 ROSLYN Seybol d 2022-09-29 2022-09-29 Outpatient HUNDL, CATIE HADDAD [id number] Catie 00:00:00 00:00:00 ASTON Seybol d 2022-09-29 2022-09-29 Outpatient HUNDL, CATIE HADDAD [id number] Catie 00:00:00 00:00:00 ASTON Seybol d 2022-09-23 2022-09-23 Outpatient LAB90 CATIE HADDAD [id number] Catie 09:15:00 09:15:00 Seybol d 2022-09-23 2022-09-23 Outpatient HUNDL, CATIE HADDAD [id number] Catie 08:00:00 08:00:00 ASTON Seybol d 2022-09-17 2022-09-17 Outpatient OU, CATIE HADDAD [id number] Catie 08:30:00 08:30:00 DAVID Seyb old 2022-09-10 2022-09-10 Outpatient HUNDL, CATIE HADDAD [id number] Catie 16:00:00 16:00:00 ASTON Seybol d 2022-09-10 2022-09-10 Outpatient HUNDL, CATIE HADDAD [id number] Catie 00:00:00 00:00:00 ASTON Seybol d 2022-09-03 2022-09-03 Outpatient HUNDL, CATIE HADDAD [id number] Catie 16:30:00 16:30:00 ASTON Seybol d 2022-08-30 2022-08-30 Outpatient HUNDL, CATIE HADDAD [id number] Catie 00:00:00 00:00:00 ASTON Seybol d 2022-08-20 2022-08-20 Outpatient HUNDL, CATIE HADDAD [id number] Catie 00:00:00 00:00:00 ASTON Seybol d 2022-08-06 2022-08-06 Outpatient HUNDL, CATIE HADDAD [id number] Catie 15:30:00 15:30:00 ASTON Seybol d 2022-07-18 2022-07-18 Outpatient MARIE MEJIA [id number] Catie 13:00:00 13:00:00 Seybol d 2022-07-09 2022-07-09 Outpatient CATIE CONTEH [id number] Catie 00:00:00 00:00:00 ANNE MARIE Seybol d 2022-06-30 2022-06-30 Outpatient CATIE CONTEH [id number] Catie 00:00:00 00:00:00 ANNE MARIE Seybol d 2022-06-30 2022-06-30 Outpatient CATIE CONTEH [id number] Catie 00:00:00 00:00:00 ANNE MARIE Seybol d 2022-06-28 2022-06-28 Outpatient CATIE CONTEH [id number] Catie 00:00:00 00:00:00 ANNE MAIRE Seybol d 2022-06-23 2022-06-23 Outpatient CATIE CONTEH [id number] Catie 00:00:00 00:00:00 ANNE MARIE Seybol d 2022-06-20 2022-06-20 Outpatient CATIE STOCK [id number] Catie 00:00:00 00:00:00 DEMETRIO Seybol d 2022-06-18 2022-06-18 Outpatient CATIE HADDAD [id number] Catie 14:45:00 14:45:00 Seybol d 2022-06-17 2022-06-17 Outpatient CATIE CONTEH [id number] Catie 00:00:00 00:00:00 ANNE MARIE Seybol d 2022-06-12 2022-06-12 Outpatient CATIE JOE [id number] Catie 15:30:00 15:30:00 SOHAIL Seybol d 2022-06-12 2022-06-12 Outpatient CATIE HADDAD [id number] Catie 15:10:00 15:10:00 Seybol d 2022-06-11 2022-06-11 Outpatient CATIE JOE [id number] Catie 00:00:00 00:00:00 SOHAIL Seybol d 2022-05-29 2022-05-29 Outpatient CATIE HADDAD [id number] Catie 08:30:00 08:30:00 Seybol d 2022-05-29 2022-05-29 Outpatient CATIE JOE [id number] Catie 08:10:00 08:10:00 SOHAIL Seybol d 2022-05-28 2022-05-28 Outpatient CATIE JOE [id number] Catie 00:00:00 00:00:00 SOHAIL Seybol d 2022-05-14 2022-05-14 Outpatient CATIE CONTEH [id number] Catie 00:00:00 00:00:00 ANNE MARIE Seybol d 2022-05-09 2022-05-09 Outpatient LAB90 CATIE HADDAD [id number] Catie 09:10:00 09:10:00 Seybol d 2022-05-05 2022-05-05 Outpatient LAB90 CATIE HADDAD [id number] Catie 16:00:00 16:00:00 Seybol d 2022-05-05 2022-05-05 Outpatient CATIE CONTEH [id number] Catie 15:30:00 15:30:00 ANNE MARIE Seybol d 2022-02-26 2022-02-26 Outpatient CATIE CONTEH [id number] Catie 16:15:00 16:15:00 ANNE MARIE Seybol d 2022-02-05 2022-02-05 Office Artur Conteh [id number] Catie 16:30:00 16:45:00 Visit Anne Marie Jones [id number] Se ybold Somogyi [id number] 2022-01-31 2022-01-31 Outpatient CATIE CONTEH [id number] Catie 00:00:00 00:00:00 ANNE MARIE Seybol d 2022-01-29 2022-01-29 Outpatient [id number] CATIE HADDAD [id number] Catie 08:35:00 08:35:00 Seybol d 2022-01-22 2022-01-22 Outpatient LAB90 CATIE HADDAD [id number] Catie 14:00:00 14:00:00 Seybol d 2022-01-22 2022-01-22 Office Artur Conteh 1.2.840.114 [id number] Catie 13:30:00 13:45:00 Visit Anne Marie Jones [id number] Se ybold Somogyi [id number] 2021-11-22 2021-11-22 Office Artur Conteh 1.2.840.114 [id number] Catie 08:00:00 08:15:00 Visit Anne Marie Jones [id number] Se ybold Somogyi [id number] 2021-11-19 2021-11-19 Outpatient LAB90 CATIE HADDAD [id number] Catie 10:00:00 10:00:00 Seybol d 2021-11-19 2021-11-19 Office Artur Conteh 1.2.840.114 [id number] Catie 09:30:00 09:45:00 Visit Anne Marie Jones [id number] Se ybold Somogyi 1.2.7.2.686 [id number] 2021-09-30 2021-09-30 Outpatient CATIE CONTEH [id number] Catie 00:00:00 00:00:00 ANNE MARIE Seybol d 2021-09-12 2021-09-12 Office Artur Conteh 1.2.840.114 [id number] Catie 16:00:00 16:15:00 Visit Anne Marie Jones [id number] Se ybold Somogyi [id number] 2021-09-12 2021-09-12 Outpatient LAB90 CATIE HADDAD [id number] Catie 15:25:00 15:25:00 Seybol d 2021-09-11 2021-09-11 Outpatient CATIE CONTEH [id number] Catie 15:30:00 15:30:00 ANNE MARIE Seybol d 2021-09-10 2021-09-10 Outpatient CATIE CONTEH [id number] Catie 00:00:00 00:00:00 ANNE MARIE Seybol d 2021-09-10 2021-09-10 Outpatient CATIE CONTEH [id number] Catie 00:00:00 00:00:00 ANNE MARIE Seybol d 2021-09-07 2021-09-07 Outpatient CATIE CONTEH [id number] Catie 00:00:00 00:00:00 ANNE MARIE Seybol d 2021-08-14 2021-08-14 Office Artur Conteh 1.2.840.114 [id number] Catie 15:30:00 15:45:00 Visit Anne Marie Jones [id number] Se ybold Somogyi [id number] 2021-07-31 2021-07-31 Outpatient LAB90 CATIE HADDAD [id number] Catie 14:15:00 14:15:00 Seybol d 2021-07-31 2021-07-31 Office Artur Conteh 1.2.840.114 [id number] Catie 13:45:00 14:00:00 Visit Anne Marie Jones [id number] Se shayan Somogyi [id number] 2021-07-15 2021-07-15 Outpatient CATIE CONTEH [id number] Catie 00:00:00 00:00:00 ANNE MARIE Seybol d 2021-06-24 2021-06-24 Outpatient CATIE CONTEH [id number] Catie 00:00:00 00:00:00 ANNE MARIE Seybol d 2021-06-12 2021-06-12 Outpatient CATIE SIBLEY [id number] Catie 00:00:00 00:00:00 ANGELI rodriguez 2021-06-04 2021-06-04 Office Artur Conteh 1.2.840.114 [id number] Catie 15:00:00 15:30:00 Visit Anne Marie Jones [id number] Se shayan Somogyi 1.2.7.2.686 [id number] 2021-01-22 2021-01-22 Outpatient CATIE CONTEH [id number] Catie 16:45:00 16:45:00 ANNE MARIE Seybol d 2020-05-21 2020-05-21 Outpatient R USHA [facility] [id number] Univers 13:40:00 13:40:00 MARIZA ity of [facility] 2020-05-21 2020-05-21 Laboratory Lab, [facility] Fam Pob I [facility] 1.2. 840.114 [id number] Univers 13:15:06 13:35:06 Only Mariza Tejada 350.1.13.10 ity [facility] [id number] Ranjeet as Professio [id number] [address] Office [facility] One 2020-05-21 2020-05-21 Laboratory Lab, Adc [facility] 1.2.840.114 [id number] 13:15:06 13:35:06 Only Fam Pob I Health 350.1.13.10 [place] 4.2.7.2.686 Professio [id number] nal [address] Office [address] One 2020-05-21 2020-05-21 Letter Doctor ARJUN 1.2.840.114 [id number] Univers 00:00:00 00:00:00 (Out) Unassigned, ED [id number] ity of [place] [facility] 4.2.7.2.686 Ranjeet as [id number] [facility] [address] 2020-05-21 2020-05-21 Letter Doctor ARJUN 1.2.840.114 [id number] 00:00:00 00:00:00 (Out) [id number] [facility] [id number] 044 Results This patient has no known results.
[2022-12-22 05:06] LABS: Absolute Lymphocytes (CBC) 2.8 K/uL (0.7-4.9); Lymphocytes % 25.2 % (15.3-44.8); MPV 8.1 fL (7.6-11.3); RBC Red Blood Cell Count 5.06 M/uL (4.33-5.43)
[2022-12-22 05:25] LABS: Potassium 3.6 mEq/L (3.5-5.1); Troponin High Sensitivity 6.1 pg/mL (<58.9)
[2022-12-22] MEDS ORDERED: ASPIRIN 81 MG CHEWABLE TABLET ONE (05:33)
[2022-12-22] MEDS ORDERED: KETOROLAC 30 MG/ML INJ ONE (05:33)
--- NOTE | 2022-12-22 08:10 | ER ---
Nurse's Notes [facility] Name: Surinder Hi Age: 67 yrs Sex: Male : 1955 Arrival Date: 12/22/2022 Time: 04:36 Bed 2 Private MD: Diagnosis: Chest pain, unspecified Presentation: 12/22 04:48 Chief complaint: Patient states: I am having right shoulder pain that started 3 days jb4 ago and pressure in my chest that started yesterday at 4 pm. It feels like someone is sitting on my chest. Coronavirus screen: At this time, the client does not indicate any symptoms associated with coronavirus-19. Ebola Screen: No symptoms or risks identified at this time. Initial Sepsis Screen: Does the patient meet any 2 criteria? No. Patient's initial sepsis screen is negative. Does the patient have a suspected source of infection? No. Patient's initial sepsis screen is negative. Risk Assessment: Do you want to hurt yourself or someone else? Patient reports no desire to harm self or others. Onset of symptoms was December 19, 2022. Transition of care: patient was not received from another setting of care. 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 - Social history:: Smoking status: Patient reports the use of cigarette tobacco products, smokes one-half pack cigarettes per day. Screenin:56 [facility] ED Fall Risk Assessment (Adult) History of falling in the last 3 months, rv including since admission No falls in past 3 months (0 pts) Confusion or Disorientation No (0 pts) Intoxicated or Sedated No (0 pts) Impaired Gait No (0 pts) Mobility Assist Device Used No (0 pt) Altered Elimination No (0 pt) Score/Fall Risk Level 0 - 2 = Low Risk Oriented to surroundings, Maintained a safe environment, Educated pt \T\ family on fall prevention, incl call for assistance when getting out of bed, Assessed \T\ reinforced patient's understanding of fall precautions, Provided non-skid footwear, Hourly rounding (assess needs \T\ fall precautionary measures) done, Used ambulatory aids as needed (educated on \T\ assisted with), Used gait belt as appropriate. Abuse screen: Denies threats or abuse. Denies injuries from another. Nutritional screening: No deficits noted. Tuberculosis screening: No symptoms or risk factors identified. Assessment: 04:51 General: Appears in no apparent distress. uncomfortable, Behavior is calm, cooperative, jb4 appropriate for age. Pain: Complains of pain in Right shoulder Pain does not radiate. Pain currently is 8 out of 10 on a pain scale. Pain began 2-3 days ago. Pain: Complains of pain in chest Pain does not radiate. Pain currently is 3 out of 10 on a pain scale. Quality of pain is described as pressure, Pain began 1 day ago. Neuro: Level of Consciousness is awake, alert, obeys commands, Oriented to person, place, time, situation. Cardiovascular: Patient's skin is warm and dry. Respiratory: Airway is patent Respiratory effort is even, unlabored, Respiratory pattern is regular, symmetrical. GI: No signs and/or symptoms were reported involving the gastrointestinal system. : No signs and/or symptoms were reported regarding the genitourinary system. EENT: No signs and/or symptoms were reported regarding the EENT system. Derm: Skin is intact, Skin is pink, warm \T\ dry. Musculoskeletal: Circulation, motion, and sensation intact. Range of motion: intact in all extremities. Vital Signs: 04:48 BP 139 / 77; Pulse 73; Resp 16; Temp 98.6(TE); Pulse Ox 99% on R/A; Weight 95.25 kg jb4 (R); Height 5 ft. 8 in. (R); Pain 8/10; 06:00 BP 133 / 74; Pulse 56; Resp 17; Pulse Ox 94% on R/A; jb4 07:05 BP 132 / 77; Pulse 55; Resp 16; Pulse Ox 92% on R/A; jb4 07:30 BP 137 / 80; Pulse 54; Resp 16; Pulse Ox 95% ; ko1 04:48 Body Mass Index 31.93 (95.25 kg, 172.72 cm) jb4 04:48 Pain Scale: Adult jb4 ED Course: 04:40 Patient arrived in ED. ja2 04:42 Hiro Ramirez, HARSHAL is Primary Nurse. rv 04:46 Donavan Mccallum MD is Attending Physician. bs3 04:49 Triage completed. jb4 04:49 Arm band placed on right wrist. jb4 04:50 Inserted saline lock: 20 gauge in right antecubital area, using aseptic technique. rv Blood collected. 04:50 Patient maintains SpO2 saturation greater than 95% on room air. rv 04:56 Patient has correct armband on for positive identification. Client placed on continuous rv cardiac and pulse oximetry monitoring. NIBP monitoring applied. distribution manager on. 04:56 No provider procedures requiring assistance completed. rv 05:09 XRAY Chest (1 view) In Process Unspecified. EDMS 07:46 Troponin High Sensitivity Sent. ph 08:04 Attending Physician role handed off by Donavan Mccallum MD ms3 08:04 Phil Rivero DO is Attending Physician. ms3 08:09 Conner Robin MD is Referral Physician. ms3 08:12 IV discontinued, intact, bleeding controlled, No redness/swelling at site. Pressure ko1 dressing applied. Administered Medications: 05:31 Drug: Aspirin PO 243 mg Route: PO; rv 05:31 Drug: Ketorolac IVP 15 mg Route: IVP; Site: right antecubital; rv Medication: 04:56 VIS not applicable for this client. rv Outcome: 08:09 Discharge ordered by . ms3 08:12 Discharged to home ambulatory. ko1 08:12 Condition: stable 08:12 Discharge instructions given to patient, Instructed on discharge instructions, follow up and referral plans. Demonstrated understanding of instructions, follow-up care. 08:17 Patient left the ED. ko1 Signatures: Dispatcher [employer] EDMS Martha Santamaria RN RN Faustino Merritt RN RN jb4 Hiro Ramirez RN RN rv Phil Rivero DO DO ms3 OscarAnel Brandon, MD MD bs3 Lelo Magana, RN RN ko1
--- NOTE | 2022-12-22 08:10 | EDPHYS ---
Physician Documentation [facility] Name: Surinder Hi Age: 67 yrs Sex: Male : 1955 Arrival Date: 12/22/2022 Time: 04:36 Bed 2 Private MD: ED Physician Phil Rivero HPI: 12/22 05:23 This 67 yrs old Male presents to ER via Wheelchair with complaints of Chest bs3 Pain, Shoulder Pain. 05:23 67-year-old male history of CAD, NV, hyperlipidemia presents with left shoulder pain, bs3 which has not been ongoing for several days and then he has chest pressure which started last night it is a dull aching pressure on his chest he has never had this before nothing makes it better or worse the shoulder pain seems to be in his shoulder blade and it is worse with movement he did take a baby aspirin today no associated nausea vomiting or diaphoresis. 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 - Social history:: Smoking status: Patient reports the use of cigarette tobacco products, smokes one-half pack cigarettes per day. ROS: 05:23 Constitutional: Negative for fever, chills bs3 05:23 All other systems are negative. Exam: 05:23 Constitutional: This is a well developed, well nourished patient who is awake, alert, bs3 and in no acute distress. Head/Face: Normocephalic, atraumatic. Eyes: Pupils equal round and reactive to light, extra-ocular motions intact. Lids and lashes normal. ENT: mmm, no posterior phyarngeal erythema Neck: Trachea midline, no thyromegaly, no neck stiffness Chest/axilla: Normal chest wall appearance and motion. Nontender with no deformity. No lesions are appreciated. Cardiovascular: Regular rate and rhythm with a normal S1 and S2. symmetric pulses in upper extremities Respiratory: Lungs have equal breath sounds bilaterally, clear to auscultation, no respiratory distress Abdomen/GI: Soft, non-tender, no rebound or guarding MS/ Extremity: Pulses equal, no cyanosis. Neurovascular intact. Full, normal range of motion. Neuro: Awake and alert, GCS 15, oriented to person, place, time, and situation. Cranial nerves II-XII grossly intact. Motor strength 5/5 in all extremities. Sensory grossly intact. Psych: Awake, alert, with orientation to person, place and time. Behavior, mood, and affect are within normal limits. 05:23 Sinus bradycardia [address] elevations or depressions QTc 413 as interpreted by Vital Signs: 04:48 BP 139 / 77; Pulse 73; Resp 16; Temp 98.6(TE); Pulse Ox 99% on R/A; Weight 95.25 kg jb4 (R); Height 5 ft. 8 in. (R); Pain 8/10; 06:00 BP 133 / 74; Pulse 56; Resp 17; Pulse Ox 94% on R/A; jb4 07:05 BP 132 / 77; Pulse 55; Resp 16; Pulse Ox 92% on R/A; jb4 07:30 BP 137 / 80; Pulse 54; Resp 16; Pulse Ox 95% ; ko1 04:48 Body Mass Index 31.93 (95.25 kg, 172.72 cm) jb4 04:48 Pain Scale: Adult jb4 MDM: 04:46 Patient medically screened. bs3 05:23 Data reviewed: vital signs, nurses notes. bs3 05:53 ED course: Initial troponin negative I recommended admission given his heart score bs3 greater than 3 however he refused he was agreeable to repeat troponin we will repeat troponin at 7:30 AM he understood risks and benefit. 12/22 04:47 Order name: Basic Metabolic Panel; Complete Time: 05:35 bs3 12/22 04:47 Order name: CBC with Diff; Complete Time: 05:16 bs3 12/22 04:47 Order name: Troponin HS; Complete Time: 05:35 bs3 12/22 07:23 Order name: Troponin High Sensitivity; Complete Time: 08:04 bs3 12/22 04:47 Order name: XRAY Chest (1 view) bs3 12/22 04:47 Order name: EKG; Complete Time: 04:48 bs3 12/22 04:47 Order name: Cardiac monitoring; Complete Time: 04:55 bs3 12/22 04:47 Order name: EKG - Nurse/Tech; Complete Time: 04:55 bs3 12/22 04:47 Order name: IV Saline Lock; Complete Time: 04:55 bs3 12/22 04:47 Order name: Labs collected and sent; Complete Time: 04:55 bs3 12/22 04:47 Order name: O2 Per Protocol; Complete Time: 04:55 bs3 12/22 04:47 Order name: O2 Sat Monitoring; Complete Time: 04:55 bs3 Administered Medications: 05:31 Drug: Aspirin PO 243 mg Route: PO; rv 05:31 Drug: Ketorolac IVP 15 mg Route: IVP; Site: right antecubital; rv Disposition Summary: 12/22/22 08:09 Discharge Ordered Location: Home ms3 Condition: Stable ms3 Diagnosis - Chest pain, unspecified ms3 Followup: ms3 - With: Conner oRbin MD - When: 1 - 2 days - Reason: Recheck today's complaints Discharge Instructions: - Discharge Summary Sheet ms3 - Nonspecific Chest Pain, Adult ms3 Forms: - Medication Reconciliation Form ms3 - Thank You Letter ms3 - Antibiotic Education ms3 - Prescription Opioid Use ms3 - Work release form ko1 Signatures: Dispatcher [employer] Faustino Castro RN RN jb4 Hiro Ramirez RN RN Phil Zacarias DO DO ms3 Donavan Mccallum MD MD bs3
[2022-12-22 08:34] VITALS: TEMP 98.6
[2022-12-22 08:39] VITALS: BP 137/80; O2SAT 95
--- NOTE | 2022-12-22 12:01 | EKG ---
Test Date: 2022-12-22 Test Time: 04:47:57 Kettle Firer: RV MEASUREMENT RESULTS: Intervals: Rate: 59 WV: 138 QRSD: 68 QT: 418 QTc: 413 [place]: P: 30 WV: 138 QRS: 52 T: 59 INTERPRETIVE STATEMENTS: Sinus bradycardia Otherwise normal ECG Compared to ECG 12/03/2020 08:29:21 Sinus rhythm no longer present Electronically Signed On 12-22-22 12:00:16 CDT by Conner Robin
--- NOTE | 2022-12-22 12:43 | RAD REPORT ---
EXAM DESCRIPTION: Chest Single View CLINICAL HISTORY: 67 years Male CHEST PAIN COMPARISON: None FINDINGS: Lung volumes adequate. Cardiac silhouette is normal in size. No pneumothorax. No large pleural effusion. No focal consolidation. No acute bony finding. IMPRESSION: No acute cardiopulmonary abnormality. Electronically signed by: Alina Perez MD 12/22/2022 5:16 AM CDT Due to temporary technical issues with the PACS/Fluency reporting system, reports are being signed by the in house radiologist without review as a courtesy to ensure prompt reporting. The interpreting r adiologist is fully responsible for the content of the report.
== END 2022-12-22 08:17 | disposition home or self-care (01) ==
LOC: ER 04:36
DX: R07.9 Chest pain, unspecified (principal); M25.512 Pain in left shoulder; I10 Essential (primary) hypertension; I25.2 Old myocardial infarction; F17.210 Nicotine dependence, cigarettes, uncomplicated; Z88.0 Allergy status to penicillin; Z95.818 Presence of other cardiac implants and grafts
CPT/HCPCS: 36415; 71045; 80048; 84484; 85025; 93005; 96374; 99285

== ENCOUNTER 2023-06-15 03:49 | Emergency (ER) | payer BC, OTHER ==
--- OUTSIDE RECORDS SUMMARY | 2023-06-15 03:54 | XMS REPORT | Continuity of Care Document ---
:1955 Author Organization [facility] t Address [address] [place] [address] Care Team Providers Name Role Phone Heriberto Augustin MD Primary Care Physician JUAN HILTON Attending Clinician Unavailable Juan Hilton MD Attending Clinician ASTON CISSE Attending Clinician Unavailable ROSLYN PIÑA Attending Clinician Unavailable EMILIANO KNAPP Attending Clinician Unavailable LAB90 Attending Clinician Unavailable DAVID JACK Attending Clinician Unavailable MARIE MEJIA Attending Clinician Unavailable ANNE MARIE CONTEH Attending Clinician Unavailable DEMETRIO STOCK Attending Clinician Unavailable SOHAIL JOE Attending Clinician Unavailable Anne Marie Conteh MD Attending Clinician [phone] [id number] Attending Clinician Unavailable ANGELI SIBLEY Attending Clinician Unavailable Doctor Unassigned, [place] Attending Clinician Unavailable MARIZA KERR Attending Clinician Unavailable Lab, Adc Fam Pob I Attending Clinician Unavailable Mariza Soriano Attending Clinician JUAN HILTON Admitting Clinician Unavailable Payers Payer Name Policy Type Policy Number Effective Date Expiration Date S ángela [employer] [place] [id number] 2019 00:00:00 BCBS 2 [id number] 2020 00:00:00 Problems Condition Condition Condition Status Onset Resolution Last Treating Co mments Source Name Details Category Date Date Treatment Clinician Date Mixed Mixed Disease Active Catie hyperlipid hyperlipid 3-14 Se ybold emia emia 00:00: - 00 Externa l History of History of Disease Active [place] 3-14 Seybold (myocardia (myocardia 00:00: - l [...] Tobacco Tobacco Disease Active Catie abuse abuse 3-13 Seybold 00:00: - 00 Externa l Bilateral [...] : Univers on in on in 0-18 Formattin ity of peripheral peripheral 00:00: g of this [place] vascular vascular 00 note Medica l disease disease might be Branch different from the original. Added automatic ally from request for surgery [id number] Abdominal Abdominal Disease Active Uni vers pain [...] 00 Medical Branch Penicill Propensi Active Itching Unive rs ins ty to 4-30 ity of adverse 00:00: [place] reaction 00 Medical s Branch Penicill Propensi Active Itching Kelse y ins ty to 4-30 Seybold adverse 00:00: - reaction 00 Externa s l Penicill Propensi Active Itching Kelse y ins ty to 4-30 Seybold adverse 00:00: reaction 00 s Family History Family Member Diagnosis Comments Start Date Stop Date Source Natural father Cancer [facility] Natural father Hypertension [facility] Natural mother Cancer [facility] Natural mother Hypertension [facility] Social History Social Habit Start Date Stop Date Quantity Comments Source Gender identity [facility] Exposure to Not sure Catie moore SARS-CoV-2 (event) History of tobacco Cigarette Smoker Catie Car - use External Sexual orientation Method [facility] Tobacco use and 2020-11-06 2020-11-06 Former smokeless Jonathan waldenconor ybold - exposure 00:00:00 00:00:00 tobacco user External Tobacco Comment 2018-03-04 2018-03-04 1/2 pack a day Unive rsity of 00:00:00 00:00:00 [facility] Cigarettes smoked 2018-01-21 2018-01-[address] current (pack per 00:00:00 00:00:00 Hospita l day) - Reported Cigarette 2018-01-21 2018-01-21 [facility] pack-years 00:00:00 00:00:00 Hospital Alcohol intake 2018-01-21 2018-01-21 Current [facility] 00:00:00 00:00:00 non-drinker of Hospital alcohol (finding) History of Social 2018-01-21 2018-01-[address] function 00:00:00 00:00:00 Hospital Sex Ass[birth year] At [birth year] [facility] 00:00:00 00:00:00 Hospital Smoking Status Start Date Stop Date Source Smokes tobacco daily 2020-11-06 00:00:00 Catie Seybold - External Medications Ordered Filled Start Stop Current Ordering Indication Dosage Frequency Signature Comments Components Source Medication Medication Date Date Medication? Clinician (SIG) Name Name iopamidol 2022-07- Yes [id number] 100mL 100 mL, Univers (ISOVUE 07-19 Intravenou ity o f 370-500 mL) 12:30: 12:30 s, ONCE, 1 [place] injection 00 :00 dose, On Medica l 100 mL Tue Branch 05/19/23 at 0630, Routine dicyclomine 2022-07 Yes [id number] 20mg Take 1 Univers 20 mg 1-07 tablet by ity of tablet 00:00: mouth [place] 00 every 6 Medical (six) Branch hours as needed for Abdominal pain. traMADoL 2022-07 Yes [id number] 50mg Take 1 Univers (ULTRAM) 50 1-07 tablet by ity of mg tablet 00:00: mouth [place] 00 every 6 Medical (six) Branch hours as needed for Pain (scale 7-10). Indication s: acute pain promethazin 2022-07 Yes [id number] 12.5mg Take 10 mL Univers e 6.25 mg/5 1-07 by mouth ity of mL solution 00:00: every 6 Ranjeet as 00 (six) Medical hours as Branch needed for Nausea and Vomiting (N/V). Bupropion Yes [id number] 150mg Take 1 Catie HCL XL 150 3-14 tablet Seybold MG OR TB24 00:00: (150 mg - 00 total) by Externa mouth l daily Atorvastati Yes [id number] 40mg Take 1 Catie n Calcium 3-14 tablet (40 Seyb old 40 MG oral 00:00: mg total) - Tablet 00 by mouth Externa daily l Metoprolol Yes [id number] 50mg Take 1 K elsey Succinate 3-01 tablet (50 Seyb old 50 MG oral 00:00: mg total) - TABLET SR 00 by mouth Concrete Pourer a 24 HR daily l Amlodipine 2023-0 Yes [id number] 10mg Take 1 K elsey Besylate 10 3-01 tablet (10 Se ybold MG oral 00:00: mg total) - Tablet 00 by mouth Externa daily l Cetirizine 2023-0 Yes [id number] 10mg QD Take 1 Catie (ZYRTEC) 10 3-01 tablet (10 Se ybold MG oral 00:00: mg total) - Tablet 00 by mouth Externa daily as l needed Metoprolol 2023-0 Yes [id number] 50mg Take 1 K elsey Succinate 3-01 tablet (50 Seyb old 50 MG oral 00:00: mg total) - TABLET SR 00 by mouth Concrete Pourer a 24 HR daily l Amlodipine 3-0 Yes [id number] 10mg Take 1 K elsey Besylate 10 3-01 tablet (10 Se ybold MG oral 00:00: mg total) - Tablet 00 by mouth Externa daily l Cetirizine 3-0 Yes [id number] 10mg QD Take 1 Catie (ZYRTEC) 10 3-01 tablet (10 Se ybold MG oral 00:00: mg total) - Tablet 00 by mouth Externa daily as l needed Metoprolol 3-0 Yes [id number] 50mg Take 1 K elsey Succinate 3-01 tablet (50 Seyb old 50 MG oral 00:00: mg total) - TABLET SR 00 by mouth Concrete Pourer a 24 HR daily l Amlodipine 2023-0 Yes [id number] 10mg Take 1 K elsey Besylate 10 3-01 tablet (10 Se ybold MG oral 00:00: mg total) - Tablet 00 by mouth Externa daily l Cetirizine 2023-0 Yes [id number] 10mg QD Take 1 Catie (ZYRTEC) 10 3-01 tablet (10 Se ybold MG oral 00:00: mg total) - Tablet 00 by mouth Externa daily as l needed LISINOPRIL- 3-0 Yes [id number] TAKE 1 Catie HCTZ 20-25 2-20 TABLET BY Seyb old MG oral 00:00: MOUTH - Tablet 00 EVERY DAY Externa l LISINOPRIL- 2023-0 Yes [id number] TAKE 1 Catie HCTZ 20-25 2-20 TABLET BY Seyb old MG oral 00:00: MOUTH - Tablet 00 EVERY DAY Externa l LISINOPRIL- 2022-0 Yes [id number] TAKE 1 Catie HCTZ 20-25 2-20 TABLET BY Seyb old MG oral 00:00: MOUTH - Tablet 00 EVERY DAY Externa l methylPREDN 2022-0 3- No [id number] 1{kev} Take 1 kev Catie ISolone 4 2-08 09-10 by mouth Seybo ld MG oral 00:00: 00:00 See Admin - Tablet 00 :00 Instructio Externa Therapy ns Use as l Pack directed LISINOPRIL- 0 Yes [id number] 1{tbl} Take 1 Catie HCTZ 20-25 1-25 tablet by Seyb old MG oral 00:00: mouth - Tablet 00 daily Externa l Cyclobenzap 0 Yes [id number] 10mg Q.[id number] Take 1 Catie rine HCl 10 1-25 [id number] tablet (10 Seybold MG oral 00:00: 3D mg total) - Tablet 00 by mouth 3 Externa times l daily as needed for muscle spasms (use only as needed. Will make you sleepy) Trazodone Yes [id number] 50mg QD Take 1 K elsey HCl 50 MG 1-25 tablet (50 Seyb old oral Tablet 00:00: mg total) - 00 by mouth Externa nightly as l needed for sleep Cyclobenzap 0 Yes [id number] 10mg Q.[id number] Take 1 Catie rine HCl 10 1-25 [id number] tablet (10 Seybold MG oral 00:00: 3D mg total) - Tablet 00 by mouth 3 Externa times l daily as needed for muscle spasms (use only as needed. Will make you sleepy) Trazodone Yes [id number] 50mg QD Take 1 K elsey HCl 50 MG 1-25 tablet (50 Seyb old oral Tablet 00:00: mg total) - 00 by mouth Externa nightly as l needed for sleep Cyclobenzap 0 Yes [id number] 10mg Q.[id number] Take 1 Catie rine HCl 10 1-25 [id number] tablet (10 Seybold MG oral 00:00: 3D mg total) - Tablet 00 by mouth 3 Externa times l daily as needed for muscle spasms (use only as needed. Will make you sleepy) Trazodone Yes [id number] 50mg QD Take 1 K elsey HCl 50 MG 1-25 tablet (50 Seyb old oral Tablet 00:00: mg total) - 00 by mouth Externa nightly as l needed for sleep Cyclobenzap Yes [id number] 10mg Q.[id number] Take 1 Catie rine HCl 10 -25 [id number] tablet (10 Seybold MG oral 00:00: 3D mg total) - Tablet 00 by mouth 3 Externa times l daily as needed for muscle spasms (use only as needed. Will make you sleepy) Trazodone Yes [id number] 50mg QD Take 1 K elsey HCl 50 MG 1-25 tablet (50 Seyb old oral Tablet 00:00: mg total) - 00 by mouth Externa nightly as l needed for sleep Escitalopra 2021-07 Yes [id number] TAKE 1 Catie m Oxalate 2-19 TABLET BY Seybo ld 10 MG oral 00:00: MOUTH - Tablet 00 EVERY DAY Externa l Aspirin Low 2021-07 Yes [id number] TAKE 1 Catie Dose 81 MG 2-19 TABLET BY Seyb old oral Tablet 00:00: MOUTH - Delayed 00 EVERY DAY Externa Response l Escitalopra 2021-07 Yes [id number] TAKE 1 Catie m Oxalate 2-19 TABLET BY Seybo ld 10 MG oral 00:00: MOUTH - Tablet 00 EVERY DAY Externa l Aspirin Low 2021-07 Yes [id number] TAKE 1 Catie Dose 81 MG 2-19 TABLET BY Seyb old oral Tablet 00:00: MOUTH - Delayed 00 EVERY DAY Externa Response l Escitalopra 2021-07 Yes [id number] TAKE 1 Catie m Oxalate 2-19 TABLET BY Seybo ld 10 MG oral 00:00: MOUTH - Tablet 00 EVERY DAY Externa l Aspirin Low 2021-07 Yes [id number] TAKE 1 Catie Dose 81 MG 2-19 TABLET BY Seyb old oral Tablet 00:00: MOUTH - Delayed 00 EVERY DAY Externa Response l Escitalopra 2021-07 Yes [id number] TAKE 1 Catie m Oxalate 2-19 TABLET BY Seybo ld 10 MG oral 00:00: MOUTH - Tablet 00 EVERY DAY Externa l Aspirin Low 2021-07 Yes [id number] TAKE 1 Catie Dose 81 MG 2-19 TABLET BY Seyb old oral Tablet 00:00: MOUTH - Delayed 00 EVERY DAY Externa Response l Azithromyci 2021-07- No [id number] Take 2 Catie n 250 MG 2-19 03- tablets by cashcloudyb old oral Tablet 00:00: 00:00 mouth on [...] K elsey en-Codeine 2-01 01-25 tablet by Deangelo conklin (TYLENOL/CO 00:00: 00:00 mouth - DEINE [...] Hour l Sustained Release Orphenadrin 2021-07- No Kel y e Citrate 1-15 03-01 Seybold CR [...] na 24 HR l Trazodone 0 Yes [id number] TAKE 1 K elsey HCl 50 MG 8-22 TABLET BY Seybo ld oral Tablet 00:00: MOUTH - 00 NIGHTLY Externa NEEDED FOR l SLEEP Trazodone Yes [id number] TAKE 1 K elsey HCl 50 MG 8-22 TABLET BY Seybo ld oral Tablet 00:00: MOUTH - 00 NIGHTLY Externa NEEDED FOR l SLEEP Trazodone 0 3- No [id number] TAKE 1 Catie HCl 50 MG 8-22 01-25 TABLET BY Seyb old oral Tablet 00:00: 00:00 MOUTH - 00 :00 NIGHTLY Externa NEEDED FOR l SLEEP Escitalopra 0 Yes [id number] TAKE 1 Catie m Oxalate 8-04 TABLET BY Seybo ld 10 MG oral 00:00: MOUTH - Tablet 00 EVERY DAY Externa l Escitalopra 0 Yes [id number] TAKE 1 Catie m Oxalate 8-04 TABLET BY Seybo ld 10 MG oral 00:00: MOUTH - Tablet 00 EVERY DAY Externa l Allopurinol 0 Yes [id number] 200mg Take 2 Catie 100 MG oral 7-05 tablets Seybo ld Tablet 00:00: (200 mg - 00 total) by Externa mouth l daily Allopurinol 0 Yes [id number] 200mg Take 2 Catie 100 MG oral 7-05 tablets Seybo ld Tablet 00:00: (200 mg - 00 total) by Externa mouth l daily Allopurinol 0 Yes [id number] 200mg Take 2 Catie 100 MG oral 7-05 tablets Seybo ld Tablet 00:00: (200 mg - 00 total) by Externa mouth l daily Allopurinol 2021-0 Yes [id number] 200mg Take 2 Catie 100 MG oral 7-05 tablets Seybo ld Tablet 00:00: (200 mg - 00 total) by Externa mouth l daily Allopurinol 0 Yes [id number] 200mg Take 2 Catie 100 MG oral 7-05 tablets Seybo ld Tablet 00:00: (200 mg - 00 total) by Externa mouth l daily Allopurinol 2021-0 Yes [id number] 200mg Take 2 Catie 100 MG oral 7-05 tablets Seybo ld Tablet 00:00: (200 mg - 00 total) by Externa mouth l daily Cetirizine 0 Yes [id number] TAKE 1 Catie 10 MG oral 6-06 TABLET BY Seyb old Tablet 00:00: MOUTH - 00 EVERY DAY Externa NEEDED l Cetirizine Yes [id number] TAKE 1 Catie 10 MG oral 6-06 TABLET BY Seyb old Tablet 00:00: MOUTH - 00 EVERY DAY Externa NEEDED l Cetirizine Yes [id number] TAKE 1 Catie 10 MG oral 6-06 TABLET BY Seyb old Tablet 00:00: MOUTH - 00 EVERY DAY Externa NEEDED l Cetirizine 2022- No [id number] TAKE 1 Catie 10 MG oral 6-06 03- TABLET BY Sey bold Tablet 00:00: 00:00 MOUTH - 00 :00 EVERY DAY Externa NEEDED l Cyclobenzap Yes [id number] 10mg Q.[id number] Take 1 Catie rine HCl 10 5-13 [id number] tablet (10 Seybold MG oral 00:00: 3D mg total) Tablet 00 by mouth 3 times daily as needed for muscle spasms (use only as needed. Will make you sleepy) Cyclobenzap Yes [id number] 10mg Q.[id number] Take 1 Catie rine HCl 10 5-13 [id number] tablet (10 Seybold MG oral 00:00: 3D mg total) - Tablet 00 by mouth 3 Externa times l daily as needed for muscle spasms (use only as needed. Will make you sleepy) Cyclobenzap Yes [id number] 10mg Q.[id number] Take 1 Catie rine HCl 10 5-13 [id number] tablet (10 Seybold MG oral 00:00: 3D mg total) - Tablet 00 by mouth 3 Externa times l daily as needed for muscle spasms (use only as needed. Will make you sleepy) Cyclobenzap 2022- No [id number] 10mg Q.[id number] Take 1 Catie rine HCl 10 5-13 -25 [id number] tablet (10 Seybold MG oral 00:00: 00:00 3D mg total) - Tablet 00 :00 by mouth 3 Externa times l daily as needed for muscle spasms (use only as needed. Will make you sleepy) Pantoprazol Yes [id number] 40mg Take 1 Catie e Sodium 40 5-10 tablet (40 Se ybold MG oral 00:00: mg total) Tablet 00 by mouth Delayed daily Response Pantoprazol 0 Yes [id number] 40mg Take 1 Catie e Sodium 40 5-10 tablet (40 Se ybold MG oral 00:00: mg total) Tablet 00 by mouth Delayed daily Response Pantoprazol 0 Yes [id number] 40mg Take 1 Catie e Sodium 40 5-10 tablet (40 Se ybold MG oral 00:00: mg total) - Tablet 00 by mouth Externa Delayed daily l Response Pantoprazol Yes [id number] 40mg Take 1 Catie e Sodium 40 5-10 tablet (40 Se ybold MG oral 00:00: mg total) - Tablet 00 by mouth Externa Delayed daily l Response Pantoprazol 2022- No [id number] 40mg Take 1 Catie e Sodium 40 5-10 01-25 tablet (40 S eybold MG oral 00:00: 00:00 mg total) - Tablet 00 :00 by mouth Externa Delayed daily l Response Ciprofloxac 2021- No [id number] 500mg Take 1 Catie in HCl 500 5-10 -21 tablet Seybol d MG oral 00:00: 04:59 (500 mg Tablet 00 :00 total) by mouth in the morning and 1 tablet (500 mg total) in the evening. Do all this for 10 days. Metronidazo 2021- No [id number] 500mg Take 1 Catie le 500 MG 5-10 05-21 tablet Seybold oral Tablet 00:00: 04:59 (500 mg 00 :00 total) by mouth 3 times daily for 10 days Ciprofloxac 2021- No [id number] 500mg Take 1 Catie in HCl 500 5-10 05-21 tablet Seybol d MG oral 00:00: 04:59 (500 mg Tablet 00 :00 total) by mouth in the morning and 1 tablet (500 mg total) in the evening. Do all this for 10 days. Metronidazo 2021- No [id number] 500mg Take 1 Catie le 500 MG 5-10 05-21 tablet Seybold oral Tablet 00:00: 04:59 (500 mg 00 :00 total) by mouth 3 times daily for 10 days Allopurinol 2021-0 Yes [id number] TAKE 2 Catie 100 MG oral 5-04 TABLETS BY Se ybold Tablet 00:00: MOUTH 00 EVERY DAY Allopurinol 2021-0 Yes [id number] TAKE 2 Catie 100 MG oral 5-04 [...] TWICE A Externa DAY l Gabapentin 2021-0 3- No TAKE 1 Bocuhra ey 300 MG oral 3-21 -25 CAPSULE BY S eybold Capsule 00:00: 00:00 MOUTH - 00 :00 TWICE A Externa DAY l Allopurinol 2021-0 Yes [id number] TAKE 1 Catie 100 MG oral 3-01 TABLET BY Sey bold Tablet 00:00: MOUTH 00 EVERY DAY Aspirin 2021-0 Yes [id number] 81mg Take 1 Bouchra ey (Aspirin 2-02 tablet (81 Seybo ld Low Dose) 00:00: mg total) 81 MG oral 00 by mouth Tablet daily Delayed Response Allopurinol 2021-0 Yes [id number] 100mg Take 1 Catie 100 MG oral 2-02 tablet Seybol d Tablet 00:00: (100 mg 00 total) by mouth daily Fluticasone 2021-0 Yes [id number] Inhale 1 Catie -Umeclidin- 2-02 inhalation Se ybold Vilant 00:00: into the (Trelegy 00 lungs Ellipta) daily 100-62.5-25 MCG/INH inhalation AEROSOL POWDER, BREATH ACTIVATED Aspirin 2021-0 Yes [id number] 81mg Take 1 Bouchra ey (Aspirin 2-02 tablet (81 Seybo ld Low Dose) 00:00: mg total) 81 MG oral 00 by mouth Tablet daily Delayed Response Fluticasone 2-0 Yes [id number] Inhale 1 Catie -Umeclidin- 2-02 inhalation Se ybold Vilant 00:00: into the (Trelegy 00 lungs Ellipta) daily 100-62.5-25 MCG/INH inhalation AEROSOL POWDER, BREATH ACTIVATED Aspirin 2021-0 Yes [id number] 81mg Take 1 Bouchra ey (Aspirin 2-02 tablet (81 Seybo ld Low Dose) 00:00: mg total) 81 MG oral 00 by mouth Tablet daily Delayed Response Fluticasone 2021-0 Yes [id number] Inhale 1 Catie -Umeclidin- 2-02 inhalation Se ybold Vilant 00:00: into the (Trelegy 00 lungs Ellipta) daily 100-62.5-25 MCG/INH inhalation AEROSOL POWDER, BREATH ACTIVATED Aspirin 2021-0 Yes [id number] 81mg Take 1 Bouchra ey (Aspirin 2-02 tablet (81 Seybo ld Low Dose) 00:00: mg total) 81 MG oral 00 by mouth Tablet daily Delayed Response Fluticasone 2021-0 Yes [id number] Inhale 1 Catie -Umeclidin- 2-02 inhalation Se ybold Vilant 00:00: into the (Trelegy 00 lungs Ellipta) daily 100-62.5-25 MCG/INH inhalation AEROSOL POWDER, BREATH ACTIVATED Aspirin 2021-0 Yes [id number] 81mg Take 1 Bouchra ey (Aspirin 2-02 tablet (81 Seybo ld Low Dose) 00:00: mg total) - 81 MG oral 00 by mouth Exter na Tablet daily l Delayed Response Fluticasone 2021-0 Yes [id number] Inhale 1 Catie -Umeclidin- 2-02 inhalation Se ybold Vilant 00:00: into the - (Trelegy 00 lungs Externa Ellipta) daily l 100-62.5-25 MCG/INH inhalation AEROSOL POWDER, BREATH ACTIVATED Aspirin 2-0 Yes [id number] 81mg Take 1 Bouchra ey (Aspirin 2-02 tablet (81 Seybo ld Low Dose) 00:00: mg total) - 81 MG oral 00 by mouth Exter na Tablet daily l Delayed Response Fluticasone 2-0 Yes [id number] Inhale 1 Catie -Umeclidin- 2-02 inhalation Se ybold Vilant 00:00: into the - (Trelegy 00 lungs Externa Ellipta) daily l 100-62.5-25 MCG/INH inhalation AEROSOL POWDER, BREATH ACTIVATED Fluticasone 2022-0 Yes [id number] Inhale 1 Catie -Umeclidin- 2-02 inhalation Se ybold Vilant 00:00: into the - (Trelegy 00 lungs Externa Ellipta) daily l 100-62.5-25 MCG/INH inhalation AEROSOL POWDER, BREATH ACTIVATED Fluticasone 2-0 Yes [id number] Inhale 1 Catie -Umeclidin- 2-02 inhalation Se ybold Vilant 00:00: into the - (Trelegy 00 lungs Externa Ellipta) daily l 100-62.5-25 MCG/INH inhalation AEROSOL POWDER, BREATH ACTIVATED Fluticasone 2-0 Yes [id number] Inhale 1 Catie -Umeclidin- 2-02 inhalation Se ybold Vilant 00:00: into the - (Trelegy 00 lungs Externa Ellipta) daily l 100-62.5-25 MCG/INH inhalation AEROSOL POWDER, BREATH ACTIVATED Fluticasone 2-0 Yes [id number] Inhale 1 Catie -Umeclidin- 2-02 inhalation Se ybold Vilant 00:00: into the - (Trelegy 00 lungs Externa Ellipta) daily l 100-62.5-25 MCG/INH inhalation AEROSOL POWDER, BREATH ACTIVATED predniSONE 2021-0 Yes [id number] Take 2 Catie 20 MG oral 1-19 tablets by Sey bold tablet 00:00: mouth for 00 5 days, then 1 tablet by mouth for 5 days predniSONE 2021-0 Yes [id number] Take 2 Catie 20 MG oral 1-19 tablets by Sey bold tablet 00:00: mouth for 00 5 days, then 1 tablet by mouth for 5 days predniSONE 2-0 Yes [id number] Take 2 Catie 20 MG oral 1-19 tablets by Sey bold tablet 00:00: mouth for 00 5 days, then 1 tablet by mouth for 5 days predniSONE 2021-0 2022- No [id number] Take 2 Catie 20 MG oral 1-19 [...] EVERY DAY 24 HR Cetirizine 2020-07 Yes [id number] TAKE 1 Catie 10 MG oral 2-17 TABLET BY Seyb old Tablet 00:00: MOUTH 00 EVERY DAY NEEDED Cetirizine 2020-07 Yes [id number] TAKE 1 Catie 10 MG oral 2-17 TABLET BY Seyb old Tablet 00:00: MOUTH 00 EVERY DAY NEEDED Cetirizine 2020-07 Yes [id number] TAKE 1 Catie 10 MG oral 2-17 TABLET BY Seyb old Tablet 00:00: MOUTH 00 EVERY DAY NEEDED Cetirizine 2020-07 Yes [id number] TAKE 1 Catie 10 MG oral 2-17 TABLET BY Seyb old Tablet 00:00: MOUTH 00 EVERY DAY NEEDED Cetirizine 2020-07 Yes [id number] TAKE 1 Catie 10 MG oral 2-17 TABLET BY Seyb old Tablet 00:00: MOUTH 00 EVERY DAY NEEDED Atorvastati 2020-07 Yes [id number] TAKE 1 Catie n Calcium 2-01 TABLET BY Seybo ld 20 MG oral 00:00: MOUTH Tablet 00 EVERY DAY Amlodipine 2020-07 Yes [id number] TAKE 1 K elsey Besylate 10 2-01 TABLET BY Sey bold MG oral 00:00: MOUTH Tablet 00 EVERY DAY LISINOPRIL- 2020-07 Yes [id number] TAKE 1 Catie HCTZ 2-01 TABLET BY Seybold 20-12.5 MG 00:00: MOUTH oral Tablet 00 EVERY DAY Atorvastati 2020-07 Yes [id number] TAKE 1 Catie n Calcium 2-01 TABLET BY Seybo ld 20 MG oral 00:00: MOUTH Tablet 00 EVERY DAY Amlodipine 2020-07 Yes [id number] TAKE 1 K elsey Besylate 10 2-01 TABLET BY Sey bold MG oral 00:00: MOUTH Tablet 00 EVERY DAY LISINOPRIL- 2020-07 Yes [id number] TAKE 1 Catie HCTZ 2-01 TABLET BY Seybold 20-12.5 MG 00:00: MOUTH oral Tablet 00 EVERY DAY Atorvastati 2020-07 Yes [id number] TAKE 1 Catie n Calcium 2-01 TABLET BY Seybo ld 20 MG oral 00:00: MOUTH Tablet 00 EVERY DAY Amlodipine 2020-07 Yes [id number] TAKE 1 K elsey Besylate 10 2-01 TABLET BY Sey bold MG oral 00:00: MOUTH Tablet 00 EVERY DAY LISINOPRIL- 2020-07 Yes [id number] TAKE 1 Catie HCTZ 2-01 TABLET BY Seybold 20-12.5 MG 00:00: MOUTH oral Tablet 00 EVERY DAY Atorvastati 2020-07 Yes [id number] TAKE 1 Catie n Calcium 2-01 TABLET BY Seybo ld 20 MG oral 00:00: MOUTH Tablet 00 EVERY DAY Amlodipine 2020-07 Yes [id number] TAKE 1 K elsey Besylate 10 2-01 TABLET BY Sey bold MG oral 00:00: MOUTH Tablet 00 EVERY DAY LISINOPRIL- 2020-07 Yes [id number] TAKE 1 Catie HCTZ 2-01 TABLET BY Seybold 20-12.5 MG 00:00: MOUTH oral Tablet 00 EVERY DAY Atorvastati 2020-07 Yes [id number] TAKE 1 Catie n Calcium 2-01 TABLET BY Seybo ld 20 MG oral 00:00: MOUTH - Tablet 00 EVERY DAY Externa l Amlodipine 2020-07 Yes [id number] TAKE 1 K elsey Besylate 10 2-01 TABLET BY Sey bold MG oral 00:00: MOUTH - Tablet 00 EVERY DAY Externa l LISINOPRIL- 2020-07 Yes [id number] TAKE 1 Catie HCTZ 2-01 TABLET BY Seybold 20-12.5 MG 00:00: MOUTH - oral Tablet 00 EVERY DAY Ext carolee l Atorvastati 2020-07 Yes [id number] TAKE 1 Catie n Calcium 2-01 TABLET BY Seybo ld 20 MG oral 00:00: MOUTH - Tablet 00 EVERY DAY Externa l Amlodipine 2020-07 Yes [id number] TAKE 1 K elsey Besylate 10 2-01 TABLET BY Sey bold MG oral 00:00: MOUTH - Tablet 00 EVERY DAY Externa l LISINOPRIL- 2020-07 Yes [id number] TAKE 1 Catie HCTZ 2-01 TABLET BY Seybold 20-12.5 MG 00:00: MOUTH - oral Tablet 00 EVERY DAY Ext carolee l Atorvastati 2020-07 Yes [id number] TAKE 1 Catie n Calcium 2-01 TABLET BY Seybo ld 20 MG oral 00:00: MOUTH - Tablet 00 EVERY DAY Externa l Amlodipine 2020-07 Yes [id number] TAKE 1 K elsey Besylate 10 2-01 TABLET BY Sey bold MG oral 00:00: MOUTH - Tablet 00 EVERY DAY Externa l Atorvastati 2020-07 Yes [id number] TAKE 1 Catie n Calcium 2-01 TABLET BY Seybo ld 20 MG oral 00:00: MOUTH - Tablet 00 EVERY DAY Externa l Atorvastati 2020-07 Yes [id number] TAKE 1 Catie n Calcium 2-01 TABLET BY Seybo ld 20 MG oral 00:00: MOUTH - Tablet 00 EVERY DAY Externa l Atorvastati 2020-07 Yes [id number] TAKE 1 Catie n Calcium 2-01 TABLET BY Seybo ld 20 MG oral 00:00: MOUTH Tablet 00 EVERY DAY Amlodipine 2020-07 Yes [id number] TAKE 1 K elsey Besylate 10 2-01 TABLET BY Sey bold MG oral 00:00: MOUTH Tablet 00 EVERY DAY LISINOPRIL- 2020-07 Yes [id number] TAKE 1 Catie HCTZ 2-01 TABLET BY Seybold 20-12.5 MG 00:00: MOUTH oral Tablet 00 EVERY DAY Atorvastati 2020-07- No [id number] TAKE 1 Catie n Calcium 2-01 03-14 TABLET BY Seyb old 20 MG oral 00:00: 00:00 MOUTH - Tablet 00 :00 EVERY DAY Externa l Amlodipine 2020-07- No [id number] TAKE 1 Catie Besylate 10 2-01 03-01 TABLET BY Se ybold MG oral 00:00: 00:00 MOUTH - Tablet 00 :00 EVERY DAY Externa l LISINOPRIL- 2020-07- No [id number] TAKE 1 Catie HCTZ 08-13 TABLET BY Seybold 20-12.5 MG 00:00: 00:00 MOUTH - oral Tablet 00 :00 EVERY DAY Ext carolee l Methylpredn 2020-07- No [id number] 40mg Catie isolone -06-04 Seybold Sodium 21:15: 21:15 (SOLU-MEDRO 00 :00 L) 40 mg Methylpredn 2020-07- No [id number] 40mg 40 mg, Catie isolone 08-04 intramuscu Seybo ld Sodium 21:15: 21:15 lar, ONCE, (SOLU-MEDRO 00 :00 On Thu) 40 mg 06/04/21 at 1515, For 1 dose Albuterol 2020-07 Yes [id number] 2{puff} Q4H Inhale 2 Catie HFA 108 (90 1-23 puffs into Se ybold Base) 00:00: the lungs MCG/ACT IN 00 every 4 AERS hours as needed for wheezing or shortness of breath Albuterol 2020-07 Yes [id number] 2{puff} Q4H Inhale 2 Catie HFA 108 (90 1-23 puffs into Se [employer]) 00:00: the lungs MCG/ACT IN 00 every 4 AERS hours as needed for wheezing or shortness of breath Albuterol 2020-07 Yes [id number] 2{puff} Q4H Inhale 2 Catie HFA 108 (90 1-23 puffs into Se [employer]) 00:00: the lungs MCG/ACT IN 00 every 4 AERS hours as needed for wheezing or shortness of breath predniSONE 2020-07 Yes [id number] Take 2 Catie 20 MG oral -23 tablets by Sey bold tablet 00:00: mouth for 00 5 days, then 1 tablet by mouth for 5 days Albuterol 2020-07 Yes [id number] 2{puff} Q4H Inhale 2 Catie HFA 108 (90 1-23 puffs into Se [employer]) 00:00: the lungs MCG/ACT IN 00 every 4 AERS hours as needed for wheezing or shortness of breath Albuterol 2020-07- No [id number] 2{puff} Q4H Inhale 2 Catie HFA 108 (08-04 05-10 puffs into S [employer]) 00:00: 00:00 the lungs MCG/ACT IN 00 :00 every 4 AERS hours as needed for wheezing or shortness of breath predniSONE 2020-07- No [id number] Take 2 Catie 20 MG oral 08-04 tablets by Se ybold tablet 00:00: 00:00 mouth for 00 :00 5 days, then 1 tablet by mouth for 5 days Azithromyci 2020-07- No [id number] Take 2 Catie n 250 MG 08-04 tablets by Seyb old oral Tablet 00:00: [...] 00:00: MOUTH 00 TWICE A DAY Gabapentin 0 Yes TAKE 1 Kelse y 300 MG oral 9-23 CAPSULE BY Se ybold Capsule 00:00: MOUTH 00 TWICE A DAY Gabapentin 2020-0 Yes TAKE 1 Kelse y 300 MG oral 9-23 CAPSULE BY Se ybold Capsule 00:00: MOUTH 00 TWICE A DAY Gabapentin 0 Yes TAKE 1 Kelse y 300 MG oral 9-23 CAPSULE BY Se ybold Capsule 00:00: MOUTH 00 TWICE A DAY Aspirin Low 2020-0 Yes TAKE 1 Bouchra ey Dose 81 MG 9-07 TABLET BY Seyb old oral Tablet 00:00: MOUTH Delayed 00 EVERY DAY Response Atorvastati 2020-0 Yes [id number] TAKE 1 Catie n Calcium 9-07 TABLET [...] MOUTH 00 EVERY DAY ASPIRIN 81 2020-0 2- No TAKE 1 Bouchra ey OR 9-07 02-02 TABLET BY Seybold 00:00: 00:00 MOUTH 00 [...] No Inhale 1 K elsey -Umeclidin- 8-16 02 inhalation S eybold Vilant 00:00: 00:00 into the (Trelegy 00 :00 lungs Ellipta) daily 100-62.5-25 MCG/INH inhalation AEROSOL POWDER, BREATH ACTIVATED Ibuprofen 2020-0 Yes [id number] 800mg Q6H Take 1 K elsey 800 MG oral 7-13 tablet Seybol d Tablet 00:00: (800 mg 00 total) by mouth every 6 hours as needed for pain Ibuprofen 2020-0 Yes [id number] 800mg Q6H Take 1 K elsey 800 MG oral 7-13 tablet Seybol d Tablet 00:00: (800 mg 00 total) by mouth every 6 hours as needed for pain Ibuprofen 2020-0 Yes [id number] 800mg Q6H Take 1 K elsey 800 MG oral 7-13 tablet Seybol d Tablet 00:00: (800 mg 00 total) by mouth every 6 hours as needed for pain Ibuprofen 2020-0 Yes [id number] 800mg Q6H Take 1 K elsey 800 MG oral 7-13 tablet Seybol d Tablet 00:00: (800 mg 00 total) by mouth every 6 hours as needed for pain Ibuprofen 2020-0 2022- No [id number] 800mg Q.25D Take 1 Catie 800 MG oral 7-13 05-10 tablet Seybo ld Tablet 00:00: 00:00 (800 mg 00 :00 total) by mouth every 6 hours as needed for pain Metoprolol 2021-0 Yes 50mg Take 1 Kelse y Succinate [...] topically externally 2 times Gel daily Diclofenac 2- No Apply 1 Jonathan sey Sodium 6-17 05-10 applicatio Seybol d (Voltaren) 00:00: 00:00 n 1 % apply 00 :00 topically externally 2 times Gel daily Acetaminoph 0 Yes [id number] 1{tbl} Q6H Take 1 Catie en-Codeine 6-15 tablet by Seyb old #3 300-30 00:00: mouth MG oral 00 every 6 Tablet hours as needed Acetaminoph 0 Yes [id number] 1{tbl} Q6H Take 1 Catie en-Codeine 6-15 tablet by Seyb old #3 300-30 00:00: mouth MG oral 00 every 6 Tablet hours as needed LISINOPRIL- Yes [id number] 1{tbl} Take 1 Catie HCTZ 6-15 tablet by Seybold 20-12.5 MG 00:00: mouth oral Tablet 00 daily Cetirizine Yes [id number] 10mg Q24H Take 1 Catie 10 MG oral 6-15 tablet (10 Sey bold Tablet 00:00: mg total) 00 by mouth daily as needed Amlodipine Yes [id number] 10mg Take 1 K elsey Besylate 10 6-15 tablet (10 Se ybold MG oral 00:00: mg total) Tablet 00 by mouth daily Acetaminoph 2020-0 Yes [id number] 1{tbl} Q6H Take 1 Catie en-Codeine 6-15 tablet by [place] old #3 300-30 00:00: mouth MG oral 00 every 6 Tablet hours as needed Acetaminoph 2020-0 Yes [id number] 1{tbl} Q6H Take 1 Catie en-Codeine 6-15 tablet by [place] old #3 300-30 00:00: mouth MG oral 00 every 6 Tablet hours as needed Acetaminoph 2020-0 2022- No [id number] 1{tbl} Q.25D Take 1 Catie en-Codeine 6-15 05-10 tablet by Deangelo conklin #3 300-30 00:00: 00:00 mouth MG oral [...] 00:00: mouth 00 every 8 hours Ciprofloxac 202-0 Yes 500mg Take 500 K elsey in HCl 500 5-26 mg by Seybold MG oral 00:00: mouth 2 Tablet 00 times daily Metronidazo 2020-0 Yes 500mg Take 500 K elsey le 500 MG 5-26 mg by Seybold oral Tablet 00:00: mouth 00 every 8 hours Ciprofloxac 202-0 Yes 500mg Take 500 K elsey in HCl 500 5-26 mg by Seybold MG oral 00:00: mouth 2 Tablet 00 times daily Metronidazo 2021-0 2022- No 500mg Take 500 Catie le 500 [...] mg by ity of tablet 11:00: mouth [place] [address] daily. [facility] metoprolol Yes 50mg Take 50 mg U nivers succinate 7-09 by mouth ity of XL 50 mg 24 11:00: [place]. [place] [facility] atorvastati Yes 20mg Take 20 mg Univers n 20 mg 7-09 by mouth ity of tablet 11:00: daily. [address] Branch amLODIPine Yes 10mg Take 10 mg U nivers 10 mg 7-09 by mouth ity of tablet 11:00: daily. [address] Branch aspirin 81 Yes 81mg Take 81 mg U nivers mg chewable 7-09 by mouth ity of tablet 11:00: daily. [address] Branch ibuprofen Yes 1{tbl} Take 1 Univ ers (ADVIL 7-09 tablet by ity of LIQUI-GEL 11:00: mouth [place] 47 needed. Medical [facility] cilostazol Yes 100mg Take 100 Un benny 100 mg 7-09 mg by ity of tablet 11:00: mouth [place] [address] daily. [facility] metoprolol Yes 50mg Take 50 mg U nivers succinate 7-09 by mouth ity of XL 50 mg 24 11:00: [place]. [place] 47 [facility] atorvastati Yes 20mg Take 20 mg Univers n 20 mg 7-09 by mouth ity of tablet 11:00: daily. [place] [address] Medical Branch amLODIPine Yes 10mg Take 10 mg U nivers 10 mg 7-09 by mouth ity of tablet 11:00: daily. [place] [address] Medical Branch aspirin 81 Yes 81mg Take 81 mg U nivers mg chewable 7-09 by mouth ity of tablet 11:00: daily. [place] [address] Medical Branch ibuprofen 2018-0 Yes 1{tbl} Take 1 Univ ers (ADVIL 7-09 tablet by ity of LIQUI-GEL 11:00: mouth [place] 47 needed. [facility] cilostazol Yes 100mg Take 100 Un benny 100 mg 7-09 mg by ity of tablet 06:00: mouth [place] [address] daily. [facility] metoprolol Yes 50mg Take 50 mg U nivers succinate 7-09 by mouth ity of XL 50 mg 24 06:00: daily. [place] tablet [facility] atorvastati Yes 20mg Take 20 mg Univers n 20 mg 7-09 by mouth ity of tablet 06:00: daily. [place] [address] Medical Branch amLODIPine Yes 10mg Take 10 mg U nivers 10 mg 7-09 by mouth ity of tablet 06:00: daily. [place] [address] Medical Branch aspirin 81 Yes 81mg Take 81 mg U nivers mg chewable 7-09 by mouth ity of tablet 06:00: daily. [place] [address] Medical Branch ibuprofen Yes 1{tbl} Take 1 Univ ers (ADVIL 7-09 tablet by ity of LIQUI-GEL 06:00: mouth [place] 47 needed. [facility] cilostazol Yes 100mg Take 100 Un benny 100 mg 7-09 mg by ity of tablet 06:00: mouth [place] [address] daily. Medical [facility] metoprolol Yes 50mg Take 50 mg U nivers succinate 7-09 by mouth ity of XL 50 mg 24 06:00: daily. [place] tablet 47 [facility] atorvastati Yes 20mg Take 20 mg Univers n 20 mg 7-09 by mouth ity of tablet 06:00: daily. [address] Branch amLODIPine Yes 10mg Take 10 mg U nivers 10 mg 7-09 by mouth ity of tablet 06:00: daily. [address] Branch aspirin 81 2019-0 Yes 81mg Take 81 mg U nivers mg chewable 7-09 by mouth ity of tablet 06:00: daily. [place] [address] Medical Branch ibuprofen 2019- Yes 1{tbl} Take 1 Univ ers (ADVIL 7-09 tablet by ity of LIQUI-GEL 06:00: mouth [place] 47 needed. [facility] cilostazol Yes 100mg Take 100 Un benny 100 mg 7- mg by ity of tablet 06:00: mouth [place] [address] daily. Medical Branch metoprolol Yes 50mg Take 50 mg U nivers succinate 7-09 by mouth ity of XL 50 mg 24 06:00: daily. [place] tablet [facility] atorvastati Yes 20mg Take 20 mg Univers n 20 mg - by mouth ity of tablet 06:00: daily. [address] Branch amLODIPine Yes 10mg Take 10 mg U nivers 10 mg -09 by mouth ity of tablet 06:00: daily. [address] Branch aspirin 81 2018-0 Yes 81mg Take 81 mg U nivers mg chewable 09 by mouth ity of tablet 06:00: daily. [address] Branch ibuprofen Yes 1{tbl} Take 1 Univ ers (ADVIL 7-09 tablet by ity of LIQUI-GEL 06:00: mouth [place] 47 needed. Medical [facility] methocarbam 2017-0 Yes [facility] ol [facility] (ROBAXIN) [...] DOSEPAK) 4 00 l mg tablet methocarbam 2017-0 Yes [facility] (ROBAXIN) 00:00: [facility] 500 MG 00 l tablet methylPREDN 0 Yes Method i ISolone 01-18 st (MEDROL 00:00: Hospita DOSEPAK) 4 00 l mg tablet methocarbam 0 Yes [facility] ol [facility] (ROBAXIN) 00:00: Hospita 500 MG 00 l tablet methylPREDN 0 Yes [facility] i ISolone 01-18 st (MEDROL 00:00: Hospita DOSEPAK) 4 00 l mg tablet amLODIPine 0 Yes Methodi (NORVASC) 6 st 10 mg 00:00: Hospita tablet 00 l atorvastati 0 Yes Method i n (LIPITOR) 6 st 20 MG 00:00: Hospita tablet 00 l cilostazol 0 Yes [facility] (PLETAL) 6 st 100 MG 00:00: Hospita tablet 00 l lisinopril- 2017-0 Yes [facility] i hydrochloro 6- st thiazide 00:00: Hospita (PRINZIDE,Z 00 l ESTORETIC) 20-12.5 mg per tablet metoprolol 2017-0 Yes [facility] succinate 6- st XL 00:00: Hospita (TOPROL-XL) 00 l 50 mg 24 hr tablet amLODIPine 2017-0 Yes [facility] (NORVASC) 6 st 10 mg 00:00: Hospita tablet 00 l atorvastati 2017-0 Yes Method i n (LIPITOR) 6 st 20 MG 00:00: Hospita tablet 00 l cilostazol 2018-0 Yes [facility] (PLETAL) 6 st 100 MG 00:00: Hospita tablet 00 l lisinopril- 2018-0 Yes Method i hydrochloro 6-28 st thiazide 00:00: Hospita (PRINZIDE,Z 00 l ESTORETIC) 20-12.5 mg per tablet metoprolol 2018-0 Yes [facility] succinate 6-28 st XL 00:00: [...] hr tablet amLODIPine 0 Yes [facility] (NORVASC) 6-28 st 10 mg 00:00: Hospita tablet 00 l atorvastati 2018-0 Yes Method i n (LIPITOR) 6-28 st 20 MG 00:00: Hospita tablet 00 [...] hr tablet amLODIPine 2017-0 Yes [facility] (NORVASC) 6-28 st 10 mg 00:00: Hospita tablet 00 l atorvastati 2018-0 Yes Method i n (LIPITOR) 6-28 st 20 MG 00:00: Hospita tablet 00 l cilostazol 2018-0 Yes [facility] (PLETAL) 6-28 st 100 MG 00:00: Hospita tablet 00 l lisinopril- 2018-0 Yes Method i hydrochloro 6-28 st thiazide 00:00: Hospita (PRINZIDE,Z 00 l ESTORETIC) 20-12.5 mg per tablet metoprolol 2018-0 Yes [facility] succinate 6-28 st XL 00:00: Hospita (TOPROL-XL) 00 l 50 mg 24 hr tablet Vital Signs Vital Name Observation Time Observation Value Comments Source Systolic blood 2023-05-19 12:00:00 127 mm[Hg] Univer sity of pressure [facility] Diastolic blood 2023-05-19 12:00:00 77 mm[Hg] [facility] 2023-05-19 12:00:00 59 /min Universi ty [facility] Respiratory rate 2023-05-19 12:00:00 20 /min [facility] 2023-05-19 12:00:00 97 /min University Arterial blood by [facility] Pulse oximetry Branch Body temperature 2023-05-19 09:26:[address] [facility] ersity of [facility] Body height 2023-05-19 09:26:00 172.7 cm Universi ty [facility] Body weight 2023-05-19 09:26:00 90.719 kg Universi [facility] BMI 2023-05-19 09:26:00 30.41 kg/m2 [facility] Systolic blood 2022-09-23 12:55:00 118 mm[Hg] Catie ybold - pressure External Diastolic blood 2022-09-23 12:55:00 72 mm[Hg] Barbara y Seybold - pressure External Heart rate 2022-09-23 12:55:00 65 /min Catie S eybold - External Body temperature 2022-09-23 12:55:00 36.44 Kaylynn Bouchra ey Seybold - External Respiratory rate 2022-09-23 12:55:00 20 /min Bouchra ey Seybold - External Body weight 2022-09-23 12:55:00 97.16 kg Catie Martin eybold - External BMI 2022-09-23 12:55:00 32.57 kg/m2 Catie S elisebold - External Oxygen saturation in 2022-09-23 12:55:00 99 /min Catie Car - Arterial blood by External Pulse oximetry Systolic blood 2022-09-17 14:21:00 134 mm[Hg] Catie Seybold - pressure External Diastolic blood 2022-09-17 14:21:00 70 mm[Hg] Kelse y Seybold - pressure External Heart rate 2022-09-17 14:21:00 63 /min Catie S eybold - External Body temperature 2022-09-17 14:21:00 36.5 Kayylnn Bouchra ey Seybold - External Respiratory rate 2022-09-17 14:21:00 16 /min Bouchra ey Seybold - External Body height 2022-09-17 14:21:00 172.7 cm Catie aMrtin eybold - External Body weight 2022-09-17 14:21:00 95.255 kg Catie S eybold - External BMI 2022-09-17 14:21:00 31.93 kg/m2 Catie S eybold - External Systolic blood 2022-09-10 21:45:00 134 mm[Hg] Catie Seybold - pressure External Diastolic blood 2022-09-10 21:45:00 70 mm[Hg] Kelse y Seybold - pressure External Heart rate 2022-09-10 21:45:00 63 /min Catie S eybold - External Body temperature 2022-09-10 21:45:00 36.78 Kaylynn Bouchra ey Seybold - External Respiratory rate 2022-09-10 21:45:00 14 /min Bouchra ey Seybold - External Body height 2022-09-10 21:45:00 172.7 cm Catie S eybold - External Body weight 2022-09-10 21:45:00 97.07 kg Catie Martin eybold - External BMI 2022-09-10 21:45:00 32.54 kg/m2 Catie S eybold - External Systolic blood 2022-08-06 21:00:00 158 mm[Hg] Catie Seybold - pressure External Diastolic blood 2022-08-06 21:00:00 80 mm[Hg] Jonathanse y Seybold - pressure External [...] External BMI 2022-08-06 21:00:00 32.84 kg/m2 Catie Martin eybold - External Oxygen saturation in 2022-08-06 21:00:00 99 /min Catie Seybold - Arterial blood by External Pulse oximetry [...] 2021-06-04 20:27:00 34.06 kg/m2 Catie cabrera Procedures Procedure Date / Time Performed Performing Clinician [facility] e CT ABDOMEN PELVIS W 2023-05-19 11:37:26 Juan Hilton [facility] CONTRAST [facility] Branch URINALYSIS 2023-05-19 10:52:00 Juan Hilton [facility] LIPASE 2023-05-19 10:03:00 Juan Hilton [facility] COMP. METABOLIC PANEL 2023-05-19 10:03:00 Juan Hilton [facility] ([id number]) [facility] CBC WITH DIFF 2023-05-19 10:03:00 Juan Hilton [facility] NOTICE OF PRIVACY 2023-05-19 09:20:34 Doctor Unassigned, No Univ [facility] PRACTICES Name [facility] CONSENT/REFUSAL FOR 2023-05-19 09:19:12 Doctor Unassigned, No [facility] DIAGNOSIS AND Name [facility] TREATMENT NAVICULAR RIGHT 2022-05-29 14:41:15 Sohail Joe old - External Plan of Care Planned Activity Planned Date Details Comments Source Future Scheduled 2023-06-15 Screening for [facility] Test 03:51:15 malignant neoplasm of colon (procedure) [code = 492623062] Future Scheduled 2023-06-15 Screening for [facility] Test 03:51:15 malignant neoplasm of colon (procedure) [code = 262333025] Future Scheduled 2023-06-15 Screening for [facility] Test 03:51:15 malignant neoplasm of colon (procedure) [code = 576296515] Future Scheduled 2023-06-15 COVID-19 [facility]ACCINE (#[facility]) [facility] 03:51:15 [code = COVID-19 VACCINE (#1)] Future Scheduled 2023-06-15 Screening for [facility] Test 03:51:15 malignant neoplasm of colon (procedure) [code = 089133742] Future Scheduled 2023-06-15 Screening for [facility] Test 03:51:15 malignant neoplasm of colon (procedure) [code = 469452021] Future Scheduled 2023-06-15 SHINGLES VACCINES (1 [facility] 03:51:15 of 2) [code = SHINGLES VACCINES (1 of 2)] Future Scheduled 2023-06-15 65[facility] 03:51:15 VACCINE (1 - PCV) [code = 65+ PNEUMOCOCCAL VACCINE (1 - PCV)] Future Scheduled 2023-06-15 [facility]ACCINE (#[facility] 03:51:15 [code = INFLUENZA VACCINE (#1)] Future Scheduled 2022-12-22 Screening for [facility] Test 04:40:20 malignant neoplasm of colon (procedure) [code = 422041742] Future Scheduled 2022-12-22 Screening for [facility] Test 04:40:20 malignant neoplasm of colon (procedure) [code = 139735341] Future Scheduled 2022-12-22 Screening for [facility] Test 04:40:20 malignant neoplasm of colon (procedure) [code = 989268317] Future Scheduled 2022-12-22 COVID-19 [facility]ACCINE (#[facility]) [facility] 04:40:20 [code = COVID-19 VACCINE (#1)] Future Scheduled 2022-12-22 Screening for [facility] Test 04:40:20 malignant neoplasm of colon (procedure) [code = 788757922] Future Scheduled 2022-12-22 Screening for [facility] Test 04:40:20 malignant neoplasm of colon (procedure) [code = 053557699] Future Scheduled 2022-12-22 SHINGLES VACCINES (1 [facility] Test 04:40:20 of 2) [code = SHINGLES VACCINES (1 of 2)] Future Scheduled 2022-12-22 65+ [facility]OCOCCAL [facility] Test 04:40:20 VACCINE (1 - PCV) [code = 65+ PNEUMOCOCCAL VACCINE (1 - PCV)] Future Scheduled 2022-12-22 INFLUENZA VACCINE [facility] Test 04:40:20 [code = INFLUENZA VACCINE] Future Scheduled 2022-10-04 COVID[facility]19 [facility] 03:13:37 [code = COVID-19 VACCINE (#1)] Future Scheduled 2022-10-04 COLONOSCOPY SCREENING [facility] Test 03:13:37 [code = COLONOSCOPY SCREENING] Future Scheduled 2022-10-04 SHINGLES VACCINES (1 Met [facility] Test 03:13:37 of 2) [code = SHINGLES VACCINES (1 of 2)] Future Scheduled 2022-10-04 INFLUENZA VACCINE [facility] Test 03:13:37 [code = INFLUENZA VACCINE] Future Scheduled 2022-10-04 65+ [facility]UMOCOCCAL [facility] Test 03:13:37 VACCINE (1 - PCV) [code = 65+ PNEUMOCOCCAL VACCINE (1 - PCV)] Future Scheduled 2022-05-17 HEPATITIS B VACCINES Met [facility] Test 07:54:17 (1 of 3 - 3-dose series) [code = HEPATITIS B VACCINES (1 of 3 - 3-dose series)] Future Scheduled 2022-05-17 COVID-19 VACCINE (#1) [facility] Test 07:54:17 [code = COVID-19 VACCINE (#1)] Future Scheduled 2022-05-17 COLONOSCOPY SCREENING [facility] Test 07:54:17 [code = COLONOSCOPY SCREENING] Future Scheduled 2022-05-17 SHINGLES VACCINES (1 Met [facility] Test 07:54:17 of 2) [code = SHINGLES VACCINES (1 of 2)] Future Scheduled 2022-05-17 INFLUENZA VACCINE [facility] Test 07:54:17 [code = INFLUENZA VACCINE] Future Scheduled 2022-05-05 HEPATITIS B VACCINES Met [facility] Test 14:33:23 (1 of 3 - 3-dose series) [code = HEPATITIS B VACCINES (1 of 3 - 3-dose series)] Future Scheduled 2022-05-05 COVID-19 VACCINE (#1) [facility] Test 14:33:23 [code = COVID-19 VACCINE (#1)] Future Scheduled 2022-05-05 COLONOSCOPY SCREENING [facility] Test 14:33:23 [code = COLONOSCOPY SCREENING] Future Scheduled 2022-05-05 SHINGLES VACCINES (1 Met [facility] [place] Test 14:33:23 of 2) [code = SHINGLES VACCINES (1 of 2)] Future Scheduled 2022-05-05 INFLUENZA VACCINE Method [facility] Test 14:33:23 [code = INFLUENZA VACCINE] Encounters Start End Encounter Admission Attending Care Care Encounter Source Date/Time Date/Time Type Type Clinicians Facility Department ID 2023-05-19 2023-05-19 Emergency X [facility]ESC, [facility] ERT [id number] Univers 03:22:00 06:28:00 JUAN villagomez [facility] 2023-05-19 2023-05-19 [id number] Univers 03:22:00 06:28:00 Juan Martin [place] [id number] ity [facility] [id number] [facility] [id number] [address] 2023-04-20 2023-04-20 Outpatient CATIE CISSE [id number] Catie 00:00:00 00:00:00 ASTON Seybol d 2023-01-12 2023-01-12 Outpatient CATIE CISSE [id number] [place] 00:00:00 00:00:00 ASTON Osborneol oscar 2023-01-09 2023-01-09 Outpatient CATIE PIÑA [id number] Catie 15:30:00 15:30:00 ROSLYN Seybol d 2023-01-06 2023-01-06 Outpatient CATIE CISSE [id number] Catie 00:00:00 00:00:00 ASTON Seybol d 2022-12-12 2022-12-12 Outpatient CATIE KNAPP [id number] Catie 13:45:00 13:45:00 EMILIANO Osborneo chencho 2022-12-11 2022-12-11 Outpatient CATIE CISSE [id number] Catie 00:00:00 00:00:00 ASTON Seybol d 2022-12-09 2022-12-09 Outpatient CATIE CISSE [id number] Catie 00:00:00 00:00:00 ASTON Seybol d 2022-12-09 2022-12-09 Outpatient HUNDL, CATIE RIVERA [id number] Catie 00:00:00 00:00:00 ASTON Seybol d 2022-12-01 2022-12-01 Outpatient HUNDL, CATIE RIVERA [id number] Catie 00:00:00 00:00:00 ASTON Seybol d 2022-11-12 2022-11-12 Outpatient HUNDL, CATIE RIVERA [id number] Catie 00:00:00 00:00:00 ASTON Seybol d 2022-11-06 2022-11-06 Outpatient HUNDL, CATIE RIVERA [id number] Catie 14:00:00 14:00:00 ASTON Seybol d 2022-11-03 2022-11-03 Outpatient HUNDL, CATIE RIVERA [id number] Catie 00:00:00 00:00:00 ASTON Seybol d 2022-10-22 2022-10-22 Outpatient HUNDL, CATIE RIVERA [id number] Catie 08:00:00 08:00:00 ASTON Seybol d 2022-10-18 2022-10-18 Outpatient HUNDL, CATIE RIVERA [id number] Catie 00:00:00 00:00:00 ASTON Seybol d 2022-10-03 2022-10-03 Outpatient PIÑA, CTAIE RIVERA [id number] Catie 08:00:00 08:00:00 ROSLYN Seybol d 2022-09-29 2022-09-29 Outpatient HUNDL, CATIE RIVERA [id number] Catie 00:00:00 00:00:00 ASTON Seybol d 2022-09-29 2022-09-29 Outpatient HUNDL, CATIE RIVERA [id number] Catie 00:00:00 00:00:00 ASTON Seybol d 2022-09-23 2022-09-23 Outpatient LAB90 CATIE RIVERA [id number] Catie 09:15:00 09:15:00 Seybol d 2022-09-23 2022-09-23 Outpatient HUNDL, CATIE RIVERA [id number] Catie 08:00:00 08:00:00 ASTON Seybol d 2022-09-17 2022-09-17 Outpatient OU, CATIE RIVERA [id number] Catie 08:30:00 08:30:00 DAVID Seyb old 2022-09-10 2022-09-10 Outpatient HUNDL, CATIE RIVERA [id number] Catie 16:00:00 16:00:00 ASTON Seybol d 2022-09-10 2022-09-10 Outpatient HUNDL, CATIE RIVERA [id number] Catie 00:00:00 00:00:00 ASTON Seybol d 2022-09-03 2022-09-03 Outpatient HUNDL, CATIE RIVERA [id number] Catie 16:30:00 16:30:00 ASTON Seybol d 2022-08-30 2022-08-30 Outpatient HUNDL, CATIE RIVERA [id number] Catie 00:00:00 00:00:00 ASTON Seybol d 2022-08-20 2022-08-20 Outpatient HUNDL, CATIE RIVERA [id number] Catie 00:00:00 00:00:00 ASTON Seybol d 2022-08-06 2022-08-06 Outpatient HUNDL, CATIE RIVERA [id number] Catie 15:30:00 15:30:00 ASTON Seybol d 2022-07-18 2022-07-18 Outpatient MARIE MEJIA [id number] Catie 13:00:00 13:00:00 Seybol d 2022-07-09 2022-07-09 Outpatient CATIE CONTEH [id number] Catie 00:00:00 00:00:00 ANNE MARIE Seybol d 2022-06-30 2022-06-30 Outpatient CATIE CONTEH [id number] Catie 00:00:00 00:00:00 ANNE MARIE Seybol d 2022-06-30 2022-06-30 Outpatient CATIE CONTEH [id number] Catie 00:00:00 00:00:00 ANNE MARIE Seybol d 2022-06-28 2022-06-28 Outpatient CATIE CONTEH [id number] Catie 00:00:00 00:00:00 ANNE MARIE Seybol d 2022-06-23 2022-06-23 Outpatient CATIE CONTEH [id number] Catie 00:00:00 00:00:00 ANNE MARIE Seybol d 2022-06-20 2022-06-20 Outpatient CATIE STOCK [id number] Catie 00:00:00 00:00:00 DEMETRIO Seybol d 2022-06-18 2022-06-18 Outpatient CATIE RIVERA [id number] Catie 14:45:00 14:45:00 Seybol d 2022-06-17 2022-06-17 Outpatient CATIE CONTEH [id number] Catie 00:00:00 00:00:00 ANNE MARIE Seybol d 2022-06-12 2022-06-12 Outpatient CATIE JOE [id number] Catie 15:30:00 15:30:00 SOHAIL Seybol d 2022-06-12 2022-06-12 Outpatient CATIE RIVERA [id number] Catie 15:10:00 15:10:00 Seybol d 2022-06-11 2022-06-11 Outpatient CATIE JOE [id number] Catie 00:00:00 00:00:00 SOHAIL Seybol d 2022-05-29 2022-05-29 Outpatient CATIE RIVERA [id number] Catie 08:30:00 08:30:00 Seybol d 2022-05-29 2022-05-29 Outpatient CATIE JOE [id number] Catie 08:10:00 08:10:00 SOHAIL Seybol d 2022-05-28 2022-05-28 Outpatient CATIE JOE [id number] Catie 00:00:00 00:00:00 SOHAIL Seybol d 2022-05-14 2022-05-14 Outpatient CATIE CONTEH [id number] Catie 00:00:00 00:00:00 ANNE MARIE Seybol d 2022-05-09 2022-05-09 Outpatient LAB90 CATIE RIVERA [id number] Catie 09:10:00 09:10:00 Seybol d 2022-05-05 2022-05-05 Outpatient LAB90 CATIE RIVERA [id number] Catie 16:00:00 16:00:00 Seybol d 2022-05-05 2022-05-05 Outpatient WERO CATIE RIVERA [id number] Catie 15:30:00 15:30:00 ANNE MARIE Seybol d 2022-02-26 2022-02-26 Outpatient CATIE CONTEH [id number] Catie 16:15:00 16:15:00 ANNE MARIE Seybol d 2022-02-05 2022-02-05 Office Artur Conteh 1.2.840.114 [id number] Catie 16:30:00 16:45:00 Visit Anne Marie Jones 350.1.13.13 Se ybold Somogyi 1.2.7.2.686 [id number] 2022-01-31 2022-01-31 Outpatient CATIE CONTEH [id number] Catie 00:00:00 00:00:00 ANNE MARIE Seybol d 2022-01-29 2022-01-29 Outpatient XEF90-WWA CATIE RIVERA [id number] Catie 08:35:00 08:35:00 Seybol d 2022-01-22 2022-01-22 Outpatient LAB90 CATIE RIVERA [id number] Catie 14:00:00 14:00:00 Seybol d 2022-01-22 2022-01-22 Office Artur Conteh 1.2.840.114 [id number] Catie 13:30:00 13:45:00 Visit Anne Marie Jones 350.1.13.13 Se ybold Somogyi 1.2.7.2.686 [id number] 2021-11-22 2021-11-22 Office Artur Conteh 1.2.840.114 [id number] Catie 08:00:00 08:15:00 Visit Anne Marie Jones 350.1.13.13 Se ybold Somogyi 1.2.7.2.686 [id number] 2021-11-19 2021-11-19 Outpatient LAB90 CATIE RIVERA [id number] Catie 10:00:00 10:00:00 Seybol d 2021-11-19 2021-11-19 Office Artur Conteh 1.2.840.114 [id number] Catie 09:30:00 09:45:00 Visit Anne Marie Jones 350.1.13.13 Se ybold Somogyi 1.2.7.2.686 [id number] 0 2021-09-30 2021-09-30 Outpatient CATIE CONTEH [id number] Catie 00:00:00 00:00:00 ANNE MARIE Seybol d 2021-09-12 2021-09-12 Office Artur Conteh 1.2.840.114 [id number] Catie 16:00:00 16:15:00 Visit Anne Marie Jones 350.1.13.13 Se ybold Somogyi 1.2.7.2.686 [id number] 2021-09-12 2021-09-12 Outpatient LAB90 CATIE RIVERA [id number] Catie 15:25:00 15:25:00 Seybol d 2021-09-11 2021-09-11 Outpatient CATIE CONTEH [id number] Catie 15:30:00 15:30:00 ANNE MARIE Seybol d 2021-09-10 2021-09-10 Outpatient CATIE CONTEH [id number] Catie 00:00:00 00:00:00 ANNE MARIE Seybol d 2021-09-10 2021-09-10 Outpatient CATIE CONTEH [id number] Catie 00:00:00 00:00:00 ANNE MARIE Seybol d 2021-09-07 2021-09-07 Outpatient CATIE CONTEH [id number] Catie 00:00:00 00:00:00 ANNE MARIE Seybol d 2021-08-14 2021-08-14 Office Artur Conteh 1.2.840.114 [id number] Catie 15:30:00 15:45:00 Visit Anne Marie Jones 350.1.13.13 Se ybold Somogyi 1.2.7.2.686 [id number] 2021-07-31 2021-07-31 Outpatient LAB90 CATIE RIVERA [id number] Catie 14:15:00 14:15:00 Seybol d 2021-07-31 2021-07-31 Office Artur Conteh 1.2.840.114 [id number] Catie 13:45:00 14:00:00 Visit Anne Marie Jones 350.1.13.13 Se shayan Emzulmayi 1.2.7.2.686 [id number] 2021-07-15 2021-07-15 Outpatient CATIE CONTEH [id number] Catie 00:00:00 00:00:00 ANNE MARIE Seybol d 2021-06-24 2021-06-24 Outpatient CATIE CONTEH [id number] Catie 00:00:00 00:00:00 ANNE MARIE Seybol d 2021-06-12 2021-06-12 Outpatient SIBLEYCATIE [id number] Catie 00:00:00 00:00:00 ANGELI rodriguez 2021-06-04 2021-06-04 Office Artur Conteh 1.2.840.114 [id number] Catie 15:00:00 15:30:00 Visit Anne Marie Jones 350.1.13.13 Se shayan Umberto 1.2.7.2.686 [id number] 2021-01-22 2021-01-22 Outpatient CATIE CONTEH [id number] Catie 16:45:00 16:45:00 ANNE MARIE Seybol d 2020-05-22 2020-05-22 Patient Doctor ARJUN 1.2.840.114 [id number] Univers 00:00:00 00:00:00 Secure Msg Unassigned, ED 350.1.13.10 ity of [facility] 4.2.7.2.686 Ranjeet as [id number] [address] 2020-05-21 2020-05-21 Outpatient Aris KERR [facility] [id number] Univers 13:40:00 13:40:00 MARIZA villagomez [facility] 2020-05-21 2020-05-21 Laboratory Lab, Adc Fam Pob I [facility] 1.2. 840.[id number] [facility] 13:15:06 13:35:06 Only Anene, [facility] 350.1.13.10 ity of [place] 4.2.7.2.686 Ranjeet as Professio [id number] Me dical [address] Office Building [facility] 2020-05-21 2020-05-21 Laboratory Lab, [facility] 1.2.840.114 [id number] 13:15:06 13:35:06 Only Fam Pob I Health 350.1.13.10 [place] 4.2.7.2.686 Professio [id number] nal [facility] Office Building [facility] 2020-05-21 2020-05-21 Letter Doctor ARJUN 1.2.840.114 [id number] Univers 00:00:00 00:00:00 (Out) Unassigned, ED 350.1.13.10 ity of [facility] 4.2.7.2.686 Ranjeet as [id number] [address] 2020-05-21 2020-05-21 Patient Doctor ARJUN 1.2.840.114 [id number] Univers 00:00:00 00:00:00 Secure Msg Unassigned, ED 350.1.13.10 ity of [facility] 4.2.7.2.686 Ranjeet as [id number] [address] 2020-05-21 2020-05-21 Letter Doctor ARJUN 1.2.840.114 [id number] 00:00:00 00:00:00 (Out) Unassigned, ED 350.1.13.10 [facility] 4.2.7.2.686 [id number] Results Test Description Test Time Test Comments Results Result Comments Source COMP. METABOLIC PANEL (92437) 2023-05-19 11:17:53 Test Item Value Reference Range Interpretation Comme nts NA (test code = 5123500958) 137 mmol/L 135-145 K (test code = 2432422935) 3.6 mmol/L 3.5-5.0 CL (test code = 4653718709) 100 mmol/L 98-108 CO2 TOTAL (test code = 26 mmol/L 23-31 4417458370) AGAP (test code = 4150296367) 11 2-16 BUN (test code = 4374646760) 22 mg/dL 7-23 GLUCOSE (test code = 122 mg/dL 70-110 H 1081514283) CREATININE (test code = 1.24 mg/dL 0.60-1.25 0271365736) TOTAL BILI (test code = 0.8 mg/dL 0.1-1.4 4592499790) CALCIUM (test code = 9.4 mg/dL 8.6-10.6 0296013999) T PROTEIN (test code = 7.4 g/dL 6.3-8.2 5635762699) ALBUMIN (test code = 4.3 g/dL 3.5-5.0 0196656597) ALK PHOS (test code = 103 U/L 34-122 7706574325) ALTv (test code = 1742-6) 21 U/L 5-50 AST(SGOT) (test code = 21 U/L 13-40 4890711292) eGFR (test code = 87857-6) 64.5 mL/min/1.73m2 CKD-EPI eGFR (2020). Assuming creati nine has been stable day -to-day for at least three months, the eGFR indicates Category G2 (60 - 89 mL/min /1.73 m2) Lab Interpretation (test code = Abnormal 44580-2) [facility] Test Item Value Reference Range Interpretation Comments LIPASE (test code = 8611330013) 106 U/L 0-220 Lab Interpretation (test code = Normal 49332-7) [facility] [id number] 10:59:07 Test Item Value Reference Range Interpretation Comments WBC (test code = 11.19 See_Comment H [Automated 0404-2) message] The sy stem which generated this result transmitted reference range : 4.20 - 10.70 10*3/?L. The reference range was not used to interpret this result as normal/abnormal . RBC (test code = 5.75 See_Comment H [Automated 395-8) message] The sy stem which generated this result transmitted reference range : 4.26 - 5.52 10*6/?L. The reference range was not used to interpret this result as normal/abnormal . HGB (test code = 18.2 g/dL 12.2-16.4 H 718-7) HCT (test code = 51.4 % 38.4-49.3 H 4544-3) MCV (test code = 89.4 fL 81.7-95.6 787-2) MCH (test code = 31.7 pg 26.1-32.7 785-6) MCHC (test code = 35.4 g/dL 31.2-35.0 H 786-4) RDW-SD (test code = 39.7 fL 38.5-51.6 33675-1) RDW-CV (test code = 12.1 % 12.1-15.4 788-0) PLT (test code = 229 See_Comment [Automated 777-3) message] The sy stem which generated this result transmitted reference range : 150 - 328 10*3/ ?L. The reference r chris was not used to interpret this result as normal/abnormal . MPV (test code = 10.0 fL 9.8-13.0 59034-9) NRBC/100 WBC (test 0.0 See_Comment [Automat ed code = 3881803998) message] The system which generated this result transmitted reference range : 0.0 - 10.0 /100 WBCs. The refer ence range was not u sed to interpret th is result as normal/abnormal . NRBC x10^3 (test code See_Comment [Auto mated = 5676686875) message] The s ystem which generated this result transmitted reference range : 10*3/?L. The reference range was not used to interpret this result as normal/abnormal . GRAN MAT (NEUT) % 62.6 % (test code = 770-8) IMM GRAN % (test code 0.40 % = 7260392765) LYMPH % (test code = 25.0 % 736-9) MONO % (test code = 7.2 % 5905-5) EOS % (test code = 4.2 % 713-8) BASO % (test code = 0.6 % 706-2) GRAN MAT x10^3(ANC) 7.00 10*3/uL 1.99-6.95 H (test code = 0626721657) IMM GRAN x10^3 (test 0.04 10*3/uL 0.00-0.06 code = 7810380497) LYMPH x10^3 (test code 2.80 10*3/uL 1.09-3.23 = 731-0) MONO x10^3 (test code 0.81 10*3/uL 0.36-1.02 = 742-7) EOS x10^3 (test code = 0.47 10*3/uL 0.06-0.53 711-2) BASO x10^3 (test code 0.07 10*3/uL 0.01-0.09 = 704-7) Lab Interpretation Abnormal (test code = 97410-7) [facility]
[2023-06-15] MEDS ORDERED: HYDROCODONE/APAP 5/325 MG TAB ONE (04:23)
[2023-06-15] MEDS ORDERED: DIAZEPAM 5 MG TABLET ONE (04:23)
--- NOTE | 2023-06-15 06:25 | EDPHYS ---
Physician Documentation [facility] Name: Surinder Hi Age: 67 yrs Sex: Male : 1955 Arrival Date: 06/15/2023 Time: 03:49 Bed 8 Private MD: ED Physician Phil Rivero HPI: 06/15 06:24 This 67 yrs old Male presents to ER via Ambulatory with complaints of Neck and Upper ms3 Back Pain. 06:24 67-year-old male with past medical history of hyperlipidemia, hypertension, myocardial ms3 infarction presents to the emergency department for neck pain that began on Thursday. Patient states he feels as if he slept wrong. Patient states pain is 7/10. Patient states the pain is worse with turning his head. 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 - Social history:: Smoking status: Patient reports the use of cigarette tobacco products, smokes one-half pack cigarettes per day. ROS: 06:24 Constitutional: Negative for fever, and chills. ms3 06:24 Cardiovascular: Negative for chest pain, and palpitations. Respiratory: Negative for shortness of breath, cough, wheezing, and pleuritic chest pain, Abdomen/GI: Negative for abdominal pain, nausea, vomiting, diarrhea, and constipation, Skin: Negative for injury, rash, and discoloration, 06:24 Neck: Positive for pain with movement, 06:24 All other systems are negative, Exam: 06:24 Constitutional: This is a well developed, well nourished patient who is awake, alert, ms3 and in no acute distress. Head/Face: Normocephalic, atraumatic. Chest/axilla: Normal chest wall appearance and motion. Nontender with no deformity. Cardiovascular: Regular rate and rhythm with a normal S1 and S2. No gallops, murmurs, or rubs. Normal PMI, no JVD. No pulse deficits. Respiratory: Lungs have equal breath sounds bilaterally, clear to auscultation and percussion. No rales, rhonchi or wheezes noted. No increased work of breathing, no retractions or nasal flaring. Abdomen/GI: Soft, non-tender, with normal bowel sounds. No distension or tympany. No guarding or rebound. No evidence of tenderness throughout. 06:24 Neck: ROM/movement: pain, that is moderate, with rotation to the left, with rotation to the right, Vital Signs: 04:01 BP 162 / 83; Pulse 71; Resp 18 S; Temp 97.8; Pulse Ox 97% on R/A; Weight 90.72 kg (R); as6 Height 5 ft. 8 in. (R); Pain 7/10; 05:00 BP 127 / 71; Pulse 57; Resp 17 S; Pulse Ox 95% on R/A; jw7 06:27 BP 143 / 82; Pulse 57; Resp 18 S; Pulse Ox 96% on R/A; as6 04:01 Body Mass Index 30.41 (90.72 kg, 172.72 cm) as6 04:01 Pain Scale: Adult as6 MDM: 04:24 Patient medically screened. ms3 06:24 Differential diagnosis: Muscle spasm versus musculoskeletal pain. Data reviewed: vital ms3 signs, nurses notes, and as a result, I will discharge patient. I considered the following discharge prescriptions or medication management in the emergency department Medications were administered in the Emergency Department. See MAR. Counseling: I had a detailed discussion with the patient and/or guardian regarding the historical points, exam findings, and any diagnostic results supporting the discharge/admit diagnosis, the need for outpatient follow up, to return to the emergency department if symptoms worsen or persist or if there are any questions or concerns that arise at home. ED course: On reevaluation patient's pain improved, patient is alert and orient x 4, no apparent distress, nontoxic-appearing, ambulatory in emergency department. Patient to follow-up with primary care physician in 2 to 3 days. Patient given prescription for ibuprofen and Flexeril. Return precautions discussed include weakness, fevers, worsening symptoms, or any other concerns. Administered Medications: 04:10 Drug: HYDROcodone-acetaminophen PO 5 mg-325 mg 1 tabs PO once Route: PO; as6 06:28 Follow up: Response: No adverse reaction as6 04:10 Drug: Diazepam PO 5 mg PO once Route: PO; as6 06:28 Follow up: Response: No adverse reaction as6 Disposition Summary: 06/15/23 06:24 Discharge Ordered Notes: Location: Home ms3 Condition: Stable ms3 Diagnosis - Neck pain ms3 Followup: ms3 - With: Arturo Marcelo DO - When: 2 - 3 days - Reason: Recheck today's complaints Discharge Instructions: - Discharge Summary Sheet ms3 - Musculoskeletal Pain ms3 Forms: - Medication Reconciliation Form ms3 - Thank You Letter ms3 - Antibiotic Education ms3 - Prescription Opioid Use ms3 - Patient Portal Instructions ms3 - Leadership Thank You Letter ms3 Prescriptions: - Cyclobenzaprine 10 mg Oral Tablet - take 1 tablet ORAL route every 8 hours As needed; 30 tablet; Refills: 0, ms3 Product Selection Permitted Signatures: Phil Rivero DO DO ms3 Francis Allred, RN RN as6
--- NOTE | 2023-06-15 06:25 | ER ---
Nurse's Notes [facility] Name: Surinder Hi Age: 67 yrs Sex: Male : 1955 Arrival Date: 06/15/2023 Time: 03:49 Bed 8 Private MD: Diagnosis: Neck pain Presentation: 06/15 04:01 Chief complaint: Patient states: bilateral neck pain that started Thursday. pt denies as6 any injury. Coronavirus screen: At this time, the client does not indicate any symptoms associated with coronavirus-19. Ebola Screen: No symptoms or risks identified at this time. Initial Sepsis Screen: Does the patient meet any 2 criteria? No. Patient's initial sepsis screen is negative. Does the patient have a suspected source of infection? No. Patient's initial sepsis screen is negative. Risk Assessment: Do you want to hurt yourself or someone else? Patient reports no desire to harm self or others. Onset of symptoms was June 13, 2023. 04:01 Method Of Arrival: Ambulatory as6 04:01 Acuity: GERSON 4 as6 Triage Assessment: 04:03 General: Appears in no apparent distress. Behavior is calm, cooperative. Pain: as6 Complains of pain in neck Aggravated by increased activity, repositioning, Also complains of sleeplessness. EENT: No deficits noted. No signs and/or symptoms were reported regarding the EENT system. Neuro: Level of Consciousness is awake, alert, obeys commands, Oriented to person, place, time, situation, Reports headache. Cardiovascular: Capillary refill < 3 seconds Patient's skin is warm and dry. Respiratory: Respiratory effort is even, unlabored, Respiratory pattern is regular, symmetrical. GI: No deficits noted. No signs and/or symptoms were reported involving the gastrointestinal system. : No deficits noted. No signs and/or symptoms were reported regarding the genitourinary system. Derm: Skin is intact, is healthy with good turgor. 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 - Social history:: Smoking status: Patient reports the use of cigarette tobacco products, smokes one-half pack cigarettes per day. Screenin:04 [facility] ED Fall Risk Assessment (Adult) Score/Fall Risk Level 0 - 2 = Low Risk. Abuse as6 screen: Denies threats or abuse. Denies injuries from another. Nutritional screening: No deficits noted. Tuberculosis screening: No symptoms or risk factors identified. Assessment: 04:05 General: see triage assessment . as6 05:35 Reassessment: Patient appears in no apparent distress at this time. No changes from jw7 previously documented assessment. Patient and/or family updated on plan of care and expected duration. Pain level reassessed. Patient is alert, oriented x 3, equal unlabored respirations, skin warm/dry/pink. Neuro: [place] Agitation-Sedation Scale (RASS): 0 - Alert and Calm Level of Consciousness is awake, alert, obeys commands, Oriented to person, place, time, situation. Vital Signs: 04:01 BP 162 / 83; Pulse 71; Resp 18 S; Temp 97.8; Pulse Ox 97% on R/A; Weight 90.72 kg (R); as6 Height 5 ft. 8 in. (R); Pain 7/10; 05:00 BP 127 / 71; Pulse 57; Resp 17 S; Pulse Ox 95% on R/A; jw7 06:27 BP 143 / 82; Pulse 57; Resp 18 S; Pulse Ox 96% on R/A; as6 04:01 Body Mass Index 30.41 (90.72 kg, 172.72 cm) as6 04:01 Pain Scale: Adult as6 ED Course: 03:52 Patient arrived in ED. jj6 03:53 Francis Allred, HARSHAL is Primary Nurse. as6 03:57 Phil Rivero DO is Attending Physician. ms3 04:03 Triage completed. as6 04:03 Arm band placed on. as6 04:05 Bed in low position. Call light in reach. Side rails up X 1. as6 06:24 Arturo Marcelo DO is Referral Physician. ms3 06:28 No provider procedures requiring assistance completed. Patient did not have IV access as6 during this emergency room visit. 06:36 Provided Education on: rx teaching. as6 Administered Medications: 04:10 Drug: HYDROcodone-acetaminophen PO 5 mg-325 mg 1 tabs PO once Route: PO; as6 06:28 Follow up: Response: No adverse reaction as6 04:10 Drug: Diazepam PO 5 mg PO once Route: PO; as6 06:28 Follow up: Response: No adverse reaction as6 Medication: 04:05 VIS not applicable for this client. as6 Outcome: 06:24 Discharge ordered by . ms3 06:36 Discharged to home ambulatory, as6 06:36 Condition: stable 06:36 Discharge instructions given to patient, Instructed on discharge instructions, follow up and referral plans. medication usage, Demonstrated understanding of instructions, follow-up care, medications, Prescriptions given X 1, 06:36 Patient left the ED. as6 Signatures: Phil Rivero DO DO ms3 Celestina Mason jj6 Francis Allred, RN RN as6 Halle Agustin RN RN jw7
[2023-06-15 07:08] VITALS: TEMP 97.8
[2023-06-15 07:12] VITALS: BP 143/82; O2SAT 96
== END 2023-06-15 06:36 | disposition home or self-care (01) ==
LOC: ER 03:49
DX: M54.2 Cervicalgia (principal); I10 Essential (primary) hypertension; F17.210 Nicotine dependence, cigarettes, uncomplicated; Z95.818 Presence of other cardiac implants and grafts; Z88.0 Allergy status to penicillin
CPT/HCPCS: 99283

== ENCOUNTER 2024-11-13 16:19 | Inpatient (IN) | payer OTHER ==
[2024-11-13] MEDS ORDERED: IPRATROPIUM BROM 0.5MG/2.5ML ONE (16:46)
[2024-11-13] MEDS ORDERED: ALBUTEROL 2.5 MG/3 ML NEB SOL ONE (16:46)
[2024-11-13] MEDS ORDERED: AZITHROMYCIN 500 MG INJ IVPB ONE (16:46)
[2024-11-13] MEDS ORDERED: dexAMETHasone 10 MG/ML VIAL ONE (16:46)
[2024-11-13] MEDS ORDERED: NA CHLORIDE 0.9% 250 ML ONE (16:47)
--- NOTE | 2024-11-13 17:04 | RAD REPORT ---
EXAMINATION: TWO VIEW CHEST XR CLINICAL INDICATION: COPD;Cough;Chest pain TECHNIQUE: 2 views of the chest was performed. COMPARISON: No prior exam. FINDINGS: Nonspecific peribronchial thickening without focal consolidation could represent a viral infection or reactive airway disease. The heart is upper limit of normal in size. No displaced fractures evident. IMPRESSION: Findings could represent a viral infection or reactive airway disease.
[2024-11-13 17:13] LABS: Anion Gap 9.2 mEq/L (5.0-15.0)
[2024-11-13 17:14] LABS: Potassium 3.2 mEq/L (3.5-5.1)
[2024-11-13] MEDS ORDERED: ONDANSETRON 4 MG/2 ML VIAL ONE (17:21)
[2024-11-13] MEDS ORDERED: METOPROLOL TAR 25 MG TAB ONE (17:22)
[2024-11-13] MEDS ORDERED: FUROSEMIDE 40 MG/4 ML VIAL ONE (17:22)
[2024-11-13] MEDS ORDERED: lisinopriL 20 MG TAB ONE (17:22)
[2024-11-13] MEDS ORDERED: hydroCHLOROthiazide 25 MG TAB ONE (17:22)
[2024-11-13] MEDS ORDERED: AMLODIPINE 10 MG TAB ONE (17:22)
[2024-11-13 17:25] LABS: Absolute Basophils 0.2 K/uL (0-0.5); Absolute Eosinophils 0.1 K/uL (0-0.5); Absolute Lymphocytes (CBC) 1.1 K/uL (0.7-4.9); Absolute Monocytes 0.7 K/uL (0.1-1.3); Absolute Neutrophil 10.3 K/uL (1.8-8.0); Basophils % 1.4 % (0-1.3); Eosinophils % 0.6 % (0-4.4); Hemoglobin 15.4 g/dL (13.6-17.9); Lymphocytes % 8.5 % (15.3-44.8); MCH 31.1 pg (27.0-35.0); MCHC 35.1 g/dL (32.0-36.0); MCV 88.7 fL (80-100); MPV 8.5 fL (7.6-11.3); Monocytes % 5.9 % (3.3-12.3); Neutrophils % 83.6 % (41.7-73.7); Nucleated Red Blood Cells % 0.1 % (0-0); Platelets 184 thou/uL (152-406); RBC Red Blood Cell Count 4.96 M/uL (4.33-5.43); Red Cell Distribution Width 13.2 % (12.1-15.2)
--- NOTE | 2024-11-13 18:14 | EDPHYS ---
Physician Documentation [facility] Name: Surinder Hi Age: 69 yrs Sex: Male : 1955 Arrival Date: 11/13/2024 Time: 16:19 Bed 6 Private MD: ED Physician Camilo Quinteros HPI: 11/13 17:58 This 69 yrs old Male presents to ER via Ambulatory with complaints of dr5 Shortness Of Breath. 17:58 The patient has shortness of breath at rest. Onset: The symptoms/episode began/occurred dr5 acutely. Patient is a 69-year-old male with history of hyperlipidemia, hypertension previous CO in 2009 and COPD. Patient reports that he has difficulty breathing with ambulation and cough that started today.. He reports not taking his medication for blood pressure due to being nauseous and throwing up this morning.. Historical: - Allergies: 16:21 PENICILLINS; ss - PMHx: 16:21 blockage in L leg- main artery; High Cholesterol; Hypertension; Myocardial infarction ss (2009); - PSHx: 16:21 cardiac stent; ss - Immunization history:: Adult Immunizations unknown. - Infectious Disease History:: Denies. - Social history:: Smoking status: Patient/guardian denies using tobacco, but has a distant history of tobacco abuse. ROS: 17:58 Constitutional: as per hpi dr5 Exam: 17:58 Constitutional: This is a well developed, well nourished patient who is awake, alert, dr5 and in no acute distress. Head/Face: Normocephalic, atraumatic. ENT: Nares patent. No nasal discharge, no septal abnormalities noted. Tympanic membranes are normal and external auditory canals are clear. Oropharynx with no redness, swelling, or masses, exudates, or evidence of obstruction, uvula midline. Mucous membranes moist. Neck: Trachea midline, no thyromegaly or masses palpated, and no cervical lymphadenopathy. Supple, full range of motion without nuchal rigidity, or vertebral point tenderness. No Meningismus. Chest/axilla: Normal chest wall appearance and motion. Nontender with no deformity. No lesions are appreciated. Cardiovascular: Regular rate and rhythm with a normal S1 and S2. Normal PMI, no JVD. No pulse deficits. Abdomen/GI: Soft, non-tender, non-distended Skin: Warm, dry with normal turgor. Normal color with no rashes, no lesions, and no evidence of cellulitis. MS/ Extremity: Pulses equal, no cyanosis. Neurovascular intact. Full, normal range of motion. Neuro: Awake and alert, GCS 15, oriented to person, place, time, and situation. Cranial nerves II-XII grossly intact. Motor strength 5/5 in all extremities. Sensory grossly intact. Cerebellar exam normal. Normal gait. 17:58 Respiratory: moderate respiratory distress is noted, Respirations: Breath sounds: rhonchi, are heard diffusely, wheezing: is heard diffusely, Respiratory rate: 34 Vital Signs: 16:22 Pulse 94; Resp 35; Pulse Ox 96% on R/A; Weight 89.81 kg; Height 5 ft. 8 in. ; Pain 0/10;ss 16:24 BP 140 / 88; ss 16:30 Temp 98.8(O); ss 17:06 BP 201 / 72; Pulse 99; Resp 28; Pulse Ox 96% ; mb9 18:11 BP 143 / 83; Pulse 78; Pulse Ox 92% ; dr5 16:22 Body Mass Index 30.11 (89.81 kg, 172.72 cm) ss 16:22 Pain Scale: Adult ss MDM: 16:26 Medical Screening Exam initiated dr5 17:58 Differential diagnosis: Chronic Obstructive Pulmonary Disease pneumonia, New onset CHF. dr5 Antibiotic administration: Indicated. Data reviewed: vital signs, nurses notes. Consideration of Admission/Observation Patient was admitted/placed on observation. 18:01 Care significantly affected by the following Social Determinants of Health: Poor access dr5 to healthcare and/or lack of insurance, Poor access to transportation, Problems related to employment. Counseling: I had a detailed discussion with the patient and/or guardian regarding the historical points, exam findings, and any diagnostic results supporting the discharge/admit diagnosis, the presence of at least one elevated blood pressure reading (>120/80) during this emergency department visit, lab results, radiology results, the need for further work-up and treatment in the hospital. Medication response: Response to treatment: the patient's symptoms have markedly improved after treatment. ED course: New onset congestive heart failure with BNP in the 800s. Will begin diuresing in ER. COPD exacerbation cover with azithromycin. Lactic acid at upper limit of 2.0 blood cultures obtained. Will admit to hospital for new onset CHF as well as COPD exacerbation.. 11/13 16:27 Order name: Basic Metabolic Panel; Complete Time: 17:17 dr5 11/13 16:27 Order name: CBC with Diff; Complete Time: 17:32 [facility] 11/13 16:27 Order name: NT PRO-BNP; Complete Time: 17:17 dr5 11/13 16:27 Order name: Troponin HS; Complete Time: 17:17 [facility] 11/13 16:27 Order name: Blood Culture Adult (2) [facility] 11/13 16:27 Order name: Lactate w/ 2H reflex if indic.; Complete Time: 17:17 [facility] 11/13 18:25 Order name: COVID-19 Ag + Flu A+B Ag EDMS 11/13 18:45 Order name: CBC with Automated Diff EDMS 11/13 18:45 Order name: CBC with Automated Diff EDMS 11/13 18:45 Order name: Comprehensive Metabolic Panel EDMS 11/13 18:45 Order name: Comprehensive Metabolic Panel EDMS 11/13 18:45 Order name: SARS RAPID cm10 11/13 16:27 Order name: Chest Pa And Lat (2 Views) XRAY; Complete Time: 17:05 [facility] 11/13 16:27 Order name: Cardiac monitoring; Complete Time: 16:50 [facility] 11/13 16:27 Order name: EKG - Nurse/Tech; Complete Time: 16:50 [facility] 11/13 16:27 Order name: IV Saline Lock; Complete Time: 16:50 [facility] 11/13 16:27 Order name: Labs collected and sent; Complete Time: 16:50 [facility] 11/13 16:27 Order name: O2 Per Protocol; Complete Time: 16:50 [facility] 11/13 16:27 Order name: O2 Sat Monitoring; Complete Time: 16:50 dr5 EC:39 Rate is 94 beats/min. Rhythm is regular. QRS [place] is Normal. NH interval is normal at dr5 132 msec. QRS interval is normal at 66 msec. QT interval is normal at 328 msec. Administered Medications: 16:50 Not Given (Duplicate Order): dexamethasone 10 mg IM once cm10 16:50 Not Given (Duplicate Order): [id number] mg PO once cm10 16:55 Drug: Dexamethasone IVP 10 mg IVP once; (not to exceed 40 mg) Route: IVP; Site: left mb9 antecubital; 18:12 Follow up: Response: No adverse reaction mb9 16:57 Drug: AZITHromycin IVPB 500 mg IVPB once over 1 hrs; (mix in 250 mL NS) Route: IVPB; mb9 Infused Over: 1 hrs; Site: left antecubital; 18:12 Follow up: Response: No adverse reaction; IV Status: Completed infusion mb9 16:58 Drug: DuoNeb Nebulize (3:1) (2.5 mg - 0.5 mg) 6 ml Nebulizer once Route: Nebulizer; mb9 18:12 Follow up: Response: No adverse reaction mb9 17:18 CANCELLED (Inappropriate at this time): magnesium sulfate2 grams IVPB once over 30 mins dr5 17:25 Drug: Metoprolol PO 25 mg PO once Route: PO; mb9 18:12 Follow up: Response: No adverse reaction mb9 17:25 Drug: Lisinopril PO 20 mg PO once Route: PO; mb9 18:12 Follow up: Response: No adverse reaction mb9 17:28 Drug: Hydrochlorothiazide PO 12.5 mg PO once Route: PO; mb9 18:11 Follow up: Response: No adverse reaction mb9 17:28 Drug: Furosemide IVP 40 mg IVP once; give over 2 minutes Route: IVP; Site: left mb9 antecubital; 18:11 Follow up: Response: No adverse reaction mb9 17:29 Drug: Ondansetron IVP 4 mg IVP once; over 2 minutes Route: IVP; Site: left antecubital; mb9 18:12 Follow up: Response: No adverse reaction mb9 17:29 Drug: amLODIPine PO 10 mg PO once Route: PO; mb9 18:12 Follow up: Response: No adverse reaction mb9 18:24 Drug: Potassium Chloride PO 40 mEq PO once Route: PO; mb9 18:54 Follow up: Response: No adverse reaction mb9 Disposition: 20:36 Co-signature as Attending Physician, Camilo Quinteros MD I agree with the assessment and phoebe plan of care. Disposition Summary: 11/13/24 18:14 Hospitalization Ordered Notes: Hospitalization Status: Inpatient Admission dr5 Provider: Hunter Ramirez dr5 Location: Telemetry/MedSurg (observation) dr5 Condition: Stable dr5 Problem: new dr5 Symptoms: are unchanged dr5 Bed/Room Type: Standard dr5 Room Assignment: 214(11/13/24 18:54) ll1 Diagnosis - COPD/ Chronic obstructive pulmonary disease with (acute) exacerbation dr5 - Unspecified combined systolic (congestive) and diastolic (congestive) heart failure dr5 Forms: - Medication Reconciliation Form dr5 - SBAR form dr5 - Leadership Thank You Letter dr5 Signatures: Dispatcher [employer] EDCamilo Ritter MD MD cha Blanchard, Shelby, RN RN ss Danae Zavaleta RN RN ll1 Stephani Paiz, RN RN mb9 Anahi Grant RN RN cm10 Hanna Wild RN RN kj2 Leandro Almanza, PLUMBING INSTRUCTOR-C PLUMBING INSTRUCTOR-Cdr5 Corrections: (The following items were deleted from the chart) 16:27 16:27 BASIC METABOLIC PANEL+C.LAB.BRZ ordered. EDMS EDMS 16:27 16:27 CBC+H.LAB.BRZ ordered. EDMS EDMS 16:27 16:27 PROBNP+C.LAB.BRZ ordered. EDMS EDMS 16:27 16:27 Troponin High Sensitivity+C.LAB.BRZ ordered. EDMS EDMS 16:27 16:27 BLOOD CULTURE*+BA.LAB.BRZ ordered. EDMS EDMS 16:27 16:27 LACTATE+C.LAB.BRZ ordered. EDMS EDMS 16:28 16:28 Chest Pa And Lat (2 Views)+RAD.RAD.BRZ ordered. EDMS EDMS 17:18 17:12 Magnesium Sulfate IVPB 2 grams IVPB once over 30 mins ordered. dr5 dr5 18:54 18:14 dr5 ll1
--- NOTE | 2024-11-13 18:14 | ER ---
Nurse's Notes [facility] Name: Surinder Hi Age: 69 yrs Sex: Male : 1955 Arrival Date: 11/13/2024 Time: 16:19 Bed 6 Private MD: Diagnosis: COPD/ Chronic obstructive pulmonary disease with (acute) exacerbation;Unspecified combined systolic (congestive) and diastolic (congestive) heart failure Presentation: 11/13 16:22 Chief complaint: Patient states: SOB and chills that began yesterday. Coronavirus ss screen: Client denies travel out of the [place] in the last 14 days. Ebola Screen: Patient denies exposure to infectious person. Patient denies travel to an Ebola-affected area in the 21 days before illness onset. Initial Sepsis Screen: Does the patient meet any 2 criteria? No. Patient's initial sepsis screen is negative. Does the patient have a suspected source of infection? No. Patient's initial sepsis screen is negative. Risk Assessment: Do you want to hurt yourself or someone else? Patient reports no desire to harm self or others. Onset of symptoms was November 12, 2024. 16:22 Method Of Arrival: Ambulatory ss 16:22 Acuity: GERSON 2 ss Triage Assessment: 18:59 Pain: Denies pain. cm10 Historical: - Allergies: 16:21 PENICILLINS; ss - PMHx: 16:21 blockage in L leg- main artery; High Cholesterol; Hypertension; Myocardial infarction ss (2009); - PSHx: 16:21 cardiac stent; ss - Immunization history:: Adult Immunizations unknown. - Infectious Disease History:: Denies. - Social history:: Smoking status: Patient/guardian denies using tobacco, but has a distant history of tobacco abuse. Screenin:[facility] ED Fall Risk Assessment (Adult) History of falling in the last 3 months, cm10 including since admission No falls in past 3 months (0 pts) Confusion or Disorientation No (0 pts) Intoxicated or Sedated Yes (3 pts) Impaired Gait No (0 pts) Mobility Assist Device Used No (0 pt) Altered Elimination No (0 pt) Score/Fall Risk Level 0 - 2 = Low Risk Oriented to surroundings, Maintained a safe environment, Hourly rounding (assess needs \T\ fall precautionary measures) done. Abuse screen: Denies threats or abuse. Denies injuries from another. Nutritional screening: No deficits noted. Tuberculosis screening: No symptoms or risk factors identified. Assessment: 16:45 General: Appears uncomfortable, Behavior is cooperative. Neuro: No deficits noted. cm10 Level of Consciousness is awake, alert, obeys commands, Oriented to person, place, time, situation, Appropriate for age. Respiratory: No deficits noted. Airway is patent Respiratory effort is labored, Respiratory pattern is tachypnea. 17:06 Reassessment: ERP notified of pts BP 201/72. mb9 Vital Signs: 16:22 Pulse 94; Resp 35; Pulse Ox 96% on R/A; Weight 89.81 kg; Height 5 ft. 8 in. ; Pain 0/10;ss 16:24 BP 140 / 88; ss 16:30 Temp 98.8(O); ss 17:06 BP 201 / 72; Pulse 99; Resp 28; Pulse Ox 96% ; mb9 18:11 BP 143 / 83; Pulse 78; Pulse Ox 92% ; dr5 16:22 Body Mass Index 30.11 (89.81 kg, 172.72 cm) ss 16:22 Pain Scale: Adult ss ED Course: 16:21 Patient arrived in ED. ss 16:21 Leandro Almanza F[facility]-C [facility] ss 16:21 Camilo Quinteros MD is Attending Physician. ss 16:22 Arm band placed on right wrist. ss 16:23 Triage completed. ss 16:26 Anahi Grant, RN is Primary Nurse. cm10 16:26 Patient placed in an exam room, on a stretcher. ll1 16:43 EKG done, by ED staff, reviewed by Leandro NEVAREZ. mb9 16:45 Patient has correct armband on for positive identification. Placed in gown. Bed in low cm10 position. Call light in reach. Side rails up X2. Client placed on continuous cardiac and pulse oximetry monitoring. NIBP monitoring applied. night monitor on. 16:58 Chest Pa And Lat (2 Views) XRAY In Process Unspecified. EDMS 16:59 Inserted saline lock: 20 gauge in left antecubital area, using aseptic technique. Blood mb9 collected. Flushed with 10 mL NS. 18:13 Hunter Ramirez MD is Hospitalizing Provider. dr5 18:54 SARS RAPID Sent. mb9 18:58 No provider procedures requiring assistance completed. Patient admitted, IV remains in cm10 place. 18:59 Provided Education on: Need for admit. cm10 Administered Medications: 16:50 Not Given (Duplicate Order): dexamethasone 10 mg IM once cm10 16:50 Not Given (Duplicate Order): [id number] mg PO once cm10 16:55 Drug: Dexamethasone IVP 10 mg IVP once; (not to exceed 40 mg) Route: IVP; Site: left mb9 antecubital; 18:12 Follow up: Response: No adverse reaction mb9 16:57 Drug: AZITHromycin IVPB 500 mg IVPB once over 1 hrs; (mix in 250 mL NS) Route: IVPB; mb9 Infused Over: 1 hrs; Site: left antecubital; 18:12 Follow up: Response: No adverse reaction; IV Status: Completed infusion mb9 16:58 Drug: DuoNeb Nebulize (3:1) (2.5 mg - 0.5 mg) 6 ml Nebulizer once Route: Nebulizer; mb9 18:12 Follow up: Response: No adverse reaction mb9 17:18 CANCELLED (Inappropriate at this time): magnesium sulfate2 grams IVPB once over 30 mins dr5 17:25 Drug: Metoprolol PO 25 mg PO once Route: PO; mb9 18:12 Follow up: Response: No adverse reaction mb9 17:25 Drug: Lisinopril PO 20 mg PO once Route: PO; mb9 18:12 Follow up: Response: No adverse reaction mb9 17:28 Drug: Hydrochlorothiazide PO 12.5 mg PO once Route: PO; mb9 18:11 Follow up: Response: No adverse reaction mb9 17:28 Drug: Furosemide IVP 40 mg IVP once; give over 2 minutes Route: IVP; Site: left mb9 antecubital; 18:11 Follow up: Response: No adverse reaction mb9 17:29 Drug: Ondansetron IVP 4 mg IVP once; over 2 minutes Route: IVP; Site: left antecubital; mb9 18:12 Follow up: Response: No adverse reaction mb9 17:29 Drug: amLODIPine PO 10 mg PO once Route: PO; mb9 18:12 Follow up: Response: No adverse reaction mb9 18:24 Drug: Potassium Chloride PO 40 mEq PO once Route: PO; mb9 18:54 Follow up: Response: No adverse reaction mb9 Medication: 18:58 VIS not applicable for this client. cm10 Outcome: 18:14 Decision to Hospitalize by Provider. dr5 18:59 Admitted to Med/surg via stretcher, room 214, cm10 18:59 Condition: stable 18:59 Instructed on the need for admit, 20:17 Patient left the ED. vc1 Signatures: Dispatcher [employer] EDMS Sylvie Soares RN RN Danae Gallegos RN RN ll1 Salina Limon RN RN 1 Stephani Paiz RN RN [id number] Anahi Grant RN RN cm10 Leandro Almanza, ARCHITECTURAL PROJECT MANAGER-C ARCHITECTURAL PROJECT MANAGER-Cdr5 Corrections: (The following items were deleted from the chart) 16:31 16:22 Pulse 94bpm; Resp 25bpm; Pulse Ox 96% RA; 89.81 kg; Height 5 ft. 8 in.; BMI: ss 30.1; Pain 0/10, Adult; ss 19:02 18:59 Admitted to Med/surg via stretcher, room 214, with oxygen, cm10 cm10
[2024-11-13] MEDS ORDERED: POTASSIUM CL SA 10 MEQ TAB PO ONE (18:18)
[2024-11-13] MEDS ORDERED: ACETAMINOPHEN 325 MG TABLET PO PRN (18:40)
[2024-11-13] MEDS ORDERED: IPRATROPIUM BROM 0.5MG/2.5ML NEB PRN (18:40)
[2024-11-13] MEDS ORDERED: ONDANSETRON 4 MG/2 ML VIAL IV PRN (18:40)
[2024-11-13] MEDS ORDERED: ALBUTEROL 2.5 MG/3 ML NEB SOL NEB PRN (18:40)
--- NOTE | 2024-11-13 18:40 | P.HP ---
Certification for Inpatient Patient admitted to: Inpatient With expected LOS: >2 Midnights Practitioner: I am a practitioner with admitting privileges, knowledge of patient current condition, hospital course, and medical plan of care. Services: Services provided to patient in accordance with Admission requirements found in Title 42 Section 412.3 of the Code of Federal Regulations Patient History Date of Service: 11/14/24 Reason for admission: SOB History of Present Illness: 69 yrs old Male with past medical history of hypertension, hyperlipidemia, CAD status post stents, peripheral artery disease and history of COPD who was brought to ER with shortness of breath. He started having shortness of breath and upper respiratory tract symptoms associated with cough which is nonproductive.. Patient reports that he has difficulty breathing with ambulation and cough that started today.. Associated with nausea but no vomiting. No sick contacts. Denies any fever or chills. Associated with generalized weakness. Patient is still has mild headache and generalized weakness. Patient was assessed in the ER and is admitted for further management of p ossible COPD exacerbation/ CHF Allergies Penicillins Allergy (Severe, Verified 03/24/16 16:01) Itching/Hives/Rash Home medications list reviewed: Yes Home Medications: Aspirin [Aspirin EC 81 MG] 81 mg PO DAILY #90 tablet. 03/25/16 Albuterol Inhaler [Ventolin Inhaler*] 1 puff IH Q4HP PRN 12/03/20 Amlodipine [Norvasc*] 10 mg PO DAILY 12/03/20 Atorvastatin Calcium [Lipitor*] 20 mg PO BEDTIME 12/03/20 Clopidogrel Bisulfate [Plavix*] 75 mg PO DAILY 12/03/20 Gabapentin 300 mg PO BID 12/03/20 Acetaminophen with Codeine [Acetaminophen-Cod #3 Tablet] 1 tab PO Q6HR PRN 11/13/24 Cetirizine HCl [All Day Allergy] 10 mg PO DAILY PRN 11/13/24 Fluticasone/Umeclidin/Vilanter [Trelegy Ellipta 100-62.5-25] 1 puff IN DAILY 11/13/24 Ibuprofen 800 mg PO TID PRN 11/13/24 Lisinopril/Hydrochlorothiazide [Lisinopril-Hctz 20-12.5 mg Tab] 1 tab PO DAILY 11/13/24 Metoprolol Succinate [Toprol Xl] 25 mg PO DAILY 11/13/24 - Past Medical/Surgical History Diabetic: No Past Medical History: Reviewed- Non-Contributory -: Hypertension -: Coronary artery disease with previous stent placement -: Tobacco abuse -: COPD Past Surgical History: Reviewed- Non-Contributory -: Cardiac stent placement Psychosocial/ Personal History: He is single, has 1 child, 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 - Family History Father Notes: pacemaker Mother -: Heart disease, Lung disease, Diabetes Notes: stents - Social History Smoking Status: Former smoker Alcohol use: No CD- Drugs: No Caffeine use: Yes Review of Systems 10-point ROS is otherwise unremarkable Physical Examination - Vital Signs Temperature: 98.1 F Blood Pressure: 150/70 Pulse: 75 Respirations: 18 Pulse Ox (%): 93 - Physical Exam General: Alert, Oriented x3 HEENT: Atraumatic, Normocephalic Neck: Supple Respiratory: Diminished, Crackles/rales, Expiratory wheezes Cardiovascular: Regular rate/rhythm, Normal S1 S2 Capillary refill: <2 Seconds Gastrointestinal: Soft and benign, W/out hepatosplenomegaly Musculoskeletal: No clubbing, No swelling Integumentary: No rashes Neurological: Normal speech, Normal strength at 5/5 x4 extr, Cranial nerves 3-12 intact, Normal reflexes 2+, Normal affect Lymphatics: No axilla or inguinal lymphadenopathy - Studies Laboratory Data (last 24 hrs) 11/13/24 11/13/24 16:40 16:40 WBC 12.40 H Hgb 15.4 Hct 44.0 Plt Count 184 Sodium 139 Potassium 3.2 L BUN 13 Creatinine 1.25 Glucose 99 Assessment and Plan - Plan COPD exacerbation Monitor closely on telemetry Started on bronchodilators Oxygen supplementation Steroids added Chest x-ray and CT findings noted Pulmonology consult if not better in the a.m. Possible pneumonitis Chest x-ray findings noted CT of the chest showing peribronchial thickening Started on antibiotic Zithromax empirically Acute on chronic CHF possibly systolic/diastolic Monitor closely on telemetry Started on diuresis Oxygen supplementation Will try to wean down oxygen requirement Continue home medications Titrate as needed Will obtain an echocardiogram Cardiology consult Hypertension History of CAD status post PCI Antihypertensives titrated Continue home medications and titrate as needed Hyperlipidemia We will get a lipid panel and A1c Continue statin GI/DVT prophylaxis Advanced directive full code Discharge Plan: Home Plan to discharge in: 48 Hours - Advance Directives Does patient have a Living Will: No Does patient have a Durable POA for Healthcare: No - Code Status/Comfort Care Code Status: Full Code Time Spent Managing Pts Care (In Minutes): 48
[2024-11-13 19:22] LABS: SARS-CoV-2 Antigen Rapid Res Negative (Negative)
[2024-11-13] MEDS: METHYLPREDNISOLONE 125 MG INJ IV SCH (22:17)
[2024-11-13] MEDS: FUROSEMIDE 40 MG/4 ML VIAL IV SCH (22:18)
[2024-11-13 23:01] LABS: Influenza A Ag Negative; Influenza B Ag Negative; SARS-CoV-2 Antigen Rapid Res Negative (Negative)
[2024-11-14] MEDS ORDERED: GUAIFENESIN/DM 5 ML UCUP PO PRN (05:39)
[2024-11-14] MEDS: BENZONATATE 100 MG CAP PO SCH (06:09)
[2024-11-14 06:44] LABS: Absolute Lymphocytes (CBC) 0.9 K/uL (0.7-4.9); Absolute Monocytes 0.3 K/uL (0.1-1.3); Basophils % 0.1 % (0-1.3); Hematocrit 43.2 % (39.6-49.0); Hemoglobin 15.1 g/dL (13.6-17.9); MCH 30.9 pg (27.0-35.0); MCHC 34.9 g/dL (32.0-36.0); MCV 88.4 fL (80-100); MPV 7.8 fL (7.6-11.3); Monocytes % 2.4 % (3.3-12.3); Neutrophils % 90.5 % (41.7-73.7); Platelets 212 thou/uL (152-406); RBC Red Blood Cell Count 4.89 M/uL (4.33-5.43)
[2024-11-14 07:26] LABS: Albumin 3.3 g/dL (3.4-5.0); Albumin/Globulin Ratio 0.7 (1.1-1.8); Anion Gap 9.3 mEq/L (5.0-15.0); Bilirubin Total 0.8 mg/dL (0.2-1.0); Globulin 4.5 g/dL (2.3-3.5); Potassium 3.3 mEq/L (3.5-5.1); Protein, Total 7.8 g/dL (6.4-8.2)
[2024-11-14] MEDS: HOME MED 1 EA UNK (Fluticasone/Umeclidin/Vilanter [Trelegy Ellipta 100-62.5-25] Blst.W.Dev IH SCH (09:00)
[2024-11-14] MEDS ORDERED: CETIRIZINE HCL 5 MG TABLET PO PRN (09:41)
--- NOTE | 2024-11-14 09:53 | P.CNS ---
Date of Consult: 11/14/24 Chief Complaint: SOB History of Present Illness: Patient with PMH of CAD s/p stents, chronic diastolic heart failure, COPD on inhalers, presented with worsening SOB, cough, denies chest pain, no palpitations, no syncope. Allergies Penicillins Allergy (Severe, Verified 03/24/16 16:01) Itching/Hives/Rash Home medications list reviewed: Yes Home Medications: Aspirin [Aspirin EC 81 MG] 81 mg PO DAILY #90 tablet. 03/25/16 Albuterol Inhaler [Ventolin Inhaler*] 1 puff IH Q4HP PRN 12/03/20 Amlodipine [Norvasc*] 10 mg PO DAILY 12/03/20 Atorvastatin Calcium [Lipitor*] 20 mg PO BEDTIME 12/03/20 Clopidogrel Bisulfate [Plavix*] 75 mg PO DAILY 12/03/20 Gabapentin 300 mg PO BID 12/03/20 Acetaminophen with Codeine [Acetaminophen-Cod #3 Tablet] 1 tab PO Q6HR PRN 11/13/24 Cetirizine HCl [All Day Allergy] 10 mg PO DAILY PRN 11/13/24 Fluticasone/Umeclidin/Vilanter [Trelegy Ellipta 100-62.5-25] 1 puff IN DAILY 11/13/24 Ibuprofen 800 mg PO TID PRN 11/13/24 Lisinopril/Hydrochlorothiazide [Lisinopril-Hctz 20-12.5 mg Tab] 1 tab PO DAILY 11/13/24 Metoprolol Succinate [Toprol Xl] 25 mg PO DAILY 11/13/24 - Past Medical/Surgical History Diabetic: No -: Hypertension -: Coronary artery disease with previous stent placement -: Tobacco abuse -: COPD -: Cardiac stent placement Psychosocial/ Personal History: He is single, has 1 child, 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 moist/pink, EOMI, Sclerae nonicteric Neck: Supple, 2+ carotid pulse no bruit, No LAD, Without JVD or thyroid abnor mality Respiratory: Normal air movement, Inspiratory wheezes Cardiovascular: Regular rate/rhythm, Normal S1 S2 Gastrointestinal: Normal bowel sounds, No tenderness Musculoskeletal: No tenderness Integumentary: No rashes Neurological: Normal gait, Normal speech, Normal tone, Normal affect Lymphatics: No axilla or inguinal lymphadenopathy Laboratory Data (last 24 hrs) 11/13/24 11/13/24 16:40 16:40 WBC 12.40 H Hgb 15.4 Hct 44.0 Plt Count 184 Sodium 139 Potassium 3.2 L BUN 13 Creatinine 1.25 Glucose 99 - Problems (1) Acute on chronic diastolic heart failure Current Visit: Yes Status: Acute Plan: continue Lasix 40 mg IV q8 hours add Spironlactone 25 mg daily increase lisinopril to 20 mg daily continue Toprol XL 25 mg daily continue to monitor input and output and electrolytes (2) Hyperlipidemia Current Visit: No Status: Acute Plan: Lipitor 40 mg daily re check lipid panel in 8 weeks. Qualifiers: Hyperlipidemia type: pure hypercholesterolemia (3) Coronary artery disease Onset Date: 03/25/16 Current Visit: No Status: Chronic Plan: stable, patient with no chest pain, troponin negative. continue ASA 81 mg daily Lipitor 40 mg daily (4) Hypertension Onset Date: 03/25/16 Current Visit: No Status: Chronic
[2024-11-14 09:55] LABS: Blood Morphology Comment NOT SEEN (NOT SEEN); Platelet Estimate ADEQ; White Blood Cell Scan OK (OK)
[2024-11-14] MEDS: AZITHROMYCIN IV 500 MG in NA CHLORIDE 0.9% 250 ML IVPB SCH (11:10)
[2024-11-14] MEDS: ENOXAPARIN 40 MG/0.4 ML SQ SCH (11:11)
[2024-11-14] MEDS: POTASSIUM CL SA 10 MEQ TAB PO ONE (11:12)
[2024-11-14] MEDS: CLOPIDOGREL 75 MG TABLET PO SCH (11:12)
[2024-11-14] MEDS: AMLODIPINE 10 MG TAB PO SCH (11:12)
[2024-11-14] MEDS: ASPIRIN EC 81 MG TAB PO SCH (11:13)
[2024-11-14] MEDS: GABAPENTIN 300 MG CAP PO SCH (11:13)
[2024-11-14] MEDS: lisinopriL 10 MG TAB PO SCH (11:13)
[2024-11-14] MEDS: METOPROLOL XL 25 MG TAB PO SCH (11:13)
--- NOTE | 2024-11-14 12:05 | EKG ---
Test Date: 2024-11-13 Test Time: 16:39:50 [employer] Developer: MB MEASUREMENT RESULTS: Intervals: Rate: 94 ME: 132 QRSD: 66 QT: 328 QTc: 410 [place]: P: 61 ME: 132 QRS: 64 T: 80 INTERPRETIVE STATEMENTS: Sinus rhythm with premature atrial complexes with aberrant conduction Nonspecific ST abnormality Abnormal ECG Compared to ECG 12/22/2022 04:47:57 Atrial premature complex(es) now present Aberrant conduction of supraventricular beat(s) now present ST (T wave) deviation now present Sinus bradycardia no longer present Electronically Signed On 11-14-24 12:04:47 CDT by Jaime Looney
--- NOTE | 2024-11-14 12:19 | ECHO ---
HEIGHT: 5 ft 8 in WEIGHT: 198 lb 0 oz DATE OF STUDY: 11/14/[address]: Adan Ramirez DO 2-DIMENSIONAL: YES M.MODE: YES DOPPLER: YES COLOR FLOW: YES TDS: YES PORTABLE: YES DEFINITY: BUBBLE STUDY: DIAGNOSIS: CONGESTIVE HEART FAILURE CARDIAC HISTORY: CATHERIZATION: YES SURGERY: NO PROSTHETIC VALVE: NO PACEMAKER: NO MEASUREMENTS (cm) DIASTOLIC (NORMALS) SYSTOLIC (NORMALS) IVSd 1.4 (0.6-1.2) LA Diam 2.8 (1.9-4.0) LVEF 60-65% LVIDd 3.9 (3.5-5.7) LVIDs 28 (2.0-3.5) %FS 28% LVPWd 1.4 (0.6-1.2) Ao Diam 2.4 (2.0-3.7) 2 DIMENSIONAL ASSESSMENT: RIGHT ATRIUM: NOT WELL VISUALIZED LEFT ATRIUM: NORMAL RIGHT VENTRICLE: NOT WELL VISUALIZED LEFT VENTRICLE: NORMAL TRICUSPID VALVE: NOT WELL VISUALIZED MITRAL VALVE: NORMAL PULMONIC VALVE: NOT WELL VISUALIZED AORTIC VALVE: NORMAL PERICARDIAL EFFUSION: NONE AORTIC ROOT: NORMAL LEFT VENTRICULAR WALL MOTION: NORMAL DOPPLER/COLOR FLOW: GRADE I DIASTOLIC DYSFUNCTION COMMENTS: 1. NORMAL LEFT VENTRICULAR SYSTOLIC FUNCTION, EJECTION FRACTION 60-65%, NORMAL WALL MOTION 2. GRADE I DIASTOLIC DYSFUNCTION 3. NORMAL FILLING PRESSURE (RIGHT ATRIAL PRESSURE 0-5 mmHg) TECHNOLOGIST: JONATHAN MARIANO
[2024-11-14] MEDS: ALBUTEROL 2.5 MG/3 ML NEB SOL NEB SCH (12:59)
--- NOTE | 2024-11-14 13:32 | P.PN ---
Subjective Date of Service: 11/14/24 Chief Complaint: SOB Patient is reporting persistent coughing and shortness of breath. Coughing is nonproductive. Patient reports that shortness of breath was preceded by a bout of nasal congestion and sore throat. He is currently stable on room air. Physical Examination - Vital Signs Temperature: 97.6 F Blood Pressure: 143/40 Pulse: 73 Respirations: 20 Pulse Ox (%): 92 - Studies Laboratory Data (last 24 hrs) 11/13/24 11/13/24 16:40 16:40 WBC 12.40 H Hgb 15.4 Hct 44.0 Plt Count 184 Sodium 139 Potassium 3.2 L BUN 13 Creatinine 1.25 Glucose 99 Assessment And Plan - Plan Physical examination General: Alert and oriented x3, NAD, HEENT: Conjunctiva not pale, anicteric sclera Neck: Supple, no elevated JVD Heart: Heart sounds 1 and 2 normal, regular rhythm, normal rate, no pedal edema Lungs: Clear to auscultation bilaterally, adequate breath sounds bilaterally, no rhonchi or crackles. Abdomen: Soft, nondistended, nontender, normal bowel sounds. Extremities: No tenderness, no deformity Skin: Normal skin turgor, no rash, no nodules or ulcers. Neuro: No focal motor deficit. Normal speech. Psychiatry: Normal mood, no agitation. Diagnosis COPD exacerbation Acute infective bronchitis Acute on chronic diastolic heart failure Coronary artery disease status post stent Essential hypertension Plan COPD exacerbation Acute infective bronchitis Continue IV steroid Zithromax Scheduled neb treatment Chest physiotherapy with flutter device and Mucinex Pulmonary consult. Acute on chronic diastolic heart failure Cardiology Dr. Looney input appreciated. Echocardiogram results reviewed and reported normal EF. Continue IV Lasix Monitor intake and output Lisinopril increased to 20 mg per cardiology recommendation Continue metoprolol Hypertension History of CAD status post PCI Stable Continue home medications. Lisinopril dose increased from 12.5 to 20 mg daily Hyperlipidemia Continue statin DVT prophylaxis: Lovenox Advanced directive: full code
[2024-11-14] MEDS: ATORVASTATIN 20 MG TAB PO SCH (20:59)
[2024-11-14] MEDS: ZOLPIDEM TARTRATE 5 MG TABLET PO PRN (21:00)
[2024-11-15 05:48] LABS: Hematocrit 43.8 % (39.6-49.0); Hemoglobin 15.7 g/dL (13.6-17.9); RBC Red Blood Cell Count 4.97 M/uL (4.33-5.43)
[2024-11-15 05:49] LABS: Absolute Basophils 0.1 K/uL (0-0.5); Absolute Lymphocytes (CBC) 0.9 K/uL (0.7-4.9); Absolute Monocytes 0.8 K/uL (0.1-1.3); Absolute Neutrophil 14.8 K/uL (1.8-8.0); Basophils % 0.9 % (0-1.3); Lymphocytes % 5.3 % (15.3-44.8); MCH 31.6 pg (27.0-35.0); MCHC 35.8 g/dL (32.0-36.0); MCV 88.2 fL (80-100); MPV 8.2 fL (7.6-11.3); Monocytes % 4.8 % (3.3-12.3); Nucleated Red Blood Cells % 0.1 % (0-0); Platelets 206 thou/uL (152-406)
[2024-11-15] MEDS ORDERED: VANCOMYCIN 1 GM in NA CHLORIDE 0.9% 250 ML IVPB SCH (06:00)
[2024-11-15] MEDS: VANCOMYCIN 1.25 GM in NA CHLORIDE 0.9% 250 ML IVPB ONE (06:00)
[2024-11-15] MEDS: VANCOMYCIN 500 MG/VIAL ONE (06:03)
[2024-11-15] MEDS: NA CHLORIDE 0.9% 250 ML ONE (06:03)
[2024-11-15] MEDS: VANCOMYCIN 1 GM/VIAL ONE (06:04)
[2024-11-15 06:07] LABS: Anion Gap 10.4 mEq/L (5.0-15.0); Potassium 3.4 mEq/L (3.5-5.1)
[2024-11-15] MEDS: VANCOMYCIN 1 GM in NA CHLORIDE 0.9% 250 ML IVPB ONE (08:42)
[2024-11-15] MEDS: POTASSIUM CL SA 10 MEQ TAB PO ONE ×2 (08:43→20:16)
[2024-11-15] MEDS: lisinopriL 20 MG TAB PO SCH (08:44)
--- NOTE | 2024-11-15 08:47 | RAD REPORT ---
EXAMINATION: ONE VIEW CHEST XR CLINICAL INDICATION: persistent cough, hypoxia, f/u opacities TECHNIQUE: Frontal chest projection is submitted. Examination is limited by patient positioning and t echnique. COMPARISON: 11/13/2024 FINDINGS: Moderate bilateral pulmonary opacities are noted which may represent viral infection/bronchitis but i s a nonspecific. The heart is upper limit of normal in size. No displaced fractures identified. IMPRESSION: No significant change seen since 11/13/2024.
[2024-11-15] MEDS ORDERED: HOME MED 1 EA UNK (Lisinopril/Hydrochlorothiazide [Lisinopril-Hctz 20-12.5 Mg Tab] Tablet) PO SCH (09:00)
[2024-11-15] MEDS ORDERED: HOME MED 1 EA UNK (Fluticasone/Umeclidin/Vilanter [Trelegy Ellipta 100-62.5-25] Blst.W.Dev IN SCH (09:00)
[2024-11-15] MEDS ORDERED: METOPROLOL XL 25 MG TAB PO SCH (09:00)
--- NOTE | 2024-11-15 09:43 | P.PN ---
Date of Service: 11/15/24 Subjective: feels slightly better overall not needing oxygen supplementation this morning hasn't gotten out of bed much since admission no events overnight afebrile Physical Exam: GEN: Alert, oriented CV: Regular rate and rhythm, no edema Pulm: mildly labored respirations on room air at rest, Expiratory wheeze ABD: soft, nontender, nondistended Problem List: Acute on chronic COPD exacerbation Acute infective bronchitis Acute on Chronic diastolic CHF Hx CAD s/p PCI Hypertension Acute on chronic COPD exacerbation Acute infective bronchitis on admission, presents with worsening SOB, cough, weakness. Denies fever/chills. given IV steroids, IV lasix, IV vanc/azithromycin in ED. CXR on admission: Possible viral infection/bronchitis vs reactive airway disease 5/5 - Feeling slightly better overall Continue IV steroids, duonebs, IV vanc/azithromycin wean oxygen as tolerated 5/6 - Breathing feels easier today. Off oxygen this morning Will see how he does throughout the day. He hasn't gotten out of bed much since admission. repeat CXR stable without significant change. Acute on Chronic diastolic CHF Echo: 60-65% EF, grade 1 diastolic dysfunction, normal filling pressure 5/ - Cardiology consulted continue IV lasix q8h 5/6 - mild bump in renal fxn, likely from diuresis DC IV lasix, switch to oral lasix 40 mg daily Consider trial of spironolactone 25 mg daily per cardio Hx CAD s/p PCI Hypertension continue home metoprolol, asa 81mg, amlodipine, plavix, statin 5/6 - lisinopril increased to 20mg daily VTE: Lovenox Code: Full Dispo: home, ~1 day Pending cultures, remains stable off oxygen renal fxn Time Spent Managing Pts Care (In Minutes): 55
--- NOTE | 2024-11-15 11:03 | P.PN ---
Subjective Date of Service: 11/15/24 Chief Complaint: SOB Subjective: No new changes, No C/O voiced, Tolerating diet, Ambulating, Improving Review of Systems 10-point ROS is otherwise unremarkable Physical Examination - Vital Signs Temperature: 97.7 F Blood Pressure: 130/65 Pulse: 67 Respirations: 18 Pulse Ox (%): 93 - Physical Exam General: Alert, In no apparent distress HEENT: Atraumatic, PERRLA, EOMI Neck: Supple, JVD not distended Respiratory: Clear to auscultation bilaterally, Normal air movement Cardiovascular: Regular rate/rhythm, Normal S1 S2 Gastrointestinal: Normal bowel sounds, No tenderness Musculoskeletal: No tenderness Integumentary: No rashes Neurological: Normal speech, Normal tone, Normal affect Lymphatics: No axilla or inguinal lymphadenopathy - Studies Microbiology Data (last 24 hrs): 11/13/24 16:49 Blood - Blood Gram Stain - Final Medications List Reviewed: Yes Assessment And Plan - Current Problems (Diagnosis) (1) Acute on chronic diastolic heart failure Current Visit: Yes Status: Acute Plan: Patient echo shows normal filling pressure with normal LV function and grade I DD stop IV Lasix switch to lasix 40 mg po daily add Spironlactone 25 mg daily continue lisinopril 20 mg daily continue Toprol XL 25 mg daily continue to monitor input and output and electrolytes (2) Hyperlipidemia Current Visit: No Status: Acute Plan: Lipitor 20 mg daily re check lipid panel in 8 weeks. Qualifiers: Hyperlipidemia type: pure hypercholesterolemia (3) Coronary artery disease Onset Date: 03/25/16 Current Visit: No Status: Chronic Plan: stable, patient with no chest pain, troponin negative. continue ASA 81 mg daily, Plavix Lipitor 20 mg daily (4) Hypertension Onset Date: 03/25/16 Current Visit: No Status: Chronic
[2024-11-15] MEDS: predniSONE 20 MG TAB PO SCH (20:16)
[2024-11-15 23:40] VITALS: BMI 30.9
[2024-11-16] MEDS: VANCOMYCIN 1.5 GM in NA CHLORIDE 0.9% 500 ML IVPB SCH (05:13)
[2024-11-16 06:44] LABS: Absolute Lymphocytes (CBC) 1.7 K/uL (0.7-4.9); Absolute Monocytes 0.8 K/uL (0.1-1.3); Absolute Neutrophil 14.2 K/uL (1.8-8.0); Basophils % 0.2 % (0-1.3); Hematocrit 43.2 % (39.6-49.0); Hemoglobin 15.4 g/dL (13.6-17.9); Lymphocytes % 9.9 % (15.3-44.8); MCH 31.4 pg (27.0-35.0); MCHC 35.6 g/dL (32.0-36.0); MCV 88.2 fL (80-100); MPV 8.2 fL (7.6-11.3); Neutrophils % 84.9 % (41.7-73.7); Nucleated Red Blood Cells % 0.1 % (0-0); Platelets 221 thou/uL (152-406)
[2024-11-16 06:48] LABS: Anion Gap 11.6 mEq/L (5.0-15.0); Magnesium 2.1 mg/dL (1.6-2.4); Potassium 3.6 mEq/L (3.5-5.1)
[2024-11-16 09:07] VITALS: BP 139/68; TEMP 97.6
[2024-11-16] MEDS: POTASSIUM CL SA 10 MEQ TAB PO ONE (09:26)
[2024-11-16] MEDS: FUROSEMIDE 40 MG TABLET PO SCH (09:26)
[2024-11-16 11:21] VITALS: O2SAT 91
--- NOTE | 2024-11-16 12:31 | P.DS ---
Admission Date: 11/13/24 Discharge Date: 11/16/24 Disposition: ROUTINE DISCHARGE Discharge Condition: GOOD Reason for Admission: SOB Consultations: Cardiology - Dr. Looney Brief History of Present Illness: 69yo M, PMH: hypertension, hyperlipidemia, CAD status post stents, peripheral artery disease and history of COPD Patient presented to ER with shortness of breath. He started having shortness of breath and upper respiratory tract symptoms associated with cough which is nonproductive.. Patient reports that he has difficulty breathing with ambulation and cough that started today.. Associated with nausea but no vomiting. No sick contacts. Denies any fever or chills. Associated with generalized weakness. Patient is still has mild headache and generalized weakness. Patient was assessed in the ER and is admitted for further management of possible COPD exacerbation/ CHF Hospital Course: Problem List: Acute on chronic COPD exacerbation Acute infective bronchitis Acute on Chronic diastolic CHF Hx CAD s/p PCI Hypertension Physician discharge instructions: Patient presented with worsening shortness of breath, non-productive cough, secondary to combination acute on chronic COPD/CHF exacerbations further exacerbated by acute viral bronchitis. Chest xray on admission noted nonspecific peribronchial thickening without focal consolidation concerning for possible viral infection/bronchitis. Echocardiogram with normal 60-65%EF, normal wall motion, grade 1 diastolic dysfunction. Patient was given empiric antibiotics, steroids, nebs in addition to IV lasix and had improvement of his symptoms. He required oxygen supplementation for 1-2 days, off oxygen since 11/15 morning. He completed 3 days of IV azithromycin and will be discharged with 5 days of levaquin . Steroids and lasix were deescalated from IV to oral and patient continued to improve. Dr. Looney, center rep recommended patient continuing on a low dose lasix 20 mg daily on discharge to help with diastolic dysfunction. Patient was feeling better close to his normal self, breathing more comfortably on room air, cough improved, and felt ready to go home and continue to improve on day of discharge. Blood cultures were obtained in the ED - incidentally noted to grow Staph Coagulase Negative in 1/4 bottles, which is felt to be a contaminated specimen. No evidence of true bacterial infection. Patient remained afebrile throughout hospitalization. He was noted to have a leukocytosis throughout hospitalization secondary to IV steroids. Recommend repeat Blood work in ~1 week to monitor CBC/WBC. Medications: Lasix 20 mg daily Levaquin 750mg daily x 5 days Continue other home medications as previously prescribed. No change in blood pressure medications. Follow up: PCP 3-5 days Cardiology 2-4 weeks Pulmonology 2-4 weeks Please call to schedule / confirm appointments Physical Exam: GEN: Alert, oriented CV: Regular rate and rhythm, no edema Pulm: non labored respirations on room air, clear bilaterally ABD: soft, nontender, nondistended Vital Signs/Physical Exam: Temp Pulse Resp BP Pulse Ox 97.6 F 60 20 139/68 95 11/16/24 08:00 11/16/24 08:00 11/16/24 08:00 11/16/24 08:00 11/16/24 08:00 Laboratory Data at Discharge: WBC 16.70 thou/uL (4.3-10.9) H 11/16/24 05:55 Hgb 15.4 g/dL (13.6-17.9) 11/16/24 05:55 Hct 43.2 % (39.6-49.0) 11/16/24 05:55 Plt Count 221 thou/uL (152-406) 11/16/24 05:55 Sodium 135 mEq/L (136-145) L 11/16/24 05:55 Potassium 3.6 mEq/L (3.5-5.1) 11/16/24 05:55 BUN 33 mg/dL (7-18) H 11/16/24 05:55 Creatinine 1.16 mg/dL (0.70-1.30) 11/16/24 05:55 Glucose 137 mg/dL (74-106) H 11/16/24 05:55 Magnesium 2.1 mg/dL (1.6-2.4) 11/16/24 05:55 Total Bilirubin 0.8 mg/dL (0.2-1.0) 11/14/24 06:37 AST 18 U/L (15-37) 11/14/24 06:37 ALT 20 U/L (16-61) 11/14/24 06:37 Alkaline Phosphatase 127 U/L (45-117) H 11/14/24 06:37 Triglycerides 188 mg/dL (<150) H 11/15/24 05:32 Cholesterol 132 mg/dL (<200) 11/15/24 05:32 HDL Cholesterol 32 mg/dL (40-60) L 11/15/24 05:32 Cholesterol/HDL Ratio 4.13 11/15/24 05:32 Home Medications: Aspirin [Aspirin EC 81 MG] 81 mg PO DAILY #90 tablet. 03/25/16 Albuterol Inhaler [Ventolin Inhaler*] 1 puff IH Q4HP PRN 12/03/20 Amlodipine [Norvasc*] 10 mg PO DAILY 12/03/20 Atorvastatin Calcium [Lipitor*] 20 mg PO BEDTIME 12/03/20 Clopidogrel Bisulfate [Plavix*] 75 mg PO DAILY 12/03/20 Gabapentin 300 mg PO BID 12/03/20 Acetaminophen with Codeine [Acetaminophen-Cod #3 Tablet] 1 tab PO Q6HR PRN 11/13/24 Cetirizine HCl [All Day Allergy] 10 mg PO DAILY PRN 11/13/24 Fluticasone/Umeclidin/Vilanter [Trelegy Ellipta 100-62.5-25] 1 puff IN DAILY 11/13/24 Ibuprofen 800 mg PO TID PRN 11/13/24 Lisinopril/Hydrochlorothiazide [Lisinopril-Hctz 20-12.5 mg Tab] 1 tab PO DAILY 11/13/24 Metoprolol Succinate [Toprol Xl] 25 mg PO DAILY 11/13/24 Furosemide [Lasix] 20 mg PO DAILY 30 Days #30 tab 11/16/24 levoFLOXacin [Levaquin] 750 mg PO DAILY 5 Days #5 tab 11/16/24 predniSONE [Prednisone*] 20 mg PO BID 5 Days #10 tab 11/16/24 New Medications: Furosemide [Lasix] 20 mg PO DAILY 30 Days #30 tab levoFLOXacin [Levaquin] 750 mg PO DAILY 5 Days #5 tab predniSONE [Prednisone*] 20 mg PO BID 5 Days #10 tab Physician Discharge Instructions: Physician discharge instructions: Patient presented with worsening shortness of breath, non-productive cough, secondary to combination acute on chronic COPD/CHF exacerbations further exacerbated by acute viral bronchitis. Chest xray on admission noted nonspecific peribronchial thickening without focal consolidation concerning for possible viral infection/bronchitis. Echocardiogram with normal 60-65%EF, normal wall motion, grade 1 diastolic dysfunction. Patient was given empiric antibiotics, steroids, nebs in addition to IV lasix an d had improvement of his symptoms. He required oxygen supplementation for 1-2 days, off oxygen since 11/15 morning. He completed 3 days of IV azithromycin and will be discharged with 5 days of levaquin . Steroids and lasix were deescalated from IV to oral and patient continued to improve. Dr. Looney, center rep recommended patient continuing on a low dose lasix 20 mg daily on discharge to help with diastolic dysfunction. Patient was feeling better close to his normal self, breathing more comfortably on room air, cough improved, and felt ready to go home and continue to improve on day of discharge. Blood cultures were obtained in the ED - incidentally noted to grow Staph Coagulase Negative in 1/4 bottles, which is felt to be a contaminated specimen. No evidence of true bacterial infection. Patient remained afebrile throughout hospitalization. He was noted to have a leukocytosis throughout hospitalization secondary to IV steroids. Recommend repeat Blood work in ~1 week to monitor CBC/WBC. Medications: Lasix 20 mg daily Levaquin 750mg daily x 5 days Continue other home medications as previously prescribed. No change in blood pressure medications. Follow up: PCP 3-5 days Cardiology 2-4 weeks Pulmonology 2-4 weeks Please call to schedule / confirm appointments Followup: NONE,NONE [Primary Care Provider] - Time spent managing pt's care (in minutes): 45
== END 2024-11-16 12:33 | disposition home or self-care (01) | DRG 291 ==
LOC: ER 16:19 → ERHOLD 18:40 → 2ND 19:50
PROVIDERS: ADMIT Family Medicine; ATTEND Hospitalist
DX: I11.0 Hypertensive heart disease with heart failure (principal); I50.33 Acute on chronic diastolic (congestive) heart failure; J44.1 Chronic obstructive pulmonary disease with (acute) exacerbation; J44.0 Chronic obstructive pulmonary disease with (acute) lower respiratory infection; J20.9 Acute bronchitis, unspecified; E78.00 Pure hypercholesterolemia, unspecified; I25.10 Atherosclerotic heart disease of native coronary artery without angina pectoris; I25.2 Old myocardial infarction; Z88.0 Allergy status to penicillin; Z95.5 Presence of coronary angioplasty implant and graft; Z11.52 Encounter for screening for COVID-19; Z79.02 Long term (current) use of antithrombotics/antiplatelets; Z87.891 Personal history of nicotine dependence; Z79.82 Long term (current) use of aspirin; Z79.899 Other long term (current) drug therapy
CPT/HCPCS: 36415; 71045; 71046; 80048; 80053; 80061; 82947; 83605; 83735; 83880; 84132; 84484; 85025; 87040; 87077; 87186; 87205; 87426; 87428; 93005; 93306; 94640; 94668; 94760; 96365; 96375; 99285; J1100; J1650; J1938; J2405; J2919; J3370; J7040; J7050; J7512; J7613; J7644